=== PATIENT | female | born 1940 | race Caucasian/White ===

== ENCOUNTER 2018-04-14 12:30 | Inpatient (IN) | payer MEDICARE, BC ==
[2018-04-14] MEDS ORDERED: Acetaminophen 325 MG Tab PO PRN (15:11)
[2018-04-14] MEDS ORDERED: Magnesium Hydroxide 400 MG/5 ML Susp 30 ML Cup PO PRN (15:11)
[2018-04-14] MEDS ORDERED: Nitroglycerin 0.4 MG Tab.SL SL PRN (15:15)
--- NOTE | 2018-04-14 15:29 | PCM.HP ---
H&P History of Present Illness - General Date of Service: 04/14/18 Admit Problem/Dx: Admission Diagnosis/Problem Admission Diagnosis/Problem CHF, Congestive heart failure Source of Information: Patient, Senior Living Records, Provider - History of Present Illness Initial Comments - Free Text/Narative: Stephy Mcguire provider at [facility] clinic called me reporting patient has progressive shortness of breath and 3+ edema. Patient has hx of CHF, Stage 3 kidney disease, COPD, recent left shoulder fracture (end of January 2018). Chest x ray reveals CHF exacerbation. Onset of Symptoms: Reports: Gradual Duration of Symptoms: Reports: Day(s): Improves with: Reports: None Worsens with: Reports: Movement - Related Data Allergies/Adverse Reactions: Allergies Allergy/AdvReac Type Severity Reaction Status Date / Time VIJAYA Inhibitors Allergy Other Verified 03/04/18 12:22 losartan Allergy Cannot Verified 03/05/18 04:18 Remember Home Medications: Home Meds Acetaminophen 1,000 mg PO Q8H 03/04/18 [History] Albuterol [Ventolin HFA] 2 puff INH Q4H PRN 03/04/18 [History] Allopurinol [Zyloprim] 100 mg PO DAILY 03/04/18 [History] Cholecalciferol (Vitamin D3) [D3-2000] 2,000 mg PO DAILY 03/04/18 [History] Fenofibrate Nanocrystallized [Fenofibrate] 145 mg PO DAILY 03/04/18 [History] Furosemide 40 mg PO BID 03/04/18 [History] Gabapentin [Neurontin] 100 mg PO TID 03/04/18 [History] Isosorbide Mononitrate [Imdur] 60 mg PO DAILY 03/04/18 [History] Metoprolol Succinate [Toprol XL] 75 mg PO BID 03/04/18 [History] Nitroglycerin [Nitrostat] 0.4 mg SL ASDIRECTED 03/04/18 [History] Sennosides/Docusate Sodium [Dok Plus Tablet] 1 tab PO BID PRN 03/04/18 [History] Simvastatin 20 mg PO BEDTIME 03/04/18 [History] cloNIDine [Catapres-TTS 3] 1 patch TOP WEEKLY 03/04/18 [History] dilTIAZem HCl [Diltiazem 24Hr Cd] 120 mg PO DAILY 03/04/18 [History] hydrALAZINE HCl [Hydralazine HCl] 100 mg PO TID 03/04/18 [History] oxyCODONE 2.5 mg PO Q4H PRN 03/04/18 [History] Apixaban [Eliquis] 5 mg PO BID 04/14/18 [History] Ascorbate Calcium [Vitamin C] 0.5 tab PO BID 04/14/18 [History] Ferrous Sulfate 1 tab PO BID 04/14/18 [History] Lidocaine [Lidocaine 5%] 1 patch TOP DAILY 04/14/18 [History] Melatonin 3 mg PO BEDTIME 04/14/18 [History] Mometasone/Formoterol [Dulera 200-5 MCG] 2 inh INH BID 04/14/18 [History] Potassium Chloride [Klor-Con 10] 10 meq PO BID 04/14/18 [History] Past Medical History HEENT History: Reports: Cataract, Impaired Vision, Other (See Below) Other HEENT History: Full upper dentures; partial lower dentures Cardiovascular History: Reports: CAD, Heart Failure, High Cholesterol, Hypertension, PA, Other (See Below) Other Cardiovascular History: Carotid artery disease Respiratory History: Reports: COPD, Other (See Below) Other Respiratory History: Oxygen dependent COPD Genitourinary History: Reports: Chronic Renal Insuffiency, Urinary Incontinence [employer] History: Reports: Musculoskeletal History: Reports: Arthritis, Fracture, Gout, Osteoarthritis, Other (See Below) Other Musculoskeletal History: Left humerus fracture, left pelvic ramus fx both without surgical repair Neurological History: Reports: CVA Endocrine/Metabolic History: Reports: Vitamin D Deficiency Hematologic History: Reports: Anemia Dermatologic History: Reports: Other (See Below) Other Dermatologic History: Chronic dry, 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 - Infectious Disease History Infectious Disease History: Reports: Measles, Mumps - Past Surgical History Cardiovascular Surgical History: Reports: Carotid Endarterectomy, Coronary Artery Stent Female Surgical History: Reports: Breast Biopsy, Other (See Below) Other Female Surgeries/Procedures: Lumpectomy Social & Family History - Family History HEENT: Reports: Impaired Vision Cardiac: Reports: High Cholesterol, Hypertension Respiratory: Reports: Asthma Other GI Family History: colon cancer-mother Musculoskeletal: Reports: Arthritis, Osteoarthritis Psychiatric: Reports: None Endocrine/Metabolic: Reports: Diabetes, type II Hematologic: Reports: Anemia Other Hematologic Family History: leukemia-sister Immunologic: Reports: None Dermatologic: Reports: None Oncologic: Reports: Leukemia - Caffeine Use Caffeine Use: Reports: None H&P Review of Systems - Review of Systems: Review Of Systems: See Below General: Reports: Weakness, Fatigue HEENT: Reports: No Symptoms Pulmonary: Reports: Shortness of Breath, Wheezing Cardiovascular: Reports: Dyspnea on Exertion. Denies: Chest Pain, Palpitations Gastrointestinal: Reports: No Symptoms Genitourinary: Reports: No Symptoms Musculoskeletal: Reports: Shoulder Pain (shoulder pain- recent fracture at end of January 2018. Currently in an immobilizer) Skin: Reports: No Symptoms Psychiatric: Reports: No Symptoms Neurological: Reports: No Symptoms Hematologic/Lymphatic: Reports: No Symptoms Immunologic: Reports: No Symptoms Exam - Exam Exam: See Below - Vital Signs Vital Signs: Last Vital Signs Temp 97.9 F 04/14/18 14:08 Pulse 57 L 04/14/18 14:08 Resp 21 H 04/14/18 14:08 BP 151/45 H 04/14/18 14:08 Pulse Ox 92 L 04/14/18 14:08 Weight: 163 lb 12.8 oz - Exam Quality Assessment: Supplemental Oxygen General: Alert, Oriented, 4 HEENT: PERRLA, Hearing Intact, Mucosa Moist & [place], Nares Patent, Normal Nasal Septum, Posterior Pharynx Clear, Conjunctiva Clear, EOMI, EACs Clear, TMs Clear Neck: Supple, Trachea Midline, 2 Lungs: Decreased Breath Sounds, Rales (bilateral), Wheezing Cardiovascular: Regular Rate, Regular Rhythm. No: Tachycardia GI/Abdominal Exam: Normal Bowel Sounds, Soft, Tender (on right side) (Female) Exam: Deferred Rectal (Female) Exam: Deferred Extremities: Normal Inspection, Normal Range of Motion, Non-Tender, Arm Pain ( Left arm shoulder- fracture in January 2018; currently in an immobilizer), Other (Edema 3+ bilateral, SCDs ordered ; remove JUDI hose. ) Skin: Warm, Dry, Intact Psychiatric: Alert, Normal Affect, Normal Mood - Problem List (1) Humerus surgical neck fracture SNOMED Code(s): 874274693 ICD Code: S42.213A - UNSP DISP FX OF SURGICAL NECK OF UNSP HUMERUS, INIT Status: Acute Priority: High Current Visit: No Problem Details: Currently in immobilizer. Stable. Pain meds PRN. Fracture from January 2018. Qualifiers: Encounter type: subsequent encounter Fracture type: closed Fracture morphology: unspecified fracture morphology Fracture alignment: displaced Laterality: left Fracture healing: with routine healing (2) CKD (chronic kidney disease) stage 3, GFR 30-59 ml/min SNOMED Code(s): 482522986 ICD Code: N18.3 - CHRONIC KIDNEY DISEASE, STAGE 3 (MODERATE) Status: Acute Priority: Medium Current Visit: No (3) CHF (congestive heart failure) SNOMED Code(s): 55858454 ICD Code: I50.9 - HEART FAILURE, UNSPECIFIED Status: Acute Priority: Medium Current Visit: No Problem Details: Lasix IV ordered BID. Strict intake and output. Qualifiers: Heart failure type: combined systolic and diastolic Heart failure chronicity: acute on chronic Qualified Code(s): I50.43 - Acute on chronic combined systolic (congestive) and diastolic (congestive) heart failure (4) Anemia SNOMED Code(s): 662738399 ICD Code: D64.9 - ANEMIA, UNSPECIFIED Status: Acute Priority: High Current Visit: No Problem Details: Chronic and Stable. Qualifiers: Anemia type: due to chronic kidney disease Chronic kidney disease stage: stage 3 (moderate) Qualified Code(s): N18.3 - Chronic kidney disease, stage 3 (moderate); D63.1 - Anemia in chronic kidney disease (5) Shortness of breath SNOMED Code(s): 438606133 ICD Code: R06.02 - SHORTNESS OF BREATH Status: Acute Priority: High Current Visit: No Onset Date: 03/21/18 Problem Details: Feel this is related to CHF. Chest x ray revealed CHF exacerbation. Will diurese patient. Problem List Initiated/Reviewed/Updated: Yes Orders Last 24hrs: Active Orders 24 hr Category Date Time Status Admission Status [Patient Status] [ADT] Routine ADT 04/14/18 13:50 Active Communication Order [RC] STAT Care 04/14/18 15:18 Ordered Communication, Vaccine [RC] PER UNIT ROUTINE Care 04/14/18 15:14 Ordered Espinoza Catheter Insertion [Insert Urinary Catheter] [OM. Care 04/14/18 15:30 Ordered PC] Q24H Height and Weight [RC] DAILY Care 04/14/18 15:11 Ordered Height and Weight [RC] UPON Care 04/14/18 15:11 Ordered Immobilizer [RC] ASDIRECTED Care 04/14/18 15:22 Ordered Intake and Output [RC] QSHIFT Care 04/14/18 15:13 Ordered Up With Assistance [RC] ASDIRECTED Care 04/14/18 15:11 Ordered Urinary Catheter Assessment [RC] ASDIRECTED Care 04/14/18 15:23 Ordered Vaccines to be Administered [RC] PER UNIT ROUTINE Care 04/14/18 15:14 Ordered Vital Signs [RC] Q8HR Care 04/14/18 15:12 Ordered Heart Healthy Diet [DIET] Diet 04/14/18 Dinner Ordered Chest 2V [CR] Routine Exams 04/14/18 12:20 Taken Chest 2V [CR] Routine Exams 04/16/18 05:11 Ordered CBC WITH AUTO DIFF [HEME] AM Lab 04/15/18 05:11 Ordered CBC WITH AUTO DIFF [HEME] AM Lab 04/16/18 05:11 Ordered CBC WITH AUTO DIFF [HEME] AM Lab 04/17/18 05:11 Ordered COMPREHENSIVE METABOLIC PN,CMP [CHEM] DAILY Lab 04/15/18 05:11 Ordered COMPREHENSIVE METABOLIC PN,CMP [CHEM] DAILY Lab 04/16/18 05:11 Ordered COMPREHENSIVE METABOLIC PN,CMP [CHEM] DAILY Lab 04/17/18 05:11 Ordered D-DIMER QUANTITATIVE [COAG] Routine Lab 04/15/18 05:11 Ordered PRO B-TYPE NATRIUR PEPT,BNPPRO [CHEM] DAILY Lab 04/15/18 05:11 Ordered Acetaminophen [Tylenol Extra Strength] Med 04/14/18 15:15 Ordered 1,000 mg PO Q8H Albuterol Med 04/14/18 15:15 Ordered 2 puff INH Q4H PRN Apixaban [Eliquis] Med 04/14/18 18:00 Ordered 5 mg PO BID Ascorbate Calcium [Vitamin C] Med 04/14/18 18:00 Ordered 0.5 tab PO BID Cholecalciferol (Vitamin D3) [D3-2000] Med 04/15/18 08:00 Ordered 2,000 mg PO DAILY Diltiazem [Cardizem CD] Med 04/15/18 08:00 Ordered 120 mg PO DAILY Docusate Sodium/Sennosides [Senna Plus] Med 04/14/18 15:15 Ordered 1 tab PO BID PRN Fenofibrate Nanocrystallized [Fenofibrate] Med 04/15/18 08:00 Ordered 145 mg PO DAILY Ferrous Sulfate Med 04/14/18 18:00 Ordered 1 tab PO BID Furosemide [Lasix] Med 04/14/18 16:00 Ordered 40 mg IVPUSH BID Gabapentin [Neurontin] Med 04/14/18 18:00 Ordered 100 mg PO TID Isosorbide Mononitrate [Imdur] Med 04/15/18 08:00 Ordered 60 mg PO DAILY Lidocaine 5% [Lidoderm 5%] Med 04/15/18 08:00 Ordered 1 patch TOP DAILY Magnesium Hydroxide [Milk of Magnesia] Med 04/14/18 15:11 Ordered 30 ml PO BID PRN Melatonin Med 04/14/18 20:00 Ordered 3 mg PO BEDTIME Metoprolol Succinate [Toprol XL] Med 04/14/18 18:00 Ordered 75 mg PO BID Mometasone/Formoterol [Dulera 200-5 MCG] Med 04/14/18 18:00 Ordered 2 puff IH BID Nitroglycerin [Nitrostat] Med 04/14/18 15:15 Ordered 0.4 mg SL ASDIRECTED Potassium Chloride [Klor-Con 10] Med 04/14/18 18:00 Ordered 10 meq PO BID Simvastatin [Zocor] Med 04/14/18 20:00 Ordered 20 mg PO BEDTIME cloNIDine Med 04/14/18 15:15 Ordered 1 patch TOP WEEKLY hydrALAZINE HCl [Hydralazine HCl] Med 04/14/18 18:00 Ordered 100 mg PO TID oxyCODONE Med 04/14/18 15:15 Ordered 2.5 mg PO Q4H PRN GM Immunization Reflex [OM.PC] Click To Edit Oth 04/14/18 15:11 Ordered Sequential Compression Device [OM.PC] Routine Oth 04/14/18 15:18 Ordered Resuscitation Status Routine Resus Stat 04/14/18 15:11 Ordered Medication Orders Acetaminophen (Tylenol Extra Strength) 1,000 mg PO Q8H [facility] Apixaban (Eliquis) 5 mg PO BID [facility] Diltiazem HCl (Cardizem Cd) 120 mg PO DAILY [facility] Ferrous Sulfate (Ferrous Sulfate) mg PO BID [facility] Furosemide (Lasix) 40 mg IVPUSH BID [facility] Gabapentin (Neurontin) 100 mg PO TID [facility] Isosorbide Mononitrate (Imdur) 60 mg PO DAILY [facility] Lidocaine (Lidoderm 5%) mg TOP DAILY [facility] Magnesium Hydroxide (Milk Of Magnesia) 30 ml PO BID PRN PRN Reason: Constipation Melatonin (Melatonin) 3 mg PO BEDTIME [facility] Metoprolol Succinate (Toprol Xl) 75 mg PO BID [facility] Mometasone Furoate/Formoterol Fumar (Dulera 200-5 Mcg) 2 puff IH BID [facility] Nitroglycerin (Nitrostat) 0.4 mg SL ASDIRECTED [facility] Non-Formulary Medication (Albuterol) 2 puff INH Q4H PRN PRN Reason: Wheezing Non-Formulary Medication (Ascorbate Calcium [Vitamin C]) 0.5 tab PO BID [facility] Non-Formulary Medication (Cholecalciferol (Vitamin D3) [D3-2000]) 2,000 mg PO DAILY [facility] Non-Formulary Medication (Clonidine) 1 patch TOP WEEKLY [facility] Non-Formulary Medication (Fenofibrate Nanocrystallized [Fenofibrate]) 145 mg PO DAILY [facility] Non-Formulary Medication (Hydralazine Hcl [Hydralazine Hcl]) 100 mg PO TID [facility] Oxycodone HCl (Oxycodone) 2.5 mg PO Q4H PRN PRN Reason: Pain Potassium Chloride (Klor-Con 10) 10 meq PO BID [facility] Senna/Docusate Sodium (Senna Plus) 1 tab PO BID PRN PRN Reason: Constipation Simvastatin (Zocor) 20 mg PO BEDTIME [facility]
[2018-04-14] MEDS ORDERED: Albuterol 8 GM Inhaler INH PRN (15:48)
[2018-04-14] MEDS: Acetaminophen 500 MG Tab PO SCH (16:32)
[2018-04-14] MEDS: Furosemide 40 MG/4 ML VIAL IVPUSH SCH (16:32)
[2018-04-14] MEDS: Ascorbic Acid 500 MG Tab PO SCH (17:18)
[2018-04-14] MEDS: Metoprolol Succinate 25 MG Tab.ER PO SCH (17:19)
[2018-04-14] MEDS: hydrALAZINE 50 MG Tab PO SCH (17:19)
[2018-04-14] MEDS: Potassium Chloride 10 MEQ Tab.ER PO SCH (17:20)
[2018-04-14] MEDS: Gabapentin 100 MG Cap PO SCH (17:20)
[2018-04-14] MEDS: Formoterol/Mometasone 200-5 MCG 8.8 GM Inhaler IH SCH (17:20)
[2018-04-14] MEDS: Apixaban 5 MG Tab PO SCH (17:20)
[2018-04-14] MEDS: Ferrous Sulfate 325 MG Tab PO SCH (17:20)
[2018-04-14] MEDS: Simvastatin 20 MG Tab PO SCH (20:13)
[2018-04-14] MEDS: Melatonin 3 MG Tab PO SCH (20:13)
[2018-04-15] MEDS: Acetaminophen 500 MG Tab PO SCH ×3 (02:53→15:47)
[2018-04-15] MEDS: hydrALAZINE 50 MG Tab PO SCH ×3 (08:32→17:58)
[2018-04-15] MEDS: Ferrous Sulfate 325 MG Tab PO SCH ×2 (08:32→17:50)
[2018-04-15] MEDS: Diltiazem 120 MG Cap.CD PO SCH (08:33)
[2018-04-15] MEDS: Formoterol/Mometasone 200-5 MCG 8.8 GM Inhaler IH SCH ×2 (08:33→17:48)
[2018-04-15] MEDS: Potassium Chloride 10 MEQ Tab.ER PO SCH ×2 (08:34→17:50)
[2018-04-15] MEDS: Isosorbide Mononitrate 60 MG Tab.ER PO SCH (08:34)
[2018-04-15] MEDS: Fenofibrate,Micronized 134 MG Cap PO SCH (08:34)
[2018-04-15] MEDS: Apixaban 5 MG Tab PO SCH ×2 (08:34→17:49)
[2018-04-15] MEDS: Metoprolol Succinate 25 MG Tab.ER PO SCH ×2 (08:35→17:59)
[2018-04-15] MEDS: Furosemide 40 MG/4 ML VIAL IVPUSH SCH ×2 (08:35→11:44)
[2018-04-15] MEDS: Gabapentin 100 MG Cap PO SCH ×3 (08:35→17:49)
[2018-04-15] MEDS: Cholecalciferol (Vitamin D3) 1,000 Unit Tab PO SCH (08:36)
[2018-04-15] MEDS: Ascorbic Acid 500 MG Tab PO SCH ×2 (08:36→17:50)
[2018-04-15] MEDS: Lidocaine 5% 700 MG Patch TOP SCH (08:37)
[2018-04-15] MEDS: Sodium Chloride 0.9% 10 ML Syringe FLUSH PRN ×2 (08:39→11:47)
[2018-04-15] MEDS: Lidocaine 5% 700 MG Patch TRDERM SCH (11:45)
--- NOTE | 2018-04-15 13:21 | PCM.PN ---
- General Info Date of Service: 04/15/18 - Review of Systems General: Reports: Weakness, Fatigue HEENT: Reports: No Symptoms Pulmonary: Reports: Shortness of Breath Cardiovascular: Reports: No Symptoms Gastrointestinal: Reports: No Symptoms Genitourinary: Reports: No Symptoms Musculoskeletal: Reports: Shoulder Pain (left shoulder) Skin: Reports: No Symptoms Neurological: Reports: No Symptoms Psychiatric: Reports: No Symptoms - Patient Data Vitals - Most Recent: Last Vital Signs Temp 98.2 F 04/15/18 08:00 Pulse 69 04/15/18 08:35 Resp 16 04/15/18 08:00 BP 142/63 H 04/15/18 11:45 Pulse Ox 93 L 04/15/18 08:00 Weight - Most Recent: 157 lb 12.8 oz I&O - Last 24 Hours: Intake & Output 04/14/18 04/15/18 04/15/18 22:59 06:59 14:59 Intake Total 240 300 100 Output Total 650 900 Balance -410 -600 100 Lab Results Last 24 Hours: Laboratory Results - last 24 hr 04/15/18 04/15/18 04/15/18 Range/Units 07:20 07:20 07:20 WBC 7.1 (4.0-10.2) K/uL RBC 2.63 L (3.77-5.09) M/uL Hgb 7.6 L (11.7-15.5) g/dL Hct 25.2 L (34.0-46.0) % MCV 95.8 D (84.0-98.0) fL MCH 28.9 (28.2-33.3) pg MCHC 30.2 L (31.7-36.0) g/dL RDW 15.5 H (11.2-14.1) % Plt Count 221 (150-350) K/uL Neut % (Auto) 70.7 (45.0-80.0) % Lymph % (Auto) 18.6 (10.0-50.0) % [place] % (Auto) 8.7 (2.0-14.0) % Eos % (Auto) 1.7 (0.0-5.0) % Baso % (Auto) 0.3 (0.0-2.0) % Neut # (Auto) 5.01 (1.40-7.00) K/uL Lymph # (Auto) 1.32 (0.50-3.50) K/uL [place] # (Auto) 0.62 (0.00-1.00) K/uL Eos # (Auto) 0.12 (0.00-0.50) K/uL Baso # (Auto) 0.02 (0.00-0.20) K/uL D-Dimer, Quantitative 1200 H (0-400) ng/mL Sodium 144 (136-145) mmol/L Potassium 3.8 (3.5-5.1) mmol/L Chloride 99 (98-107) mmol/L Carbon Dioxide 40.7 H* (21.0-32.0) mmol/L BUN 59 H (7-18) mg/dL Creatinine 1.51 H (0.51-1.17) mg/dL Est Cr Clr Drug Dosing 26.51 mL/min Estimated GFR (MDRD) 33 mL/min Glucose 109 H (74-106) mg/dL Calcium 9.3 (8.5-10.1) mg/dL Total Bilirubin 0.4 (0.2-1.0) mg/dL AST 80 H (15-37) U/L ALT 61 (12-78) U/L Alkaline Phosphatase 53 (46-116) IU/L NT-Pro-B Natriuret Pep 7233 H (0-125) pg/mL Total Protein 6.1 L (6.4-8.2) g/dL Albumin 2.8 L (3.4-5.0) g/dL Med Orders - Current: Current Medications Acetaminophen (Tylenol Extra Strength) 1,000 mg PO Q8HR [facility] Last Admin: 04/15/18 08:36 Dose: 1,000 mg Albuterol (Ventolin Hfa) 0 gm INH Q4H PRN PRN Reason: Wheezing Apixaban (Eliquis) 5 mg PO BID [facility] Last Admin: 04/15/18 08:34 Dose: 5 mg Ascorbic Acid (Vitamin C) 250 mg PO BID [facility] Last Admin: 04/15/18 08:36 Dose: 250 mg Cholecalciferol (Vitamin D3) 2,000 units PO DAILY [facility] Last Admin: 04/15/18 08:36 Dose: 2,000 units Diltiazem HCl (Cardizem Cd) 120 mg PO DAILY [facility] Last Admin: 04/15/18 08:33 Dose: 120 mg Fenofibrate (Fenofibrate) 134 mg PO DAILY [facility] Last Admin: 04/15/18 08:34 Dose: 134 mg Ferrous Sulfate (Ferrous Sulfate) 325 mg PO BIDMEALS [facility] Last Admin: 04/15/18 08:32 Dose: 325 mg Furosemide (Lasix) 40 mg IVPUSH BIDDIURETIC [facility] Last Admin: 04/15/18 11:44 Dose: 40 mg Gabapentin (Neurontin) 100 mg PO TID [facility] Last Admin: 04/15/18 11:45 Dose: 100 mg Hydralazine HCl (Apresoline) 100 mg PO TID [facility] Last Admin: 04/15/18 11:45 Dose: 100 mg Isosorbide Mononitrate (Imdur) 60 mg PO DAILY [facility] Last Admin: 04/15/18 08:34 Dose: 60 mg Lidocaine (Lidoderm 5%) 700 mg TOP DAILY [facility] Last Admin: 04/15/18 08:37 Dose: 700 mg Lidocaine (Lidoderm 5%) 700 mg TRDERM DAILY [facility] Last Admin: 04/15/18 11:45 Dose: 700 mg Magnesium Hydroxide (Milk Of Magnesia) 30 ml PO BID PRN PRN Reason: Constipation Melatonin (Melatonin) 3 mg PO BEDTIME [facility] Last Admin: 04/14/18 20:13 Dose: 3 mg Metoprolol Succinate (Toprol Xl) 75 mg PO BID [facility] Last Admin: 04/15/18 08:35 Dose: 75 mg Miscellaneous Information (Remove Patch) 1 ea TRDERM BEDTIME [facility] Last Admin: 04/14/18 20:14 Dose: Not Given Miscellaneous Information (Remove Patch) 1 ea TRDERM BEDTIME [facility] Mometasone Furoate/Formoterol Fumar (Dulera 200-5 Mcg) 2 puff IH BID [facility] Last Admin: 04/15/18 08:33 Dose: 2 puff Nitroglycerin (Nitrostat) 0.4 mg SL ASDIRECTED PRN PRN Reason: Chest Pain Clonidine 0.3mg/24hr (Patch) 1 patch TOP Sa@0800 [facility] Oxycodone HCl (Oxycodone) 2.5 mg PO Q4H PRN PRN Reason: Pain Potassium Chloride (Klor-Con 10) 10 meq PO BID [facility] Last Admin: 04/15/18 08:34 Dose: 10 meq Senna/Docusate Sodium (Senna Plus) 1 tab PO BID PRN PRN Reason: Constipation Last Admin: 04/14/18 17:20 Dose: 1 tab Simvastatin (Zocor) 20 mg PO BEDTIME [facility] Last Admin: 04/14/18 20:13 Dose: 20 mg Sodium Chloride (Saline Flush) 10 ml FLUSH ASDIRECTED PRN PRN Reason: Keep Vein Open Last Admin: 04/15/18 11:47 Dose: 10 ml Discontinued Medications Acetaminophen (Tylenol) 650 mg PO Q4H PRN PRN Reason: analgesia/fever - Exam General: Alert, Oriented HEENT: Pupils Equal, Pupils Reactive, EOMI, Mucous Membr. Moist/[place] Neck: Supple Lungs: Clear to Auscultation, Normal Respiratory Effort Cardiovascular: Regular Rate, Regular Rhythm GI/Abdominal Exam: Normal Bowel Sounds, Soft, Non-Tender, No Organomegaly, No Distention, No Abnormal Bruit, No Mass, Pelvis Stable. No: Tender (Female) Exam: Deferred Back Exam: Normal Inspection, Full Range of Motion Extremities: Pedal Edema (improving 1+ ) Skin: Warm, Dry, Intact Neurological: No New Focal Deficit Psy/Mental Status: Alert, Normal Affect, Normal Mood - Problem List & Annotations (1) Humerus surgical neck fracture SNOMED Code(s): 711510427 Code(s): S42.213A - UNSP DISP FX OF SURGICAL NECK OF UNSP HUMERUS, INIT Status: Acute Priority: High Current Visit: No Qualifiers: Encounter type: subsequent encounter Fracture type: closed Fracture morphology: unspecified fracture morphology Fracture alignment: displaced Laterality: left Fracture healing: with routine healing Annotation/Comment:: Currently in immobilizer. Stable. Pain meds PRN. Fracture from January 2018. (2) CKD (chronic kidney disease) stage 3, GFR 30-59 ml/min SNOMED Code(s): 587743330 Code(s): N18.3 - CHRONIC KIDNEY DISEASE, STAGE 3 (MODERATE) Status: Acute Priority: Medium Current Visit: No (3) CHF (congestive heart failure) SNOMED Code(s): 13292416 Code(s): I50.9 - HEART FAILURE, UNSPECIFIED Status: Acute Priority: Medium Current Visit: No Qualifiers: Heart failure type: combined systolic and diastolic Heart failure chronicity: acute on chronic Qualified Code(s): I50.43 - Acute on chronic combined systolic (congestive) and diastolic (congestive) heart failure Annotation/Comment:: Lasix IV ordered BID. Strict intake and output. 04-15-18- Patient reports doing better. Will continue diuresis. Chest X ray in AM. (4) Anemia SNOMED Code(s): 643246032 Code(s): D64.9 - ANEMIA, UNSPECIFIED Status: Acute Priority: High Current Visit: No Qualifiers: Anemia type: due to chronic kidney disease Chronic kidney disease stage: stage 3 (moderate) Qualified Code(s): N18.3 - Chronic kidney disease, stage 3 (moderate); D63.1 - Anemia in chronic kidney disease Annotation/Comment:: Chronic and Stable. (5) Shortness of breath SNOMED Code(s): 945190016 Code(s): R06.02 - SHORTNESS OF BREATH Status: Acute Priority: High Current Visit: No Onset Date: 03/21/18 Annotation/Comment:: Feel this is related to CHF. Chest x ray revealed CHF exacerbation. Will diurese patient. 04-15-18- Improving; will order chest x ray in the morning - Problem List Review Problem List Initiated/Reviewed/Updated: Yes - My Orders Last 24 Hours: My Active Orders 04/14/18 13:50 Admission Status [Patient Status] [ADT] Routine 04/14/18 15:11 Height and Weight [RC] DAILY Up With Assistance [RC] ASDIRECTED Magnesium Hydroxide [Milk of Magnesia] 30 ml PO BID PRN GM Immunization Reflex [OM.PC] Click To Edit Resuscitation Status Routine 04/14/18 15:12 Vital Signs [RC] 08,16,00 04/14/18 15:13 Intake and Output [RC] 06,14,04/14/18 15:15 Docusate Sodium/Sennosides [Senna Plus] 1 tab PO BID PRN Nitroglycerin [Nitrostat] 0.4 mg SL ASDIRECTED PRN oxyCODONE 2.5 mg PO Q4H PRN 04/14/18 15:18 Communication Order [RC] 08,20 Sequential Compression Device [OM.PC] Routine 04/14/18 15:22 Immobilizer [RC] ,04/14/18 15:23 Urinary Catheter Assessment [RC] 08,20 04/14/18 15:30 Espinoza Catheter Insertion [Insert Urinary Catheter] [OM.PC] Q24H 04/14/18 15:48 Albuterol [Ventolin HFA] 0 gm INH Q4H PRN 04/14/18 16:00 Acetaminophen [Tylenol Extra Strength] 1,000 mg PO Q8HR Furosemide [Lasix] 40 mg IVPUSH BIDDIURETIC 04/14/18 16:34 Peripheral IV Care [RC] 08,20 Sodium Chloride 0.9% [Saline Flush] 10 ml FLUSH ASDIRECTED PRN Peripheral IV Insertion Adult [OM.PC] Routine 04/14/18 17:30 Ferrous Sulfate 325 mg PO BIDMEALS 04/14/18 18:00 Apixaban [Eliquis] 5 mg PO BID Ascorbic Acid [Vitamin C] 250 mg PO BID Gabapentin [Neurontin] 100 mg PO TID Metoprolol Succinate [Toprol XL] 75 mg PO BID Mometasone/Formoterol [Dulera 200-5 MCG] 2 puff IH BID Potassium Chloride [Klor-Con 10] 10 meq PO BID hydrALAZINE [Apresoline] 100 mg PO TID 04/14/18 20:00 Melatonin 3 mg PO BEDTIME Remove Patch 1 ea TRDERM BEDTIME Simvastatin [Zocor] 20 mg PO BEDTIME 04/14/18 Dinner Heart Healthy Diet [DIET] 04/15/18 06:47 PT Evaluation and Treatment [CONS] Routine 04/15/18 06:48 OT Evaluation and Treatment [CONS] Routine 04/15/18 08:00 Cholecalciferol (Vitamin D3) [Vitamin D3] 2,000 units PO DAILY Diltiazem [Cardizem CD] 120 mg PO DAILY Fenofibrate,Micronized [Fenofibrate] 134 mg PO DAILY Isosorbide Mononitrate [Imdur] 60 mg PO DAILY Lidocaine 5% [Lidoderm 5%] 700 mg TOP DAILY 04/15/18 10:30 Lidocaine 5% [Lidoderm 5%] 700 mg TRDERM DAILY 04/15/18 20:00 Remove Patch 1 ea TRDERM BEDTIME 04/16/18 05:11 Chest 2V [CR] Routine CBC WITH AUTO DIFF [HEME] AM COMPREHENSIVE METABOLIC PN,CMP [CHEM] DAILY 04/17/18 05:11 CBC WITH AUTO DIFF [HEME] AM COMPREHENSIVE METABOLIC PN,CMP [CHEM] DAILY 04/19/18 08:00 cloNIDine 1 patch TOP Sa@0800
[2018-04-15] MEDS: Simvastatin 20 MG Tab PO SCH (19:35)
[2018-04-15] MEDS: Melatonin 3 MG Tab PO SCH (19:35)
[2018-04-16] MEDS: Acetaminophen 500 MG Tab PO SCH ×3 (00:24→16:46)
[2018-04-16] MEDS: oxyCODONE 5 MG Tab PO PRN ×2 (04:11→19:24)
[2018-04-16] MEDS: Formoterol/Mometasone 200-5 MCG 8.8 GM Inhaler IH SCH ×2 (09:03→17:25)
[2018-04-16] MEDS: Cholecalciferol (Vitamin D3) 1,000 Unit Tab PO SCH (09:04)
[2018-04-16] MEDS: Potassium Chloride 10 MEQ Tab.ER PO SCH ×2 (09:04→17:24)
[2018-04-16] MEDS: Diltiazem 120 MG Cap.CD PO SCH (09:04)
[2018-04-16] MEDS: Ferrous Sulfate 325 MG Tab PO SCH ×2 (09:04→16:47)
[2018-04-16] MEDS: Metoprolol Succinate 25 MG Tab.ER PO SCH ×2 (09:05→17:25)
[2018-04-16] MEDS: Gabapentin 100 MG Cap PO SCH ×3 (09:05→17:25)
[2018-04-16] MEDS: Ascorbic Acid 500 MG Tab PO SCH ×2 (09:06→17:26)
[2018-04-16] MEDS: Isosorbide Mononitrate 60 MG Tab.ER PO SCH (09:07)
[2018-04-16] MEDS: hydrALAZINE 50 MG Tab PO SCH ×3 (09:07→17:27)
[2018-04-16] MEDS: Fenofibrate,Micronized 134 MG Cap PO SCH (09:07)
[2018-04-16] MEDS: Lidocaine 5% 700 MG Patch TOP SCH (09:10)
[2018-04-16] MEDS: Furosemide 40 MG/4 ML VIAL IVPUSH SCH ×2 (09:10→12:17)
[2018-04-16] MEDS: Lidocaine 5% 700 MG Patch TRDERM SCH (09:11)
[2018-04-16] MEDS: Sodium Chloride 0.9% 10 ML Syringe FLUSH PRN ×3 (09:12→19:35)
[2018-04-16] MEDS: Apixaban 5 MG Tab PO SCH ×2 (09:12→17:24)
[2018-04-16] MEDS ORDERED: Iopamidol 755 Mg/ML 100 ML Bottle IVPUSH ONE (10:07)
[2018-04-16] MEDS ORDERED: Iopamidol 755 Mg/ML 100 ML Bottle ONE (10:10)
--- NOTE | 2018-04-16 10:10 | PCM.PN ---
- General Info Date of Service: 04/16/18 - Review of Systems General: Reports: Weakness, Fatigue HEENT: Reports: No Symptoms Pulmonary: Reports: Shortness of Breath (improving ). Denies: Pleuritic Chest Pain Cardiovascular: Reports: Edema (improving). Denies: Chest Pain Gastrointestinal: Reports: No Symptoms Genitourinary: Reports: No Symptoms Musculoskeletal: Reports: Arm Pain (left shoulder) Skin: Reports: No Symptoms Neurological: Reports: No Symptoms Psychiatric: Reports: No Symptoms - Patient Data Vitals - Most Recent: Last Vital Signs Temp 97.1 F 04/16/18 09:08 Pulse 70 04/16/18 09:05 Resp 20 04/16/18 04:11 BP 165/50 H 04/16/18 09:07 Pulse Ox 90 L 04/16/18 04:11 Weight - Most Recent: 158 lb 1.6 oz I&O - Last 24 Hours: Intake & Output 04/15/18 04/16/18 04/16/18 22:59 06:59 14:59 Intake Total 120 340 Output Total 700 410 Balance -580 -410 340 Lab Results Last 24 Hours: Laboratory Results - last 24 hr 04/16/18 04/16/18 Range/Units 07:05 07:05 WBC 8.2 (4.0-10.2) K/uL RBC 2.67 L (3.77-5.09) M/uL Hgb 7.8 L (11.7-15.5) g/dL Hct 25.7 L (34.0-46.0) % MCV 96.3 (84.0-98.0) fL MCH 29.2 (28.2-33.3) pg MCHC 30.4 L (31.7-36.0) g/dL RDW 15.6 H (11.2-14.1) % Plt Count 238 (150-350) K/uL Neut % (Auto) 70.9 (45.0-80.0) % Lymph % (Auto) 18.0 (10.0-50.0) % [place] % (Auto) 9.0 (2.0-14.0) % Eos % (Auto) 1.7 (0.0-5.0) % Baso % (Auto) 0.4 (0.0-2.0) % Neut # (Auto) 5.81 (1.40-7.00) K/uL Lymph # (Auto) 1.48 (0.50-3.50) K/uL [place] # (Auto) 0.74 (0.00-1.00) K/uL Eos # (Auto) 0.14 (0.00-0.50) K/uL Baso # (Auto) 0.03 (0.00-0.20) K/uL Sodium 143 (136-145) mmol/L Potassium 4.1 (3.5-5.1) mmol/L Chloride 99 (98-107) mmol/L Carbon Dioxide 38.5 H (21.0-32.0) mmol/L BUN 52 H (7-18) mg/dL Creatinine 1.45 H (0.51-1.17) mg/dL Est Cr Clr Drug Dosing 27.61 mL/min Estimated GFR (MDRD) 35 mL/min Glucose 124 H (74-106) mg/dL Calcium 9.6 (8.5-10.1) mg/dL Total Bilirubin 0.4 (0.2-1.0) mg/dL AST 73 H (15-37) U/L ALT 61 (12-78) U/L Alkaline Phosphatase 59 (46-116) IU/L Total Protein 6.3 L (6.4-8.2) g/dL Albumin 2.9 L (3.4-5.0) g/dL Med Orders - Current: Current Medications Acetaminophen (Tylenol Extra Strength) 1,000 mg PO Q8HR [facility] Last Admin: 04/16/18 09:08 Dose: 1,000 mg Albuterol (Ventolin Hfa) 0 gm INH Q4H PRN PRN Reason: Wheezing Apixaban (Eliquis) 5 mg PO BID [facility] Last Admin: 04/16/18 09:12 Dose: 5 mg Ascorbic Acid (Vitamin C) 250 mg PO BID [facility] Last Admin: 04/16/18 09:06 Dose: 250 mg Cholecalciferol (Vitamin D3) 2,000 units PO DAILY [facility] Last Admin: 04/16/18 09:04 Dose: 2,000 units Diltiazem HCl (Cardizem Cd) 120 mg PO DAILY [facility] Last Admin: 04/16/18 09:04 Dose: 120 mg Fenofibrate (Fenofibrate) 134 mg PO DAILY [facility] Last Admin: 04/16/18 09:07 Dose: 134 mg Ferrous Sulfate (Ferrous Sulfate) 325 mg PO BIDMEALS [facility] Last Admin: 04/16/18 09:04 Dose: 325 mg Furosemide (Lasix) 40 mg IVPUSH BIDDIURETIC [facility] Last Admin: 04/16/18 09:10 Dose: 40 mg Gabapentin (Neurontin) 100 mg PO TID [facility] Last Admin: 04/16/18 09:05 Dose: 100 mg Hydralazine HCl (Apresoline) 100 mg PO TID [facility] Last Admin: 04/16/18 09:07 Dose: 100 mg Isosorbide Mononitrate (Imdur) 60 mg PO DAILY [facility] Last Admin: 04/16/18 09:07 Dose: 60 mg Lidocaine (Lidoderm 5%) 700 mg TOP DAILY [facility] Last Admin: 04/16/18 09:10 Dose: 700 mg Lidocaine (Lidoderm 5%) 700 mg TRDERM DAILY [facility] Last Admin: 04/16/18 09:11 Dose: 700 mg Magnesium Hydroxide (Milk Of Magnesia) 30 ml PO BID PRN PRN Reason: Constipation Melatonin (Melatonin) 3 mg PO BEDTIME [facility] Last Admin: 04/15/18 19:35 Dose: 3 mg Metoprolol Succinate (Toprol Xl) 75 mg PO BID [facility] Last Admin: 04/16/18 09:05 Dose: 75 mg Miscellaneous Information (Remove Patch) 1 ea TRDERM BEDTIME [facility] Last Admin: 04/15/18 19:35 Dose: 1 ea Miscellaneous Information (Remove Patch) 1 ea TRDERM BEDTIME [facility] Last Admin: 04/15/18 19:36 Dose: 1 ea Mometasone Furoate/Formoterol Fumar (Dulera 200-5 Mcg) 2 puff IH BID [facility] Last Admin: 04/16/18 09:03 Dose: 2 puff Nitroglycerin (Nitrostat) 0.4 mg SL ASDIRECTED PRN PRN Reason: Chest Pain Clonidine 0.3mg/24hr (Patch) 1 patch TOP Sa@0800 [facility] Oxycodone HCl (Oxycodone) 2.5 mg PO Q4H PRN PRN Reason: Pain Last Admin: 04/16/18 04:11 Dose: 2.5 mg Potassium Chloride (Klor-Con 10) 10 meq PO BID [facility] Last Admin: 04/16/18 09:04 Dose: 10 meq Senna/Docusate Sodium (Senna Plus) 1 tab PO BID PRN PRN Reason: Constipation Last Admin: 04/14/18 17:20 Dose: 1 tab Simvastatin (Zocor) 20 mg PO BEDTIME [facility] Last Admin: 04/15/18 19:35 Dose: 20 mg Sodium Chloride (Saline Flush) 10 ml FLUSH ASDIRECTED PRN PRN Reason: Keep Vein Open Last Admin: 04/16/18 09:12 Dose: 10 ml Discontinued Medications Acetaminophen (Tylenol) 650 mg PO Q4H PRN PRN Reason: analgesia/fever - Exam General: Alert, Oriented HEENT: Pupils Equal, Pupils Reactive, EOMI, Mucous Membr. Moist/[place] Neck: Supple Lungs: Normal Respiratory Effort, Rales (minimal rales right base) Cardiovascular: Regular Rate, Regular Rhythm GI/Abdominal Exam: Normal Bowel Sounds, Soft, Non-Tender, No Organomegaly, No Distention, No Abnormal Bruit, No Mass, Pelvis Stable (Female) Exam: Deferred Extremities: Pedal Edema (+2 improving ) Skin: Warm, Dry, Intact Neurological: No New Focal Deficit Psy/Mental Status: Alert, Normal Affect, Normal Mood - Problem List & Annotations (1) Humerus surgical neck fracture SNOMED Code(s): 366478767 Code(s): S42.213A - UNSP DISP FX OF SURGICAL NECK OF UNSP HUMERUS, INIT Status: Acute Priority: High Current Visit: No Qualifiers: Encounter type: subsequent encounter Fracture type: closed Fracture morphology: unspecified fracture morphology Fracture alignment: displaced Laterality: left Fracture healing: with routine healing Annotation/Comment:: Currently in immobilizer. Stable. Pain meds PRN. Fracture from January 2018. (2) CKD (chronic kidney disease) stage 3, GFR 30-59 ml/min SNOMED Code(s): 308464306 Code(s): N18.3 - CHRONIC KIDNEY DISEASE, STAGE 3 (MODERATE) Status: Acute Priority: Medium Current Visit: No Annotation/Comment:: Monitoring (3) CHF (congestive heart failure) SNOMED Code(s): 20355459 Code(s): I50.9 - HEART FAILURE, UNSPECIFIED Status: Acute Priority: Medium Current Visit: No Qualifiers: Heart failure type: combined systolic and diastolic Heart failure chronicity: acute on chronic Qualified Code(s): I50.43 - Acute on chronic combined systolic (congestive) and diastolic (congestive) heart failure Annotation/Comment:: Lasix IV ordered BID. Strict intake and output. 04-15-18- Patient reports doing better. Will continue diuresis. Chest X ray in AM. 04-16-18- Will re-order d dimer; can't do ang chest due to creatinine (4) Anemia SNOMED Code(s): 472860516 Code(s): D64.9 - ANEMIA, UNSPECIFIED Status: Acute Priority: High Current Visit: No Qualifiers: Anemia type: due to chronic kidney disease Chronic kidney disease stage: stage 3 (moderate) Qualified Code(s): N18.3 - Chronic kidney disease, stage 3 (moderate); D63.1 - Anemia in chronic kidney disease Annotation/Comment:: Chronic and Stable. (5) Shortness of breath SNOMED Code(s): 388348222 Code(s): R06.02 - SHORTNESS OF BREATH Status: Acute Priority: High Current Visit: No Onset Date: 03/21/18 Annotation/Comment:: Feel this is related to CHF. Chest x ray revealed CHF exacerbation. Will diurese patient. 04-15-18- Improving; will order chest x ray in the morning 04-16-18- Improving; Ang Chest CT was ordered but due to Creatinine will need to hold off, will repeat d dimer - Problem List Review Problem List Initiated/Reviewed/Updated: Yes - My Orders Last 24 Hours: My Active Orders 04/15/18 10:30 Lidocaine 5% [Lidoderm 5%] 700 mg TRDERM DAILY 04/15/18 20:00 Remove Patch 1 ea TRDERM BEDTIME 04/16/18 05:11 Chest 2V [CR] Routine 04/16/18 10:04 CTA Chest W WO Contrast [Ang Chest] [CT] Routine 04/17/18 05:11 CBC WITH AUTO DIFF [HEME] AM COMPREHENSIVE METABOLIC PN,CMP [CHEM] DAILY PRO B-TYPE NATRIUR PEPT,BNPPRO [CHEM] Routine 04/19/18 08:00 cloNIDine 1 patch TOP Sa@0800
[2018-04-16] MEDS: Melatonin 3 MG Tab PO SCH (19:24)
[2018-04-16] MEDS: Simvastatin 20 MG Tab PO SCH (19:24)
[2018-04-17] MEDS: Acetaminophen 500 MG Tab PO SCH ×4 (01:42→23:00)
[2018-04-17] MEDS: hydrALAZINE 50 MG Tab PO SCH ×2 (07:05→11:18)
[2018-04-17] MEDS: Diltiazem 120 MG Cap.CD PO SCH (07:06)
[2018-04-17] MEDS: Metoprolol Succinate 25 MG Tab.ER PO SCH (07:06)
[2018-04-17] MEDS: Ferrous Sulfate 325 MG Tab PO SCH ×2 (07:06→17:21)
[2018-04-17] MEDS: Ascorbic Acid 500 MG Tab PO SCH ×2 (07:06→17:22)
[2018-04-17] MEDS: Fenofibrate,Micronized 134 MG Cap PO SCH (07:06)
[2018-04-17] MEDS: Furosemide 40 MG/4 ML VIAL IVPUSH SCH ×3 (07:07→17:19)
[2018-04-17] MEDS: Gabapentin 100 MG Cap PO SCH ×3 (07:07→17:21)
[2018-04-17] MEDS: Cholecalciferol (Vitamin D3) 1,000 Unit Tab PO SCH (07:07)
[2018-04-17] MEDS: Lidocaine 5% 700 MG Patch TOP SCH (07:07)
[2018-04-17] MEDS: Potassium Chloride 10 MEQ Tab.ER PO SCH ×2 (07:07→17:20)
[2018-04-17] MEDS: Lidocaine 5% 700 MG Patch TRDERM SCH (07:07)
[2018-04-17] MEDS: Isosorbide Mononitrate 60 MG Tab.ER PO SCH (07:07)
[2018-04-17] MEDS: Apixaban 5 MG Tab PO SCH ×2 (07:07→17:26)
[2018-04-17] MEDS: Formoterol/Mometasone 200-5 MCG 8.8 GM Inhaler IH SCH ×2 (07:08→17:22)
[2018-04-17] MEDS: Sodium Chloride 0.9% 10 ML Syringe FLUSH PRN (07:08)
--- NOTE | 2018-04-17 13:42 | PCM.PN ---
- General Info Date of Service: 04/14/18 Admission Dx/Problem (Free Text): Admission Diagnosis/Problem Admission Diagnosis/Problem CHF, Congestive heart failure - Review of Systems General: Reports: Other (Shortness of breath with ambulation) HEENT: Reports: No Symptoms Pulmonary: Reports: Shortness of Breath, Other (Orders of breath with ambulation ) Cardiovascular: Reports: No Symptoms Gastrointestinal: Reports: No Symptoms Genitourinary: Reports: No Symptoms Musculoskeletal: Reports: No Symptoms Skin: Reports: No Symptoms Neurological: Reports: No Symptoms Psychiatric: Reports: No Symptoms - Patient Data Vitals - Most Recent: Last Vital Signs Temp 97.9 F 04/17/18 07:04 Pulse 59 L 04/17/18 07:06 Resp 16 04/17/18 07:04 BP 155/51 H 04/17/18 07:06 Pulse Ox 99 04/17/18 07:04 Weight - Most Recent: 156 lb 8 oz I&O - Last 24 Hours: Intake & Output 04/16/18 04/17/18 04/17/18 22:59 06:59 14:59 Intake Total 220 340 470 Output Total 700 425 Balance -480 -85 470 Lab Results Last 24 Hours: Laboratory Results - last 24 hr 04/17/18 04/17/18 04/17/18 Range/Units 07:14 07:14 07:14 WBC 7.9 (4.0-10.2) K/uL RBC 2.76 L (3.77-5.09) M/uL Hgb 7.9 L (11.7-15.5) g/dL Hct 26.6 L (34.0-46.0) % MCV 96.4 (84.0-98.0) fL MCH 28.6 (28.2-33.3) pg MCHC 29.7 L (31.7-36.0) g/dL RDW 15.8 H (11.2-14.1) % Plt Count 241 (150-350) K/uL Neut % (Auto) 70.8 (45.0-80.0) % Lymph % (Auto) 17.4 (10.0-50.0) % [place] % (Auto) 9.2 (2.0-14.0) % Eos % (Auto) 2.3 (0.0-5.0) % Baso % (Auto) 0.3 (0.0-2.0) % Neut # (Auto) 5.57 (1.40-7.00) K/uL Lymph # (Auto) 1.37 (0.50-3.50) K/uL [place] # (Auto) 0.72 (0.00-1.00) K/uL Eos # (Auto) 0.18 (0.00-0.50) K/uL Baso # (Auto) 0.02 (0.00-0.20) K/uL D-Dimer, Quantitative 1600 H (0-400) ng/mL Sodium 144 (136-145) mmol/L Potassium 3.9 (3.5-5.1) mmol/L Chloride 99 (98-107) mmol/L Carbon Dioxide 40.0 H (21.0-32.0) mmol/L BUN 48 H (7-18) mg/dL Creatinine 1.44 H (0.51-1.17) mg/dL Est Cr Clr Drug Dosing 27.80 mL/min Estimated GFR (MDRD) 35 mL/min Glucose 106 (74-106) mg/dL Calcium 9.5 (8.5-10.1) mg/dL Total Bilirubin 0.4 (0.2-1.0) mg/dL AST 73 H (15-37) U/L ALT 59 (12-78) U/L Alkaline Phosphatase 57 (46-116) IU/L NT-Pro-B Natriuret Pep 7953 H (0-125) pg/mL Total Protein 6.6 (6.4-8.2) g/dL Albumin 3.0 L (3.4-5.0) g/dL Med Orders - Current: Current Medications Acetaminophen (Tylenol Extra Strength) 1,000 mg PO Q8HR [facility] Last Admin: 04/17/18 07:05 Dose: 1,000 mg Albuterol (Ventolin Hfa) 0 gm INH Q4H PRN PRN Reason: Wheezing Apixaban (Eliquis) 5 mg PO BID [facility] Last Admin: 04/17/18 07:07 Dose: 5 mg Ascorbic Acid (Vitamin C) 250 mg PO BID [facility] Last Admin: 04/17/18 07:06 Dose: 250 mg Cholecalciferol (Vitamin D3) 2,000 units PO DAILY [facility] Last Admin: 04/17/18 07:07 Dose: 2,000 units Diltiazem HCl (Cardizem Cd) 120 mg PO DAILY [facility] Last Admin: 04/17/18 07:06 Dose: 120 mg Fenofibrate (Fenofibrate) 134 mg PO DAILY [facility] Last Admin: 04/17/18 07:06 Dose: 134 mg Ferrous Sulfate (Ferrous Sulfate) 325 mg PO BIDMEALS [facility] Last Admin: 04/17/18 07:06 Dose: 325 mg Furosemide (Lasix) 40 mg IVPUSH TID [facility] Gabapentin (Neurontin) 100 mg PO TID [facility] Last Admin: 04/17/18 11:17 Dose: 100 mg Hydralazine HCl (Apresoline) 100 mg PO TID [facility] Last Admin: 04/17/18 11:18 Dose: Not Given Isosorbide Mononitrate (Imdur) 60 mg PO DAILY [facility] Last Admin: 04/17/18 07:07 Dose: 60 mg Lidocaine (Lidoderm 5%) 700 mg TOP DAILY [facility] Last Admin: 04/17/18 07:07 Dose: 700 mg Lidocaine (Lidoderm 5%) 700 mg TRDERM DAILY [facility] Last Admin: 04/17/18 07:07 Dose: 700 mg Magnesium Hydroxide (Milk Of Magnesia) 30 ml PO BID PRN PRN Reason: Constipation Melatonin (Melatonin) 3 mg PO BEDTIME [facility] Last Admin: 04/16/18 19:24 Dose: 3 mg Metoprolol Succinate (Toprol Xl) 75 mg PO BID [facility] Last Admin: 04/17/18 07:06 Dose: 75 mg Miscellaneous Information (Remove Patch) 1 ea TRDERM BEDTIME [facility] Last Admin: 04/16/18 19:25 Dose: 1 ea Miscellaneous Information (Remove Patch) 1 ea TRDERM BEDTIME [facility] Last Admin: 04/16/18 19:25 Dose: 1 ea Mometasone Furoate/Formoterol Fumar (Dulera 200-5 Mcg) 2 puff IH BID [facility] Last Admin: 04/17/18 07:08 Dose: 2 puff Nitroglycerin (Nitrostat) 0.4 mg SL ASDIRECTED PRN PRN Reason: Chest Pain Clonidine 0.3mg/24hr (Patch) 1 patch TOP Sa@0800 [facility] Oxycodone HCl (Oxycodone) 2.5 mg PO Q4H PRN PRN Reason: Pain Last Admin: 04/16/18 19:24 Dose: 2.5 mg Potassium Chloride (Klor-Con 10) 10 meq PO BID [facility] Last Admin: 04/17/18 07:07 Dose: 10 meq Senna/Docusate Sodium (Senna Plus) 1 tab PO BID PRN PRN Reason: Constipation Last Admin: 04/14/18 17:20 Dose: 1 tab Simvastatin (Zocor) 20 mg PO BEDTIME [facility] Last Admin: 04/16/18 19:24 Dose: 20 mg Sodium Chloride (Saline Flush) 10 ml FLUSH ASDIRECTED PRN PRN Reason: Keep Vein Open Last Admin: 04/17/18 07:08 Dose: 10 ml Discontinued Medications Acetaminophen (Tylenol) 650 mg PO Q4H PRN PRN Reason: analgesia/fever Furosemide (Lasix) 40 mg IVPUSH BIDDIURETIC [facility] Last Admin: 04/17/18 11:17 Dose: 40 mg Iopamidol (Isovue-370 (76%)) 100 ml IVPUSH ONETIME ONE Stop: 04/16/18 10:08 Last Admin: 04/16/18 15:08 Dose: Not Given Iopamidol (Isovue-370 (76%)) Confirm Administered Dose 100 ml .ROUTE .STK-MED ONE Stop: 04/16/18 10:11 Last Admin: 04/16/18 15:08 Dose: Not Given Comments:: At this time patient states that she still short of breath with ambulation but feeling much better than when she arrived - Exam Quality Assessment: Supplemental Oxygen (Patient is oxygen dependent 3 L nasal cannula) General: Alert, Oriented HEENT: Pupils Equal, Pupils Reactive, EOMI, Mucous Membr. Moist/[place] Neck: Supple Lungs: Clear to Auscultation, Decreased Breath Sounds GI/Abdominal Exam: Normal Bowel Sounds, Soft, Non-Tender, No Organomegaly, No Distention, No Abnormal Bruit, No Mass, Pelvis Stable (Female) Exam: Deferred Back Exam: Normal Inspection, Full Range of Motion Extremities: Pedal Edema (2+) Skin: Warm, Dry, Intact Neurological: No New Focal Deficit Psy/Mental Status: Alert, Normal Affect, Normal Mood - Problem List & Annotations (1) Humerus surgical neck fracture SNOMED Code(s): 563690087 Code(s): S42.213A - UNSP DISP FX OF SURGICAL NECK OF UNSP HUMERUS, INIT Status: Acute Priority: High Current Visit: No Qualifiers: Encounter type: subsequent encounter Fracture type: closed Fracture morphology: unspecified fracture morphology Fracture alignment: displaced Laterality: left Fracture healing: with routine healing Annotation/Comment:: Currently in immobilizer. Stable. Pain meds PRN. Fracture from January 2018. (2) CKD (chronic kidney disease) stage 3, GFR 30-59 ml/min SNOMED Code(s): 351123809 Code(s): N18.3 - CHRONIC KIDNEY DISEASE, STAGE 3 (MODERATE) Status: Acute Priority: Medium Current Visit: No Annotation/Comment:: Monitoring (3) CHF (congestive heart failure) SNOMED Code(s): 68750139 Code(s): I50.9 - HEART FAILURE, UNSPECIFIED Status: Acute Priority: Medium Current Visit: No Qualifiers: Heart failure type: combined systolic and diastolic Heart failure chronicity: acute on chronic Qualified Code(s): I50.43 - Acute on chronic combined systolic (congestive) and diastolic (congestive) heart failure Annotation/Comment:: Chest x-ray revealed a congestion in the lungs probably secondary to CHF I will increase her Lasix to 3 times a day if by tomorrow she has not improved I will refer her for a VQ scan although I think this is a very low possibility of being positive her d-dimer has increased to 1600. 04-15-18- Patient reports doing better. Will continue diuresis. Chest X ray in AM. 04-16-18- Will re-order d dimer; can't do ang chest due to creatinine (4) Anemia SNOMED Code(s): 150069780 Code(s): D64.9 - ANEMIA, UNSPECIFIED Status: Acute Priority: High Current Visit: No Qualifiers: Anemia type: due to chronic kidney disease Chronic kidney disease stage: stage 3 (moderate) Qualified Code(s): N18.3 - Chronic kidney disease, stage 3 (moderate); D63.1 - Anemia in chronic kidney disease Annotation/Comment:: Chronic and Stable. (5) Shortness of breath SNOMED Code(s): 706654375 Code(s): R06.02 - SHORTNESS OF BREATH Status: Acute Priority: High Current Visit: No Onset Date: 03/21/18 Annotation/Comment:: Feel this is related to CHF. Chest x ray revealed CHF exacerbation. Will diurese patient. 04-15-18- Improving; will order chest x ray in the morning 04-16-18- Improving; Ang Chest CT was ordered but due to Creatinine will need to hold off, will repeat d dimer - Problem List Review Problem List Initiated/Reviewed/Updated: Yes - My Orders Last 24 Hours: My Active Orders 04/17/18 05:11 Chest 2V [CR] Routine 04/17/18 13:18 Echo Comp wo Cont [US] Routine 04/17/18 13:19 Venous Doppler Lwr Ext Bi [US] Stat 04/17/18 18:00 Furosemide [Lasix] 40 mg IVPUSH TID 04/19/18 08:00 cloNIDine 1 patch TOP Sa@0800
[2018-04-17] MEDS: Melatonin 3 MG Tab PO SCH (19:17)
[2018-04-17] MEDS: Simvastatin 20 MG Tab PO SCH (19:17)
[2018-04-18] MEDS: oxyCODONE 5 MG Tab PO PRN (02:25)
[2018-04-18] MEDS: Formoterol/Mometasone 200-5 MCG 8.8 GM Inhaler IH SCH (07:15)
[2018-04-18] MEDS: Isosorbide Mononitrate 60 MG Tab.ER PO SCH (07:16)
[2018-04-18] MEDS: Gabapentin 100 MG Cap PO SCH ×2 (07:17→11:43)
[2018-04-18] MEDS: Acetaminophen 500 MG Tab PO SCH (07:17)
[2018-04-18] MEDS: Ascorbic Acid 500 MG Tab PO SCH (07:18)
[2018-04-18] MEDS: Apixaban 5 MG Tab PO SCH (07:19)
[2018-04-18] MEDS: Cholecalciferol (Vitamin D3) 1,000 Unit Tab PO SCH (07:19)
[2018-04-18] MEDS: Potassium Chloride 10 MEQ Tab.ER PO SCH (07:19)
[2018-04-18] MEDS: Ferrous Sulfate 325 MG Tab PO SCH (07:20)
[2018-04-18] MEDS: Fenofibrate,Micronized 134 MG Cap PO SCH (07:20)
[2018-04-18] MEDS: Furosemide 40 MG/4 ML VIAL IVPUSH SCH ×2 (07:20→11:43)
[2018-04-18] MEDS: Sodium Chloride 0.9% 10 ML Syringe FLUSH PRN ×2 (07:23→11:43)
[2018-04-18] MEDS ORDERED: Metoprolol Succinate 50 MG Tab.ER PO SCH (08:00)
[2018-04-18] MEDS: Lidocaine 5% 700 MG Patch TOP SCH (09:22)
[2018-04-18] MEDS: Lidocaine 5% 700 MG Patch TRDERM SCH (09:22)
[2018-04-18] MEDS: Diltiazem 120 MG Cap.CD PO SCH (10:24)
--- NOTE | 2018-04-18 12:37 | PCM.DCSUM1 ---
Discharge Summary - Hospital Course Free Text/Narrative:: Assessment 77-year-old who was admitted with CHF with shortness of breath was admitted for diureses has improved significantly to the point we'll go ahead and send her home today Diagnosis: Stroke: No - Discharge Data Discharge Date: 04/18/18 Discharge Disposition: DC/Tfer to [facility] Condition: Good - Discharge Diagnosis/Problem(s) (1) Humerus surgical neck fracture SNOMED Code(s): 667008642 ICD Code: S42.213A - UNSP DISP FX OF SURGICAL NECK OF UNSP HUMERUS, INIT Status: Acute Priority: High Current Visit: No Problem Details: Currently in immobilizer. Stable. Pain meds PRN. Fracture from January 2018. Qualifiers: Encounter type: subsequent encounter Fracture type: closed Fracture morphology: unspecified fracture morphology Fracture alignment: displaced Laterality: left Fracture healing: with routine healing (2) CKD (chronic kidney disease) stage 3, GFR 30-59 ml/min SNOMED Code(s): 924304196 ICD Code: N18.3 - CHRONIC KIDNEY DISEASE, STAGE 3 (MODERATE) Status: Acute Priority: Medium Current Visit: No Problem Details: Monitoring (3) CHF (congestive heart failure) SNOMED Code(s): 85230158 ICD Code: I50.9 - HEART FAILURE, UNSPECIFIED Status: Acute Priority: Medium Current Visit: No Problem Details: Chest x-ray revealed improvement at this time patient feels less short of breath and will be ready for discharge 04-15-18- Patient reports doing better. Will continue diuresis. Chest X ray in AM. 04-16-18- Will re-order d dimer; can't do ang chest due to creatinine Qualifiers: Heart failure type: combined systolic and diastolic Heart failure chronicity: acute on chronic Qualified Code(s): I50.43 - Acute on chronic combined systolic (congestive) and diastolic (congestive) heart failure (4) Anemia SNOMED Code(s): 442369081 ICD Code: D64.9 - ANEMIA, UNSPECIFIED Status: Acute Priority: High Current Visit: No Problem Details: Chronic and Stable. Qualifiers: Anemia type: due to chronic kidney disease Chronic kidney disease stage: stage 3 (moderate) Qualified Code(s): N18.3 - Chronic kidney disease, stage 3 (moderate); D63.1 - Anemia in chronic kidney disease (5) Shortness of breath SNOMED Code(s): 260161702 ICD Code: R06.02 - SHORTNESS OF BREATH Status: Acute Priority: High Current Visit: No Onset Date: 03/21/18 Problem Details: Feel this is related to CHF. Chest x ray revealed CHF exacerbation. Will diurese patient. Patient doing better we'll discharge home today 04-15-18- Improving; will order chest x ray in the morning 04-16-18- Improving; Ang Chest CT was ordered but due to Creatinine will need to hold off, will repeat d dimer - Patient Summary/Data Consults: Consultations 04/15/18 06:47 PT Evaluation and Treatment [CONS] Routine 04/15/18 06:48 OT Evaluation and Treatment [CONS] Routine - Discharge Plan Home Medications: Home Meds Acetaminophen 1,000 mg PO Q8H 03/04/18 [History] Albuterol [Ventolin HFA] 2 puff INH Q4H PRN 03/04/18 [History] Allopurinol [Zyloprim] 100 mg PO DAILY 03/04/18 [History] Cholecalciferol (Vitamin D3) [D3-2000] 2,000 mg PO DAILY 03/04/18 [History] Fenofibrate Nanocrystallized [Fenofibrate] 145 mg PO DAILY 03/04/18 [History] Furosemide 40 mg PO BID 03/04/18 [History] Gabapentin [Neurontin] 100 mg PO TID 03/04/18 [History] Isosorbide Mononitrate [Imdur] 60 mg PO DAILY 03/04/18 [History] Metoprolol Succinate [Toprol XL] 75 mg PO BID 03/04/18 [History] Nitroglycerin [Nitrostat] 0.4 mg SL ASDIRECTED 03/04/18 [History] Sennosides/Docusate Sodium [Dok Plus Tablet] 1 tab PO BID PRN 03/04/18 [History] Simvastatin 20 mg PO BEDTIME 03/04/18 [History] cloNIDine [Catapres-TTS 3] 1 patch TOP WEEKLY 03/04/18 [History] dilTIAZem HCl [Diltiazem 24Hr Cd] 120 mg PO DAILY 03/04/18 [History] hydrALAZINE HCl [Hydralazine HCl] 100 mg PO TID 03/04/18 [History] oxyCODONE 2.5 mg PO Q4H PRN 03/04/18 [History] Apixaban [Eliquis] 5 mg PO BID 04/14/18 [History] Ascorbate Calcium [Vitamin C] 0.5 tab PO BID 04/14/18 [History] Ferrous Sulfate 1 tab PO BID 04/14/18 [History] Lidocaine [Lidocaine 5%] 1 patch TOP DAILY 04/14/18 [History] Melatonin 3 mg PO BEDTIME 04/14/18 [History] Mometasone/Formoterol [Dulera 200-5 MCG] 2 inh INH BID 04/14/18 [History] Potassium Chloride [Klor-Con 10] 10 meq PO BID 04/14/18 [History] Patient Handouts: Heart Failure, [id number] - Discharge Summary/Plan Comment DC Time >30 min.: No - General Info Date of Service: 04/18/18 Admission Dx/Problem (Free Text: Admission Diagnosis/Problem Admission Diagnosis/Problem CHF, Congestive heart failure - Review of Systems General: Reports: No Symptoms HEENT: Reports: No Symptoms Pulmonary: Reports: Shortness of Breath (With exertion) Cardiovascular: Reports: No Symptoms Gastrointestinal: Reports: No Symptoms Genitourinary: Reports: No Symptoms Musculoskeletal: Reports: No Symptoms Skin: Reports: No Symptoms Neurological: Reports: No Symptoms Psychiatric: Reports: No Symptoms - Patient Data Vitals - Most Recent: Last Vital Signs Temp 97.7 F 04/18/18 07:15 Pulse 55 L 04/18/18 10:25 Resp 16 04/18/18 07:15 BP 147/47 H 04/18/18 10:25 Pulse Ox 96 04/18/18 07:15 Weight - Most Recent: 154 lb 4.8 oz I&O - Last 24 hours: Intake & Output 04/17/18 04/18/18 04/18/18 22:59 06:59 14:59 Intake Total 120 300 586 Output Total 1350 700 Balance -1230 -400 586 Lab Results - Last 24 hrs: Laboratory Results - last 24 hr 04/18/18 04/18/18 04/18/18 Range/Units 06:48 06:48 06:48 WBC 7.7 (4.0-10.2) K/uL RBC 2.85 L (3.77-5.09) M/uL Hgb 8.2 L (11.7-15.5) g/dL Hct 27.1 L (34.0-46.0) % MCV 95.1 (84.0-98.0) fL MCH 28.8 (28.2-33.3) pg MCHC 30.3 L (31.7-36.0) g/dL RDW 15.8 H (11.2-14.1) % Plt Count 262 (150-350) K/uL Neut % (Auto) 64.6 (45.0-80.0) % Lymph % (Auto) 22.8 (10.0-50.0) % [place] % (Auto) 8.4 (2.0-14.0) % Eos % (Auto) 3.8 (0.0-5.0) % Baso % (Auto) 0.4 (0.0-2.0) % Neut # (Auto) 4.98 (1.40-7.00) K/uL Lymph # (Auto) 1.76 (0.50-3.50) K/uL Marin # (Auto) 0.65 (0.00-1.00) K/uL Eos # (Auto) 0.29 (0.00-0.50) K/uL Baso # (Auto) 0.03 (0.00-0.20) K/uL D-Dimer, Quantitative 1160 H (0-400) ng/mL Sodium 143 (136-145) mmol/L Potassium 3.8 (3.5-5.1) mmol/L Chloride 98 (98-107) mmol/L Carbon Dioxide 39.9 H (21.0-32.0) mmol/L BUN 46 H (7-18) mg/dL Creatinine 1.42 H (0.51-1.17) mg/dL Est Cr Clr Drug Dosing 28.19 mL/min Estimated GFR (MDRD) 36 mL/min Glucose 100 (74-106) mg/dL Calcium 9.3 (8.5-10.1) mg/dL NT-Pro-B Natriuret Pep (0-125) pg/mL 04/18/18 Range/Units 06:48 WBC (4.0-10.2) K/uL RBC (3.77-5.09) M/uL Hgb (11.7-15.5) g/dL Hct (34.0-46.0) % MCV (84.0-98.0) fL MCH (28.2-33.3) pg MCHC (31.7-36.0) g/dL RDW (11.2-14.1) % Plt Count (150-350) K/uL Neut % (Auto) (45.0-80.0) % Lymph % (Auto) (10.0-50.0) % [place] % (Auto) (2.0-14.0) % Eos % (Auto) (0.0-5.0) % Baso % (Auto) (0.0-2.0) % Neut # (Auto) (1.40-7.00) K/uL Lymph # (Auto) (0.50-3.50) K/uL Marin # (Auto) (0.00-1.00) K/uL Eos # (Auto) (0.00-0.50) K/uL Baso # (Auto) (0.00-0.20) K/uL D-Dimer, Quantitative (0-400) ng/mL Sodium (136-145) mmol/L Potassium (3.5-5.1) mmol/L Chloride (98-107) mmol/L Carbon Dioxide (21.0-32.0) mmol/L BUN (7-18) mg/dL Creatinine (0.51-1.17) mg/dL Est Cr Clr Drug Dosing mL/min Estimated GFR (MDRD) mL/min Glucose (74-106) mg/dL Calcium (8.5-10.1) mg/dL NT-Pro-B Natriuret Pep 7909 H (0-125) pg/mL Med Orders - Current: Current Medications Acetaminophen (Tylenol Extra Strength) 1,000 mg PO Q8HR [facility] Last Admin: 04/18/18 07:17 Dose: 1,000 mg Albuterol (Ventolin Hfa) 0 gm INH Q4H PRN PRN Reason: Wheezing Apixaban (Eliquis) 5 mg PO BID [facility] Last Admin: 04/18/18 07:19 Dose: 5 mg Ascorbic Acid (Vitamin C) 250 mg PO BID [facility] Last Admin: 04/18/18 07:18 Dose: 250 mg Cholecalciferol (Vitamin D3) 2,000 units PO DAILY [facility] Last Admin: 04/18/18 07:19 Dose: 2,000 units Diltiazem HCl (Cardizem Cd) 120 mg PO DAILY [facility] Last Admin: 04/18/18 10:24 Dose: Not Given Fenofibrate (Fenofibrate) 134 mg PO DAILY [facility] Last Admin: 04/18/18 07:20 Dose: 134 mg Ferrous Sulfate (Ferrous Sulfate) 325 mg PO BIDMEALS [facility] Last Admin: 04/18/18 07:20 Dose: 325 mg Furosemide (Lasix) 40 mg IVPUSH TID [facility] Last Admin: 04/18/18 11:43 Dose: 40 mg Gabapentin (Neurontin) 100 mg PO TID [facility] Last Admin: 04/18/18 11:43 Dose: 100 mg Isosorbide Mononitrate (Imdur) 60 mg PO DAILY [facility] Last Admin: 04/18/18 07:16 Dose: 60 mg Lidocaine (Lidoderm 5%) 700 mg TOP DAILY [facility] Last Admin: 04/18/18 09:22 Dose: 700 mg Lidocaine (Lidoderm 5%) 700 mg TRDERM DAILY [facility] Last Admin: 04/18/18 09:22 Dose: 700 mg Magnesium Hydroxide (Milk Of Magnesia) 30 ml PO BID PRN PRN Reason: Constipation Melatonin (Melatonin) 3 mg PO BEDTIME [facility] Last Admin: 04/17/18 19:17 Dose: 3 mg Metoprolol Succinate (Toprol Xl) 50 mg PO DAILY [facility] Last Admin: 04/18/18 10:25 Dose: Not Given Miscellaneous Information (Remove Patch) 1 ea TRDERM BEDTIME [facility] Last Admin: 04/17/18 19:17 Dose: 1 ea Miscellaneous Information (Remove Patch) 1 ea TRDERM BEDTIME [facility] Last Admin: 04/17/18 19:17 Dose: 1 ea Mometasone Furoate/Formoterol Fumar (Dulera 200-5 Mcg) 2 puff IH BID [facility] Last Admin: 04/18/18 07:15 Dose: 2 puff Nitroglycerin (Nitrostat) 0.4 mg SL ASDIRECTED PRN PRN Reason: Chest Pain Clonidine 0.3mg/24hr (Patch) 1 patch TOP Sa@0800 [facility] Oxycodone HCl (Oxycodone) 2.5 mg PO Q4H PRN PRN Reason: Pain Last Admin: 04/18/18 02:25 Dose: 2.5 mg Potassium Chloride (Klor-Con 10) 10 meq PO BID [facility] Last Admin: 04/18/18 07:19 Dose: 10 meq Senna/Docusate Sodium (Senna Plus) 1 tab PO BID PRN PRN Reason: Constipation Last Admin: 04/14/18 17:20 Dose: 1 tab Simvastatin (Zocor) 20 mg PO BEDTIME [facility] Last Admin: 04/17/18 19:17 Dose: 20 mg Sodium Chloride (Saline Flush) 10 ml FLUSH ASDIRECTED PRN PRN Reason: Keep Vein Open Last Admin: 04/18/18 11:43 Dose: 10 ml Discontinued Medications Acetaminophen (Tylenol) 650 mg PO Q4H PRN PRN Reason: analgesia/fever Furosemide (Lasix) 40 mg IVPUSH BIDDIURETIC [facility] Last Admin: 04/17/18 11:17 Dose: 40 mg Hydralazine HCl (Apresoline) 100 mg PO TID [facility] Last Admin: 04/17/18 11:18 Dose: Not Given Iopamidol (Isovue-370 (76%)) 100 ml IVPUSH ONETIME ONE Stop: 04/16/18 10:08 Last Admin: 04/16/18 15:08 Dose: Not Given Iopamidol (Isovue-370 (76%)) Confirm Administered Dose 100 ml .ROUTE .STK-MED ONE Stop: 04/16/18 10:11 Last Admin: 04/16/18 15:08 Dose: Not Given Metoprolol Succinate (Toprol Xl) 75 mg PO BID [facility] Last Admin: 04/17/18 07:06 Dose: 75 mg - Exam Quality Assessment: Reports: Supplemental Oxygen General: Reports: Alert, Oriented HEENT: Reports: Pupils Equal, Pupils Reactive, EOMI, Mucous Membr. Moist/[place] Neck: Reports: Supple Lungs: Reports: Decreased Breath Sounds Cardiovascular: Reports: Regular Rate, Regular Rhythm GI/Abdominal Exam: Normal Bowel Sounds, Soft, Non-Tender, No Organomegaly, No Distention, No Abnormal Bruit, No Mass, Pelvis Stable Rectal (Female) Exam: Deferred Back Exam: Reports: Normal Inspection, Full Range of Motion Extremities: Normal Inspection, Normal Range of Motion, Non-Tender, No Pedal Edema, Normal Capillary Refill Skin: Reports: Warm, Dry, Intact Neurological: Reports: No New Focal Deficit Psy/Mental Status: Reports: Alert, Normal Affect, Normal Mood
[2018-04-18] MEDS ORDERED: Furosemide 40 MG Tab PO SCH (18:00)
[2018-04-19] MEDS ORDERED: CLONIDINE 0.3 MG/24 HR TOP SCH (08:00)
[2018-04-19] MEDS ORDERED: Allopurinol 100 MG Tab PO SCH (08:00)
== END 2018-04-18 13:58 | DRG 291 ==
LOC: LL.DI 12:30 → LL.MS 13:45 → UNDOADMIN 13:45 → LL.MS 15:03 → UNDODISIN 04-18 13:58
PROVIDERS: ADMIT Nurse Practitioner Family; ATTEND Family Medicine
DX: I50.9 Heart failure, unspecified (principal); I13.0 Hypertensive heart and chronic kidney disease with heart failure and stage 1 through stage 4 chronic kidney disease, or unspecified chronic kidney disease; I50.43 Acute on chronic combined systolic (congestive) and diastolic (congestive) heart failure; N18.3 Chronic kidney disease, stage 3 (moderate); D63.1 Anemia in chronic kidney disease; S42.212D Unspecified displaced fracture of surgical neck of left humerus, subsequent encounter for fracture with routine healing; J44.9 Chronic obstructive pulmonary disease, unspecified; H54.7 Unspecified visual loss; Z99.81 Dependence on supplemental oxygen; M10.9 Gout, unspecified; E55.9 Vitamin D deficiency, unspecified; I25.10 Atherosclerotic heart disease of native coronary artery without angina pectoris; S32.502D Unspecified fracture of left pubis, subsequent encounter for fracture with routine healing; M19.90 Unspecified osteoarthritis, unspecified site; I25.2 Old myocardial infarction; Z88.8 Allergy status to other drugs, medicaments and biological substances; Z79.899 Other long term (current) drug therapy; Z79.51 Long term (current) use of inhaled steroids; Z79.01 Long term (current) use of anticoagulants; Z86.73 Personal history of transient ischemic attack (TIA), and cerebral infarction without residual deficits; Z95.5 Presence of coronary angioplasty implant and graft
CPT/HCPCS: 36415; 51702; 71046; 80048; 80053; 83880; 85025; 85379; 93970; 97116-GP; 97161-GP; 97530-GP; A9270-GY; J1940

== ENCOUNTER 2019-03-16 10:50 | Inpatient (IN) | payer MEDICARE, BC ==
[2019-03-16] MEDS ORDERED: Nitroglycerin 0.4 MG Tab.SL SL PRN (13:41)
[2019-03-16] MEDS ORDERED: Furosemide 40 MG/4 ML VIAL IVPUSH ONE (13:41)
[2019-03-16] MEDS ORDERED: oxyCODONE 5 MG Tab PO PRN (14:00)
--- NOTE | 2019-03-16 14:01 | EDM.PDOC ---
ED HPI GENERAL MEDICAL PROBLEM - General Chief Complaint: Cardiovascular Problem Stated Complaint: SOB, edema, CHF Time Seen by Provider: 03/16/19 10:58 Source of Information: Reports: Patient History Limitations: Reports: No Limitations - History of Present Illness INITIAL COMMENTS - FREE TEXT/NARRATIVE: Patient sent to ER from [facility] to have increased leg swelling addressed. Patient notes increased swelling of feet and lower legs for approximately one month. Feet ache at times because of this. No med changes at that time when symptoms started. Did go to the clinic a few times and had diuretics adjusted but so far nothing has helped. Today she went to the clinic with complaint of sudden lightheadedness and SOB that started when she was ambulating this morning that was in addition to the lower extremity swelling. It was then that it was decided to send her to the ER. No other health changes reported. No illnesses/fevers/ She does have advanced COPD and is O2 dependent at home. Sleeps in a recliner as she can no longer comfortably lay flat and breathe. Also has chronic kidney disease which is made worsened by diuretics. GFR around 25%. Similar symptoms last year that improved after several day admission included IV lasix and mechanical compression boots. - Related Data Allergies Allergy/AdvReac Type Severity Reaction Status Date / Time VIJAYA Inhibitors Allergy Other Verified 03/16/19 11:05 losartan Allergy Cannot Verified 03/16/19 11:05 Remember Home Meds: Home Meds Albuterol [Ventolin HFA] 2 puff INH Q4HR PRN 07/05/14 [History] Furosemide [Lasix] 80 mg PO DAILY 08/12/14 [History] Fluticasone/Salmeterol [Advair 500-50] 1 puff INH BID@09/01/14 [History] Fenofibrate Nanocrystallized [Fenofibrate] 48 mg PO DAILY 07/15/15 [History] hydrALAZINE HCl [Hydralazine HCl] 25 mg PO TID@07/15/15 [History] Nitroglycerin [Nitrostat] 0.4 mg SL ASDIRECTED PRN #100 tab.sl 07/17/15 [Rx] Allopurinol [Zyloprim] 100 mg PO DAILY 03/04/18 [History] Cholecalciferol (Vitamin D3) [D3-2000] 2,000 mg PO DAILY 03/04/18 [History] Furosemide 40 mg PO DAILY@12 03/04/18 [History] Gabapentin [Neurontin] 100 mg PO TID@,,03/04/18 [History] Isosorbide Mononitrate [Imdur] 60 mg PO DAILY 03/04/18 [History] Simvastatin 20 mg PO BEDTIME 03/04/18 [History] dilTIAZem HCl [Diltiazem 24Hr Cd] 120 mg PO DAILY 03/04/18 [History] oxyCODONE 2.5 mg PO Q4H PRN 03/04/18 [History] Apixaban [Eliquis] 5 mg PO BID@,20 04/14/18 [History] Ascorbate Calcium [Vitamin C] 0.5 tab PO BID@,04/14/18 [History] Ferrous Sulfate 1 tab PO BID@,04/14/18 [History] Melatonin 3 mg PO BEDTIME 04/14/18 [History] Potassium Chloride [Klor-Con 10] 10 meq PO BID@,04/14/18 [History] Acetaminophen [Tylenol] 650 mg PO QID 03/16/19 [History] Metoprolol Succinate [Toprol XL 50mg] 100 mg PO DAILY 03/16/19 [History] Sennosides/Docusate Sodium [Senna-S] 1 each PO BID@,03/16/19 [History] Spironolactone [Aldactone] 50 mg PO BID@08,16 03/16/19 [History] Past Medical History HEENT History: Reports: Cataract, Hard of Hearing, Impaired Vision, Other (See Below) Other HEENT History: Full upper dentures; partial lower dentures Cardiovascular History: Reports: CAD, High Cholesterol, Heart Failure, Hypertension, PR, Other (See Below), SOB on Exertion Other Cardiovascular History: Carotid artery disease Respiratory History: Reports: COPD, Other (See Below), SOB Other Respiratory History: Oxygen dependent COPD Gastrointestinal History: Reports: GERD Genitourinary History: Reports: Chronic Renal Insuffiency, Urinary Incontinence 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: Musculoskeletal History: Reports: Arthritis, Fracture, Gout, Other (See Below), Osteoarthritis Other Musculoskeletal History: Left humerus fracture, left pelvic ramus fx both without surgical repair Neurological History: Reports: CVA Endocrine/Metabolic History: Reports: Osteoporosis, Vitamin D Deficiency Hematologic History: Reports: Anemia, Blood Transfusion(s) Dermatologic History: Reports: Other (See Below) Other Dermatologic History: Chronic dry, 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 - Infectious Disease History Infectious Disease History: Reports: Measles, Mumps - Past Surgical History Cardiovascular Surgical History: Reports: Coronary Artery Stent, Carotid Endarterectomy Social & Family History - Family History HEENT: Reports: Impaired Vision Cardiac: Reports: High Cholesterol, Hypertension Respiratory: Reports: Asthma Other GI Family History: colon cancer-mother Musculoskeletal: Reports: Arthritis, Osteoarthritis Psychiatric: Reports: None Endocrine/Metabolic: Reports: Diabetes, type II Hematologic: Reports: Anemia Other Hematologic Family History: leukemia-sister Immunologic: Reports: None Dermatologic: Reports: None Oncologic: Reports: Leukemia - Caffeine Use Caffeine Use: Reports: None ED ROS GENERAL - Review of Systems Review Of Systems: See Below Constitutional: Reports: No Symptoms HEENT: Reports: No Symptoms (no acute changes) Respiratory: Reports: Shortness of Breath (chronic, worse today when walking). Denies: Wheezing, Pleuritic Chest Pain, Cough, Sputum, Hemoptysis Cardiovascular: Reports: Dyspnea on Exertion (chronic), Edema (chronic/worse over last month), Lightheadedness, Orthopnea (chronic). Denies: Chest Pain, Palpitations, Syncope GI/Abdominal: Reports: No Symptoms : Reports: No Symptoms Musculoskeletal: Reports: No Symptoms (no acute changes from baseline) Skin: Denies: Diaphoresis, Erythema Neurological: Reports: Dizziness, Difficulty Walking. Denies: Confusion, Headache, Numbness, Paresthesia, Change in Speech, Gait Disturbance Psychiatric: Reports: No Symptoms Hematologic/Lymphatic: Reports: No Symptoms Immunologic: Reports: No Symptoms ED EXAM, GENERAL - Physical Exam Exam: See Below Exam Limited By: No Limitations General Appearance: Alert, WD/WN, No Apparent Distress Eye Exam: Bilateral Eye: EOMI, PERRL Ears: Normal External Exam Nose: Normal Inspection Throat/Mouth: Normal Lips, Normal Voice, No Airway Compromise Head: Atraumatic, Normocephalic Neck: Normal Inspection, Supple, Non-Tender, Full Range of Motion Respiratory/Chest: No Respiratory Distress, No Accessory Muscle Use, Chest Non- Tender, Decreased Breath Sounds (throughout), Crackles (at bases only). No: Rhonchi, Wheezing, Stridor Cardiovascular: Regular Rate, Rhythm, No Edema GI/Abdominal: Soft, Non-Tender (Female) Exam: Deferred Rectal (Female) Exam: Deferred Back Exam: No: CVA Tenderness (L), CVA Tenderness (R), Muscle Spasm Extremities: Other (moderate edema involving legs/feet below knees. Discomfort when feet/ankles palpated. ) Neurological: Alert, Oriented, Normal Cognition, No Motor/Sensory Deficits Psychiatric: Normal Affect, Normal Mood Skin Exam: Warm, Dry Course - Vital Signs Last Recorded V/S: Last Vital Signs Temp 36.9 C 03/16/19 10:55 Pulse 91 03/16/19 10:55 Resp 20 03/16/19 10:55 BP 171/66 H 03/16/19 10:55 Pulse Ox 95 03/16/19 10:55 - Orders/Labs/Meds Orders: Active Orders 24 hr Category Date Time Status Patient Status [ADT] Routine ADT 03/16/19 13:37 Active Antiembolic Devices [RC] PER UNIT ROUTINE Care 03/16/19 13:41 Active Height and Weight [RC] UPON Care 03/16/19 13:37 Active Intake and Output [RC] QSHIFT Care 03/16/19 13:39 Active May Shower [RC] ASDIRECTED Care 03/16/19 13:37 Active Oxygen Therapy [RC] PRN Care 03/16/19 13:37 Active Pulse Oximetry [RC] PRN Care 03/16/19 13:39 Active RT Aerosol Therapy [RC] ASDIRECTED Care 03/16/19 13:45 Active Up With Assistance [RC] ASDIRECTED Care 03/16/19 13:37 Active VTE/DVT Education [RC] PER UNIT ROUTINE Care 03/16/19 13:37 Active Vital Signs [RC] Q8HR Care 03/16/19 13:37 Active Chest 2V [CR] Stat Exams 03/16/19 11:01 Ordered Venous Doppler Lwr Ext Bi [US] Routine Exams 03/16/19 14:06 Ordered UA W/MICROSCOPIC [URIN] Stat Lab 03/16/19 11:00 Ordered Acetaminophen [Tylenol] Med 03/16/19 16:00 Ordered 650 mg PO QID Albuterol/Ipratropium [DuoNeb 3.0-0.5 MG/3 ML] Med 03/16/19 14:00 Ordered 3 ml NEB Q6HRRT Allopurinol [Zyloprim] Med 03/17/19 08:00 Ordered 100 mg PO DAILY Apixaban [Eliquis] Med 03/16/19 20:00 Ordered 5 mg PO BID@08,20 Diltiazem [Cardizem CD] Med 03/17/19 08:00 Ordered 120 mg PO DAILY Docusate Sodium/Sennosides [Senna Plus] Med 03/16/19 20:00 Ordered DOSE tab PO BID@08,20 Fenofibrate Nanocrystallized [Fenofibrate] Med 03/17/19 08:00 Ordered 48 mg PO DAILY Ferrous Sulfate Med 03/16/19 20:00 Ordered 325 mg PO BID@08,20 Fluticasone/Salmeterol [Advair 500-50] Med 03/16/19 20:00 Ordered 1 puff INH BID@08,20 Furosemide [Lasix] Med 03/16/19 18:00 Ordered 20 mg IVPUSH BID Furosemide [Lasix] Med 03/16/19 20:00 Once 20 mg IVPUSH ONETIME ONE Gabapentin [Neurontin] Med 03/16/19 14:00 Ordered 100 mg PO TID@08,14,20 Isosorbide Mononitrate [Imdur] Med 03/17/19 08:00 Ordered 60 mg PO DAILY Melatonin Med 03/16/19 20:00 Ordered 3 mg PO BEDTIME Metoprolol Succinate [Toprol XL] Med 03/17/19 08:00 Ordered 100 mg PO DAILY Nitroglycerin [Nitrostat] Med 03/16/19 13:41 Ordered 0.4 mg SL ASDIRECTED PRN Potassium Chloride [Klor-Con 10] Med 03/16/19 20:00 Ordered 10 meq PO BID@08,20 Simvastatin [Zocor] Med 03/16/19 20:00 Ordered 20 mg PO BEDTIME Sodium Chloride 0.9% [Saline Flush] Med 03/16/19 11:00 Ordered 10 ml FLUSH ASDIRECTED PRN Spironolactone [Aldactone] Med 03/16/19 16:00 Ordered 50 mg PO BID@08,16 hydrALAZINE HCl [Hydralazine HCl] Med 03/16/19 14:00 Ordered 25 mg PO TID@08,14,20 methylPREDNISolone Sod Succ [Solu-MEDROL] Med 03/16/19 14:12 Once 40 mg IVPUSH ONETIME ONE oxyCODONE Med 03/16/19 13:41 Ordered 2.5 mg PO Q4H PRN Comfort Measures [OM.PC] Routine Oth 03/16/19 13:41 Ordered Saline Lock Insert [OM.PC] Routine Oth 03/16/19 11:01 Ordered Sequential Compression Device [OM.PC] Per Unit Routine Oth 03/16/19 13:40 Ordered Resuscitation Status Routine Resus Stat 03/16/19 13:37 Ordered Medication Orders Acetaminophen (Tylenol) 650 mg PO QID [facility] Albuterol/Ipratropium (Duoneb 3.0-0.5 Mg/3 Ml) 3 ml NEB Q6HRRT [facility] Allopurinol (Zyloprim) 100 mg PO DAILY [facility] Apixaban (Eliquis) 5 mg PO BID@, [facility] Diltiazem HCl (Cardizem Cd) 120 mg PO DAILY [facility] Ferrous Sulfate (Ferrous Sulfate) 325 mg PO BID@, [facility] Furosemide (Lasix) 20 mg IVPUSH ONETIME ONE Stop: 03/16/19 20:01 Furosemide (Lasix) 20 mg IVPUSH BID@0800,1400 [facility] Gabapentin (Neurontin) 100 mg PO TID@,, [facility] Isosorbide Mononitrate (Imdur) 60 mg PO DAILY [facility] Melatonin (Melatonin) 3 mg PO BEDTIME [facility] Methylprednisolone Sodium Succinate (Solu-Medrol) 40 mg IVPUSH ONETIME ONE Stop: 03/16/19 14:13 Metoprolol Succinate (Toprol Xl) 100 mg PO DAILY [facility] Nitroglycerin (Nitrostat) 0.4 mg SL ASDIRECTED PRN PRN Reason: Chest Pain Non-Formulary Medication (Fenofibrate Nanocrystallized [Fenofibrate]) 48 mg PO DAILY [facility] Non-Formulary Medication (Fluticasone/Salmeterol [Advair 500-50]) 1 puff INH BID@, [facility] Non-Formulary Medication (Hydralazine Hcl [Hydralazine Hcl]) 25 mg PO TID@, , [facility] Non-Formulary Medication (Spironolactone [Aldactone]) 50 mg PO BID@,16 [facility] Oxycodone HCl (Oxycodone) 2.5 mg PO Q4H PRN PRN Reason: Pain Potassium Chloride (Klor-Con 10) 10 meq PO BID@08,20 [facility] Senna/Docusate Sodium (Senna Plus) tab PO BID@08,20 [facility] Simvastatin (Zocor) 20 mg PO BEDTIME [facility] Sodium Chloride (Saline Flush) 10 ml FLUSH ASDIRECTED PRN PRN Reason: Keep Vein Open Labs: Laboratory Tests 03/16/19 03/16/19 03/16/19 Range/Units 10:55 11:01 11:01 WBC 11.7 H (4.0-10.2) K/uL RBC 3.80 (3.77-5.09) M/uL Hgb 11.3 L (11.7-15.5) g/dL Hct 36.5 (34.0-46.0) % MCV 96.1 (84.0-98.0) fL MCH 29.7 (28.2-33.3) pg MCHC 31.0 L (31.7-36.0) g/dL RDW 14.7 H (11.2-14.1) % Plt Count 257 (150-350) K/uL Neut % (Auto) 73.8 (45.0-80.0) % Lymph % (Auto) 13.3 (10.0-50.0) % Grainger % (Auto) 10.1 (2.0-14.0) % Eos % (Auto) 2.2 (0.0-5.0) % Baso % (Auto) 0.6 (0.0-2.0) % Neut # (Auto) 8.64 H (1.40-7.00) K/uL Lymph # (Auto) 1.56 (0.50-3.50) K/uL Grainger # (Auto) 1.18 H (0.00-1.00) K/uL Eos # (Auto) 0.26 (0.00-0.50) K/uL Baso # (Auto) 0.07 (0.00-0.20) K/uL D-Dimer, Quantitative 710 H (0-400) ng/mL Sodium 136 (136-145) mmol/L Potassium 5.1 (3.5-5.1) mmol/L Chloride 97 L (98-107) mmol/L Carbon Dioxide 30.9 (21.0-32.0) mmol/L BUN 64 H (7-18) mg/dL Creatinine 1.78 H (0.51-1.17) mg/dL Est Cr Clr Drug Dosing 22.13 mL/min Estimated GFR (MDRD) 27 mL/min Glucose 126 H (74-106) mg/dL Calcium 10.2 H (8.5-10.1) mg/dL Magnesium 1.9 (1.8-2.4) mg/dL Total Bilirubin 0.2 (0.2-1.0) mg/dL AST 17 (15-37) U/L ALT 19 (12-78) U/L Alkaline Phosphatase 65 (46-116) IU/L NT-Pro-B Natriuret Pep 1583 H (0-125) pg/mL Total Protein 8.5 H (6.4-8.2) g/dL Albumin 3.7 (3.4-5.0) g/dL Meds: Medications Generic Name Dose Route Start Last Admin Trade Name Freq PRN Reason Stop Dose Admin Acetaminophen 650 mg 03/16/19 16:00 Tylenol PO QID [facility] Albuterol/Ipratropium 3 ml 03/16/19 14:00 Duoneb 3.0-0.5 Mg/3 Ml NEB Q6HRRT [facility] Allopurinol 100 mg 03/17/19 08:00 Zyloprim PO DAILY [facility] Apixaban 5 mg 03/16/19 20:00 Eliquis PO BID@08,20 [facility] Diltiazem HCl 120 mg 03/17/19 08:00 Cardizem Cd PO DAILY [facility] Ferrous Sulfate 325 mg 03/16/19 20:00 Ferrous Sulfate PO BID@08,20 [facility] Furosemide 20 mg 03/16/19 20:00 Lasix IVPUSH 03/16/19 20:01 ONETIME ONE Furosemide 20 mg 03/17/19 08:00 Lasix IVPUSH BID@0800,1400 [facility] Gabapentin 100 mg 03/16/19 14:00 Neurontin PO TID@08,14,20 [facility] Isosorbide Mononitrate 60 mg 03/17/19 08:00 Imdur PO DAILY [facility] Melatonin 3 mg 03/16/19 20:00 Melatonin PO BEDTIME [facility] Methylprednisolone Sodium Succinate 40 mg 03/16/19 14:12 Solu-Medrol IVPUSH 03/16/19 14:13 ONETIME ONE Metoprolol Succinate 100 mg 03/17/19 08:00 Toprol Xl PO DAILY [facility] Nitroglycerin 0.4 mg 03/16/19 13:41 Nitrostat SL ASDIRECTED PRN Chest Pain Non-Formulary Medication 48 mg 03/17/19 08:00 Fenofibrate Nanocrystallized [Fenofibrate] PO DAILY [facility] Non-Formulary Medication 1 puff 03/16/19 20:00 Fluticasone/Salmeterol [Advair 500-50] INH BID@08,20 [facility] Non-Formulary Medication 25 mg 03/16/19 14:00 Hydralazine Hcl [Hydralazine Hcl] PO TID@08,,20 [facility] Non-Formulary Medication 50 mg 03/16/19 16:00 Spironolactone [Aldactone] PO BID@08,16 [facility] Oxycodone HCl 2.5 mg 03/16/19 13:41 Oxycodone PO Q4H PRN Pain Potassium Chloride 10 meq 03/16/19 20:00 Klor-Con 10 PO BID@08,20 [facility] Senna/Docusate Sodium tab 03/16/19 20:00 Senna Plus PO BID@08,20 [facility] Simvastatin 20 mg 03/16/19 20:00 Zocor PO BEDTIME [facility] Sodium Chloride 10 ml 03/16/19 11:00 Saline Flush FLUSH ASDIRECTED PRN Keep Vein Open Discontinued Medications Generic Name Dose Route Start Last Admin Trade Name Freq PRN Reason Stop Dose Admin Furosemide 40 mg 03/16/19 13:41 Lasix IVPUSH 03/16/19 13:42 NOW ONE - Radiology Interpretation Free Text/Narrative:: Chest xray did not show acute changes - Re-Assessments/Exams Free Text/Narrative Re-Assessment/Exam: No evidence of significant CHF noted on physical exam/chest xray. Suspect may have COPD exacerbation in addition to increased peripheral edema. WBC 11.7 DDimer 710. Patient on Eliquis. Has bilateral tenderness in lower legs due to the edema. She refuses CT to rule out PE given the acute increase in SOB this morning. She and daughter wish to avoid dye exposure given her kidney disease. US of lower extremities will be ordered. ProBNP 1583 Cr 1.78 and BUN 64 Will admit and treat the peripheral edema as well as initiate aggressive nebulizer treatments. Departure - Departure Time of Disposition: 13:30 Disposition: Admitted As Inpatient 65 Condition: Good Clinical Impression: Edema of both legs, Shortness of breath Referrals: Stephy Mcguire CARDIOPULMONARY SPECIALIST [Primary Care Provider] - Forms: ED Department Discharge Sepsis Event Note - Evaluation Sepsis Screening Result: No Definite Risk - Focused Exam Vital Signs: Vital Signs Temp Pulse Resp BP Pulse Ox 03/16/19 10:55 36.9 C 91 20 171/66 H 95 Date Exam was Performed: 03/16/19 Time Exam was Performed: 14:17 - Problem List & Annotations (1) Edema of both legs SNOMED Code(s): 656750642, 04795679, 677832488 Code(s): R60.0 - LOCALIZED EDEMA Status: Chronic Priority: High Current Visit: Yes Annotation/Comment:: Increased lower extremity edema. Has had similar issues in past. Elevated ProBNP. IV lasix ordered. (2) COPD, severe SNOMED Code(s): 449882307 Code(s): J44.9 - CHRONIC OBSTRUCTIVE PULMONARY DISEASE, UNSPECIFIED Status : Acute Priority: Medium Current Visit: Yes Annotation/Comment:: No evidence of pneumonia noted on chest xrays. Regular DuoNebs ordered. O2 dependent. (3) Chronic kidney disease SNOMED Code(s): 981198580 Code(s): N18.9 - CHRONIC KIDNEY DISEASE, UNSPECIFIED Status: Acute Priority: Medium Current Visit: Yes Annotation/Comment:: Continue to monitor closely for changes due to diuretics Qualifiers: Chronic kidney disease stage: stage 4 (severe) Qualified Code(s): N18.4 - Chronic kidney disease, stage 4 (severe) (4) Chronic hypoxemic respiratory failure SNOMED Code(s): 689129300 Code(s): J96.11 - CHRONIC RESPIRATORY FAILURE WITH HYPOXIA Status: Chronic Priority: Medium Current Visit: Yes (5) Arteriosclerotic heart disease (ASHD) SNOMED Code(s): 38869787 Code(s): I25.10 - ATHSCL HEART DISEASE OF [place] CORONARY ARTERY W/O ANG PCTRS Status: Chronic Priority: Low Current Visit: No Annotation/Comment :: No acute changes per patient (6) HTN (hypertension), benign SNOMED Code(s): 45775552 Code(s): I10 - ESSENTIAL (PRIMARY) HYPERTENSION Status: Chronic Priority : Medium Current Visit: Yes Annotation/Comment:: observe trends (7) CHF (congestive heart failure) SNOMED Code(s): 65530807 Code(s): I50.9 - HEART FAILURE, UNSPECIFIED Status: Chronic Priority: High Current Visit: Yes Annotation/Comment:: No significant changes noted on xray or physical exam however lower legs have been more edematous over the past 4-6 weeks. Will give IV lasix as patient says that in addition to compression boots significantly improved her last similar bout approximately a year ago. Will continue to closely monitor renal function in light of lasix. Qualifiers: Heart failure type: combined systolic and diastolic Heart failure chronicity: acute on chronic Qualified Code(s): I50.43 - Acute on chronic combined systolic (congestive) and diastolic (congestive) heart failure (8) Anemia SNOMED Code(s): 066048802 Code(s): D64.9 - ANEMIA, UNSPECIFIED Status: Acute Priority: High Current Visit: No Annotation/Comment:: Chronic and Stable. Recheck of serum FE /Ferritin/TIBC/B12/Folic acid ordered Qualifiers: Anemia type: due to chronic kidney disease Chronic kidney disease stage: stage 4 (severe) Qualified Code(s): N18.4 - Chronic kidney disease, stage 4 ( severe); D63.1 - Anemia in chronic kidney disease (9) CVA, old, hemiparesis SNOMED Code(s): 806190259 Code(s): I69.359 - HEMIPLGA FOLLOWING CEREBRAL INFARCTION AFFECTING UNSP SIDE Status: Acute Priority: Low Current Visit: No Annotation/Comment:: stable per patient (10) Elevated d-dimer SNOMED Code(s): 093175957 Code(s): R79.89 - OTHER SPECIFIED ABNORMAL FINDINGS OF BLOOD CHEMISTRY Status: Chronic Priority: Low Current Visit: Yes Annotation/Comment:: History of chronically elevated DDimer. Improved level today compared to patient 's previous values. - My Orders Last 24 Hours: My Active Orders 03/16/19 11:00 UA W/MICROSCOPIC [URIN] Stat Sodium Chloride 0.9% [Saline Flush] 10 ml FLUSH ASDIRECTED PRN 03/16/19 11:01 Chest 2V [CR] Stat Saline Lock Insert [OM.PC] Routine 03/16/19 13:37 Patient Status [ADT] Routine Height and Weight [RC] UPON May Shower [RC] ASDIRECTED Oxygen Therapy [RC] PRN Up With Assistance [RC] ASDIRECTED VTE/DVT Education [RC] PER UNIT ROUTINE Vital Signs [RC] Q8HR Resuscitation Status Routine 03/16/19 13:39 Intake and Output [RC] QSHIFT Pulse Oximetry [RC] PRN 03/16/19 13:40 Sequential Compression Device [OM.PC] Per Unit Routine 03/16/19 13:41 Antiembolic Devices [RC] PER UNIT ROUTINE Nitroglycerin [Nitrostat] 0.4 mg SL ASDIRECTED PRN oxyCODONE 2.5 mg PO Q4H PRN Comfort Measures [OM.PC] Routine 03/16/19 13:45 RT Aerosol Therapy [RC] ASDIRECTED 03/16/19 14:00 Albuterol/Ipratropium [DuoNeb 3.0-0.5 MG/3 ML] 3 ml NEB Q6HRRT Gabapentin [Neurontin] 100 mg PO TID@08,, hydrALAZINE HCl [Hydralazine HCl] 25 mg PO TID@08,,20 03/16/19 14:06 Venous Doppler Lwr Ext Bi [US] Routine 03/16/19 14:12 methylPREDNISolone Sod Succ [Solu-MEDROL] 40 mg IVPUSH ONETIME ONE 03/16/19 16:00 Acetaminophen [Tylenol] 650 mg PO QID Spironolactone [Aldactone] 50 mg PO BID@08,16 03/16/19 18:00 Furosemide [Lasix] 20 mg IVPUSH BID 03/16/19 20:00 Apixaban [Eliquis] 5 mg PO BID@08,20 Docusate Sodium/Sennosides [Senna Plus] DOSE tab PO BID@08,20 Ferrous Sulfate 325 mg PO BID@08,20 Fluticasone/Salmeterol [Advair 500-50] 1 puff INH BID@08,20 Furosemide [Lasix] 20 mg IVPUSH ONETIME ONE Melatonin 3 mg PO BEDTIME Potassium Chloride [Klor-Con 10] 10 meq PO BID@08,20 Simvastatin [Zocor] 20 mg PO BEDTIME 03/17/19 08:00 Allopurinol [Zyloprim] 100 mg PO DAILY Diltiazem [Cardizem CD] 120 mg PO DAILY Fenofibrate Nanocrystallized [Fenofibrate] 48 mg PO DAILY Isosorbide Mononitrate [Imdur] 60 mg PO DAILY Metoprolol Succinate [Toprol XL] 100 mg PO DAILY - Assessment/Plan Admission H&P: Please use this note as an admission H&P Last 24 Hours: My Active Orders 03/16/19 11:00 UA W/MICROSCOPIC [URIN] Stat Sodium Chloride 0.9% [Saline Flush] 10 ml FLUSH ASDIRECTED PRN 03/16/19 11:01 Chest 2V [CR] Stat Saline Lock Insert [OM.PC] Routine 03/16/19 13:37 Patient Status [ADT] Routine Height and Weight [RC] UPON July Shower [RC] ASDIRECTED Oxygen Therapy [RC] PRN Up With Assistance [RC] ASDIRECTED VTE/DVT Education [RC] PER UNIT ROUTINE Vital Signs [RC] Q8HR Resuscitation Status Routine 03/16/19 13:39 Intake and Output [RC] QSHIFT Pulse Oximetry [RC] PRN 03/16/19 13:40 Sequential Compression Device [OM.PC] Per Unit Routine 03/16/19 13:41 Antiembolic Devices [RC] PER UNIT ROUTINE Nitroglycerin [Nitrostat] 0.4 mg SL ASDIRECTED PRN oxyCODONE 2.5 mg PO Q4H PRN Comfort Measures [OM.PC] Routine 03/16/19 13:45 RT Aerosol Therapy [RC] ASDIRECTED 03/16/19 14:00 Albuterol/Ipratropium [DuoNeb 3.0-0.5 MG/3 ML] 3 ml NEB Q6HRRT Gabapentin [Neurontin] 100 mg PO TID@,, hydrALAZINE HCl [Hydralazine HCl] 25 mg PO TID@08,,20 03/16/19 14:06 Venous Doppler Lwr Ext Bi [US] Routine 03/16/19 14:12 methylPREDNISolone Sod Succ [Solu-MEDROL] 40 mg IVPUSH ONETIME ONE 03/16/19 16:00 Acetaminophen [Tylenol] 650 mg PO QID Spironolactone [Aldactone] 50 mg PO BID@08,16 03/16/19 18:00 Furosemide [Lasix] 20 mg IVPUSH BID 03/16/19 20:00 Apixaban [Eliquis] 5 mg PO BID@08,20 Docusate Sodium/Sennosides [Senna Plus] DOSE tab PO BID@08,20 Ferrous Sulfate 325 mg PO BID@08,20 Fluticasone/Salmeterol [Advair 500-50] 1 puff INH BID@08,20 Furosemide [Lasix] 20 mg IVPUSH ONETIME ONE Melatonin 3 mg PO BEDTIME Potassium Chloride [Klor-Con 10] 10 meq PO BID@08,20 Simvastatin [Zocor] 20 mg PO BEDTIME 03/17/19 08:00 Allopurinol [Zyloprim] 100 mg PO DAILY Diltiazem [Cardizem CD] 120 mg PO DAILY Fenofibrate Nanocrystallized [Fenofibrate] 48 mg PO DAILY Isosorbide Mononitrate [Imdur] 60 mg PO DAILY Metoprolol Succinate [Toprol XL] 100 mg PO DAILY Assessment:: as above Plan: as above. Admit for diureses/treatment of CHF in addition to COPD. Anticipate 3 day stay depending on patient's response to interventions.
[2019-03-16] MEDS ORDERED: methylPREDNISolone Sodium Succinate 40 MG/1 ML SDV IVPUSH ONE (14:12)
[2019-03-16] MEDS: Albuterol/Ipratropium 3.0-0.5 MG/3 ML Neb Soln NEB SCH ×2 (14:53→19:55)
[2019-03-16] MEDS: hydrALAZINE 50 MG Tab PO SCH ×2 (14:54→19:56)
[2019-03-16] MEDS: Gabapentin 100 MG Cap PO SCH ×2 (14:54→19:56)
[2019-03-16] MEDS: Sodium Chloride 0.9% 10 ML Syringe FLUSH PRN ×3 (14:57→22:08)
[2019-03-16] MEDS: Acetaminophen 325 MG Tab PO SCH ×2 (15:44→19:56)
[2019-03-16] MEDS: Spironolactone 25 MG Tab PO SCH (15:45)
[2019-03-16] MEDS ORDERED: Metoprolol Tartrate 25 MG Tab PO ONE (18:18)
[2019-03-16] MEDS: Formoterol/Mometasone 200-5 MCG 8.8 GM Inhaler IH SCH (19:55)
[2019-03-16] MEDS: Apixaban 5 MG Tab PO SCH (19:56)
[2019-03-16] MEDS: Ferrous Sulfate 325 MG Tab PO SCH (19:56)
[2019-03-16] MEDS: Potassium Chloride 10 MEQ Tab.ER PO SCH (19:56)
[2019-03-16] MEDS ORDERED: Furosemide 20 MG/2 ML VIAL IVPUSH ONE (20:00)
[2019-03-16] MEDS ORDERED: Melatonin 3 MG Tab PO SCH (20:00)
[2019-03-16] MEDS ORDERED: Simvastatin 20 MG Tab PO SCH (20:00)
[2019-03-16] MEDS ORDERED: cefTRIAXone 1 GM in Sodium Chloride 0.9% 100 ML IV SCH (21:30)
[2019-03-17] MEDS: Albuterol/Ipratropium 3.0-0.5 MG/3 ML Neb Soln NEB SCH ×3 (03:00→14:32)
[2019-03-17 07:07] VITALS: PULSE 76
[2019-03-17] MEDS: Spironolactone 25 MG Tab PO SCH (07:30)
[2019-03-17] MEDS: Potassium Chloride 10 MEQ Tab.ER PO SCH (07:31)
[2019-03-17] MEDS: Apixaban 5 MG Tab PO SCH (07:32)
[2019-03-17] MEDS: Acetaminophen 325 MG Tab PO SCH ×2 (07:32→11:38)
[2019-03-17] MEDS: hydrALAZINE 50 MG Tab PO SCH ×2 (07:34→14:33)
[2019-03-17] MEDS: Ferrous Sulfate 325 MG Tab PO SCH (07:34)
[2019-03-17] MEDS: Gabapentin 100 MG Cap PO SCH ×2 (07:34→14:33)
[2019-03-17] MEDS: Furosemide 20 MG/2 ML VIAL IVPUSH SCH ×2 (07:35→14:33)
[2019-03-17] MEDS: Formoterol/Mometasone 200-5 MCG 8.8 GM Inhaler IH SCH (07:37)
[2019-03-17] MEDS: Sodium Chloride 0.9% 10 ML Syringe FLUSH PRN ×2 (07:41→15:03)
[2019-03-17] MEDS ORDERED: Allopurinol 100 MG Tab PO SCH (08:00)
[2019-03-17] MEDS ORDERED: Fenofibrate,Micronized 67 MG Cap PO SCH (08:00)
[2019-03-17] MEDS ORDERED: Diltiazem 120 MG Cap.CD PO SCH (08:00)
[2019-03-17] MEDS ORDERED: Metoprolol Succinate 50 MG Tab.ER PO SCH (08:00)
[2019-03-17] MEDS ORDERED: Isosorbide Mononitrate 60 MG Tab.ER PO SCH (08:00)
[2019-03-17] MEDS ORDERED: Nitroglycerin 2% Oint 1 GM UD Packet TOP STA (08:35)
[2019-03-17] MEDS ORDERED: Sodium Chloride 0.9% 500 ML IV SCH (14:00)
[2019-03-17] MEDS ORDERED: Calcium Gluconate 10% 1 GM/10 ML SDV IVPUSH ONE (14:23)
[2019-03-17] MEDS ORDERED: Insulin Regular, Human 100 Units/ML 3 ML Vial IV ONE (14:28)
[2019-03-17] MEDS ORDERED: 50% Dextrose in Water 50 ML Syringe IVPUSH ONE (14:29)
[2019-03-17 14:35] VITALS: BP 164/76
--- NOTE | 2019-03-17 14:44 | PCM.DCSUM1 ---
Discharge Summary - Hospital Course Brief History: Admitted for treatment of peripheral edema. Found to have UTI. Advanced COPD. Diagnosis: Stroke: No - Discharge Data Discharge Date: 03/17/19 Discharge Disposition: DC/Tfer to Acute Hospital 02 Condition: Good - Referral to Home Health Primary Care Physician: Stephy Mcguire NP - Discharge Diagnosis/Problem(s) (1) Arteriosclerotic heart disease (ASHD) SNOMED Code(s): 97094442 ICD Code: I25.10 - ATHSCL HEART DISEASE OF [place] CORONARY ARTERY W/O ANG PCTRS Status: Chronic Priority: Low Current Visit: No Problem Details: Episode of left chest pain this morning. Improved with Nitro. EKG appeared to show depression in II, III, AVF, V6. Initial troponin zero. Repeat troponin at 4 hours was 0.020. Repeat EKG showed resolution of earlier EKG changes. Call placed to [place] and patient discussed with /hospitalist. Transfer arrangements made so that patient can be evaluated by Cardiology there. May be candidate for additional stent placement. (2) Chest pain SNOMED Code(s): 80486356 ICD Code: R07.9 - CHEST PAIN, UNSPECIFIED Status: Acute Priority: High Current Visit: Yes Onset Date: 03/17/19 Problem Details: see above Qualifiers: Chest pain type: unspecified Qualified Code(s): R07.9 - Chest pain, unspecified (3) Hyperkalemia SNOMED Code(s): 49893886 ICD Code: E87.5 - HYPERKALEMIA Status: Acute Priority: High Current Visit: Yes Onset Date: 03/17/19 Problem Details: Elevated K from 5.1 to 6.1 over 24 hours. Per request of patient received Ca Gluconate as well as Insulin/D50 to help drive down potassium level. (4) UTI (urinary tract infection) SNOMED Code(s): 91346773 ICD Code: N39.0 - URINARY TRACT INFECTION, SITE NOT SPECIFIED Status: Acute Priority: Medium Current Visit: Yes Problem Details: Rocephin initiated. UC pending. Qualifiers: Urinary tract infection type: acute cystitis Hematuria presence: without hematuria Qualified Code(s): N30.00 - Acute cystitis without hematuria (5) Edema of both legs SNOMED Code(s): 898996781, 57103804, 165441099 ICD Code: R60.0 - LOCALIZED EDEMA Status: Chronic Priority: High Current Visit: Yes Problem Details: Increased lower extremity edema. Has had similar issues in past. Elevated ProBNP. IV lasix ordered. No significant weight change noted. SCDs improved lower extremity edema. Negative bilateral US studies of lower extremities yesterday to r/o DVT. (6) COPD, severe SNOMED Code(s): 158215840 ICD Code: J44.9 - CHRONIC OBSTRUCTIVE PULMONARY DISEASE, UNSPECIFIED Status : Acute Priority: Medium Current Visit: Yes Problem Details: No evidence of pneumonia noted on chest xrays. Regular DuoNebs ordered. O2 dependent. (7) Chronic kidney disease SNOMED Code(s): 251881299 ICD Code: N18.9 - CHRONIC KIDNEY DISEASE, UNSPECIFIED Status: Acute Priority: Medium Current Visit: Yes Problem Details: BUN/Cr overall stable. Qualifiers: Chronic kidney disease stage: stage 4 (severe) Qualified Code(s): N18.4 - Chronic kidney disease, stage 4 (severe) (8) Chronic hypoxemic respiratory failure SNOMED Code(s): 206242841 ICD Code: J96.11 - CHRONIC RESPIRATORY FAILURE WITH HYPOXIA Status: Chronic Priority: Medium Current Visit: Yes Problem Details: O2 dependent/ advanced COPD (9) HTN (hypertension), benign SNOMED Code(s): 44272603 ICD Code: I10 - ESSENTIAL (PRIMARY) HYPERTENSION Status: Chronic Priority : Medium Current Visit: Yes Problem Details: overall stable (10) CHF (congestive heart failure) SNOMED Code(s): 19466376 ICD Code: I50.9 - HEART FAILURE, UNSPECIFIED Status: Chronic Priority: High Current Visit: Yes Problem Details: No significant changes noted on xray or physical exam however lower legs have been more edematous over the past 4-6 weeks. IV lasix in addition to compression boots significantly improved her last similar bout approximately a year ago. ProBNP 2380 today. No significant weight change observed today s/p Lasix. Qualifiers: Heart failure type: combined systolic and diastolic Heart failure chronicity: acute on chronic Qualified Code(s): I50.43 - Acute on chronic combined systolic (congestive) and diastolic (congestive) heart failure (11) Anemia SNOMED Code(s): 987025058 ICD Code: D64.9 - ANEMIA, UNSPECIFIED Status: Acute Priority: High Current Visit: No Problem Details: Chronic and Stable. Suspect anemia of chronic disease. Patient is noted to be on daily Fe. Low normal Fe level, Normal Folate/B12/%saturation/TIBC. High Ferritin. To follow up with primary provider. 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 Normal today (14) Humerus surgical neck fracture SNOMED Code(s): 390841900 ICD Code: S42.213A - UNSP DISP FX OF SURGICAL NECK OF UNSP HUMERUS, INIT Status: Chronic Priority: Low Current Visit: No Problem Details: Currently in immobilizer. Stable. Pain meds PRN. Fracture from January 2018. Qualifiers: Encounter type: subsequent encounter Fracture type: closed Fracture morphology: unspecified fracture morphology Fracture alignment: displaced Laterality: left Fracture healing: with nonunion Qualified Code(s): S42.212K - Unspecified displaced fracture of surgical neck of left humerus, subsequent encounter for fracture with nonunion - Patient Summary/Data Hospital Course: Patient received lasix and given SCD boots to help with edema. Found to have UTI when able to void and provide UA specimen. Received Rocephin IV. UC ordered. Nebs ordered to help with COPD complaints. Had left sided chest pain this morning. Relieved by Nitro. Initial EKG showed ST depression that was not present when EKG repeated at 1300. Initial Troponin 0.000, noted to be 0.020 at 1300. Potassium increased to 6.[address] changes and patient's history of CAD/previous stents, call placed to [place] and patient discussed with , Hospitalist. He accepted patient for transfer for further cardiac workup. Ca Gluconate/ insulin/D50 given to help decrease K level. Pt pain free since morning incident. Vital signs stable. Transferred by EMS to [place]. - Discharge Plan Home Medications: Home Meds Albuterol [Ventolin HFA] 2 puff INH Q4HR PRN 07/05/14 [History] Furosemide [Lasix] 80 mg PO DAILY 08/12/14 [History] Fluticasone/Salmeterol [Advair 500-50] 1 puff INH BID@,09/01/14 [History] Fenofibrate Nanocrystallized [Fenofibrate] 48 mg PO DAILY 07/15/15 [History] hydrALAZINE HCl [Hydralazine HCl] 25 mg PO TID@,,07/15/15 [History] Nitroglycerin [Nitrostat] 0.4 mg SL ASDIRECTED PRN #100 tab.sl 07/17/15 [Rx] Cholecalciferol (Vitamin D3) [D3-2000] 2,000 mg PO DAILY 03/04/18 [History] Furosemide 40 mg PO DAILY@12 03/04/18 [History] Gabapentin [Neurontin] 100 mg PO TID@,,03/04/18 [History] Isosorbide Mononitrate [Imdur] 60 mg PO DAILY 03/04/18 [History] Simvastatin 20 mg PO BEDTIME 03/04/18 [History] allopurinoL [Zyloprim] 100 mg PO DAILY 03/04/18 [History] dilTIAZem HCl [Diltiazem 24Hr Cd] 120 mg PO DAILY 03/04/18 [History] oxyCODONE 2.5 mg PO Q4H PRN 03/04/18 [History] Apixaban [Eliquis] 5 mg PO BID@,04/14/18 [History] Ascorbate Calcium [Vitamin C] 0.5 tab PO BID@,04/14/18 [History] Ferrous Sulfate 1 tab PO BID@,04/14/18 [History] Melatonin 3 mg PO BEDTIME 04/14/18 [History] Potassium Chloride [Klor-Con 10] 10 meq PO BID@,04/14/18 [History] Acetaminophen [Tylenol] 650 mg PO QID 03/16/19 [History] Metoprolol Succinate [Toprol XL 50mg] 100 mg PO DAILY 03/16/19 [History] Sennosides/Docusate Sodium [Senna-S] 1 each PO BID@,03/16/19 [History] Spironolactone [Aldactone] 50 mg PO BID@,16 03/16/19 [History] Forms: ED Department Discharge Referrals: Stephy Mcguire [employer]ENGTH COACH [Primary Care Provider] - - Discharge Summary/Plan Comment DC Time >30 min.: No - General Info Date of Service: 03/17/19 Admission Dx/Problem (Free Text: Increased peripheral edema, COPD. UTI noted shortly after admission. Had increased dizziness yesterday. Subjective Update: Denies dizziness. No acute SOB. Earlier left sided chest pain has resolved s/ p Nitro. No additional acute complaints. Functional Status: Reports: Pain Controlled, Tolerating Diet, Urinating. Denies : New Symptoms - Review of Systems General: Denies: Fever, Weakness, Night Sweats HEENT: Reports: No Symptoms (no acute changes) Pulmonary: Reports: Shortness of Breath (chronic/unchanged). Denies: Pleuritic Chest Pain, Cough, Hemoptysis, Wheezing Cardiovascular: Reports: Chest Pain (this morning, lasted approx 30min), Edema ( chronic). Denies: Palpitations, Lightheadedness Gastrointestinal: Denies: Abdominal Pain, Diarrhea, Nausea, Vomiting Genitourinary: Reports: No Symptoms Musculoskeletal: Reports: Other (no acute change from baseline, chronic nonhealing humerus fracture on left) Skin: Denies: Mottled, Pallor, Diaphoresis Neurological: Reports: Pre-Existing Deficit (Previous CVA/left sided arm weakness). Denies: Confusion, Dizziness, Headache, Change in Speech Psychiatric: Reports: No Symptoms - Patient Data Vitals - Most Recent: Last Vital Signs Temp 36.4 C 03/17/19 07:06 Pulse 76 03/17/19 07:33 Resp 17 03/17/19 07:06 BP 164/76 H 03/17/19 14:33 Pulse Ox 100 03/17/19 07:06 Weight - Most Recent: 76.566 kg I&O - Last 24 hours: Intake & Output 03/16/19 03/17/19 03/17/19 22:59 06:59 14:59 Intake Total 6515 404 4361 Output Total 150 600 200 Balance 950 -420 820 Lab Results - Last 24 hrs: Laboratory Results - last 24 hr 03/16/19 03/16/19 03/16/19 Range/Units 10:55 11:01 16:00 WBC (4.0-10.2) K/uL RBC (3.77-5.09) M/uL Hgb (11.7-15.5) g/dL Hct (34.0-46.0) % MCV (84.0-98.0) fL MCH (28.2-33.3) pg MCHC (31.7-36.0) g/dL RDW (11.2-14.1) % Plt Count (150-350) K/uL Neut % (Auto) (45.0-80.0) % Lymph % (Auto) (10.0-50.0) % [place] % (Auto) (2.0-14.0) % Eos % (Auto) (0.0-5.0) % Baso % (Auto) (0.0-2.0) % Neut # (Auto) (1.40-7.00) K/uL Lymph # (Auto) (0.50-3.50) K/uL [place] # (Auto) (0.00-1.00) K/uL Eos # (Auto) (0.00-0.50) K/uL Baso # (Auto) (0.00-0.20) K/uL D-Dimer, Quantitative (0-400) ng/mL Sodium (136-145) mmol/L Potassium (3.5-5.1) mmol/L Chloride (98-107) mmol/L Carbon Dioxide (21.0-32.0) mmol/L BUN (7-18) mg/dL Creatinine (0.51-1.17) mg/dL Est Cr Clr Drug Dosing mL/min Estimated GFR (MDRD) mL/min Glucose (74-106) mg/dL Calcium (8.5-10.1) mg/dL Iron 65 (50-175) ug/dL TIBC 411 (250-450) ug/dL % Saturation 15.38382 Ferritin 637 H (8-388) ng/mL Troponin I (0.000-0.056) ng/mL NT-Pro-B Natriuret Pep (0-125) pg/mL Vitamin B12 491 (193-986) pg/mL Folate 19.3 (8.6-58.9) ng/mL Specimen Type Urinblad Urine Color Light yellow Urine Appearance Slightly cloudy Urine pH 5.5 (5.0-9.0) Ur Specific [place] 1.010 (1.005-1.030) Urine Protein Negative (NEGATIVE) mg/dL Urine Glucose (UA) Negative (NEGATIVE) mg/dL Urine Ketones Negative (NEGATIVE) mg/dL Urine Occult Blood Negative (NEGATIVE) Urine Nitrite Negative (NEGATIVE) Urine Bilirubin Negative (NEGATIVE) Urine Urobilinogen 0.2 (0.2-1.0) E.U./dL Ur Leukocyte Esterase Small H (NEGATIVE) Urine RBC Not seen /HPF Urine WBC 50-75 H /HPF Ur Epithelial Cells Few /LPF Urine Bacteria Moderate H (NONE TO FEW) /HPF 03/17/19 03/17/19 03/17/19 Range/Units 08:40 08:40 12:55 WBC (4.0-10.2) K/uL RBC (3.77-5.09) M/uL Hgb (11.7-15.5) g/dL Hct (34.0-46.0) % MCV (84.0-98.0) fL MCH (28.2-33.3) pg MCHC (31.7-36.0) g/dL RDW (11.2-14.1) % Plt Count (150-350) K/uL Neut % (Auto) (45.0-80.0) % Lymph % (Auto) (10.0-50.0) % [place] % (Auto) (2.0-14.0) % Eos % (Auto) (0.0-5.0) % Baso % (Auto) (0.0-2.0) % Neut # (Auto) (1.40-7.00) K/uL Lymph # (Auto) (0.50-3.50) K/uL [place] # (Auto) (0.00-1.00) K/uL Eos # (Auto) (0.00-0.50) K/uL Baso # (Auto) (0.00-0.20) K/uL D-Dimer, Quantitative 336 (0-400) ng/mL Sodium 133 L (136-145) mmol/L Potassium 6.1 H* (3.5-5.1) mmol/L Chloride 97 L (98-107) mmol/L Carbon Dioxide 29.6 (21.0-32.0) mmol/L BUN 75 H (7-18) mg/dL Creatinine 1.67 H (0.51-1.17) mg/dL Est Cr Clr Drug Dosing 23.59 mL/min Estimated GFR (MDRD) 30 mL/min Glucose 230 H (74-106) mg/dL Calcium 9.4 (8.5-10.1) mg/dL Iron (50-175) ug/dL TIBC (250-450) ug/dL % Saturation Ferritin (8-388) ng/mL Troponin I 0.000 0.020 (0.000-0.056) ng/mL NT-Pro-B Natriuret Pep 2380 H (0-125) pg/mL Vitamin B12 (193-986) pg/mL Folate (8.6-58.9) ng/mL Specimen Type Urine Color Urine Appearance Urine pH (5.0-9.0) Ur Specific [place] (1.005-1.030) Urine Protein (NEGATIVE) mg/dL Urine Glucose (UA) (NEGATIVE) mg/dL Urine Ketones (NEGATIVE) mg/dL Urine Occult Blood (NEGATIVE) Urine Nitrite (NEGATIVE) Urine Bilirubin (NEGATIVE) Urine Urobilinogen (0.2-1.0) E.U./dL Ur Leukocyte Esterase (NEGATIVE) Urine RBC /HPF Urine WBC /HPF Ur Epithelial Cells /LPF Urine Bacteria (NONE TO FEW) /HPF 03/17/19 Range/Units 12:55 WBC 16.2 H (4.0-10.2) K/uL RBC 3.62 L (3.77-5.09) M/uL Hgb 10.8 L (11.7-15.5) g/dL Hct 34.4 (34.0-46.0) % MCV 95.0 (84.0-98.0) fL MCH 29.8 (28.2-33.3) pg MCHC 31.4 L (31.7-36.0) g/dL RDW 14.5 H (11.2-14.1) % Plt Count 278 (150-350) K/uL Neut % (Auto) 82.0 H (45.0-80.0) % Lymph % (Auto) 10.2 (10.0-50.0) % [place] % (Auto) 7.6 (2.0-14.0) % Eos % (Auto) 0.1 (0.0-5.0) % Baso % (Auto) 0.1 (0.0-2.0) % Neut # (Auto) 13.26 H (1.40-7.00) K/uL Lymph # (Auto) 1.65 (0.50-3.50) K/uL [place] # (Auto) 1.23 H (0.00-1.00) K/uL Eos # (Auto) 0.01 (0.00-0.50) K/uL Baso # (Auto) 0.01 (0.00-0.20) K/uL D-Dimer, Quantitative (0-400) ng/mL Sodium (136-145) mmol/L Potassium (3.5-5.1) mmol/L Chloride (98-107) mmol/L Carbon Dioxide (21.0-32.0) mmol/L BUN (7-18) mg/dL Creatinine (0.51-1.17) mg/dL Est Cr Clr Drug Dosing mL/min Estimated GFR (MDRD) mL/min Glucose (74-106) mg/dL Calcium (8.5-10.1) mg/dL Iron (50-175) ug/dL TIBC (250-450) ug/dL % Saturation Ferritin (8-388) ng/mL Troponin I (0.000-0.056) ng/mL NT-Pro-B Natriuret Pep (0-125) pg/mL Vitamin B12 (193-986) pg/mL Folate (8.6-58.9) ng/mL Specimen Type Urine Color Urine Appearance Urine pH (5.0-9.0) Ur Specific [place] (1.005-1.030) Urine Protein (NEGATIVE) mg/dL Urine Glucose (UA) (NEGATIVE) mg/dL Urine Ketones (NEGATIVE) mg/dL Urine Occult Blood (NEGATIVE) Urine Nitrite (NEGATIVE) Urine Bilirubin (NEGATIVE) Urine Urobilinogen (0.2-1.0) E.U./dL Ur Leukocyte Esterase (NEGATIVE) Urine RBC /HPF Urine WBC /HPF Ur Epithelial Cells /LPF Urine Bacteria (NONE TO FEW) /HPF Med Orders - Current: Current Medications Acetaminophen (Tylenol) 650 mg PO QID [facility] Last Admin: 03/17/19 11:38 Dose: 650 mg Albuterol/Ipratropium (Duoneb 3.0-0.5 Mg/3 Ml) 3 ml NEB Q6HRRT [facility] Last Admin: 03/17/19 14:32 Dose: 3 ml Allopurinol (Zyloprim) 100 mg PO DAILY [facility] Last Admin: 03/17/19 07:35 Dose: 100 mg Apixaban (Eliquis) 5 mg PO BID@,20 [facility] Last Admin: 03/17/19 07:32 Dose: 5 mg Diltiazem HCl (Cardizem Cd) 120 mg PO DAILY [facility] Last Admin: 03/17/19 07:32 Dose: 120 mg Fenofibrate (Fenofibrate) 67 mg PO DAILY [facility] Last Admin: 03/17/19 07:35 Dose: 67 mg Ferrous Sulfate (Ferrous Sulfate) 325 mg PO BID@, [facility] Last Admin: 03/17/19 07:34 Dose: 325 mg Furosemide (Lasix) 20 mg IVPUSH BID@0800,1400 [facility] Last Admin: 03/17/19 14:33 Dose: Not Given Gabapentin (Neurontin) 100 mg PO TID@,,20 [facility] Last Admin: 03/17/19 14:33 Dose: 100 mg Hydralazine HCl (Apresoline) 25 mg PO TID@,,20 [facility] Last Admin: 03/17/19 14:33 Dose: 25 mg Ceftriaxone Sodium 1 gm/ (Sodium Chloride) 100 mls @ 200 mls/hr IV Q24H [facility] Last Admin: 03/16/19 22:08 Dose: 200 mls/hr Sodium Chloride (Normal Saline) 500 mls @ 250 mls/hr IV .BOLUS [facility] Isosorbide Mononitrate (Imdur) 60 mg PO DAILY [facility] Last Admin: 03/17/19 07:31 Dose: 60 mg Melatonin (Melatonin) 3 mg PO BEDTIME [facility] Last Admin: 03/16/19 19:56 Dose: 3 mg Metoprolol Succinate (Toprol Xl) 100 mg PO DAILY [facility] Last Admin: 03/17/19 07:33 Dose: 100 mg Mometasone Furoate/Formoterol Fumar (Dulera 200-5 Mcg) 2 puff IH BID@ [facility] Last Admin: 03/17/19 07:37 Dose: 2 puff Nitroglycerin (Nitrostat) 0.4 mg SL ASDIRECTED PRN PRN Reason: Chest Pain Oxycodone HCl (Oxycodone) 2.5 mg PO Q4H PRN PRN Reason: Pain Potassium Chloride (Klor-Con 10) 10 meq PO BID@ [facility] Last Admin: 03/17/19 07:31 Dose: 10 meq Senna/Docusate Sodium (Senna Plus) 1 tab PO BID@ [facility] Last Admin: 03/17/19 07:31 Dose: 1 tab Simvastatin (Zocor) 20 mg PO BEDTIME [facility] Last Admin: 03/16/19 19:56 Dose: 20 mg Sodium Chloride (Saline Flush) 10 ml FLUSH ASDIRECTED PRN PRN Reason: Keep Vein Open Last Admin: 03/17/19 07:41 Dose: 10 ml Spironolactone (Aldactone) 50 mg PO BID@ [facility] Last Admin: 03/17/19 07:30 Dose: 50 mg Discontinued Medications Calcium Gluconate (Calcium Gluconate) 1 gm IVPUSH ONETIME ONE Stop: 03/17/19 14:24 Dextrose/Water (Dextrose 50% In Water) 50 ml IVPUSH ONETIME ONE Stop: 03/17/19 14:30 Furosemide (Lasix) 40 mg IVPUSH NOW ONE Stop: 03/16/19 13:42 Last Admin: 03/16/19 14:52 Dose: 40 mg Furosemide (Lasix) 20 mg IVPUSH ONETIME ONE Stop: 03/16/19 20:01 Last Admin: 03/16/19 19:55 Dose: 20 mg Insulin Human Regular (Humulin R) 10 unit IV ONETIME ONE Stop: 03/17/19 14:29 Methylprednisolone Sodium Succinate (Solu-Medrol) 40 mg IVPUSH ONETIME ONE Stop: 03/16/19 14:13 Last Admin: 03/16/19 14:53 Dose: 40 mg Metoprolol Tartrate (Lopressor) 25 mg PO ONETIME ONE Stop: 03/16/19 18:19 Last Admin: 03/16/19 18:26 Dose: 25 mg Nitroglycerin (Nitro-Bid 2%) 1 gm TOP ONETIME STA Stop: 03/17/19 08:36 Last Admin: 03/17/19 08:44 Dose: 1 gm - Exam Quality Assessment: Reports: Supplemental Oxygen General: Reports: Alert, Oriented, Cooperative, No Acute Distress HEENT: Reports: Pupils Equal, Pupils Reactive, EOMI, Mucous Membr. Moist/Thermal Neck: Reports: Supple Lungs: Reports: Normal Respiratory Effort, Rales (faint/bases). Denies: Rhonchi , Stridor, Wheezing Cardiovascular: Reports: Regular Rate, Regular Rhythm GI/Abdominal Exam: Soft, Non-Tender, No Distention (Female) Exam: Deferred Rectal (Female) Exam: Deferred Back Exam: Denies: Muscle Spasm Extremities: Pedal Edema (bilaterally/pitting), Other (nonhealing fx left humerus). No: Leatha's Sign, Increased Warmth, Mottled, Pallor, Redness Skin: Reports: Warm, Dry, Intact Neurological: Reports: No New Focal Deficit Psy/Mental Status: Reports: Alert, Normal Affect, Normal Mood EKG INTERPRETATION EKG Date: 03/17/19 Time: 08:36 Rhythm: NSR Rate (Beats/Min): 100 [place]: Normal P-Wave: Present QRS: Normal ST-T: Other (appears to have depression in II, III, AVF, V6. Mild elevation AVR.) QT: Normal EKG Interpretation Comments: Comparison of previous EKG to this one showed some similar morphology in regards to some of the ST changes noted. Repeat EKG at 0931 showed mild improvement in changes. Third EKG obtained at 1342 showed sinus rhythm with rate of 90. ST changes appeared to have mostly resolved.
[2019-03-17 15:02] LABS: HEMOGLOBIN A1C 6.1 % (4.3-5.7)
== END 2019-03-17 15:50 | DRG 291 ==
LOC: LL.ED 10:50 → LL.MS 12:24 → UNDOADMIN 12:24 → LL.MS 13:37
PROVIDERS: ADMIT Emergency Medicine; ATTEND Emergency Medicine
DX: I13.0 Hypertensive heart and chronic kidney disease with heart failure and stage 1 through stage 4 chronic kidney disease, or unspecified chronic kidney disease (principal); I50.43 Acute on chronic combined systolic (congestive) and diastolic (congestive) heart failure; N18.4 Chronic kidney disease, stage 4 (severe); J96.11 Chronic respiratory failure with hypoxia; I69.359 Hemiplegia and hemiparesis following cerebral infarction affecting unspecified side; S42.212K Unspecified displaced fracture of surgical neck of left humerus, subsequent encounter for fracture with nonunion; N30.00 Acute cystitis without hematuria; D63.1 Anemia in chronic kidney disease; R74.8 Abnormal levels of other serum enzymes; H91.90 Unspecified hearing loss, unspecified ear; E87.5 Hyperkalemia; I25.10 Atherosclerotic heart disease of native coronary artery without angina pectoris; J44.9 Chronic obstructive pulmonary disease, unspecified; H54.7 Unspecified visual loss; E78.00 Pure hypercholesterolemia, unspecified; K21.9 Gastro-esophageal reflux disease without esophagitis; D64.9 Anemia, unspecified; R79.89 Other specified abnormal findings of blood chemistry; R32 Unspecified urinary incontinence; E55.9 Vitamin D deficiency, unspecified; Z86.73 Personal history of transient ischemic attack (TIA), and cerebral infarction without residual deficits; M10.9 Gout, unspecified; M19.90 Unspecified osteoarthritis, unspecified site; M81.0 Age-related osteoporosis without current pathological fracture; Z79.01 Long term (current) use of anticoagulants; Z95.5 Presence of coronary angioplasty implant and graft; Z79.899 Other long term (current) drug therapy; Z88.8 Allergy status to other drugs, medicaments and biological substances; I25.2 Old myocardial infarction; Z99.81 Dependence on supplemental oxygen
CPT/HCPCS: 36415; 71046; 80048; 80053; 81001; 82607; 82728; 82746; 83036; 83540; 83550; 83735; 83880; 84484; 85025; 85379; 87086; 87088; 87186; 93005; 93970; 94640; 96374; 96375; 96376; 99285-25; A9270-GY; J0610; J0696; J1815-GY; J1940; J2920; J7050; J7620-GY

== ENCOUNTER 2019-04-28 13:25 | Inpatient (IN) | payer MEDICARE, BC ==
[2019-04-28] MEDS ORDERED: Famotidine 20 MG/2 ML SDV IVPUSH ONE (13:29)
--- NOTE | 2019-04-28 13:29 | EDM.PDOC ---
ED HPI GENERAL MEDICAL PROBLEM - General Chief Complaint: Cardiovascular Problem Stated Complaint: Leg Swelling, SOB Time Seen by Provider: 04/28/19 13:25 Source of Information: Reports: Patient, Family (Daughter, Nicky), Intermediate Records, Old Records ([facility] EMR. No paper hospital chart available.) History Limitations: Reports: No Limitations - History of Present Illness INITIAL COMMENTS - FREE TEXT/NARRATIVE: The patient was brought to the emergency room via transport vehicle from [facility] for history of progressive dependent edema and dyspnea with symptoms worsening during the last couple of months. Note that the patient did have a recent non-STEMI on 03/16/19 with PTCA/stent placement 2 at that time as below. Her dependent edema has been increased during the last 3 weeks with symptoms refractory to increased oral Lasix therapy during that period of time. The patient denies any chest pain/pressure, heart flutter, dizziness, orthostasis, orthopnea, diaphoresis, paresthesias, recent decreased exercise tolerance, or any other anginal-type symptoms, although her overall activity level is low. No recent history of abdominal pain, heartburn, nausea, diarrhea, melena, gross hematochezia, or any food intolerance, including fatty foods, etc.. She denies any gross hematuria, colic, or other UTI symptoms. The patient also denies any recent fever, cough, wheezing, etc.. She denies any specific pain or discomfort. Onset: Gradual, Other (As above) Duration: Week(s): (As above), Getting Worse Location: Reports: Other (No pain) Quality: Reports: Same as Previous Episode Improves with: Reports: Rest Worsens with: Reports: Movement Associated Symptoms: Reports: Shortness of Breath. 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) (None) - Related Data Allergies Allergy/AdvReac Type Severity Reaction Status Date / Time VIJAYA Inhibitors Allergy Other Verified 03/16/19 11:05 losartan Allergy Cannot Verified 03/16/19 11:05 Remember Home Meds: Home Meds Albuterol [Ventolin HFA] 2 puff INH Q4HR PRN 07/05/14 [History] Furosemide [Lasix] 80 mg PO DAILY 08/12/14 [History] Fluticasone/Salmeterol [Advair 500-50] 1 puff INH BID@,09/01/14 [History] Nitroglycerin [Nitrostat] 0.4 mg SL ASDIRECTED PRN #100 tab.sl 07/17/15 [Rx] Cholecalciferol (Vitamin D3) [D3-2000] 2,000 mg PO DAILY 03/04/18 [History] Furosemide 40 mg PO DAILY@03/04/18 [History] Gabapentin [Neurontin] 100 mg PO TID@,,03/04/18 [History] Isosorbide Mononitrate [Imdur] 60 mg PO DAILY 03/04/18 [History] allopurinoL [Zyloprim] 100 mg PO DAILY 03/04/18 [History] oxyCODONE 2.5 mg PO Q4H PRN 03/04/18 [History] Apixaban [Eliquis] 5 mg PO BID@,04/14/18 [History] Ascorbate Calcium [Vitamin C] 0.5 tab PO BID@,04/14/18 [History] Ferrous Sulfate 1 tab PO BID@,04/14/18 [History] Melatonin 3 mg PO BEDTIME 04/14/18 [History] Acetaminophen [Tylenol] 650 mg PO QID 03/16/19 [History] Metoprolol Succinate [Toprol XL 50mg] 100 mg PO DAILY 03/16/19 [History] Sennosides/Docusate Sodium [Senna-S] 1 each PO BID@,03/16/19 [History] Amiodarone HCl 200 mg PO DAILY 04/28/19 [History] Clopidogrel Bisulfate [Clopidogrel] 75 mg PO DAILY 04/28/19 [History] Rosuvastatin [Crestor] 20 mg PO DAILY 04/28/19 [History] amLODIPine [Norvasc] 5 mg PO DAILY 04/28/19 [History] Past Medical History HEENT History: Reports: Cataract, Hard of Hearing, Impaired Vision, Other (See Below). Denies: Allergic Rhinitis, Glaucoma, Macular Degeneration, Otitis Media , Retinal Detachment Other HEENT History: Full upper dentures; partial lower dentures. Patient wears glasses. Mild bilateral presbycusis. Cardiovascular History: Reports: Afib, Arrhythmia, Blood Clots/VTE/DVT, CAD, Cardiomyopathy, Heart Failure, Heart Murmur, High Cholesterol, Hypertension, ID , PTCA, PVD, SOB on Exertion, Stents, Other (See Below). Denies: Aneurysm, Bypass, Syncope Other Cardiovascular History: Carotid artery disease with recurrent CVA and surgeries as below. Chronic dependent edema secondary to her CHF and cardiomegaly. Chronic d-dimer elevation with negative workup as below. Previous atrial fibrillation with tachycardia with current Eliquis therapy. MIs initially 2015 with stent placement required as below in July 2015 and in March 2019. Aggressive moderate aortic valve stenosis with mild mitral valve insufficiency, mild left atrial enlargement, and grade 1 diastolic dysfunction I echocardiogram in March 2019 as below. Possible previous DVT of the lower extremity current Eliquis therapy, however multiple negative follow-up venous Doppler studies of the lower extremities. Respiratory History: Reports: Bronchitis, Recurrent, COPD, Intubation, Previous , SOB, Other (See Below). Denies: Asthma, Intubation, Difficult, PE, Pneumothorax, Sleep Apnea, TB Other Respiratory History: Oxygen dependent COPD and CHF current use of 23 L/m. Gastrointestinal History: Reports: Chronic Constipation, Diverticulosis, Gastritis, GERD, GI Bleed, Hiatal Hernia, PUD, Other (See Below). Denies: Bowel Obstruction, Celiac Disease, Cholelithiasis, Chronic Diarrhea, Colon Polyp , Fatty Liver, Fecal Incontinence, Hepatitis, Inflammatory Bowel Disease, Irritable Bowel Syndrome, Jaundice, Pancreatitis Other Gastrointestinal History: Upper GI bleed in 2014 requiring blood transfusions as below. Moderate hernia by EGD as below. Dysphagia. Genitourinary History: Reports: Chronic Renal Insuffiency, Urinary Incontinence. Denies: Acute Renal Failure, Renal Calculus, Retention, Urinary, STD, UTI, Recurrent [employer] MACHINES History: Reports: . Denies: Dysfunctional Uterine Bleeding, Endometriosis, Fibroids, Spontaneous : 2 Para: 2 LMP (Approximate): Other (See Below) Other [employer]ACHINES History: Menopause in her early 50s. Full term without complications during pregnancies or deliveries. Musculoskeletal History: Reports: Arthritis, Back Pain, Chronic, Fracture, Gout , Neck Pain, Chronic, Osteoarthritis, Osteoporosis, Other (See Below). Denies: Amputation, RA, SLE Other Musculoskeletal History: Left occipital humerus fracture and left pelvic ramus fx on 03/14/18 both without surgical repair with chronic nonoperable proximal left humeral fracture and current chronic arm immobilizer therapy. Neurological History: Reports: CVA, Neuropathy, Peripheral, Other (See Below). Denies: Cerebral Aneurysms, Concussion, Headaches, Chronic, Head Trauma, Migraines, MS, Neuropathy, Diabetic, Parkinson's, Seizure, TIA, Vertigo Other Neuro History: Initial right-sided CVA in 2001 with subsequent right- sided CVA in 2002 with mild persistent left leg/foot weakness. Psychiatric History: Reports: Addiction, Other (See Below). Denies: Abuse, Victim of, ADD, ADHD, Anxiety, Depression, Psych Hospitalization(s), PTSD, Suicide Attempt, Suicidal Ideation Other Psychiatric History: Chronic narcotic use secondary to chronic pain syndrome. Endocrine/Metabolic History: Reports: Hypokalemia, Obesity/BMI 30+, Osteopenia, Osteoporosis, Vitamin D Deficiency. Denies: Diabetes, Gestational, Diabetes, Type I, Diabetes, Type II, Diabetes Mellitus, Type 3c, Hypothyroidism, IDDM Hematologic History: Reports: Anemia, Blood Transfusion(s), Iron Deficiency, Other (See Below) Other Hematologic History: Chronic anemia secondary to renal disease and iron deficiency. Note previous upper GI bleed requiring blood transfusion as above. Immunologic History: Reports: None. Denies: AIDS, HIV, SLE Oncologic (Cancer) History: Reports: None. Denies: Basal Cell Carcinoma, Breast , Cervix, Hodgkin's Lymphoma, Leukemia, Lymphoma, Malignant Melanoma, Non- Hodgkin's Lymphoma, Ovarian, Squamous Cell Carcinoma, Uterine Dermatologic History: Reports: Other (See Below). 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 Denies: C-Difficile, Meningitis, Mononucleosis, MRSA, Pertussis (Whooping Cough) , Rheumatic Fever, Scarlet Fever, Shingles, TB, VRE - Past Surgical History Head Surgeries/Procedures: Reports: None HEENT Surgical History: Reports: Adenoidectomy, Cataract Surgery, Oral Surgery, Tonsillectomy, Other (See Below). Denies: Eye Surgery, Laser Surgery, LASIK, Myringotomy w Tube(s), Naso-Sinus Surgery Other HEENT Surgeries/Procedures: Tonsillectomy and adenoidectomy at about age 19. Bilateral cataract surgery in 2009. Almost complete teeth extraction with complete upper dentures and partial lowers. Cardiovascular Surgical History: Reports: Carotid Endarterectomy, Coronary Artery Stent, Percutaneous Transluminal Angioplasty, Other (See Below). Denies : Cardiac Ablation, Coronary Artery Bypass, Varicose Other Cardiovascular Surgeries/Procedures: Show PTCA/stent 2 in about 2015 with PTCA/stent 2 including the left circumflex and and right coronary artery on 03/19/19. Right-sided carotid endarterectomy in 2002. Respiratory Surgical History: Reports: None. Denies: Thoracentesis GI Surgical History: Reports: EGD, Other (See Below). Denies: Appendectomy, Cholecystectomy, Colonoscopy, Hernia, Abdominal, Hernia, Inguinal, Hernia Repair /Other, Polypectomy Other GI Surgeries/Procedures: EGD on 08/09/14 with antral gastritis but no acute bleeding ulcer Female Surgical History: Reports: Breast Biopsy, Other (See Below). Denies: Section, D&C, Hysterectomy, Lithotripsy/ESWL, Oophorectomy, Salpingo- Oophorectomy, Tubal Ligation Other Female Surgeries/Procedures: Left-sided breast biopsy for benign disease in about 2009 Endocrine Surgical History: Reports: None. Denies: Thyroid Biopsy Neurological Surgical History: Reports: None. Denies: C-Spine, Discectomy, Intracranial, Laminectomy, Lumbar Spine, Sacral Spine, Spinal Fusion, Thoracic Spine, Vertebroplasty Musculoskeletal Surgical History: Reports: None. Denies: Arthroscopic Procedure , Carpal Tunnel, Ganglion Cyst, Joint Replacement, ORIF, Shoulder Surgery Oncologic Surgical History: Reports: None Dermatological Surgical History: Reports: None - Past Imaging History Past Imaging History: Reports: Angiography (Last heart catheterization on ), Cardiac Echo (Echocardiogram on 03/03/19, 05/13/18 and 08/12/14 with excellent ejection fraction and findings as above.), CAT Scan (Negative CTA of the chest with PE protocol on 08/13/14 and 07/09/14.), Swallow Study (Positive swallowing study on 03/20/16), Venous Doppler (Bilateral venous Doppler studies on 03/16/19 and 04/17/18 negative for DVT.) Social & Family History - Family History HEENT: Reports: None. Denies: Cataract, Glaucoma, Macular Degeneration, Retinal Detachment Cardiac: Reports: CAD, High Cholesterol, Hypertension, ID, Other (See Below). Denies: Afib, Aneurysm, Arrhythmia, Blood Clots/VTE/DVT, Bypass, Heart Failure, Heart Murmur, PVD/COD, Syncope Other Cardiac Family History: Father with ID in his late 50s to early 60s with no procedures performed. Maternal grandmother with hyperlipidemia. Father with hypertension. Respiratory: Reports: Asthma, COPD, Other (See Below). Denies: PE, Pneumothorax , Sleep Apnea Other Respiratory Family Hisory: Mother with asthma. Maternal grandmother with COPD with no history of tobacco use. GI: Reports: Cholelithiasis, Colon Polyps, Diverticulitis, Diverticulosis, Other (See Below). Denies: Celiac Disease, GERD, GI bleed, Inflammatory Bowel Disease, Irritable Bowel Syndrome, Jaundice, Pancreatitis, PUD Other GI Family History: Mother with history of cholelithiasis, diverticulitis, and colon cancer. : Reports: None. Denies: Dialysis, Renal Calculus, Renal Disease/ Insufficiency OBGYN: Reports: None. Denies: Endometriosis, Fibroids, Recurrent Spontaneous Musculoskeletal: Reports: Arthritis, Osteoarthritis, Other (See Below). Denies : Gout, RA, SLE Other Musculoskeletal Family History: Mother with osteoarthritis. Neurological: Reports: CVA, Other (See Below). Denies: Alzheimers Disease, Dementia, Migraines, MS, Parkinson's, Seizure, TIA Other Neurological Family History: Sister with history of CVA at about age 72 also be secondary to her leukemia. Psychiatric: Reports: None. Denies: Abuse, Victim of, ADD, ADHD, Anxiety, Depression, Psych Hospitalization(s), PTSD, Suicide Attempt Endocrine/Metabolic: Reports: Diabetes, type II, IDDM, Other (See Below). Denies: Diabetes, Gestational, Diabetes, Type I, Diabetes Mellitus, Type 3c, Hypothyroidism Other Endocrine/Metabolic Family History: Maternal grandmother with IDDM. Hematologic: Reports: Anemia Other Hematologic Family History: Anemia secondary to leukemia-sister Immunologic: Reports: Immunosuppression, Other (See Below). Denies: AIDS, HIV, SLE Other Immunologic Family History: Sister with leukemia. Dermatologic: Reports: None Oncologic: Reports: Colon, Leukemia, Metastatic. Denies: Breast, Cervix, Hodgkin's Lymphoma, Lung, Lymphoma, Ovarian, Renal, Skin, Uterine Other Oncologic Family History: Mother with fatal colon cancer at age 72. Sister with fatal leukemia at age 77. - Tobacco Use Smoking Status *Q: Current Every Day Smoker Tobacco Use Within Last Twelve Months: Cigarettes Years of Tobacco use: 59 Packs/Tins Daily: 2 Packs/Tins Daily Comment: She smoked between ages 14 and 73 with maximum use of 23 packs per day. Note that she stopped smoking on 07/04/14 after her ID. Used Tobacco, but Quit: Yes Smoking Cessation Information Provided To Patient: No Second Hand Smoke Exposure: No Second Hand Smoke Education Provided: No - Caffeine Use Caffeine Use: Reports: None - Alcohol Use Alcohol Use History: No Days Per Week of Alcohol Use: 0 Number of Drinks Per Day: 0 Number of Drinks Per Day Comment: No previous DWIs, problems with alcohol abuse , etc. Total Drinks Per Week: 0 Alcohol Use in Last Twelve Months: No - Recreational Drug Use Recreational Drug Use: No Drug Use in Last 12 Months: No Recreational Drug Type: Denies: Amphetamines (Speed), Cocaine, Heroin, Inhalants (Glues, Solvents, Aerosols), LSD (Acid), Marijuana/Hashish, Methamphetamine, Morphine, Oxycodone - Living Situation & Occupation Living situation: Reports: (2008, 2 children), [facility] Occupation: Retired (Retired at age 61. 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 ED EXAM, GENERAL - Physical Exam Exam: See Below Exam Limited By: No Limitations General Appearance: Alert, No Apparent Distress Eye Exam: Bilateral Eye: EOMI, Normal Inspection (No nystagmus. Patient wearing glasses), PERRL Ears: Normal External Exam, Normal Canal, Normal TMs, Hearing Loss (Mild bilateral presbycusis), Other (Stable by history benign work over the superior left EAC last oral,) Nose: Normal Inspection, Normal Mucosa, No Blood Throat/Mouth: Normal Inspection, Normal Lips, Normal Teeth (Complete upper dentures with partial lowers), Normal Gums, Normal Oropharynx, Normal Voice, No Airway Compromise. No: Dysphagia Head: Atraumatic, Normocephalic. No: Facial Swelling, Facial Tenderness, Sinus Tenderness Neck: Supple, Non-Tender, Full Range of Motion, Carotid Bruit (Mild bilateral carotid bruits versus transmitted heart sounds). No: Lymphadenopathy (L), Lymphadenopathy (R), Thyromegaly Respiratory/Chest: No Respiratory Distress, No Accessory Muscle Use, Chest Non- Tender, Rales (Mild bilateral basilar rales). No: Rhonchi, Wheezing, Pleural Rub, Retractions Cardiovascular: Normal Peripheral Pulses, Regular Rate, Rhythm, No Gallop, No JVD, No Murmur, No Rub, Systolic Murmur (1/6 LEOLA of the aortic and mitral valves ). No: No Edema (Dependent edema as below), Gallop/S3, Gallop/S4, Friction Rub Peripheral Pulses: 1+: Dorsalis Pedis (L), Dorsalis Pedis (R), 2+: Radial (L), Radial (R) GI/Abdominal: Normal Bowel Sounds, Soft, Non-Tender, No Organomegaly, No Distention, No Abnormal Bruit, No Mass, Pelvis Stable, Other (Obese). No: Guarding (Female) Exam: Deferred Rectal (Female) Exam: Deferred Back Exam: Normal Inspection, Full Range of Motion. No: CVA Tenderness (L), CVA Tenderness (R), Muscle Spasm Extremities: Non-Tender, Normal Capillary Refill, Pedal Edema (Progressive +2 pitting pedal/pretibial edema bilaterally), Limited Range of Motion (Left shoulder secondary to unstable proximal left humeral fracture with arm immobilizer). No: Leatha's Sign Neurological: Alert, Oriented, CN II-XII Intact, Normal Cognition, Normal Gait, Normal Reflexes (Negative Babinski's), No Motor/Sensory Deficits Psychiatric: Normal Affect Skin Exam: Warm, Intact, Normal Color, No Rash, Decubitus, Ecchymosis (Left hand ). No: Diaphoretic, Petechiae, Wound/Incision Lymphatic: No Adenopathy EKG INTERPRETATION EKG Date: 04/28/19 Time: 13:41 Rhythm: NSR Rate (Beats/Min): 78 [place]: Normal (Left cardiac axis) P-Wave: Present QRS: Normal (0.08 seconds with repolarization changes) ST-T: Other (Stable T-wave inversion in leads 1 and aVL with resolved horizontal ST depressions in leads 2, 3, and V4 through V6 since 03/17/19.) QT: Normal MS/PQ Interval: 0.16 seconds Comparison: Change From Previous EKG (As above since 03/17/19) EKG Interpretation Comments: 1. Lateral wall cardiac ischemia with resolved inferolateral cardiac ischemia Course - Vital Signs Last Recorded V/S: Last Vital Signs Temp 36.6 C 04/28/19 13:25 Pulse 73 04/28/19 15:00 Resp 16 04/28/19 15:00 BP 147/49 H 04/28/19 15:00 Pulse Ox 99 04/28/19 15:00 Vital Signs - 24 hr 04/28/19 04/28/19 04/28/19 13:25 14:00 14:30 Temperature [ 36.6 C Temporal] Pulse, 79 76 75 Peripheral [ Pulse Oximetry] Respiratory 16 17 16 Rate Blood Pressure 154/58 H 149/52 H 155/60 H [Right Upper Arm] O2 Sat by Pulse 93 L 93 L 97 Oximetry 04/28/19 04/28/19 14:44 15:00 Temperature [ Temporal] Pulse, 73 73 Peripheral [ Pulse Oximetry] Respiratory 17 16 Rate Blood Pressure 147/49 H 147/49 H [Right Upper Arm] O2 Sat by Pulse 99 99 Oximetry - Orders/Labs/Meds Orders: Active Orders 24 hr Category Date Time Status Cardiac Monitoring [RC] . DIRECTED Care 04/28/19 13:29 Active EKG Documentation Completion [RC] ASDIRECTED Care 04/28/19 13:29 Active Oxygen Therapy, ED [RC] CONTINUOUS Care 04/28/19 13:29 Active Peripheral IV Care [RC] . DIRECTED Care 04/28/19 13:29 Active Pulse Oximetry [RC] CONTINUOUS Care 04/28/19 13:29 Active Up With Assistance [RC] PFP Care 04/28/19 13:29 Active Vital Signs [RC] PFP Care 04/28/19 13:29 Active Nothing per Oral Now Diet [DIET] Diet 04/28/19 Breakfast Active Chest 1V Frontal [CR] Stat Exams 04/28/19 13:29 Ordered Sodium Chloride 0.9% [Saline Flush] Med 04/28/19 13:29 Active 10 ml FLUSH ASDIRECTED PRN Obtain Past Medical Record [OM.PC] Urgent Oth 04/28/19 13:29 Active Peripheral IV Insertion Adult [OM.PC] Stat Oth 04/28/19 13:29 Ordered Resuscitation Status Stat Resus Stat 04/28/19 13:29 Ordered Medication Orders Sodium Chloride (Saline Flush) 10 ml FLUSH ASDIRECTED PRN PRN Reason: Keep Vein Open Last Admin: 04/28/19 14:33 Dose: 10 ml Labs: Laboratory Tests 04/28/19 04/28/19 04/28/19 Range/Units 14:00 14:00 14:10 WBC 11.3 H (4.0-10.2) K/uL RBC 3.19 L (3.77-5.09) M/uL Hgb 9.3 L (11.7-15.5) g/dL Hct 31.1 L (34.0-46.0) % MCV 97.5 (84.0-98.0) fL MCH 29.2 (28.2-33.3) pg MCHC 29.9 L (31.7-36.0) g/dL RDW 15.2 H (11.2-14.1) % Plt Count 233 (150-350) K/uL Neut % (Auto) 71.2 (45.0-80.0) % Lymph % (Auto) 13.0 (10.0-50.0) % [place] % (Auto) 10.2 (2.0-14.0) % Eos % (Auto) 5.2 H (0.0-5.0) % Baso % (Auto) 0.4 (0.0-2.0) % Neut # (Auto) 8.05 H (1.40-7.00) K/uL Lymph # (Auto) 1.47 (0.50-3.50) K/uL [place] # (Auto) 1.15 H (0.00-1.00) K/uL Eos # (Auto) 0.59 H (0.00-0.50) K/uL Baso # (Auto) 0.04 (0.00-0.20) K/uL PT (9.5-12.0) SEC INR APTT (21.0-31.3) SEC D-Dimer, Quantitative 1170 H (0-400) ng/mL Sodium 139 (136-145) mmol/L Potassium 5.1 (3.5-5.1) mmol/L Chloride 99 (98-107) mmol/L Carbon Dioxide 31.6 (21.0-32.0) mmol/L BUN 52 H (7-18) mg/dL Creatinine 1.81 H (0.51-1.17) mg/dL Est Cr Clr Drug Dosing TNP Estimated GFR (MDRD) 27 mL/min Glucose 128 H (74-106) mg/dL Lactic Acid (0.4-2.0) mmol/L Uric Acid 7.3 H (2.6-7.2) mg/dL Calcium 9.1 (8.5-10.1) mg/dL Magnesium 2.1 (1.8-2.4) mg/dL Total Bilirubin 0.3 (0.2-1.0) mg/dL AST 18 (15-37) U/L ALT 15 (12-78) U/L Alkaline Phosphatase 82 (46-116) IU/L Creatine Kinase 60 (26-308) U/L Creatine Kinase Index 3.7 H (0.0-2.5) % CK-MB (CK-2) 2.20 (0.00-3.60) ng/mL Troponin I 0.000 (0.000-0.056) ng/mL NT-Pro-B Natriuret Pep 1471 H (0-125) pg/mL Total Protein 7.6 (6.4-8.2) g/dL Albumin 3.4 (3.4-5.0) g/dL TSH, Ultra Sensitive 6.169 H (0.358-3.740) mIU/mL 04/28/19 04/28/19 Range/Units 14:19 14:19 WBC (4.0-10.2) K/uL RBC (3.77-5.09) M/uL Hgb (11.7-15.5) g/dL Hct (34.0-46.0) % MCV (84.0-98.0) fL MCH (28.2-33.3) pg MCHC (31.7-36.0) g/dL RDW (11.2-14.1) % Plt Count (150-350) K/uL Neut % (Auto) (45.0-80.0) % Lymph % (Auto) (10.0-50.0) % [place] % (Auto) (2.0-14.0) % Eos % (Auto) (0.0-5.0) % Baso % (Auto) (0.0-2.0) % Neut # (Auto) (1.40-7.00) K/uL Lymph # (Auto) (0.50-3.50) K/uL [place] # (Auto) (0.00-1.00) K/uL Eos # (Auto) (0.00-0.50) K/uL Baso # (Auto) (0.00-0.20) K/uL PT 11.5 (9.5-12.0) SEC INR 1.1 APTT 41.0 H (21.0-31.3) SEC D-Dimer, Quantitative (0-400) ng/mL Sodium (136-145) mmol/L Potassium (3.5-5.1) mmol/L Chloride (98-107) mmol/L Carbon Dioxide (21.0-32.0) mmol/L BUN (7-18) mg/dL Creatinine (0.51-1.17) mg/dL Est Cr Clr Drug Dosing Estimated GFR (MDRD) mL/min Glucose (74-106) mg/dL Lactic Acid 0.9 (0.4-2.0) mmol/L Uric Acid (2.6-7.2) mg/dL Calcium (8.5-10.1) mg/dL Magnesium (1.8-2.4) mg/dL Total Bilirubin (0.2-1.0) mg/dL AST (15-37) U/L ALT (12-78) U/L Alkaline Phosphatase (46-116) IU/L Creatine Kinase (26-308) U/L Creatine Kinase Index (0.0-2.5) % CK-MB (CK-2) (0.00-3.60) ng/mL Troponin I (0.000-0.056) ng/mL NT-Pro-B Natriuret Pep (0-125) pg/mL Total Protein (6.4-8.2) g/dL Albumin (3.4-5.0) g/dL TSH, Ultra Sensitive (0.358-3.740) mIU/mL Meds: Medications Generic Name Dose Route Start Last Admin Trade Name Freq PRN Reason Stop Dose Admin Sodium Chloride 10 ml 04/28/19 13:29 04/28/19 14:33 Saline Flush FLUSH 10 ml ASDIRECTED PRN Administration Keep Vein Open Discontinued Medications Generic Name Dose Route Start Last Admin Trade Name Omar PRN Reason Stop Dose Admin Famotidine 40 mg 04/28/19 13:29 04/28/19 14:32 Pepcid IVPUSH 04/28/19 13:30 40 mg ONETIME ONE Administration Furosemide 60 mg 04/28/19 13:33 04/28/19 14:38 Lasix IVPUSH 04/28/19 13:34 60 mg NOW ONE Administration - Radiology Interpretation Free Text/Narrative:: Lead Assistant Manager shows normal sinus rhythm in the 70s with no ectopy or arrhythmia. Chest x-ray, portable, shows moderate COPD changes with mild mostly centralized CHF and only borderline cardiomegaly. No pulmonary infiltrates, pneumothorax, etc. Note stable left sided chronic displaced proximal humeral fracture. Departure - Departure Time of Disposition: 15:15 Disposition: Admitted As Inpatient 65 Condition: Fair Clinical Impression: Peripheral neuropathy, D-dimer, elevated, Hyperuricemia, Anemia, CKD (chronic kidney disease) stage 3, GFR 30-59 ml/min, Hypothyroidism (acquired), HTN ( hypertension), benign, CHF (congestive heart failure), COPD (chronic obstructive pulmonary disease), Arteriosclerotic heart disease (ASHD) Referrals: Stephy Mcguire NP [Primary Care Provider] - Forms: ED Department Discharge Care Plan Goals: See plan Sepsis Event Note - Focused Exam Vital Signs: Vital Signs Temp Pulse Resp BP Pulse Ox 04/28/19 15:00 73 16 147/49 H 99 04/28/19 14:44 73 17 147/49 H 99 04/28/19 14:30 75 16 155/60 H 97 04/28/19 14:00 76 17 149/52 H 93 L 04/28/19 13:25 36.6 C 79 16 154/58 H 93 L Date Exam was Performed: 04/28/19 Time Exam was Performed: 15:10 - Problem List & Annotations (1) CHF (congestive heart failure) SNOMED Code(s): 12016056 Code(s): I50.9 - HEART FAILURE, UNSPECIFIED Status: Chronic Priority: High Current Visit: Yes Annotation/Comment:: CHF refractory to patient increased oral Lasix therapy as above. High-dose IV Lasix therapy initiated in the emergency room. Note recent ID, echocardiogram, etc. as above. Patient is allergic to VIJAYA inhibitors and angiotensin II receptor blockers. No chest pain or anginal type symptoms. Consider cardiology consultation depending on her clinical course. EKG shows likely stable lateral wall cardiac ischemia. Consider discontinuation of her Plavix secondary to her current Eliquis therapy and chronic anemia with distant history of GI bleed as above. Artifactually elevated CK index secondary to low baseline CK. Cardiac Enzymes otherwise normal other than significant BNP elevation. Initiate standard rule out ID orders. 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 (3) Hypothyroidism (acquired) SNOMED Code(s): 437295958 Code(s): E03.9 - HYPOTHYROIDISM, UNSPECIFIED Status: Acute Priority: Medium Current Visit: Yes Onset Date: 04/28/19 Annotation/Comment:: Mildly elevated TSH. Initiate Synthroid therapy during this hospitalization with recommended repeat TSH in about 4 weeks. (4) Anemia SNOMED Code(s): 476034973 Code(s): D64.9 - ANEMIA, UNSPECIFIED Status: Chronic Priority: Medium Current Visit: Yes Annotation/Comment:: Chronic iron deficiency anemia and anemia secondary to her renal disease and high-dose IV Pepcid given as GI prophylaxis with abdominal complaints. Iron studies, vitamin B 12 level, etc. to be conducted in the a.m. Qualifiers: Anemia type: due to chronic kidney disease Chronic kidney disease stage: stage 4 (severe) Qualified Code(s): N18.4 - Chronic kidney disease, stage 4 ( severe); D63.1 - Anemia in chronic kidney disease (5) CKD (chronic kidney disease) stage 3, GFR 30-59 ml/min SNOMED Code(s): 012962473 Code(s): N18.3 - CHRONIC KIDNEY DISEASE, STAGE 3 (MODERATE) Status: Chronic Priority: Medium Current Visit: Yes Annotation/Comment:: Continue to observe her renal status and uric acid level closely secondary to aggressive IV Lasix therapy as above. (6) COPD (chronic obstructive pulmonary disease) SNOMED Code(s): 33267024 Code(s): J44.9 - CHRONIC OBSTRUCTIVE PULMONARY DISEASE, UNSPECIFIED Status : Chronic Priority: Medium Current Visit: Yes Annotation/Comment:: WBC elevation likely secondary to stress reaction. No evidence of fever or bronchitic type symptoms. Observe for now. Note O2 dependency. Qualifiers: COPD type: COPD with acute exacerbation Qualified Code(s): J44.1 - Chronic obstructive pulmonary disease with (acute) exacerbation (7) Elevated d-dimer SNOMED Code(s): 936692184 Code(s): R79.89 - OTHER SPECIFIED ABNORMAL FINDINGS OF BLOOD CHEMISTRY Status: Chronic Priority: High Current Visit: Yes Annotation/Comment:: History of chronically elevated D-Dimer with extensive negative workup as above. Note current Eliquis therapy. Observe for now. (8) Peripheral neuropathy SNOMED Code(s): 438961025 Code(s): G62.9 - POLYNEUROPATHY, UNSPECIFIED Status: Chronic Priority: Medium Current Visit: Yes Annotation/Comment:: Per recommendations of her lab support service tech as per patient and her daughter's history her Neurontin will be tapered slowly Qualifiers: Peripheral neuropathy type: polyneuropathy, other Qualified Code(s): G62.89 - Other specified polyneuropathies (9) HTN (hypertension), benign SNOMED Code(s): 74380479 Code(s): I10 - ESSENTIAL (PRIMARY) HYPERTENSION Status: Chronic Priority : Medium Current Visit: Yes Annotation/Comment:: Stable in the emergency room (10) Hyperuricemia SNOMED Code(s): 79897572 Code(s): E79.0 - HYPERURICEMIA W/O SIGNS OF INFLAM ARTHRIT AND TOPHACEOUS DIS Status: Chronic Priority: Medium Current Visit: Yes Annotation/ Comment:: As above. Her arthritis is otherwise stable. - Problem List Review Problem List Initiated/Reviewed/Updated: Yes - My Orders Last 24 Hours: My Active Orders 04/28/19 13:29 Cardiac Monitoring [RC] . DIRECTED EKG Documentation Completion [RC] ASDIRECTED Oxygen Therapy, ED [RC] CONTINUOUS Peripheral IV Care [RC] . DIRECTED Pulse Oximetry [RC] CONTINUOUS Up With Assistance [RC] PFP Vital Signs [RC] PFP Chest 1V Frontal [CR] Stat Sodium Chloride 0.9% [Saline Flush] 10 ml FLUSH ASDIRECTED PRN Obtain Past Medical Record [OM.PC] Urgent Peripheral IV Insertion Adult [OM.PC] Stat Resuscitation Status Stat 04/28/19 Breakfast Nothing per Oral Now Diet [DIET] - Assessment/Plan Admission H&P: Please use this note as an admission H&P Last 24 Hours: My Active Orders 04/28/19 13:29 Cardiac Monitoring [RC] . DIRECTED EKG Documentation Completion [RC] ASDIRECTED Oxygen Therapy, ED [RC] CONTINUOUS Peripheral IV Care [RC] . DIRECTED Pulse Oximetry [RC] CONTINUOUS Up With Assistance [RC] PFP Vital Signs [RC] PFP Chest 1V Frontal [CR] Stat Sodium Chloride 0.9% [Saline Flush] 10 ml FLUSH ASDIRECTED PRN Obtain Past Medical Record [OM.PC] Urgent Peripheral IV Insertion Adult [OM.PC] Stat Resuscitation Status Stat 04/28/19 Breakfast Nothing per Oral Now Diet [DIET] Assessment:: As above Plan: As above. Extensive precautions were given to the patient and her daughter, who are in agreement with the treatment plan. The patient will require about 3-4 days of inpatient/acute care secondary to multiple health problems as above.
[2019-04-28] MEDS ORDERED: Furosemide 40 MG/4 ML VIAL IVPUSH ONE (13:33)
[2019-04-28] MEDS: Sodium Chloride 0.9% 10 ML Syringe FLUSH PRN (14:33)
[2019-04-28 14:40] LABS: CHLORIDE,CL 99 mmol/L (98-107); SODIUM,NA 139 mmol/L (136-145)
[2019-04-28] MEDS ORDERED: Albuterol 0.083% 2.5 MG/3 ML Neb Soln INH PRN (16:34)
[2019-04-28] MEDS ORDERED: Albuterol/Ipratropium 3.0-0.5 MG/3 ML Neb Soln NEB PRN (16:34)
[2019-04-28] MEDS ORDERED: Sodium Chloride 0.9% 10 ML Syringe FLUSH PRN (16:35)
[2019-04-28] MEDS ORDERED: Temazepam 15 MG Cap PO PRN (16:35)
[2019-04-28] MEDS ORDERED: Acetaminophen 325 MG Tab PO PRN (16:35)
[2019-04-28] MEDS: Potassium Chloride 20 MEQ Tab.ER PO SCH (17:55)
[2019-04-28] MEDS: Acetaminophen 325 MG Tab PO SCH (20:15)
[2019-04-28] MEDS: Furosemide 40 MG/4 ML VIAL IVPUSH SCH (20:15)
[2019-04-28] MEDS: Apixaban 5 MG Tab PO SCH (20:16)
[2019-04-28] MEDS: Ferrous Sulfate 325 MG Tab PO SCH (20:16)
[2019-04-28] MEDS: Formoterol/Mometasone 200-5 MCG 8.8 GM Inhaler IH SCH (20:17)
[2019-04-28] MEDS: Gabapentin 100 MG Cap PO SCH (20:17)
[2019-04-28] MEDS: Melatonin 3 MG Tab PO SCH (20:17)
[2019-04-28] MEDS: oxyCODONE 5 MG Tab PO PRN (21:56)
[2019-04-29] MEDS: Levothyroxine 50 MCG Tab PO SCH (06:11)
[2019-04-29] MEDS: Furosemide 40 MG/4 ML VIAL IVPUSH SCH ×3 (06:11→20:30)
[2019-04-29] MEDS: Sodium Chloride 0.9% 10 ML Syringe FLUSH PRN ×3 (06:12→20:30)
[2019-04-29 07:41] LABS: HEMOGLOBIN A1C 6.2 % (4.3-5.7)
[2019-04-29] MEDS: Clopidogrel 75 MG Tab PO SCH (07:59)
[2019-04-29] MEDS: Potassium Chloride 20 MEQ Tab.ER PO SCH ×2 (08:00→17:20)
[2019-04-29] MEDS: Gabapentin 100 MG Cap PO SCH ×3 (08:00→17:20)
[2019-04-29] MEDS: Isosorbide Mononitrate 60 MG Tab.ER PO SCH (08:01)
[2019-04-29] MEDS: Acetaminophen 325 MG Tab PO SCH ×4 (08:01→20:28)
[2019-04-29] MEDS: Apixaban 5 MG Tab PO SCH ×2 (08:03→20:28)
[2019-04-29] MEDS: Amiodarone 200 MG Tab PO SCH (08:03)
[2019-04-29] MEDS: Allopurinol 100 MG Tab PO SCH (08:03)
[2019-04-29] MEDS: Metoprolol Succinate 50 MG Tab.ER PO SCH (08:04)
[2019-04-29] MEDS: Rosuvastatin 10 MG Tab PO SCH (08:05)
[2019-04-29] MEDS: amLODIPine 5 MG Tab PO SCH (08:06)
[2019-04-29] MEDS: Ferrous Sulfate 325 MG Tab PO SCH ×2 (08:06→20:28)
[2019-04-29] MEDS: Formoterol/Mometasone 200-5 MCG 8.8 GM Inhaler IH SCH ×2 (08:07→20:36)
--- NOTE | 2019-04-29 08:55 | PCM.PN ---
- General Info Date of Service: 04/29/19 Admission Dx/Problem (Free Text): 1. CHF 2. Coronary artery disease 3. Renal insufficiency Functional Status: Reports: Pain Controlled, Tolerating Diet, Ambulating, Urinating, Incentive Spirometry. Denies: New Symptoms Pain Score: 4 (Shoulder and leg pain as below) - Review of Systems General: Reports: No Symptoms. Denies: Fever, Weakness, Fatigue, Malaise, Chills, Night Sweats, Appetite (Good) HEENT: Reports: Glasses. Denies: Dysphasia, Ear Pain, Eye Pain, Headaches, Post Nasal Drip, Sinus Congestion, Sore Throat, Rhinitis, Visual Changes Pulmonary: Reports: Shortness of Breath (Improving slowly). Denies: Pleuritic Chest Pain, Cough, Sputum, Hemoptysis, Wheezing Cardiovascular: Reports: Dyspnea on Exertion (Improved), Edema (Improved). Denies: Chest Pain, Palpitations, Orthopnea, Lightheadedness Gastrointestinal: Reports: No Symptoms, Other (No bowel movement since admission ). Denies: Abdominal Pain, Constipation, Decreased Appetite, Diarrhea, Difficulty Swallowing, Flatus, Hematochezia, Melena, Nausea, Vomiting Genitourinary: Reports: Incontinence. Denies: Dysuria, Frequency, Burning, Pain , Urgency, Hematuria, Retention, Flank Pain Musculoskeletal: Reports: Neck Pain, Shoulder Pain (As below), Arm Pain (Stable chronic left proximal arm and shoulder pain secondary to chronic fracture with narcotic therapy reinitiated yesterday evening per the patient's request), Leg Pain (Mild bilateral leg cramping secondary to Lasix therapy). Denies: Back Pain, Foot Pain, Joint Swelling Skin: Reports: Bruising (Stable). Denies: Diaphoresis, Pruritis, Rash Neurological: Reports: No Symptoms. Denies: Confusion, Headache, Numbness, Paresthesia, Tingling, Weakness Psychiatric: Reports: Other (Patient requesting narcotic therapy as above). Denies: Confusion, Depression, Anxiety, Agitation, Cravings, Hallucinations - Patient Data Vitals - Most Recent: Last Vital Signs Temp 36.4 C 04/29/19 08:00 Pulse 74 04/29/19 08:04 Resp 18 04/29/19 08:00 BP 138/79 04/29/19 08:06 Pulse Ox 93 L 04/29/19 08:00 Vital Signs - 24 hr 04/28/19 04/28/19 04/28/19 13:25 13:29 14:00 Temperature [ 36.6 C Temporal] Pulse, Peripheral Pulse, 79 76 Peripheral [ Pulse Oximetry] Respiratory 16 17 Rate Blood Pressure Blood Pressure 154/58 H 149/52 H [Right Upper Arm] O2 Sat by Pulse 93 L 94 L 93 L Oximetry 04/28/19 04/28/19 04/28/19 14:30 14:44 15:00 Temperature [ Temporal] Pulse, Peripheral Pulse, 75 73 73 Peripheral [ Pulse Oximetry] Respiratory 16 17 16 Rate Blood Pressure Blood Pressure 155/60 H 147/49 H 147/49 H [Right Upper Arm] O2 Sat by Pulse 97 99 99 Oximetry 04/28/19 04/28/19 04/28/19 16:35 18:35 20:00 Temperature [ 36.8 C 37.1 C Temporal] Pulse, Peripheral Pulse, 75 75 80 Peripheral [ Pulse Oximetry] Respiratory 16 16 16 Rate Blood Pressure Blood Pressure 168/66 H 141/67 H 152/71 H [Right Upper Arm] O2 Sat by Pulse 95 96 94 L Oximetry 04/29/19 04/29/19 04/29/19 00:50 03:50 08:00 Temperature [ 36.6 C 36.4 C 36.4 C Temporal] Pulse, Peripheral Pulse, 74 78 74 Peripheral [ Pulse Oximetry] Respiratory 18 18 18 Rate Blood Pressure Blood Pressure 152/80 H 146/70 H 138/79 [Right Upper Arm] O2 Sat by Pulse 93 L 93 L 93 L Oximetry 04/29/19 04/29/19 08:04 08:06 Temperature [ Temporal] Pulse, 74 Peripheral Pulse, Peripheral [ Pulse Oximetry] Respiratory Rate Blood Pressure 138/79 138/79 Blood Pressure [Right Upper Arm] O2 Sat by Pulse Oximetry Weight - Most Recent: 79.651 kg (Down 2 kg since admission) I&O - Last 24 Hours: Intake & Output 04/28/19 04/29/19 04/29/19 22:59 06:59 14:59 Output Total 900 180 Balance -900 -180 Imaging Impressions - Last 24 Hours: 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 in the 70s to 80s with no ectopy or arrhythmia Lab Results Last 24 Hours: Laboratory Results - last 24 hr 04/28/19 04/28/19 04/28/19 Range/Units 14:00 14:00 14:10 WBC 11.3 H (4.0-10.2) K/uL RBC 3.19 L (3.77-5.09) M/uL Hgb 9.3 L (11.7-15.5) g/dL Hct 31.1 L (34.0-46.0) % MCV 97.5 (84.0-98.0) fL MCH 29.2 (28.2-33.3) pg MCHC 29.9 L (31.7-36.0) g/dL RDW 15.2 H (11.2-14.1) % Plt Count 233 (150-350) K/uL Neut % (Auto) 71.2 (45.0-80.0) % Lymph % (Auto) 13.0 (10.0-50.0) % Wise % (Auto) 10.2 (2.0-14.0) % Eos % (Auto) 5.2 H (0.0-5.0) % Baso % (Auto) 0.4 (0.0-2.0) % Neut # (Auto) 8.05 H (1.40-7.00) K/uL Lymph # (Auto) 1.47 (0.50-3.50) K/uL Wise # (Auto) 1.15 H (0.00-1.00) K/uL Eos # (Auto) 0.59 H (0.00-0.50) K/uL Baso # (Auto) 0.04 (0.00-0.20) K/uL PT (9.5-12.0) SEC INR APTT (21.0-31.3) SEC D-Dimer, Quantitative 1170 H (0-400) ng/mL Sodium 139 (136-145) mmol/L Potassium 5.1 (3.5-5.1) mmol/L Chloride 99 (98-107) mmol/L Carbon Dioxide 31.6 (21.0-32.0) mmol/L BUN 52 H (7-18) mg/dL Creatinine 1.81 H (0.51-1.17) mg/dL Est Cr Clr Drug Dosing TNP Estimated GFR (MDRD) 27 mL/min Glucose 128 H (74-106) mg/dL Hemoglobin A1c (4.3-5.7) % Lactic Acid (0.4-2.0) mmol/L Uric Acid 7.3 H (2.6-7.2) mg/dL Calcium 9.1 (8.5-10.1) mg/dL Magnesium 2.1 (1.8-2.4) mg/dL Iron (50-175) ug/dL TIBC (250-450) ug/dL % Saturation Ferritin (8-388) ng/mL Total Bilirubin 0.3 (0.2-1.0) mg/dL AST 18 (15-37) U/L ALT 15 (12-78) U/L Alkaline Phosphatase 82 (46-116) IU/L Creatine Kinase 60 (26-308) U/L Creatine Kinase Index 3.7 H (0.0-2.5) % CK-MB (CK-2) 2.20 (0.00-3.60) ng/mL Troponin I 0.000 (0.000-0.056) ng/mL NT-Pro-B Natriuret Pep 1471 H (0-125) pg/mL Total Protein 7.6 (6.4-8.2) g/dL Albumin 3.4 (3.4-5.0) g/dL Triglycerides (30-150) mg/dL Cholesterol (100-200) mg/dL LDL Cholesterol, Calc (0-100) mg/dL HDL Cholesterol (40-60) mg/dL Vitamin B12 (193-986) pg/mL Folate (8.6-58.9) ng/mL TSH, Ultra Sensitive 6.169 H (0.358-3.740) mIU/mL 04/28/19 04/28/19 04/28/19 Range/Units 14:19 14:19 20:40 WBC (4.0-10.2) K/uL RBC (3.77-5.09) M/uL Hgb (11.7-15.5) g/dL Hct (34.0-46.0) % MCV (84.0-98.0) fL MCH (28.2-33.3) pg MCHC (31.7-36.0) g/dL RDW (11.2-14.1) % Plt Count (150-350) K/uL Neut % (Auto) (45.0-80.0) % Lymph % (Auto) (10.0-50.0) % Wise % (Auto) (2.0-14.0) % Eos % (Auto) (0.0-5.0) % Baso % (Auto) (0.0-2.0) % Neut # (Auto) (1.40-7.00) K/uL Lymph # (Auto) (0.50-3.50) K/uL Wise # (Auto) (0.00-1.00) K/uL Eos # (Auto) (0.00-0.50) K/uL Baso # (Auto) (0.00-0.20) K/uL PT 11.5 (9.5-12.0) SEC INR 1.1 APTT 41.0 H (21.0-31.3) SEC D-Dimer, Quantitative (0-400) ng/mL Sodium (136-145) mmol/L Potassium (3.5-5.1) mmol/L Chloride (98-107) mmol/L Carbon Dioxide (21.0-32.0) mmol/L BUN (7-18) mg/dL Creatinine (0.51-1.17) mg/dL Est Cr Clr Drug Dosing Estimated GFR (MDRD) mL/min Glucose (74-106) mg/dL Hemoglobin A1c (4.3-5.7) % Lactic Acid 0.9 (0.4-2.0) mmol/L Uric Acid (2.6-7.2) mg/dL Calcium (8.5-10.1) mg/dL Magnesium (1.8-2.4) mg/dL Iron (50-175) ug/dL TIBC (250-450) ug/dL % Saturation Ferritin (8-388) ng/mL Total Bilirubin (0.2-1.0) mg/dL AST (15-37) U/L ALT (12-78) U/L Alkaline Phosphatase (46-116) IU/L Creatine Kinase 61 (26-308) U/L Creatine Kinase Index 4.1 H (0.0-2.5) % CK-MB (CK-2) 2.50 (0.00-3.60) ng/mL Troponin I 0.001 (0.000-0.056) ng/mL NT-Pro-B Natriuret Pep (0-125) pg/mL Total Protein (6.4-8.2) g/dL Albumin (3.4-5.0) g/dL Triglycerides (30-150) mg/dL Cholesterol (100-200) mg/dL LDL Cholesterol, Calc (0-100) mg/dL HDL Cholesterol (40-60) mg/dL Vitamin B12 (193-986) pg/mL Folate (8.6-58.9) ng/mL TSH, Ultra Sensitive (0.358-3.740) mIU/mL 04/29/19 04/29/19 04/29/19 Range/Units 07:05 07:05 07:05 WBC 11.2 H (4.0-10.2) K/uL RBC 3.22 L (3.77-5.09) M/uL Hgb 9.3 L (11.7-15.5) g/dL Hct 31.5 L (34.0-46.0) % MCV 97.8 (84.0-98.0) fL MCH 28.9 (28.2-33.3) pg MCHC 29.5 L (31.7-36.0) g/dL RDW 15.2 H (11.2-14.1) % Plt Count 223 (150-350) K/uL Neut % (Auto) 70.6 (45.0-80.0) % Lymph % (Auto) 14.3 (10.0-50.0) % Wise % (Auto) 8.5 (2.0-14.0) % Eos % (Auto) 6.1 H (0.0-5.0) % Baso % (Auto) 0.5 (0.0-2.0) % Neut # (Auto) 7.88 H (1.40-7.00) K/uL Lymph # (Auto) 1.60 (0.50-3.50) K/uL Wise # (Auto) 0.95 (0.00-1.00) K/uL Eos # (Auto) 0.68 H (0.00-0.50) K/uL Baso # (Auto) 0.06 (0.00-0.20) K/uL PT (9.5-12.0) SEC INR APTT (21.0-31.3) SEC D-Dimer, Quantitative (0-400) ng/mL Sodium 143 (136-145) mmol/L Potassium 4.4 (3.5-5.1) mmol/L Chloride 101 (98-107) mmol/L Carbon Dioxide 35.2 H (21.0-32.0) mmol/L BUN 46 H (7-18) mg/dL Creatinine 1.73 H (0.51-1.17) mg/dL Est Cr Clr Drug Dosing 22.77 Estimated GFR (MDRD) 28 mL/min Glucose 121 H (74-106) mg/dL Hemoglobin A1c 6.2 H (4.3-5.7) % Lactic Acid (0.4-2.0) mmol/L Uric Acid (2.6-7.2) mg/dL Calcium 9.5 (8.5-10.1) mg/dL Magnesium (1.8-2.4) mg/dL Iron (50-175) ug/dL TIBC (250-450) ug/dL % Saturation Ferritin (8-388) ng/mL Total Bilirubin 0.3 (0.2-1.0) mg/dL AST 15 (15-37) U/L ALT 15 (12-78) U/L Alkaline Phosphatase 75 (46-116) IU/L Creatine Kinase 56 (26-308) U/L Creatine Kinase Index 4.1 H (0.0-2.5) % CK-MB (CK-2) 2.30 (0.00-3.60) ng/mL Troponin I 0.000 (0.000-0.056) ng/mL NT-Pro-B Natriuret Pep 2125 H (0-125) pg/mL Total Protein 7.3 (6.4-8.2) g/dL Albumin 3.4 (3.4-5.0) g/dL Triglycerides 169 H (30-150) mg/dL Cholesterol 102 (100-200) mg/dL LDL Cholesterol, Calc 35 (0-100) mg/dL HDL Cholesterol 33 L (40-60) mg/dL Vitamin B12 449 (193-986) pg/mL Folate 20.1 (8.6-58.9) ng/mL TSH, Ultra Sensitive (0.358-3.740) mIU/mL 04/29/19 Range/Units 07:05 WBC (4.0-10.2) K/uL RBC (3.77-5.09) M/uL Hgb (11.7-15.5) g/dL Hct (34.0-46.0) % MCV (84.0-98.0) fL MCH (28.2-33.3) pg MCHC (31.7-36.0) g/dL RDW (11.2-14.1) % Plt Count (150-350) K/uL Neut % (Auto) (45.0-80.0) % Lymph % (Auto) (10.0-50.0) % Wise % (Auto) (2.0-14.0) % Eos % (Auto) (0.0-5.0) % Baso % (Auto) (0.0-2.0) % Neut # (Auto) (1.40-7.00) K/uL Lymph # (Auto) (0.50-3.50) K/uL Wise # (Auto) (0.00-1.00) K/uL Eos # (Auto) (0.00-0.50) K/uL Baso # (Auto) (0.00-0.20) K/uL PT (9.5-12.0) SEC INR APTT (21.0-31.3) SEC D-Dimer, Quantitative (0-400) ng/mL Sodium (136-145) mmol/L Potassium (3.5-5.1) mmol/L Chloride (98-107) mmol/L Carbon Dioxide (21.0-32.0) mmol/L BUN (7-18) mg/dL Creatinine (0.51-1.17) mg/dL Est Cr Clr Drug Dosing Estimated GFR (MDRD) mL/min Glucose (74-106) mg/dL Hemoglobin A1c (4.3-5.7) % Lactic Acid (0.4-2.0) mmol/L Uric Acid (2.6-7.2) mg/dL Calcium (8.5-10.1) mg/dL Magnesium (1.8-2.4) mg/dL Iron 35 L (50-175) ug/dL TIBC 315 (250-450) ug/dL % Saturation 11.39140 Ferritin 389 H (8-388) ng/mL Total Bilirubin (0.2-1.0) mg/dL AST (15-37) U/L ALT (12-78) U/L Alkaline Phosphatase (46-116) IU/L Creatine Kinase (26-308) U/L Creatine Kinase Index (0.0-2.5) % CK-MB (CK-2) (0.00-3.60) ng/mL Troponin I (0.000-0.056) ng/mL NT-Pro-B Natriuret Pep (0-125) pg/mL Total Protein (6.4-8.2) g/dL Albumin (3.4-5.0) g/dL Triglycerides (30-150) mg/dL Cholesterol (100-200) mg/dL LDL Cholesterol, Calc (0-100) mg/dL HDL Cholesterol (40-60) mg/dL Vitamin B12 (193-986) pg/mL Folate (8.6-58.9) ng/mL TSH, Ultra Sensitive (0.358-3.740) mIU/mL Laboratory Tests 04/28/19 04/28/19 04/28/19 Range/Units 14:00 14:00 14:10 WBC 11.3 H (4.0-10.2) K/uL RBC 3.19 L (3.77-5.09) M/uL Hgb 9.3 L (11.7-15.5) g/dL Hct 31.1 L (34.0-46.0) % MCV 97.5 (84.0-98.0) fL MCH 29.2 (28.2-33.3) pg MCHC 29.9 L (31.7-36.0) g/dL RDW 15.2 H (11.2-14.1) % Plt Count 233 (150-350) K/uL Neut % (Auto) 71.2 (45.0-80.0) % Lymph % (Auto) 13.0 (10.0-50.0) % Wise % (Auto) 10.2 (2.0-14.0) % Eos % (Auto) 5.2 H (0.0-5.0) % Baso % (Auto) 0.4 (0.0-2.0) % Neut # (Auto) 8.05 H (1.40-7.00) K/uL Lymph # (Auto) 1.47 (0.50-3.50) K/uL Wise # (Auto) 1.15 H (0.00-1.00) K/uL Eos # (Auto) 0.59 H (0.00-0.50) K/uL Baso # (Auto) 0.04 (0.00-0.20) K/uL PT (9.5-12.0) SEC INR APTT (21.0-31.3) SEC D-Dimer, Quantitative 1170 H (0-400) ng/mL Sodium 139 (136-145) mmol/L Potassium 5.1 (3.5-5.1) mmol/L Chloride 99 (98-107) mmol/L Carbon Dioxide 31.6 (21.0-32.0) mmol/L BUN 52 H (7-18) mg/dL Creatinine 1.81 H (0.51-1.17) mg/dL Est Cr Clr Drug Dosing TNP Estimated GFR (MDRD) 27 mL/min Glucose 128 H (74-106) mg/dL Hemoglobin A1c (4.3-5.7) % Lactic Acid (0.4-2.0) mmol/L Uric Acid 7.3 H (2.6-7.2) mg/dL Calcium 9.1 (8.5-10.1) mg/dL Magnesium 2.1 (1.8-2.4) mg/dL Iron (50-175) ug/dL TIBC (250-450) ug/dL % Saturation Ferritin (8-388) ng/mL Total Bilirubin 0.3 (0.2-1.0) mg/dL AST 18 (15-37) U/L ALT 15 (12-78) U/L Alkaline Phosphatase 82 (46-116) IU/L Creatine Kinase 60 (26-308) U/L Creatine Kinase Index 3.7 H (0.0-2.5) % CK-MB (CK-2) 2.20 (0.00-3.60) ng/mL Troponin I 0.000 (0.000-0.056) ng/mL NT-Pro-B Natriuret Pep 1471 H (0-125) pg/mL Total Protein 7.6 (6.4-8.2) g/dL Albumin 3.4 (3.4-5.0) g/dL Triglycerides (30-150) mg/dL Cholesterol (100-200) mg/dL LDL Cholesterol, Calc (0-100) mg/dL HDL Cholesterol (40-60) mg/dL Vitamin B12 (193-986) pg/mL Folate (8.6-58.9) ng/mL TSH, Ultra Sensitive 6.169 H (0.358-3.740) mIU/mL 04/28/19 04/28/19 04/28/19 Range/Units 14:19 14:19 20:40 WBC (4.0-10.2) K/uL RBC (3.77-5.09) M/uL Hgb (11.7-15.5) g/dL Hct (34.0-46.0) % MCV (84.0-98.0) fL MCH (28.2-33.3) pg MCHC (31.7-36.0) g/dL RDW (11.2-14.1) % Plt Count (150-350) K/uL Neut % (Auto) (45.0-80.0) % Lymph % (Auto) (10.0-50.0) % Wise % (Auto) (2.0-14.0) % Eos % (Auto) (0.0-5.0) % Baso % (Auto) (0.0-2.0) % Neut # (Auto) (1.40-7.00) K/uL Lymph # (Auto) (0.50-3.50) K/uL Wise # (Auto) (0.00-1.00) K/uL Eos # (Auto) (0.00-0.50) K/uL Baso # (Auto) (0.00-0.20) K/uL PT 11.5 (9.5-12.0) SEC INR 1.1 APTT 41.0 H (21.0-31.3) SEC D-Dimer, Quantitative (0-400) ng/mL Sodium (136-145) mmol/L Potassium (3.5-5.1) mmol/L Chloride (98-107) mmol/L Carbon Dioxide (21.0-32.0) mmol/L BUN (7-18) mg/dL Creatinine (0.51-1.17) mg/dL Est Cr Clr Drug Dosing Estimated GFR (MDRD) mL/min Glucose (74-106) mg/dL Hemoglobin A1c (4.3-5.7) % Lactic Acid 0.9 (0.4-2.0) mmol/L Uric Acid (2.6-7.2) mg/dL Calcium (8.5-10.1) mg/dL Magnesium (1.8-2.4) mg/dL Iron (50-175) ug/dL TIBC (250-450) ug/dL % Saturation Ferritin (8-388) ng/mL Total Bilirubin (0.2-1.0) mg/dL AST (15-37) U/L ALT (12-78) U/L Alkaline Phosphatase (46-116) IU/L Creatine Kinase 61 (26-308) U/L Creatine Kinase Index 4.1 H (0.0-2.5) % CK-MB (CK-2) 2.50 (0.00-3.60) ng/mL Troponin I 0.001 (0.000-0.056) ng/mL NT-Pro-B Natriuret Pep (0-125) pg/mL Total Protein (6.4-8.2) g/dL Albumin (3.4-5.0) g/dL Triglycerides (30-150) mg/dL Cholesterol (100-200) mg/dL LDL Cholesterol, Calc (0-100) mg/dL HDL Cholesterol (40-60) mg/dL Vitamin B12 (193-986) pg/mL Folate (8.6-58.9) ng/mL TSH, Ultra Sensitive (0.358-3.740) mIU/mL 04/29/19 04/29/19 04/29/19 Range/Units 07:05 07:05 07:05 WBC 11.2 H (4.0-10.2) K/uL RBC 3.22 L (3.77-5.09) M/uL Hgb 9.3 L (11.7-15.5) g/dL Hct 31.5 L (34.0-46.0) % MCV 97.8 (84.0-98.0) fL MCH 28.9 (28.2-33.3) pg MCHC 29.5 L (31.7-36.0) g/dL RDW 15.2 H (11.2-14.1) % Plt Count 223 (150-350) K/uL Neut % (Auto) 70.6 (45.0-80.0) % Lymph % (Auto) 14.3 (10.0-50.0) % Wise % (Auto) 8.5 (2.0-14.0) % Eos % (Auto) 6.1 H (0.0-5.0) % Baso % (Auto) 0.5 (0.0-2.0) % Neut # (Auto) 7.88 H (1.40-7.00) K/uL Lymph # (Auto) 1.60 (0.50-3.50) K/uL Wise # (Auto) 0.95 (0.00-1.00) K/uL Eos # (Auto) 0.68 H (0.00-0.50) K/uL Baso # (Auto) 0.06 (0.00-0.20) K/uL PT (9.5-12.0) SEC INR APTT (21.0-31.3) SEC D-Dimer, Quantitative (0-400) ng/mL Sodium 143 (136-145) mmol/L Potassium 4.4 (3.5-5.1) mmol/L Chloride 101 (98-107) mmol/L Carbon Dioxide 35.2 H (21.0-32.0) mmol/L BUN 46 H (7-18) mg/dL Creatinine 1.73 H (0.51-1.17) mg/dL Est Cr Clr Drug Dosing 22.77 Estimated GFR (MDRD) 28 mL/min Glucose 121 H (74-106) mg/dL Hemoglobin A1c 6.2 H (4.3-5.7) % Lactic Acid (0.4-2.0) mmol/L Uric Acid (2.6-7.2) mg/dL Calcium 9.5 (8.5-10.1) mg/dL Magnesium (1.8-2.4) mg/dL Iron (50-175) ug/dL TIBC (250-450) ug/dL % Saturation Ferritin (8-388) ng/mL Total Bilirubin 0.3 (0.2-1.0) mg/dL AST 15 (15-37) U/L ALT 15 (12-78) U/L Alkaline Phosphatase 75 (46-116) IU/L Creatine Kinase 56 (26-308) U/L Creatine Kinase Index 4.1 H (0.0-2.5) % CK-MB (CK-2) 2.30 (0.00-3.60) ng/mL Troponin I 0.000 (0.000-0.056) ng/mL NT-Pro-B Natriuret Pep 2125 H (0-125) pg/mL Total Protein 7.3 (6.4-8.2) g/dL Albumin 3.4 (3.4-5.0) g/dL Triglycerides 169 H (30-150) mg/dL Cholesterol 102 (100-200) mg/dL LDL Cholesterol, Calc 35 (0-100) mg/dL HDL Cholesterol 33 L (40-60) mg/dL Vitamin B12 449 (193-986) pg/mL Folate 20.1 (8.6-58.9) ng/mL TSH, Ultra Sensitive (0.358-3.740) mIU/mL 04/29/19 Range/Units 07:05 WBC (4.0-10.2) K/uL RBC (3.77-5.09) M/uL Hgb (11.7-15.5) g/dL Hct (34.0-46.0) % MCV (84.0-98.0) fL MCH (28.2-33.3) pg MCHC (31.7-36.0) g/dL RDW (11.2-14.1) % Plt Count (150-350) K/uL Neut % (Auto) (45.0-80.0) % Lymph % (Auto) (10.0-50.0) % Wise % (Auto) (2.0-14.0) % Eos % (Auto) (0.0-5.0) % Baso % (Auto) (0.0-2.0) % Neut # (Auto) (1.40-7.00) K/uL Lymph # (Auto) (0.50-3.50) K/uL Wise # (Auto) (0.00-1.00) K/uL Eos # (Auto) (0.00-0.50) K/uL Baso # (Auto) (0.00-0.20) K/uL PT (9.5-12.0) SEC INR APTT (21.0-31.3) SEC D-Dimer, Quantitative (0-400) ng/mL Sodium (136-145) mmol/L Potassium (3.5-5.1) mmol/L Chloride (98-107) mmol/L Carbon Dioxide (21.0-32.0) mmol/L BUN (7-18) mg/dL Creatinine (0.51-1.17) mg/dL Est Cr Clr Drug Dosing Estimated GFR (MDRD) mL/min Glucose (74-106) mg/dL Hemoglobin A1c (4.3-5.7) % Lactic Acid (0.4-2.0) mmol/L Uric Acid (2.6-7.2) mg/dL Calcium (8.5-10.1) mg/dL Magnesium (1.8-2.4) mg/dL Iron 35 L (50-175) ug/dL TIBC 315 (250-450) ug/dL % Saturation 11.16113 Ferritin 389 H (8-388) ng/mL Total Bilirubin (0.2-1.0) mg/dL AST (15-37) U/L ALT (12-78) U/L Alkaline Phosphatase (46-116) IU/L Creatine Kinase (26-308) U/L Creatine Kinase Index (0.0-2.5) % CK-MB (CK-2) (0.00-3.60) ng/mL Troponin I (0.000-0.056) ng/mL NT-Pro-B Natriuret Pep (0-125) pg/mL Total Protein (6.4-8.2) g/dL Albumin (3.4-5.0) g/dL Triglycerides (30-150) mg/dL Cholesterol (100-200) mg/dL LDL Cholesterol, Calc (0-100) mg/dL HDL Cholesterol (40-60) mg/dL Vitamin B12 (193-986) pg/mL Folate (8.6-58.9) ng/mL TSH, Ultra Sensitive (0.358-3.740) mIU/mL Christopher Results Last 24 Hours: None Med Orders - Current: Current Medications Acetaminophen (Tylenol) 650 mg PO QID [facility] Last Admin: 04/29/19 08:01 Dose: 650 mg Acetaminophen (Tylenol) 650 mg PO Q4H PRN PRN Reason: Pain Albuterol (Proventil Neb Soln) 2.5 mg INH Q2H PRN PRN Reason: SHORTNESS OF BREATH Albuterol/Ipratropium (Duoneb 3.0-0.5 Mg/3 Ml) 3 ml NEB Q4HRRT PRN PRN Reason: Dyspnea Allopurinol (Zyloprim) 100 mg PO DAILY [facility] Last Admin: 04/29/19 08:03 Dose: 100 mg Amiodarone HCl (Cordarone) 200 mg PO DAILY [facility] Last Admin: 04/29/19 08:03 Dose: 200 mg Amlodipine Besylate (Norvasc) 5 mg PO DAILY [facility] Last Admin: 04/29/19 08:06 Dose: 5 mg Apixaban (Eliquis) 5 mg PO BID@ [facility] Last Admin: 04/29/19 08:03 Dose: 5 mg Clopidogrel Bisulfate (Plavix) 75 mg PO DAILY [facility] Last Admin: 04/29/19 07:59 Dose: 75 mg Ferrous Sulfate (Ferrous Sulfate) 325 mg PO BID@ [facility] Last Admin: 04/29/19 08:06 Dose: 325 mg Furosemide (Lasix) 40 mg IVPUSH Q8H [facility] Last Admin: 04/29/19 06:11 Dose: 40 mg Gabapentin (Neurontin) 100 mg PO TID [facility] Last Admin: 04/29/19 08:00 Dose: 100 mg Isosorbide Mononitrate (Imdur) 60 mg PO DAILY [facility] Last Admin: 04/29/19 08:01 Dose: 60 mg Levothyroxine Sodium (Synthroid) 50 mcg PO ACBREAKFAST@0700 [facility] Last Admin: 04/29/19 06:11 Dose: 50 mcg Melatonin (Melatonin) 3 mg PO BEDTIME [facility] Last Admin: 04/28/19 20:17 Dose: 3 mg Metoprolol Succinate (Toprol Xl) 100 mg PO DAILY [facility] Last Admin: 04/29/19 08:04 Dose: 100 mg Mometasone Furoate/Formoterol Fumar (Dulera 200-5 Mcg) 2 puff IH BID@20 [facility] Last Admin: 04/29/19 08:07 Dose: 2 inhalation Oxycodone HCl (Oxycodone) 2.5 mg PO Q4H PRN PRN Reason: Pain Last Admin: 04/28/19 21:56 Dose: 2.5 mg Potassium Chloride (Klor-Con M20) 20 meq PO BID [facility] Last Admin: 04/29/19 08:00 Dose: 20 meq Rosuvastatin Calcium (Crestor) 20 mg PO DAILY [facility] Last Admin: 04/29/19 08:05 Dose: 20 mg Senna/Docusate Sodium (Senna Plus) 1 tab PO BID@ PRN PRN Reason: Constipation Sodium Chloride (Saline Flush) 10 ml FLUSH ASDIRECTED PRN PRN Reason: Keep Vein Open Last Admin: 04/29/19 06:12 Dose: 10 ml Sodium Chloride (Saline Flush) 10 ml FLUSH Q12HR PRN PRN Reason: Keep Vein Open Temazepam (Restoril) 15 mg PO BEDTIME PRN PRN Reason: Insomnia Discontinued Medications Famotidine (Pepcid) 40 mg IVPUSH ONETIME ONE Stop: 04/28/19 13:30 Last Admin: 04/28/19 14:32 Dose: 40 mg Furosemide (Lasix) 60 mg IVPUSH NOW ONE Stop: 04/28/19 13:34 Last Admin: 04/28/19 14:38 Dose: 60 mg - Exam Quality Assessment: Supplemental Oxygen, DVT Prophylaxis (Eliquis). No: Central Line/PICC, Urine Catheter, Skin Breakdown, Restraints General: Alert, Oriented, Cooperative, No Acute Distress HEENT: Pupils Equal, Pupils Reactive, EOMI, Mucous Membr. Moist/[place], Other ( She is wearing glasses) Neck: Supple, Trachea Midline, No JVD, No Thyromegaly, Carotid Bruit (Stable mild bilateral carotid bruits versus transmitted heart sounds). No: Lymphadenopathy Lungs: Normal Respiratory Effort, Rales (Persistent mild to moderate diffuse rales somewhat improved from admission). No: Rhonchi, Rub, Wheezing Cardiovascular: Regular Rate, Regular Rhythm, Murmurs (Stable 1/6 ELOLA of the aortic and mitral valves). No: Gallops, Rubs GI/Abdominal Exam: Normal Bowel Sounds, Soft, Non-Tender, No Organomegaly, No Distention, No Abnormal Bruit, No Mass, Other (Obese). No: Guarding (Female) Exam: Deferred Back Exam: Normal Inspection, Full Range of Motion. No: CVA Tenderness (L), CVA Tenderness (R), Muscle Spasm Extremities: Pedal Edema (Somewhat improved dependent edema with +1 bilateral pretibial edema however persistent +2 hitting bilateral pedal edema,), Limited Range of Motion (Left shoulder secondary to chronic proximal humeral fracture with arm immobilizer in place). No: Non-Tender (Stable chronic left shoulder pain), Leatha's Sign Peripheral Pulses: 1+: Dorsalis Pedis (L), Dorsalis Pedis (R), 2+: Radial (L), Radial (R) Skin: Ecchymosis (Stable mostly in the right hand) Neurological: No New Focal Deficit Psy/Mental Status: Alert, Normal Affect, Normal Mood, Other (Note chronic narcotic use). No: Agitated, Hallucinations, Withdrawal Symptoms EKG INTERPRETATION EKG Date: 04/29/19 Time: : Rhythm: NSR Rate (Beats/Min): 74 [place]: Normal (Left) P-Wave: Present (Diffuse biphasic P waves with resolution of previous pulmonary hypertension and returned mild poor R-wave progression in the anterior leads) QRS: Normal (0.08 seconds) ST-T: Other (Stable ST depression in leads 1 and aVL with nonspecific ST changes in lead V6) QT: Prolonged (Borderline with stable readings of 424/470 ms) AL/PQ Interval: 0.17 seconds Comparison: Change From Previous EKG (As above since 04/28/19) EKG Interpretation Comments: 1. Stable lateral wall cardiac ischemia by EKG 2. Prolonged QT Sepsis Event Note - Evaluation Sepsis Screening Result: No Definite Risk - Focused Exam Vital Signs: Vital Signs Temp Pulse Pulse Resp BP BP Pulse Ox 04/29/19 08:06 138/79 04/29/19 08:04 74 138/79 04/29/19 08:00 36.4 C 74 18 138/79 93 L 04/29/19 03:50 36.4 C 78 18 146/70 H 93 L 04/29/19 00:50 36.6 C 74 18 152/80 H 93 L Date Exam was Performed: 04/29/19 Time Exam was Performed: 09:13 - Problem List & Annotations (1) CHF (congestive heart failure) SNOMED Code(s): 45603389 Code(s): I50.9 - HEART FAILURE, UNSPECIFIED Status: Chronic Priority: High Current Visit: Yes Qualifiers: Heart failure type: combined systolic and diastolic Heart failure chronicity: acute on chronic Qualified Code(s): I50.43 - Acute on chronic combined systolic (congestive) and diastolic (congestive) heart failure Annotation/Comment:: Improved CHF by clinical exam and patient history. Note excellent results with IV Lasix with no significant worsening of her previous renal insufficiency. Potassium level is also normal. She is having some cramping in her legs secondary to IV Lasix therapy with initiation of calcium supplementation. EKG shows stable lateral wall cardiac ischemia with negative workup for acute UT to this point. Note that CHF was refractory to previously increased oral Lasix therapy are to admission as per emergency room note. High- dose IV Lasix therapy initiated in the emergency room. Note recent UT, echocardiogram, etc. as per emergency room note. Patient is allergic to VIJAYA inhibitors and angiotensin II receptor blockers, although she may benefit from spironolactone therapy. No chest pain or anginal type symptoms. Consider cardiology consultation depending on her clinical course. Consider discontinuation of her Plavix secondary to her current Eliquis therapy and chronic anemia with distant history of GI bleed as per emergency room note. Artifactually elevated CK index secondary to low baseline CK. Somewhat progressive significant BNP elevation secondary both to her CHF and renal disease, however overall stable as above. (2) Arteriosclerotic heart disease (ASHD) SNOMED Code(s): 76147754 Code(s): I25.10 - ATHSCL HEART DISEASE OF [place] CORONARY ARTERY W/O ANG PCTRS Status: Chronic Priority: High Current Visit: Yes Annotation/ Comment:: As above. (3) Hypothyroidism (acquired) SNOMED Code(s): 994585484 Code(s): E03.9 - HYPOTHYROIDISM, UNSPECIFIED Status: Acute Priority: Medium Current Visit: Yes Onset Date: 04/28/19 Annotation/Comment:: Mildly elevated TSH. Initiated Synthroid therapy during this hospitalization with recommended repeat TSH in about 4 weeks. (4) Anemia SNOMED Code(s): 943534134 Code(s): D64.9 - ANEMIA, UNSPECIFIED Status: Chronic Priority: Medium Current Visit: Yes Qualifiers: Anemia type: due to chronic kidney disease Chronic kidney disease stage: stage 4 (severe) Qualified Code(s): N18.4 - Chronic kidney disease, stage 4 ( severe); D63.1 - Anemia in chronic kidney disease Annotation/Comment:: Chronic iron deficiency anemia and anemia secondary to her renal disease. Hemoglobin stable at 9.3 on 04/29. Iron level is somewhat normal however elevated ferritin level. No change in her iron supplementation for now. Her vitamin B-12 level and folic acid levels were normal on 04/29. Note high- dose IV Pepcid given as GI prophylaxis in the emergency room with no abdominal complaints or evidence of acute GI bleed. Consider discontinuation of Plavix as above. Continue IV Pepcid therapy. (5) CKD (chronic kidney disease) stage 3, GFR 30-59 ml/min SNOMED Code(s): 202289870 Code(s): N18.3 - CHRONIC KIDNEY DISEASE, STAGE 3 (MODERATE) Status: Chronic Priority: Medium Current Visit: Yes Annotation/Comment:: Stable as above. Continue to observe her renal status and uric acid level closely secondary to aggressive IV Lasix therapy as above. (6) COPD (chronic obstructive pulmonary disease) SNOMED Code(s): 34952385 Code(s): J44.9 - CHRONIC OBSTRUCTIVE PULMONARY DISEASE, UNSPECIFIED Status : Chronic Priority: Medium Current Visit: Yes Qualifiers: COPD type: COPD with acute exacerbation Qualified Code(s): J44.1 - Chronic obstructive pulmonary disease with (acute) exacerbation Annotation/Comment:: Persistent mild WBC elevation likely secondary to stress reaction. No evidence of fever or bronchitic type symptoms. Observe for now. Note O2 dependency. Initiate incentive spirometry. UA with culture and sensitivity secondary to persistent mild leukocytosis. (7) Elevated d-dimer SNOMED Code(s): 827367812 Code(s): R79.89 - OTHER SPECIFIED ABNORMAL FINDINGS OF BLOOD CHEMISTRY Status: Chronic Priority: High Current Visit: Yes Annotation/Comment:: History of chronically elevated D-Dimer with extensive negative workup as above. Note current Eliquis therapy. Observe for now. 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 Bilateral leg cramps today as above but no significant neuropathy. (9) HTN (hypertension), benign SNOMED Code(s): 40320647 Code(s): I10 - ESSENTIAL (PRIMARY) HYPERTENSION Status: Chronic Priority : Medium Current Visit: Yes Annotation/Comment:: Stable during this hospitalization. Consider additional spironolactone as above. (10) Hyperuricemia SNOMED Code(s): 49420452 Code(s): E79.0 - HYPERURICEMIA W/O SIGNS OF INFLAM ARTHRIT AND TOPHACEOUS DIS Status: Chronic Priority: Medium Current Visit: Yes Annotation/ Comment:: As above. Her arthritis is otherwise stable. (11) Dyslipidemia SNOMED Code(s): 815542711 Code(s): E78.5 - HYPERLIPIDEMIA, UNSPECIFIED Status: Chronic Priority: Medium Current Visit: Yes Annotation/Comment:: Lipid panel on 04/29 showed overall stable anemia with current medical therapy. Weight loss in moderation is still advisable. Note borderline elevated glycosylated hemoglobin of 6.2% on 04/29. Observe for now. - Problem List Review Problem List Initiated/Reviewed/Updated: Yes - My Orders Last 24 Hours: My Active Orders 04/28/19 13:29 Cardiac Monitoring [RC] Q2HR EKG Documentation Completion [RC] ASDIRECTED Chest 1V Frontal [CR] Stat Sodium Chloride 0.9% [Saline Flush] 10 ml FLUSH ASDIRECTED PRN Peripheral IV Insertion Adult [OM.PC] Stat Resuscitation Status Stat 04/28/19 16:34 RT Aerosol Therapy [RC] 08,20 Albuterol [Proventil Neb Soln] 2.5 mg INH Q2H PRN Albuterol/Ipratropium [DuoNeb 3.0-0.5 MG/3 ML] 3 ml NEB Q4HRRT PRN 04/28/19 16:35 Antiembolic Devices [RC] PER UNIT ROUTINE Communication Order [RC] ROUTINE Communication, Vaccine [RC] PER UNIT ROUTINE Height and Weight [RC] 06 Intake and Output Strict [RC] ASDIRECTED Oxygen Therapy [RC] 2300 Pulse Oximetry [RC] ASDIRECTED Up With Assistance [RC] ASDIRECTED VTE Risk Score [RC] UPON VTE/DVT Education [RC] PER UNIT ROUTINE Vaccines to be Administered [RC] PER UNIT ROUTINE OCCULT BLOOD DIAGNOSTIC [OP] Stat Acetaminophen [Tylenol] 650 mg PO Q4H PRN Sodium Chloride 0.9% [Saline Flush] 10 ml FLUSH Q12HR PRN Temazepam [Restoril] 15 mg PO BEDTIME PRN Antiembolic Hose [OM.PC] Routine CHF Questionnaire [COMM] Routine DVT/VTE Prophylaxis Reflex [OM.PC] Routine GM Immunization Reflex [OM.PC] Click To Edit 04/28/19 16:45 H PYLORI STOOL ANTIGEN [MREF] ONETIME 04/28/19 18:00 Potassium Chloride [Klor-Con M20] 20 meq PO BID 04/28/19 20:00 Acetaminophen [Tylenol] 650 mg PO QID Apixaban [Eliquis] 5 mg PO BID@, Docusate Sodium/Sennosides [Senna Plus] 1 tab PO BID@, PRN Ferrous Sulfate 325 mg PO BID@, Gabapentin [Neurontin] 100 mg PO TID Melatonin 3 mg PO BEDTIME Mometasone/Formoterol [Dulera 200-5 MCG] 2 puff IH BID@,20 04/28/19 21:00 Furosemide [Lasix] 40 mg IVPUSH Q8H 04/28/19 21:17 oxyCODONE 2.5 mg PO Q4H PRN 04/28/19 21:22 Vital Signs [RC] Q4HR 04/28/19 Dinner Nothing per Oral Now Diet [DIET] 04/29/19 05:11 EKG Documentation Completion [RC] ASDIRECTED EKG 12 Lead [EK] Routine 04/29/19 07:00 Levothyroxine [Synthroid] 50 mcg PO ACBREAKFAST@0700 04/29/19 08:00 Amiodarone [Cordarone] 200 mg PO DAILY Clopidogrel [Plavix] 75 mg PO DAILY Isosorbide Mononitrate [Imdur] 60 mg PO DAILY Metoprolol Succinate [Toprol XL] 100 mg PO DAILY Rosuvastatin [Crestor] 20 mg PO DAILY allopurinoL [Zyloprim] 100 mg PO DAILY amLODIPine [Norvasc] 5 mg PO DAILY - Assessment Assessment:: As above. - Plan Plan:: As above. Extensive precautions were given to the patient, who is in agreement with the treatment plan. She will need an additional 2-3 days of inpatient care secondary to multiple health issues as above.
[2019-04-29] MEDS: Melatonin 3 MG Tab PO SCH (20:28)
[2019-04-29] MEDS: Calcium Carbonate 750 MG Tab.Chew PO SCH (20:29)
[2019-04-30] MEDS: Furosemide 40 MG/4 ML VIAL IVPUSH SCH ×4 (04:02→22:13)
[2019-04-30] MEDS: Sodium Chloride 0.9% 10 ML Syringe FLUSH PRN ×3 (04:03→20:30)
[2019-04-30] MEDS: oxyCODONE 5 MG Tab PO PRN (07:39)
[2019-04-30] MEDS: Formoterol/Mometasone 200-5 MCG 8.8 GM Inhaler IH SCH ×2 (07:41→19:43)
[2019-04-30] MEDS: Metoprolol Succinate 50 MG Tab.ER PO SCH (07:41)
[2019-04-30] MEDS: Ferrous Sulfate 325 MG Tab PO SCH ×2 (07:42→19:45)
[2019-04-30] MEDS: Isosorbide Mononitrate 60 MG Tab.ER PO SCH (07:42)
[2019-04-30] MEDS: amLODIPine 5 MG Tab PO SCH (07:42)
[2019-04-30] MEDS: Apixaban 5 MG Tab PO SCH ×2 (07:43→19:46)
[2019-04-30] MEDS: Allopurinol 100 MG Tab PO SCH (07:43)
[2019-04-30] MEDS: Amiodarone 200 MG Tab PO SCH (07:43)
[2019-04-30] MEDS: Levothyroxine 50 MCG Tab PO SCH (07:43)
[2019-04-30] MEDS: Clopidogrel 75 MG Tab PO SCH (07:43)
[2019-04-30] MEDS: Acetaminophen 325 MG Tab PO SCH ×4 (07:44→19:46)
[2019-04-30] MEDS: Potassium Chloride 20 MEQ Tab.ER PO SCH ×2 (07:45→17:36)
[2019-04-30] MEDS: Gabapentin 100 MG Cap PO SCH ×3 (07:45→17:35)
[2019-04-30] MEDS: Rosuvastatin 10 MG Tab PO SCH (07:45)
--- NOTE | 2019-04-30 08:56 | PCM.PN ---
- General Info Date of Service: 04/30/19 Admission Dx/Problem (Free Text): 1. CHF 2. Coronary artery disease 3. Renal insufficiency Functional Status: Reports: Pain Controlled, Tolerating Diet, Ambulating, Urinating, Incentive Spirometry. Denies: New Symptoms Pain Score: 7 (Bilateral leg cramping as before) - Review of Systems General: Reports: Weakness (Stable chronic), Other (Good). Denies: Fever, Fatigue, Malaise, Chills, Night Sweats, Appetite HEENT: Reports: Glasses. Denies: Dysphasia, Ear Pain, Eye Pain, Headaches, Post Nasal Drip, Sinus Congestion, Sore Throat, Rhinitis, Visual Changes Pulmonary: Reports: No Symptoms. Denies: Shortness of Breath, Pleuritic Chest Pain, Cough, Sputum, Hemoptysis, Wheezing Cardiovascular: Reports: Dyspnea on Exertion (Significant improved), Edema ( Significantly improved). Denies: Chest Pain, Palpitations, Orthopnea, PND, Lightheadedness Gastrointestinal: Reports: Other (Normal bowel movements during this hospitalization). Denies: No Symptoms, Abdominal Pain, Constipation, Decreased Appetite, Diarrhea, Difficulty Swallowing, Flatus, Hematochezia, Melena, Nausea , Vomiting Genitourinary: Reports: Hematuria (Mild gross hematuria in Espinoza catheter this morning). Denies: Dysuria, Frequency, Burning, Pain, Urgency, Incontinence, Retention, Flank Pain Musculoskeletal: Reports: Shoulder Pain (Stable chronic left), Leg Pain ( Bilateral calf pain as above). Denies: Neck Pain, Arm Pain, Hand Pain, Back Pain, Joint Pain, Joint Swelling Skin: Reports: No Symptoms. Denies: Diaphoresis, Bruising, Pruritis, Rash Neurological: Reports: Difficulty Walking, Weakness (Stable chronic). Denies: Confusion, Dizziness, Headache, Numbness, Paresthesia, Tingling, Gait Disturbance Psychiatric: Reports: No Symptoms. Denies: Confusion, Depression, Anxiety, Agitation, Cravings (Although note chronic narcotic use), Hallucinations, Homicidal Ideation - Patient Data Vitals - Most Recent: Last Vital Signs Temp 36.4 C 04/30/19 07:26 Pulse 66 04/30/19 07:41 Resp 18 04/30/19 07:26 BP 141/68 H 04/30/19 07:42 Pulse Ox 96 04/30/19 07:26 Vital Signs - 24 hr 04/29/19 04/29/19 04/29/19 11:27 17:00 20:00 Temperature [ 36.6 C 36.6 C 36.7 C Temporal] Pulse, Peripheral Pulse, 69 72 77 Peripheral [ Pulse Oximetry] Respiratory 16 18 18 Rate Blood Pressure Blood Pressure 137/60 149/56 H 145/63 H [Right Upper Arm] O2 Sat by Pulse 97 93 L 90 L Oximetry 04/30/19 04/30/19 04/30/19 00:00 04:00 07:26 Temperature [ 36.6 C 36.6 C 36.4 C Temporal] Pulse, Peripheral Pulse, 68 70 66 Peripheral [ Pulse Oximetry] Respiratory 18 18 18 Rate Blood Pressure Blood Pressure 138/65 144/61 H 141/68 H [Right Upper Arm] O2 Sat by Pulse 91 L 92 L 96 Oximetry 04/30/19 04/30/19 07:41 07:42 Temperature [ Temporal] Pulse, 66 Peripheral Pulse, Peripheral [ Pulse Oximetry] Respiratory Rate Blood Pressure 141/68 H 141/68 H Blood Pressure [Right Upper Arm] O2 Sat by Pulse Oximetry Weight - Most Recent: 79.651 kg (Down 2 kg since admission) I&O - Last 24 Hours: Intake & Output 04/29/19 04/30/19 04/30/19 22:59 06:59 14:59 Intake Total 240 200 600 Output Total 600 1050 Balance -360 -850 600 Imaging Impressions - Last 24 Hours: monitoring analyst shows normal sinus rhythm with heart rate in the 70s with no ectopy or arrhythmia Chest x-ray, PA and lateral, shows evidence of stable mild to moderate aortic valve stenosis with additional mild pulmonary obstructive disease but no direct evidence of pulmonary infiltrates, pneumothorax, etc.. Borderline cardiomegaly with significantly improved mild centralized CHF with no significant pleural effusions. Moderate kyphosis, osteoarthritis, and osteoporosis noted in the thoracic spine. Mild right middle lobe atelectasis. Lab Results Last 24 Hours: Laboratory Results - last 24 hr 04/29/19 04/30/19 04/30/19 Range/Units 10:05 07:36 07:36 WBC 11.3 H (4.0-10.2) K/uL RBC 3.31 L (3.77-5.09) M/uL Hgb 9.6 L (11.7-15.5) g/dL Hct 32.7 L (34.0-46.0) % MCV 98.8 H (84.0-98.0) fL MCH 29.0 (28.2-33.3) pg MCHC 29.4 L (31.7-36.0) g/dL RDW 15.2 H (11.2-14.1) % Plt Count 229 (150-350) K/uL Neut % (Auto) 69.6 (45.0-80.0) % Lymph % (Auto) 14.8 (10.0-50.0) % [place] % (Auto) 9.0 (2.0-14.0) % Eos % (Auto) 6.2 H (0.0-5.0) % Baso % (Auto) 0.4 (0.0-2.0) % Neut # (Auto) 7.88 H (1.40-7.00) K/uL Lymph # (Auto) 1.67 (0.50-3.50) K/uL [place] # (Auto) 1.02 H (0.00-1.00) K/uL Eos # (Auto) 0.70 H (0.00-0.50) K/uL Baso # (Auto) 0.04 (0.00-0.20) K/uL Sodium 143 (136-145) mmol/L Potassium 4.4 (3.5-5.1) mmol/L Chloride 100 (98-107) mmol/L Carbon Dioxide 37.3 H (21.0-32.0) mmol/L BUN 42 H (7-18) mg/dL Creatinine 1.69 H (0.51-1.17) mg/dL Est Cr Clr Drug Dosing 23.31 mL/min Estimated GFR (MDRD) 29 mL/min Glucose 122 H (74-106) mg/dL Uric Acid 8.6 H (2.6-7.2) mg/dL Calcium 9.5 (8.5-10.1) mg/dL Magnesium 1.8 (1.8-2.4) mg/dL Creatine Kinase 50 (26-308) U/L Creatine Kinase Index 3.4 H (0.0-2.5) % CK-MB (CK-2) 1.70 (0.00-3.60) ng/mL Troponin I 0.006 (0.000-0.056) ng/mL NT-Pro-B Natriuret Pep 1825 H (0-125) pg/mL Specimen Type Ur[place] Urine Color Yellow Urine Appearance Clear Urine pH 7.0 (5.0-9.0) Ur Specific [place] 1.015 (1.005-1.030) Urine Protein Negative (NEGATIVE) mg/dL Urine Glucose (UA) Negative (NEGATIVE) mg/dL Urine Ketones Negative (NEGATIVE) mg/dL Urine Occult Blood Negative (NEGATIVE) Urine Nitrite Negative (NEGATIVE) Urine Bilirubin Negative (NEGATIVE) Urine Urobilinogen 0.2 (0.2-1.0) E.U./dL Ur Leukocyte Esterase Negative (NEGATIVE) Urine RBC 0-5 /HPF Urine WBC 0-5 /HPF Ur Epithelial Cells Few /LPF Urine Bacteria Rare (NONE TO FEW) /HPF Christopher Results Last 24 Hours: Microbiology 04/29/19 12:48 Stool Occult Blood (CHRISTOPHER) - Final Stool / Feces NEGATIVE OCCULT BLOOD REFERENCE RANGE: NEGATIVE Urine culture and sensitivity still pending Med Orders - Current: Current Medications Acetaminophen (Tylenol) 650 mg PO QID [facility] Last Admin: 04/30/19 07:44 Dose: 650 mg Acetaminophen (Tylenol) 650 mg PO Q4H PRN PRN Reason: Pain Albuterol (Proventil Neb Soln) 2.5 mg INH Q2H PRN PRN Reason: SHORTNESS OF BREATH Albuterol/Ipratropium (Duoneb 3.0-0.5 Mg/3 Ml) 3 ml NEB Q4HRRT PRN PRN Reason: Dyspnea Allopurinol (Zyloprim) 100 mg PO DAILY [facility] Last Admin: 04/30/19 07:43 Dose: 100 mg Amiodarone HCl (Cordarone) 200 mg PO DAILY [facility] Last Admin: 04/30/19 07:43 Dose: 200 mg Amlodipine Besylate (Norvasc) 5 mg PO DAILY [facility] Last Admin: 04/30/19 07:42 Dose: 5 mg Apixaban (Eliquis) 5 mg PO BID@, [facility] Last Admin: 04/30/19 07:43 Dose: 5 mg Calcium Carbonate/Glycine (Tums Extra Strength) 750 mg PO BEDTIME [facility] Last Admin: 04/29/19 20:29 Dose: 750 mg Clopidogrel Bisulfate (Plavix) 75 mg PO DAILY [facility] Last Admin: 04/30/19 07:43 Dose: 75 mg Ferrous Sulfate (Ferrous Sulfate) 325 mg PO BID@, [facility] Last Admin: 04/30/19 07:42 Dose: 325 mg Furosemide (Lasix) 40 mg IVPUSH Q8H [facility] Last Admin: 04/30/19 04:02 Dose: 40 mg Gabapentin (Neurontin) 100 mg PO TID [facility] Last Admin: 04/30/19 07:45 Dose: 100 mg Isosorbide Mononitrate (Imdur) 60 mg PO DAILY [facility] Last Admin: 04/30/19 07:42 Dose: 60 mg Levothyroxine Sodium (Synthroid) 50 mcg PO ACBREAKFAST@0700 [facility] Last Admin: 04/30/19 07:43 Dose: 50 mcg Melatonin (Melatonin) 3 mg PO BEDTIME [facility] Last Admin: 04/29/19 20:28 Dose: 3 mg Metoprolol Succinate (Toprol Xl) 100 mg PO DAILY [facility] Last Admin: 04/30/19 07:41 Dose: 100 mg Mometasone Furoate/Formoterol Fumar (Dulera 200-5 Mcg) 2 puff IH BID@ [facility] Last Admin: 04/30/19 07:41 Dose: 2 inhalation Oxycodone HCl (Oxycodone) 2.5 mg PO Q4H PRN PRN Reason: Pain Last Admin: 04/30/19 07:39 Dose: 2.5 mg Potassium Chloride (Klor-Con M20) 20 meq PO BID [facility] Last Admin: 04/30/19 07:45 Dose: 20 meq Rosuvastatin Calcium (Crestor) 20 mg PO DAILY [facility] Last Admin: 04/30/19 07:45 Dose: 20 mg Senna/Docusate Sodium (Senna Plus) 1 tab PO BID@ PRN PRN Reason: Constipation Sodium Chloride (Saline Flush) 10 ml FLUSH ASDIRECTED PRN PRN Reason: Keep Vein Open Last Admin: 04/30/19 04:03 Dose: 10 ml Sodium Chloride (Saline Flush) 10 ml FLUSH Q12HR PRN PRN Reason: Keep Vein Open Temazepam (Restoril) 15 mg PO BEDTIME PRN PRN Reason: Insomnia Discontinued Medications Famotidine (Pepcid) 40 mg IVPUSH ONETIME ONE Stop: 04/28/19 13:30 Last Admin: 04/28/19 14:32 Dose: 40 mg Furosemide (Lasix) 60 mg IVPUSH NOW ONE Stop: 04/28/19 13:34 Last Admin: 04/28/19 14:38 Dose: 60 mg - Exam Quality Assessment: Supplemental Oxygen (Back to baseline 2 L/m by nasal cannula ), Urine Catheter (For accurate I's and O's), DVT Prophylaxis (Eliquis). No: Skin Breakdown, Restraints General: Alert, Oriented, Cooperative, No Acute Distress HEENT: Pupils Equal, Pupils Reactive, EOMI, Mucous Membr. Moist/[place], Other ( Patient wearing glasses). No: Scleral Icterus Neck: Supple, Trachea Midline, No JVD, No Thyromegaly, Carotid Bruit (Stable mild bilateral carotid bruits versus transmitted heart sounds), Other (Right lateral cervical region shows no sign of local infection from recent stent/PTCA) . No: Lymphadenopathy Lungs: Normal Respiratory Effort, Rales (Mild bilateral basilar rales significantly improved from admission). No: Rhonchi, Rub, Wheezing Cardiovascular: Regular Rate, Regular Rhythm, Murmurs (Stable 1/6 LEOLA of the aortic and mitral valves.). No: Gallops, Rubs GI/Abdominal Exam: Normal Bowel Sounds, Soft, Non-Tender, No Organomegaly, No Distention, No Abnormal Bruit, No Mass, Other (Obese). No: Guarding (Female) Exam: Deferred Back Exam: Full Range of Motion, Other (Mild kyphosis). No: CVA Tenderness (L) , CVA Tenderness (R), Muscle Spasm Extremities: Pedal Edema (Significantly improved bilateral trace pedal/ pretibial edema), Arm Pain (Stable mild chronic left shoulder pain and instability secondary to nonoperable proximal humeral fracture with arm immobilizer in place), Limited Range of Motion (Left shoulder as above). No: Leatha's Sign Peripheral Pulses: 2+: Radial (L), Radial (R), Dorsalis Pedis (L), Dorsalis Pedis (R) Skin: Warm, Dry, Intact Wound/Incisions: Healing Well (Right cervical catheterization site) Neurological: No New Focal Deficit, Other (Negative Babinski's) Psy/Mental Status: Alert, Normal Affect, Normal Mood. No: Anxious, Depressed, Agitated, Hallucinations, Withdrawal Symptoms EKG INTERPRETATION EKG Date: 04/30/19 Time: 07:16 Rhythm: NSR Rate (Beats/Min): 65 [place]: Normal (Neutral cardiac axis) P-Wave: Present QRS: Normal (0.09 seconds with mild repolarization changes) ST-T: Other (Stable T-wave inversion in leads 1 and aVL) QT: Normal MS/PQ Interval: 0.17 seconds with stable poor R-wave progression in the anterior leads Comparison: No Change (Last EKG on 04/29/19) EKG Interpretation Comments: Stable lateral wall cardiac ischemia Sepsis Event Note - Evaluation Sepsis Screening Result: No Definite Risk - Focused Exam Vital Signs: Vital Signs Temp Pulse Pulse Resp BP BP Pulse Ox 04/30/19 07:42 141/68 H 04/30/19 07:41 66 141/68 H 04/30/19 07:26 36.4 C 66 18 141/68 H 96 04/30/19 04:00 36.6 C 70 18 144/61 H 92 L 04/30/19 00:00 36.6 C 68 18 138/65 91 L Date Exam was Performed: 04/30/19 Time Exam was Performed: 09:39 - Problem List & Annotations (1) CHF (congestive heart failure) SNOMED Code(s): 81871986 Code(s): I50.9 - HEART FAILURE, UNSPECIFIED Status: Chronic Priority: High Current Visit: Yes Qualifiers: Heart failure type: combined systolic and diastolic Heart failure chronicity: acute on chronic Qualified Code(s): I50.43 - Acute on chronic combined systolic (congestive) and diastolic (congestive) heart failure Annotation/Comment:: Significantly improved CHF by clinical exam and patient history. IV Lasix therapy will be decreased with probable discharge back to the senior care tomorrow by Dr. Pinzon, who assumes care in the a.m.. Oral Lasix dose at discharge will need to be assessed carefully secondary to significantly increased oral Lasix therapy prior to admission, which was not effective secondary to her intestinal edema from her CHF. Close follow-up and blood work by regular provider is recommended. Note excellent results with IV Lasix with no significant worsening of her previous renal insufficiency. Potassium level is also normal. She is continuing to have some cramping in her legs secondary to IV Lasix therapy with initiation of calcium supplementation on 04/29 with no improvement. Add additional Mirapex trial basis. EKG shows stable lateral wall cardiac ischemia with negative workup for acute MT to this point. Note that CHF was refractory to previously increased oral Lasix therapy prior to admission as per emergency room note. High-dose IV Lasix therapy initiated in the emergency room. Note recent MT, echocardiogram, etc. as per emergency room note. Patient is allergic to VIJAYA inhibitors and angiotensin II receptor blockers, although she may benefit from spironolactone therapy. Her blood pressures are stable at this time with no further change in medical therapy for now. No chest pain or anginal type symptoms. Consider cardiology consultation depending on her clinical course. Consider discontinuation of her Plavix secondary to her current Eliquis therapy and chronic anemia with distant history of GI bleed as per emergency room note. Cardiology consultation will be required either by telephone for direct evaluation before Plavix is discontinued , however, secondary to patient's recent PTCA/stent. Artifactually elevated CK index secondary to low baseline CK. Somewhat initial progressive significant BNP elevation secondary both to her CHF and renal disease, however overall this has improved on 04/30. (2) Arteriosclerotic heart disease (ASHD) SNOMED Code(s): 19594307 Code(s): I25.10 - ATHSCL HEART DISEASE OF [place] CORONARY ARTERY W/O ANG PCTRS Status: Chronic Priority: High Current Visit: Yes Annotation/ Comment:: As above. (3) Hypothyroidism (acquired) SNOMED Code(s): 453748986 Code(s): E03.9 - HYPOTHYROIDISM, UNSPECIFIED Status: Acute Priority: Medium Current Visit: Yes Onset Date: 04/28/19 Annotation/Comment:: Mildly elevated TSH. Initiated Synthroid therapy during this hospitalization with recommended repeat TSH in about 4 weeks. (4) Anemia SNOMED Code(s): 705001307 Code(s): D64.9 - ANEMIA, UNSPECIFIED Status: Chronic Priority: Medium Current Visit: Yes Qualifiers: Anemia type: due to chronic kidney disease Chronic kidney disease stage: stage 4 (severe) Qualified Code(s): N18.4 - Chronic kidney disease, stage 4 ( severe); D63.1 - Anemia in chronic kidney disease Annotation/Comment:: Chronic iron deficiency anemia and anemia secondary to her renal disease. Hemoglobin stable at 9.6 on 04/30. Iron level is somewhat decreased however elevated ferritin level. No change in her iron supplementation for now. Her vitamin B-12 level and folic acid levels were normal on 04/29. Note high-dose IV Pepcid given as GI prophylaxis in the emergency room with no abdominal complaints or evidence of acute GI bleed. Consider discontinuation of Plavix as above. Continue IV Pepcid therapy. (5) CKD (chronic kidney disease) stage 3, GFR 30-59 ml/min SNOMED Code(s): 047372316 Code(s): N18.3 - CHRONIC KIDNEY DISEASE, STAGE 3 (MODERATE) Status: Chronic Priority: Medium Current Visit: Yes Annotation/Comment:: Stable as above. Continue to observe her renal status and uric acid level closely secondary to aggressive IV Lasix therapy as above with only mild progression of her uric acid level on 04/30. Note planned decrease IV Lasix therapy today. Consider repeat comprehensive metabolic panel, uric acid and magnesium levels at recommended one-week follow-up. (6) COPD (chronic obstructive pulmonary disease) SNOMED Code(s): 98453007 Code(s): J44.9 - CHRONIC OBSTRUCTIVE PULMONARY DISEASE, UNSPECIFIED Status : Chronic Priority: Medium Current Visit: Yes Qualifiers: COPD type: COPD with acute exacerbation Qualified Code(s): J44.1 - Chronic obstructive pulmonary disease with (acute) exacerbation Annotation/Comment:: Persistent mild WBC elevation likely secondary to stress reaction. No evidence of fever or bronchitic type symptoms. Observe for now. Note O2 dependency. Initiate incentive spirometry. UA was negative on 04/29 with culture and sensitivity still pending. Secondary to her current urine catheter for accurate I's and O's initiated Keflex therapy 04/30, which should be continued at least 3 days after discharge. Espinoza catheter will be discontinued at discharge. Mild hematuria today likely secondary to Eliquis therapy but no evidence of significant traumatic injury. Mild leukocytosis is stable, and patient is still afebrile. (7) Elevated d-dimer SNOMED Code(s): 843009823 Code(s): R79.89 - OTHER SPECIFIED ABNORMAL FINDINGS OF BLOOD CHEMISTRY Status: Chronic Priority: High Current Visit: Yes Annotation/Comment:: History of chronically elevated D-Dimer with extensive negative workup as per emergency room note. 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 above. Note current Eliquis therapy. Observe for now. (8) Peripheral neuropathy SNOMED Code(s): 689856760 Code(s): G62.9 - POLYNEUROPATHY, UNSPECIFIED Status: Chronic Priority: Medium Current Visit: Yes Qualifiers: Peripheral neuropathy type: polyneuropathy, other Qualified Code(s): G62.89 - Other specified polyneuropathies Annotation/Comment:: Per recommendations of her nursing program coordinator as per patient and her daughter's history her Neurontin will be tapered slowly, including total tapering at time of patient's admission to this facility. Recommend further tapering by her regular provider at recommended one-week follow-up.. Bilateral leg cramps continue today as above but no significant neuropathy. Trial of Mirapex as above. (9) HTN (hypertension), benign SNOMED Code(s): 82092246 Code(s): I10 - ESSENTIAL (PRIMARY) HYPERTENSION Status: Chronic Priority : Medium Current Visit: Yes Annotation/Comment:: Stable during this hospitalization. Consider additional spironolactone as above. (10) Hyperuricemia SNOMED Code(s): 42259247 Code(s): E79.0 - HYPERURICEMIA W/O SIGNS OF INFLAM ARTHRIT AND TOPHACEOUS DIS Status: Chronic Priority: Medium Current Visit: Yes Annotation/ Comment:: As above. Her arthritis is otherwise stable. (11) Dyslipidemia SNOMED Code(s): 329637931 Code(s): E78.5 - HYPERLIPIDEMIA, UNSPECIFIED Status: Chronic Priority: Medium Current Visit: Yes Annotation/Comment:: Lipid panel on 04/29 showed overall stable dyslipidemia with current medical therapy. Weight loss in moderation is still advisable. Note borderline elevated glycosylated hemoglobin of 6.2% on 04/29. Observe for now. - Problem List Review Problem List Initiated/Reviewed/Updated: Yes - My Orders Last 24 Hours: My Active Orders 04/29/19 08:00 Amiodarone [Cordarone] 200 mg PO DAILY Clopidogrel [Plavix] 75 mg PO DAILY Isosorbide Mononitrate [Imdur] 60 mg PO DAILY Metoprolol Succinate [Toprol XL] 100 mg PO DAILY Rosuvastatin [Crestor] 20 mg PO DAILY allopurinoL [Zyloprim] 100 mg PO DAILY amLODIPine [Norvasc] 5 mg PO DAILY 04/29/19 09:19 RT Incentive Spirometry [RC] .PRN 04/29/19 09:27 Urinary Catheter Assessment [RC] 08,04/29/19 09:30 Espinoza Catheter Insertion [Insert Urinary Catheter] [OM.PC] Q24H 04/29/19 10:05 CULTURE URINE [RM] Routine 04/29/19 12:48 H PYLORI STOOL ANTIGEN [MREF] ONETIME 04/29/19 20:00 Calcium Carbonate [Tums Extra Strength] 750 mg PO BEDTIME 04/29/19 Lunch Fluid Restriction [DIET] 04/30/19 05:11 Chest 2V [CR] Routine - Assessment Assessment:: As above. - Plan Plan:: As above. Extensive precautions were given to the patient and her daughter, who are in agreement with the treatment plan. She will need an additional day of inpatient care secondary to multiple health issues and required medication adjustments as above. Laureen holguin physician assumes care in the a.m.
[2019-04-30] MEDS: Cephalexin 250 MG Cap PO SCH ×3 (10:22→17:36)
[2019-04-30] MEDS: Melatonin 3 MG Tab PO SCH (19:46)
[2019-04-30] MEDS: Calcium Carbonate 750 MG Tab.Chew PO SCH (19:47)
[2019-04-30] MEDS ORDERED: Pramipexole 0.125 MG Tab PO SCH (20:00)
[2019-05-01] MEDS: Formoterol/Mometasone 200-5 MCG 8.8 GM Inhaler IH SCH (08:23)
[2019-05-01] MEDS: Furosemide 40 MG/4 ML VIAL IVPUSH SCH (08:23)
[2019-05-01] MEDS: Metoprolol Succinate 50 MG Tab.ER PO SCH (08:26)
[2019-05-01] MEDS: Gabapentin 100 MG Cap PO SCH ×2 (08:27→11:25)
[2019-05-01] MEDS: Isosorbide Mononitrate 60 MG Tab.ER PO SCH (08:27)
[2019-05-01] MEDS: Acetaminophen 325 MG Tab PO SCH ×2 (08:27→11:25)
[2019-05-01] MEDS: Ferrous Sulfate 325 MG Tab PO SCH (08:27)
[2019-05-01] MEDS: Rosuvastatin 10 MG Tab PO SCH (08:27)
[2019-05-01 08:28] VITALS: BP 140/61; PULSE 72
[2019-05-01] MEDS: Potassium Chloride 20 MEQ Tab.ER PO SCH (08:28)
[2019-05-01] MEDS: Cephalexin 250 MG Cap PO SCH ×2 (08:28→11:24)
[2019-05-01] MEDS: Amiodarone 200 MG Tab PO SCH (08:28)
[2019-05-01] MEDS: Clopidogrel 75 MG Tab PO SCH (08:28)
[2019-05-01] MEDS: amLODIPine 5 MG Tab PO SCH (08:28)
[2019-05-01] MEDS: Levothyroxine 50 MCG Tab PO SCH (08:29)
[2019-05-01] MEDS: Apixaban 5 MG Tab PO SCH (08:29)
[2019-05-01] MEDS: Allopurinol 100 MG Tab PO SCH (08:29)
[2019-05-01] MEDS: Sodium Chloride 0.9% 10 ML Syringe FLUSH PRN (08:31)
--- NOTE | 2019-05-01 12:11 | PCM.DCSUM1 ---
Discharge Summary - Hospital Course Brief History: Patient admitted for treatment of CHF exacerbation and increased SOB. Diagnosis: Stroke: No - Discharge Data Discharge Date: 05/01/19 Discharge Disposition: DC/Tfer to SNF 03 Condition: Good - Referral to Home Health Primary Care Physician: Stephy Mcguire NP - Discharge Diagnosis/Problem(s) (1) CHF (congestive heart failure) SNOMED Code(s): 11932823 ICD Code: I50.9 - HEART FAILURE, UNSPECIFIED Status: Chronic Priority: High Current Visit: Yes Problem Details: Significantly improved CHF by clinical exam and patient history. Note excellent results with IV Lasix with no significant worsening of her previous renal insufficiency. Note that CHF was refractory to previously increased oral Lasix therapy prior to admission as per emergency room note. ProBNP 1269 today. Chest xray performed yesterday showed improvement per Radiology. Patient has follow up appointment in 3 days with Cardiology in [place]. Adjustment of diuretic therapy can be addressed at that time. Adjustment of blood thinners should also be addressed given that patient is on both Plavix and Eliquis. Qualifiers: Heart failure type: combined systolic and diastolic Heart failure chronicity: acute on chronic Qualified Code(s): I50.43 - Acute on chronic combined systolic (congestive) and diastolic (congestive) heart failure (2) Edema of both legs SNOMED Code(s): 409986014, 52408209, 580305231 ICD Code: R60.0 - LOCALIZED EDEMA Status: Chronic Priority: Medium Current Visit: No Problem Details: Chronic. Improved since admission (3) COPD (chronic obstructive pulmonary disease) SNOMED Code(s): 64463285 ICD Code: J44.9 - CHRONIC OBSTRUCTIVE PULMONARY DISEASE, UNSPECIFIED Status : Chronic Priority: Medium Current Visit: Yes Problem Details: Persistent mild WBC elevation likely secondary to stress reaction. No evidence of fever or bronchitic type symptoms. Note O2 dependency. Incentive spirometry utilized. Mild leukocytosis stable. No focal infiltrates on chest xray. Qualifiers: COPD type: COPD with acute exacerbation Qualified Code(s): J44.1 - Chronic obstructive pulmonary disease with (acute) exacerbation (4) Elevated hemoglobin A1c SNOMED Code(s): 035438436 ICD Code: R73.09 - OTHER ABNORMAL GLUCOSE Status: Chronic Priority: Low Current Visit: Yes Problem Details: Follow up with primary provider (5) Hypothyroidism (acquired) SNOMED Code(s): 498382198 ICD Code: E03.9 - HYPOTHYROIDISM, UNSPECIFIED Status: Acute Priority: Medium Current Visit: Yes Onset Date: 04/28/19 Problem Details: Mildly elevated TSH. Initiated Synthroid therapy during this hospitalization with recommended repeat TSH in about 4 weeks. (6) Anemia SNOMED Code(s): 467899852 ICD Code: D64.9 - ANEMIA, UNSPECIFIED Status: Chronic Priority: Medium Current Visit: Yes Problem Details: Hemoglobin stable at 9.6 on 04/30. Iron level is somewhat decreased however elevated ferritin level. Pattern reflects anemia of chronic disease. No change in her iron supplementation for now. B-12 level and folic acid levels were normal on 04/29. Qualifiers: Anemia type: due to chronic kidney disease Chronic kidney disease stage: stage 4 (severe) Qualified Code(s): N18.4 - Chronic kidney disease, stage 4 ( severe); D63.1 - Anemia in chronic kidney disease (7) Arteriosclerotic heart disease (ASHD) SNOMED Code(s): 04078528 ICD Code: I25.10 - ATHSCL HEART DISEASE OF [place] CORONARY ARTERY W/O ANG PCTRS Status: Chronic Priority: Medium Current Visit: Yes Problem Details: As above. (8) CKD (chronic kidney disease) stage 3, GFR 30-59 ml/min SNOMED Code(s): 649617840 ICD Code: N18.3 - CHRONIC KIDNEY DISEASE, STAGE 3 (MODERATE) Status: Chronic Priority: Medium Current Visit: Yes Problem Details: Stable overall through stay. Consider repeat comprehensive metabolic panel, uric acid and magnesium levels at recommended one-week follow-up. (9) Dyslipidemia SNOMED Code(s): 576851461 ICD Code: E78.5 - HYPERLIPIDEMIA, UNSPECIFIED Status: Chronic Priority: Medium Current Visit: Yes Problem Details: Lipid panel on 04/29 showed overall stable dyslipidemia with current medical therapy. Weight loss in moderation is still advisable. Note borderline elevated glycosylated hemoglobin of 6.2% on 04/29. Observe for now. (10) Elevated d-dimer SNOMED Code(s): 830301647 ICD Code: R79.89 - OTHER SPECIFIED ABNORMAL FINDINGS OF BLOOD CHEMISTRY Status: Chronic Priority: High Current Visit: Yes Problem Details: History of chronically elevated D-Dimer with extensive negative workup as per emergency room note. 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 above. Note current Eliquis therapy. Observe for now. (11) HTN (hypertension), benign SNOMED Code(s): 65649610 ICD Code: I10 - ESSENTIAL (PRIMARY) HYPERTENSION Status: Chronic Priority : Medium Current Visit: Yes Problem Details: Stable during this hospitalization. (12) Hyperuricemia SNOMED Code(s): 68405578 ICD Code: E79.0 - HYPERURICEMIA W/O SIGNS OF INFLAM ARTHRIT AND TOPHACEOUS DIS Status: Chronic Priority: Medium Current Visit: Yes Problem Details : Her arthritis is otherwise stable. Follow up with primary provider (13) Peripheral neuropathy SNOMED Code(s): 803118398 ICD Code: G62.9 - POLYNEUROPATHY, UNSPECIFIED Status: Chronic Priority: Medium Current Visit: Yes Problem Details: Per recommendations of her acid polymerization operator as per patient and her daughter's history her Neurontin will be tapered slowly, including total tapering at time of patient's admission to this facility. Recommend further tapering by her regular provider at recommended one- week follow-up.. Bilateral leg cramps continue today as above but no significant neuropathy. Trial of Mirapex to see if it is helpful. Qualifiers: Peripheral neuropathy type: polyneuropathy, other Qualified Code(s): G62.89 - Other specified polyneuropathies (14) Humerus surgical neck fracture SNOMED Code(s): 745000531 ICD Code: S42.213A - UNSP DISP FX OF SURGICAL NECK OF UNSP HUMERUS, INIT Status: Chronic Priority: Low Current Visit: No Problem Details: Currently in immobilizer. Stable. Pain meds PRN. Fracture from January 2018. Qualifiers: Encounter type: subsequent encounter Fracture type: closed Fracture morphology: unspecified fracture morphology Fracture alignment: displaced Laterality: left Fracture healing: with nonunion Qualified Code(s): S42.212K - Unspecified displaced fracture of surgical neck of left humerus, subsequent encounter for fracture with nonunion (15) Muscle twitching SNOMED Code(s): 47620232 ICD Code: R25.3 - FASCICULATION Status: Chronic Priority: Low Current Visit: Yes Problem Details: Patient reports having intermittent muscle twitches that cause her to 'jump'. Recommended that she follow up with primary provider or internal medicine for review. May be a side effect of medication. May benefit from Neurology referral. - Patient Summary/Data Hospital Course: Patient admitted after being evaluated in the ER for increased edema and increased SOB. Lasix had been increased by primary provider but no improvement in diuresis noted. Given IV lasix in ER and admitted. Patient has shown gradual improvement in edema and dyspnea with exertion over the last 3 days. Negative troponins. She feels back to baseline and feels well enough to return to the nursing facility where she resides. - Patient Instructions Diet: Usual Diet as Tolerated, Limited Carb (recommend patient decrease simple carb intake as Hgb A1c is 6.2) Fluid Restriction: 1500 mL Activity: As Tolerated Driving: Do Not Drive Showering/Bathing: May Shower Other/Special Instructions: Follow up at your scheduled Cardiology appointment Saturday. At that time--ask them if you need to be continued on both the Eliquis AND the Plavix. See if they OK you going down to one blood thinner. Ask them about your current diuretic doses and any appropriate adjustments they may suggest given the recent issues with your water retention that led to the hospital admission. Ask them if you would benefit from a referral to Internal Medicine to review your medications and current problems and make treatment recommendations. Have your blood rechecked in 1-2 weeks at your primary provider's office, including a CBC/Chem panel/Mag/Uric Acid level. See if the Mirapex helps the 'twitching'. You also will need to follow up for your thyroid level to be rechecked in a month. Follow up otherwise as needed if you have problems. - Discharge Plan *PRESCRIPTION DRUG MONITORING PROGRAM REVIEWED*: Not Applicable *COPY OF PRESCRIPTION DRUG MONITORING REPORT IN PATIENT YADIRA: Not Applicable Prescriptions/Med Rec: Albuterol/Ipratropium [DuoNeb 3.0-0.5 MG/3 ML] 3 ml NEB Q6HRRT PRN #1 box PRN Reason: Dyspnea cephALEXin [Keflex] 500 mg PO TID #10 cap Levothyroxine [Synthroid] 50 mcg PO ACBREAKFAST@0700 #30 tablet Magnesium Glycinate 500 gm PO BEDTIME #1 powder Pramipexole [Mirapex] 0.125 mg PO BEDTIME #14 tablet Ubidecarenone [Co Q-10] 100 mg PO DAILY #30 capsule Home Medications: Home Meds Albuterol [Ventolin HFA] 2 puff INH Q4HR PRN 07/05/14 [History] Furosemide [Lasix] 80 mg PO BID 08/12/14 [History] Fluticasone/Salmeterol [Advair 500-50] 1 puff INH BID@09/01/14 [History] Nitroglycerin [Nitrostat] 0.4 mg SL ASDIRECTED PRN #100 tab.sl 07/17/15 [Rx] Cholecalciferol (Vitamin D3) [D3-2000] 2,000 mg PO DAILY 03/04/18 [History] Furosemide 40 mg PO DAILY@03/04/18 [History] Gabapentin [Neurontin] 100 mg PO TID@,,03/04/18 [History] Isosorbide Mononitrate [Imdur] 60 mg PO DAILY 03/04/18 [History] allopurinoL [Zyloprim] 100 mg PO DAILY 03/04/18 [History] oxyCODONE 2.5 mg PO Q4H PRN 03/04/18 [History] Apixaban [Eliquis] 5 mg PO BID@04/14/18 [History] Ferrous Sulfate 1 tab PO BID@04/14/18 [History] Melatonin 3 mg PO BEDTIME 04/14/18 [History] Acetaminophen [Tylenol] 650 mg PO QID 03/16/19 [History] Metoprolol Succinate [Toprol XL 50mg] 100 mg PO DAILY 03/16/19 [History] Sennosides/Docusate Sodium [Senna-S] 1 each PO BID@ PRN 03/16/19 [History] Amiodarone HCl 200 mg PO DAILY 04/28/19 [History] Ascorbic Acid [Vitamin C] 250 mg PO BID 04/28/19 [History] Clopidogrel Bisulfate [Clopidogrel] 75 mg PO DAILY 04/28/19 [History] Rosuvastatin [Crestor] 20 mg PO DAILY 04/28/19 [History] amLODIPine [Norvasc] 5 mg PO DAILY 04/28/19 [History] Albuterol/Ipratropium [DuoNeb 3.0-0.5 MG/3 ML] 3 ml NEB Q6HRRT PRN #1 box [Rx] Levothyroxine [Synthroid] 50 mcg PO ACBREAKFAST@0700 #30 tablet 05/01/19 [Rx] Magnesium Glycinate 500 gm PO BEDTIME #1 powder 05/01/19 [Rx] Pramipexole [Mirapex] 0.125 mg PO BEDTIME #14 tablet 05/01/19 [Rx] Ubidecarenone [Co Q-10] 100 mg PO DAILY #30 capsule 05/01/19 [Rx] cephALEXin [Keflex] 500 mg PO TID #10 cap 05/01/19 [Rx] Forms: ED Department Discharge Referrals: Stephy Mcguire NP [Primary Care Provider] - - Discharge Summary/Plan Comment DC Time >30 min.: No - General Info Date of Service: 05/01/19 Admission Dx/Problem (Free Text: 1. CHF 2. Coronary artery disease 3. Renal insufficiency Subjective Update: Patient feels back to baseline. Would like to return to [place]. Functional Status: Reports: Pain Controlled, Tolerating Diet, Incentive Spirometry. Denies: New Symptoms - Review of Systems General: Reports: Weakness (chronic/stable) HEENT: Reports: Glasses Pulmonary: Reports: No Symptoms Cardiovascular: Reports: Dyspnea on Exertion (chronic) Gastrointestinal: Reports: No Symptoms Genitourinary: Reports: Other (has Espinoza in place) Musculoskeletal: Reports: Other (intermittent leg cramps during recent IV lasix treatment, chronic issues with involuntary twitching. 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 ) Skin: Reports: No Symptoms Neurological: Reports: Difficulty Walking (due to weakness) Psychiatric: Reports: No Symptoms - Patient Data Vitals - Most Recent: Last Vital Signs Temp 36.2 C 05/01/19 08:00 Pulse 72 05/01/19 08:26 Resp 20 05/01/19 08:00 BP 140/61 05/01/19 08:28 Pulse Ox 97 05/01/19 08:00 Weight - Most Recent: 79.651 kg (Down 2 kg since admission) I&O - Last 24 hours: Intake & Output 04/30/19 05/01/19 05/01/19 22:59 06:59 14:59 Intake Total 300 0 500 Output Total 525 Balance 300 -525 500 Lab Results - Last 24 hrs: Laboratory Results - last 24 hr 05/01/19 Range/Units 06:43 Sodium 141 (136-145) mmol/L Potassium 4.9 (3.5-5.1) mmol/L Chloride 101 (98-107) mmol/L Carbon Dioxide 34.3 H (21.0-32.0) mmol/L BUN 48 H (7-18) mg/dL Creatinine 1.74 H (0.51-1.17) mg/dL Est Cr Clr Drug Dosing 22.64 mL/min Estimated GFR (MDRD) 28 mL/min Glucose 122 H (74-106) mg/dL Calcium 9.6 (8.5-10.1) mg/dL Magnesium 1.9 (1.8-2.4) mg/dL Troponin I 0.011 (0.000-0.056) ng/mL NT-Pro-B Natriuret Pep 1269 H (0-125) pg/mL ANT Results - Last 24 hrs: Microbiology 04/29/19 12:48 Helicobacter pylori Antigen - Final Stool / Feces 04/29/19 10:05 Urine Culture - Final Urine, Catheterized Staphylococcus Coagulase Neg Med Orders - Current: Current Medications Acetaminophen (Tylenol) 650 mg PO QID [facility] Last Admin: 05/01/19 11:25 Dose: 650 mg Acetaminophen (Tylenol) 650 mg PO Q4H PRN PRN Reason: Pain Albuterol (Proventil Neb Soln) 2.5 mg INH Q2H PRN PRN Reason: SHORTNESS OF BREATH Albuterol/Ipratropium (Duoneb 3.0-0.5 Mg/3 Ml) 3 ml NEB Q4HRRT PRN PRN Reason: Dyspnea Allopurinol (Zyloprim) 100 mg PO DAILY [facility] Last Admin: 05/01/19 08:29 Dose: 100 mg Amiodarone HCl (Cordarone) 200 mg PO DAILY [facility] Last Admin: 05/01/19 08:28 Dose: 200 mg Amlodipine Besylate (Norvasc) 5 mg PO DAILY [facility] Last Admin: 05/01/19 08:28 Dose: 5 mg Apixaban (Eliquis) 5 mg PO BID@ [facility] Last Admin: 05/01/19 08:29 Dose: 5 mg Calcium Carbonate/Glycine (Tums Extra Strength) 750 mg PO BEDTIME [facility] Last Admin: 04/30/19 19:47 Dose: 750 mg Cephalexin (Keflex) 500 mg PO TID [facility] Last Admin: 05/01/19 11:24 Dose: 500 mg Clopidogrel Bisulfate (Plavix) 75 mg PO DAILY [facility] Last Admin: 05/01/19 08:28 Dose: 75 mg Ferrous Sulfate (Ferrous Sulfate) 325 mg PO BID@ [facility] Last Admin: 05/01/19 08:27 Dose: 325 mg Furosemide (Lasix) 40 mg IVPUSH BID [facility] Last Admin: 05/01/19 08:23 Dose: 40 mg Gabapentin (Neurontin) 100 mg PO TID [facility] Last Admin: 05/01/19 11:25 Dose: 100 mg Isosorbide Mononitrate (Imdur) 60 mg PO DAILY [facility] Last Admin: 05/01/19 08:27 Dose: 60 mg Levothyroxine Sodium (Synthroid) 50 mcg PO ACBREAKFAST@0700 [facility] Last Admin: 05/01/19 08:29 Dose: 50 mcg Melatonin (Melatonin) 3 mg PO BEDTIME [facility] Last Admin: 04/30/19 19:46 Dose: 3 mg Metoprolol Succinate (Toprol Xl) 100 mg PO DAILY [facility] Last Admin: 05/01/19 08:26 Dose: 100 mg Mometasone Furoate/Formoterol Fumar (Dulera 200-5 Mcg) 2 puff IH BID@ [facility] Last Admin: 05/01/19 08:23 Dose: 1 inhalation Oxycodone HCl (Oxycodone) 2.5 mg PO Q4H PRN PRN Reason: Pain Last Admin: 04/30/19 07:39 Dose: 2.5 mg Potassium Chloride (Klor-Con M20) 20 meq PO BID [facility] Last Admin: 05/01/19 08:28 Dose: 20 meq Pramipexole Dihydrochloride (Mirapex) 0.125 mg PO BEDTIME [facility] Last Admin: 04/30/19 19:47 Dose: 0.125 mg Rosuvastatin Calcium (Crestor) 20 mg PO DAILY [facility] Last Admin: 05/01/19 08:27 Dose: 20 mg Senna/Docusate Sodium (Senna Plus) 1 tab PO BID@ PRN PRN Reason: Constipation Last Admin: 04/30/19 14:29 Dose: 1 tab Sodium Chloride (Saline Flush) 10 ml FLUSH ASDIRECTED PRN PRN Reason: Keep Vein Open Last Admin: 05/01/19 08:31 Dose: 10 ml Sodium Chloride (Saline Flush) 10 ml FLUSH Q12HR PRN PRN Reason: Keep Vein Open Temazepam (Restoril) 15 mg PO BEDTIME PRN PRN Reason: Insomnia Discontinued Medications Famotidine (Pepcid) 40 mg IVPUSH ONETIME ONE Stop: 04/28/19 13:30 Last Admin: 04/28/19 14:32 Dose: 40 mg Furosemide (Lasix) 60 mg IVPUSH NOW ONE Stop: 04/28/19 13:34 Last Admin: 04/28/19 14:38 Dose: 60 mg Furosemide (Lasix) 40 mg IVPUSH Q8H AMARI Last Admin: 04/30/19 20:30 Dose: 40 mg - Exam Quality Assessment: Reports: DVT Prophylaxis (on Eliquis and Plavix) General: Reports: Alert, Oriented, Cooperative, No Acute Distress HEENT: Reports: Pupils Equal, Pupils Reactive, Mucous Membr. Moist/[place] Neck: Reports: Supple Lungs: Reports: Normal Respiratory Effort, Crackles (few crackles at bases). Denies: Rhonchi, Stridor, Wheezing Cardiovascular: Reports: Regular Rhythm, No Murmurs GI/Abdominal Exam: Normal Bowel Sounds, Soft, Non-Tender, No Distention (Female) Exam: Deferred Rectal (Female) Exam: Deferred Back Exam: Denies: CVA Tenderness (L), CVA Tenderness (R), Muscle Spasm Extremities: Non-Tender, Pedal Edema (bilateral, mild). No: Leatha's Sign, Increased Warmth, Mottled, Pallor Skin: Reports: Warm, Dry Neurological: Reports: No New Focal Deficit Psy/Mental Status: Reports: Alert, Normal Affect, Normal Mood
== END 2019-05-01 12:40 | DRG 291 ==
LOC: LL.ED 13:25 → UNDOADMIN 15:17 → LL.MS 15:17
PROVIDERS: ADMIT Family Medicine; ATTEND Family Medicine
DX: I13.0 Hypertensive heart and chronic kidney disease with heart failure and stage 1 through stage 4 chronic kidney disease, or unspecified chronic kidney disease (principal); I50.43 Acute on chronic combined systolic (congestive) and diastolic (congestive) heart failure; J44.1 Chronic obstructive pulmonary disease with (acute) exacerbation; N18.4 Chronic kidney disease, stage 4 (severe); S42.212K Unspecified displaced fracture of surgical neck of left humerus, subsequent encounter for fracture with nonunion; I50.9 Heart failure, unspecified; N18.3 Chronic kidney disease, stage 3 (moderate); R73.09 Other abnormal glucose; G62.9 Polyneuropathy, unspecified; E79.0 Hyperuricemia without signs of inflammatory arthritis and tophaceous disease; E78.5 Hyperlipidemia, unspecified; R79.89 Other specified abnormal findings of blood chemistry; D64.9 Anemia, unspecified; G62.89 Other specified polyneuropathies; R25.3 Fasciculation; E03.9 Hypothyroidism, unspecified; J44.9 Chronic obstructive pulmonary disease, unspecified; H91.13 Presbycusis, bilateral; I25.10 Atherosclerotic heart disease of native coronary artery without angina pectoris; H54.7 Unspecified visual loss; H91.90 Unspecified hearing loss, unspecified ear; I48.91 Unspecified atrial fibrillation; Z86.718 Personal history of other venous thrombosis and embolism; M10.9 Gout, unspecified; M54.2 Cervicalgia; M81.0 Age-related osteoporosis without current pathological fracture; G89.4 Chronic pain syndrome; E66.9 Obesity, unspecified; E11.22 Type 2 diabetes mellitus with diabetic chronic kidney disease; E87.6 Hypokalemia; F17.210 Nicotine dependence, cigarettes, uncomplicated; I42.9 Cardiomyopathy, unspecified; Z88.8 Allergy status to other drugs, medicaments and biological substances; E78.00 Pure hypercholesterolemia, unspecified; I25.2 Old myocardial infarction; I73.9 Peripheral vascular disease, unspecified; Z95.5 Presence of coronary angioplasty implant and graft; Z99.81 Dependence on supplemental oxygen; Z86.73 Personal history of transient ischemic attack (TIA), and cerebral infarction without residual deficits; Z86.19 Personal history of other infectious and parasitic diseases; Z98.49 Cataract extraction status, unspecified eye; Z90.89 Acquired absence of other organs; Z98.890 Other specified postprocedural states; Z68.30 Body mass index [BMI] 30.0-30.9, adult; R79.1 Abnormal coagulation profile; K21.9 Gastro-esophageal reflux disease without esophagitis; K59.09 Other constipation; K44.9 Diaphragmatic hernia without obstruction or gangrene; R32 Unspecified urinary incontinence; M19.90 Unspecified osteoarthritis, unspecified site; G89.29 Other chronic pain; M54.9 Dorsalgia, unspecified; I69.354 Hemiplegia and hemiparesis following cerebral infarction affecting left non-dominant side; D63.1 Anemia in chronic kidney disease; Z79.01 Long term (current) use of anticoagulants; Z79.02 Long term (current) use of antithrombotics/antiplatelets; Z79.899 Other long term (current) drug therapy
CPT/HCPCS: 36415; 71045; 80053; 82550; 82553; 83605; 83735; 83880; 84443; 84484; 84550; 85025; 85379; 85610; 85730; 93005; 93010; 96374; 96375; 99284; 99285; J1940; J3490; 51702; 71046; 80048; 80061; 81001; 82272; 82607; 82728; 82746; 83036; 83540; 83550; 87086; 87338; 94640; 94761; A9270-GY

== ENCOUNTER 2019-05-08 10:02 | Inpatient (IN) | payer MEDICARE, BC ==
[2019-05-08 10:55] LABS: CHLORIDE,CL 99 mmol/L (98-107); SODIUM,NA 141 mmol/L (136-145)
[2019-05-08] MEDS ORDERED: Furosemide 40 MG/4 ML VIAL IVPUSH ONE ×2 (12:37→20:00)
[2019-05-08] MEDS ORDERED: Sodium Chloride 0.9% 10 ML Syringe FLUSH PRN (14:22)
--- NOTE | 2019-05-08 15:43 | EDM.PDOC ---
ED HPI GENERAL MEDICAL PROBLEM - General Chief Complaint: Cardiovascular Problem Stated Complaint: shortness of breath Time Seen by Provider: 05/08/19 10:10 Source of Information: Reports: Patient, Provider History Limitations: Reports: No Limitations - History of Present Illness INITIAL COMMENTS - FREE TEXT/NARRATIVE: Patient referred to ER for admission for treatment of acute exacerbation of CHF. Recent diuretic medication adjustments but no improvement with SOB/weight gain/peripheral edema. This has been an ongoing issue for the patient. Recent admission for same issue. [facility] FILLING ROOM OPERATOR Merari saw patient on 05/04 and also recommends referral to heart failure clinic to help manage fluid overload. No acute changes otherwise reported by patient. Resides at [facility]. - Related Data Allergies Allergy/AdvReac Type Severity Reaction Status Date / Time VIJAYA Inhibitors Allergy Other Verified 03/16/19 11:05 ciprofloxacin [From Cipro] Allergy Hives Verified 04/28/19 15:10 losartan Allergy Cannot Verified 03/16/19 11:05 Remember Home Meds: Home Meds Albuterol [Ventolin HFA] 2 puff INH Q4HR PRN 07/05/14 [History] Fluticasone/Salmeterol [Advair 500-50] 1 puff INH BID@,09/01/14 [History] Nitroglycerin [Nitrostat] 0.4 mg SL ASDIRECTED PRN #100 tab.sl 07/17/15 [Rx] Gabapentin [Neurontin] 100 mg PO TID@,,03/04/18 [History] allopurinoL [Zyloprim] 100 mg PO DAILY 03/04/18 [History] oxyCODONE 2.5 mg PO Q4H PRN 03/04/18 [History] Apixaban [Eliquis] 5 mg PO BID@,20 04/14/18 [History] Ferrous Sulfate 1 tab PO BID@,04/14/18 [History] Melatonin 3 mg PO BEDTIME 04/14/18 [History] Acetaminophen [Tylenol] 650 mg PO QID 03/16/19 [History] Sennosides/Docusate Sodium [Senna-S] 1 each PO BID@08,20 PRN 03/16/19 [History] Amiodarone HCl 200 mg PO DAILY 04/28/19 [History] Ascorbic Acid [Vitamin C] 250 mg PO BID 04/28/19 [History] Clopidogrel Bisulfate [Clopidogrel] 75 mg PO DAILY 04/28/19 [History] Rosuvastatin [Crestor] 20 mg PO DAILY 04/28/19 [History] Albuterol/Ipratropium [DuoNeb 3.0-0.5 MG/3 ML] 3 ml NEB Q6HRRT PRN #1 box [Rx] Levothyroxine [Synthroid] 50 mcg PO ACBREAKFAST@0700 #30 tablet 05/01/19 [Rx] Pramipexole [Mirapex] 0.125 mg PO BEDTIME #14 tablet 05/01/19 [Rx] Ubidecarenone [Co Q-10] 100 mg PO DAILY #30 capsule 05/01/19 [Rx] Cholecalciferol (Vitamin D3) [Vitamin D3] 2,000 unit PO DAILY 05/08/19 [History] Isosorbide Mononitrate [Imdur] 120 mg PO BID 05/08/19 [History] Magnesium Oxide 400 mg PO BEDTIME 05/08/19 [History] Metoprolol Tartrate 100 mg PO DAILY 05/08/19 [History] Torsemide 20 mg PO BID 05/08/19 [History] hydrALAZINE [Apresoline] 25 mg PO TID 05/08/19 [History] Past Medical History HEENT History: Reports: Cataract, Hard of Hearing, Impaired Vision, Other (See Below) Other HEENT History: Full upper dentures; partial lower dentures. Patient wears glasses. Mild bilateral presbycusis. Cardiovascular History: Reports: Afib, Arrhythmia, Blood Clots/VTE/DVT, CAD, Cardiomyopathy, Heart Failure, Heart Murmur, High Cholesterol, Hypertension, SC , PTCA, PVD, SOB on Exertion, Stents, Other (See Below) Other Cardiovascular History: Carotid artery disease with recurrent CVA and surgeries as below. Chronic dependent edema secondary to her CHF and cardiomegaly. Chronic d-dimer elevation with negative workup as below. Previous atrial fibrillation with tachycardia with current Eliquis therapy. MIs initially 2015 with stent placement required as below in July 2015 and in March 2019. Aggressive moderate aortic valve stenosis with mild mitral valve insufficiency, mild left atrial enlargement, and grade 1 diastolic dysfunction I echocardiogram in March 2019 as below. Possible previous DVT of the lower extremity current Eliquis therapy, however multiple negative follow-up venous Doppler studies of the lower extremities. Respiratory History: Reports: Bronchitis, Recurrent, COPD, Intubation, Previous , SOB, Other (See Below) Other Respiratory History: Oxygen dependent COPD and CHF current use of 23 L/m. Gastrointestinal History: Reports: Chronic Constipation, Diverticulosis, Gastritis, GERD, GI Bleed, Hiatal Hernia, PUD, Other (See Below) Other Gastrointestinal History: Upper GI bleed in 2015 requiring blood transfusions as below. Moderate hernia by EGD as below. Dysphagia. 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 Full term without complications during pregnancies or deliveries. Musculoskeletal History: Reports: Arthritis, Back Pain, Chronic, Fracture, Gout , Neck Pain, Chronic, Osteoarthritis, Osteoporosis, Other (See Below) Other Musculoskeletal History: Left occipital humerus fracture and left pelvic ramus fx on 03/14/18 both without surgical repair with chronic nonoperable proximal left humeral fracture and current chronic arm immobilizer therapy. Neurological History: Reports: CVA, Neuropathy, Peripheral, Other (See Below) Other Neuro History: Initial right-sided CVA in 2001 with subsequent right- sided CVA in 2002 with mild persistent left leg/foot weakness. Psychiatric History: Reports: Addiction, Other (See Below) Other Psychiatric History: Chronic narcotic use secondary to chronic pain syndrome. Endocrine/Metabolic History: Reports: Hypokalemia, Obesity/BMI 30+, Osteopenia, Osteoporosis, Vitamin D Deficiency Hematologic History: Reports: Anemia, Blood Transfusion(s), Iron Deficiency, Other (See Below) Other Hematologic History: Chronic anemia secondary to renal disease and iron deficiency. Note previous upper GI bleed requiring blood transfusion as above. 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 Bilateral cataract surgery in 2009. Almost complete teeth extraction with complete upper dentures and partial lowers. Cardiovascular Surgical History: Reports: Carotid Endarterectomy, Coronary Artery Stent, Percutaneous Transluminal Angioplasty, Other (See Below) Other Cardiovascular Surgeries/Procedures: Show PTCA/stent 2 in about 2015 with PTCA/stent 2 including the left circumflex and and right coronary artery on 03/19/19. Right-sided carotid endarterectomy in 2002. Respiratory Surgical History: Reports: None GI Surgical History: Reports: EGD, Other (See Below) Other GI Surgeries/Procedures: EGD on 08/09/14 with antral gastritis but no acute bleeding ulcer Female Surgical History: Reports: Breast Biopsy, Other (See Below) Other Female Surgeries/Procedures: Left-sided breast biopsy for benign disease in about 2009 Endocrine Surgical History: Reports: None Neurological Surgical History: Reports: None Musculoskeletal Surgical History: Reports: None Oncologic Surgical History: Reports: None Dermatological Surgical History: Reports: None - Past Imaging History Past Imaging History: Reports: Angiography (Last heart catheterization on ), Cardiac Echo (Echocardiogram on 03/03/19, 05/13/18 and 08/12/14 with excellent ejection fraction and findings as above.), CAT Scan (Negative CTA of the chest with PE protocol on 08/13/14 and 07/09/14.), Swallow Study (Positive swallowing study on 03/20/16), Venous Doppler (Bilateral venous Doppler studies on 03/16/19 and 04/17/18 negative for DVT.) Social & Family History - Family History HEENT: Reports: None Cardiac: Reports: CAD, High Cholesterol, Hypertension, SC, Other (See Below) Other Cardiac Family History: Father with SC in his late 50s to early 60s with no procedures performed. Maternal grandmother with hyperlipidemia. Father with hypertension. Respiratory: Reports: Asthma, COPD, Other (See Below) Other Respiratory Family Hisory: Mother with asthma. Maternal grandmother with COPD with no history of tobacco use. GI: Reports: Cholelithiasis, Colon Polyps, Diverticulitis, Diverticulosis, Other (See Below) Other GI Family History: Mother with history of cholelithiasis, diverticulitis, and colon cancer. : Reports: None OBGYN: Reports: None Musculoskeletal: Reports: Arthritis, Osteoarthritis, Other (See Below) Other Musculoskeletal Family History: Mother with osteoarthritis. Neurological: Reports: CVA, Other (See Below) Other Neurological Family History: Sister with history of CVA at about age 72 also be secondary to her leukemia. Psychiatric: Reports: None Endocrine/Metabolic: Reports: Diabetes, type II, IDDM, Other (See Below) Other Endocrine/Metabolic Family History: Maternal grandmother with IDDM. Hematologic: Reports: Anemia Other Hematologic Family History: Anemia secondary to leukemia-sister Immunologic: Reports: Immunosuppression, Other (See Below) Other Immunologic Family History: Sister with leukemia. Dermatologic: Reports: None Oncologic: Reports: Colon, Leukemia, Metastatic Other Oncologic Family History: Mother with fatal colon cancer at age 72. Sister with fatal leukemia at age 77. - Caffeine Use Caffeine Use: Reports: None - Living Situation & Occupation Living situation: Reports: (2008, 2 children), Extended Care Facility ( [facility] with admission in March 2018[facility]) Occupation: Retired (Retired at age 61. 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 Denies: Wheezing, Pleuritic Chest Pain, Cough, Sputum, Hemoptysis Cardiovascular: Reports: Dyspnea on Exertion, Edema, Orthopnea, PND. Denies: Chest Pain GI/Abdominal: Denies: Abdominal Pain, Diarrhea, Nausea, Vomiting : Reports: No Symptoms Musculoskeletal: Reports: Other (no acute changed from baseline) Skin: Reports: Other (no acute changes) Neurological: Denies: Confusion, Headache, Paresthesia, Seizure, Trouble Speaking, Change in Speech Psychiatric: Reports: No Symptoms Hematologic/Lymphatic: Reports: No Symptoms ED EXAM, GENERAL - Physical Exam Exam: See Below Exam Limited By: No Limitations General Appearance: Alert, WD/WN, No Apparent Distress Eye Exam: Bilateral Eye: EOMI, PERRL Ears: Hearing Grossly Normal Nose: No: Nasal Deformity, Nasal Swelling, Nasal Drainage Throat/Mouth: Normal Lips, Normal Voice, No Airway Compromise Head: Atraumatic, Normocephalic Neck: Supple, Non-Tender Respiratory/Chest: No Respiratory Distress, No Accessory Muscle Use, Decreased Breath Sounds (throughout). No: Crackles, Rales, Rhonchi, Wheezing, Stridor Cardiovascular: Regular Rate, Rhythm, No Murmur GI/Abdominal: Normal Bowel Sounds, Soft, Non-Tender (Female) Exam: Deferred Rectal (Female) Exam: Deferred Back Exam: No: CVA Tenderness (L), CVA Tenderness (R), Muscle Spasm Extremities: Pedal Edema. No: Leatha's Sign Neurological: Alert, Oriented, Normal Cognition Psychiatric: Normal Affect, Normal Mood Skin Exam: Warm, Other (some weeping of fluid noted left anterior lower leg) Course - Vital Signs Last Recorded V/S: Last Vital Signs Temp 36.2 C 05/08/19 12:34 Pulse 96 05/08/19 12:34 Resp 18 05/08/19 12:34 BP 128/51 L 05/08/19 12:34 Pulse Ox 95 05/08/19 12:34 - Orders/Labs/Meds Orders: Active Orders 24 hr Category Date Time Status Chest 2V [CR] Urgent Exams 05/08/19 10:52 Taken Medication Orders Sodium Chloride (Saline Flush) 10 ml FLUSH ASDIRECTED PRN PRN Reason: Keep Vein Open Labs: Laboratory Tests 05/08/19 05/08/19 Range/Units 10:29 10:29 WBC 11.4 H (4.0-10.2) K/uL RBC 3.09 L (3.77-5.09) M/uL Hgb 9.0 L (11.7-15.5) g/dL Hct 30.5 L (34.0-46.0) % MCV 98.7 H (84.0-98.0) fL MCH 29.1 (28.2-33.3) pg MCHC 29.5 L (31.7-36.0) g/dL RDW 15.0 H (11.2-14.1) % Plt Count 226 (150-350) K/uL Neut % (Auto) 74.6 (45.0-80.0) % Lymph % (Auto) 11.3 (10.0-50.0) % Simpson % (Auto) 7.8 (2.0-14.0) % Eos % (Auto) 5.9 H (0.0-5.0) % Baso % (Auto) 0.4 (0.0-2.0) % Neut # (Auto) 8.49 H (1.40-7.00) K/uL Lymph # (Auto) 1.28 (0.50-3.50) K/uL Simpson # (Auto) 0.89 (0.00-1.00) K/uL Eos # (Auto) 0.67 H (0.00-0.50) K/uL Baso # (Auto) 0.04 (0.00-0.20) K/uL Sodium 141 (136-145) mmol/L Potassium 3.8 (3.5-5.1) mmol/L Chloride 99 (98-107) mmol/L Carbon Dioxide 33.7 H (21.0-32.0) mmol/L BUN 56 H (7-18) mg/dL Creatinine 1.60 H (0.51-1.17) mg/dL Est Cr Clr Drug Dosing TNP Estimated GFR (MDRD) 31 mL/min Glucose 159 H (74-106) mg/dL Calcium 9.3 (8.5-10.1) mg/dL Magnesium 2.4 (1.8-2.4) mg/dL Total Bilirubin 0.2 (0.2-1.0) mg/dL AST 17 (15-37) U/L ALT 15 (12-78) U/L Alkaline Phosphatase 85 (46-116) IU/L NT-Pro-B Natriuret Pep 2120 H (0-125) pg/mL Total Protein 7.3 (6.4-8.2) g/dL Albumin 3.3 L (3.4-5.0) g/dL Meds: Medications Generic Name Dose Route Start Last Admin Trade Name Freq PRN Reason Stop Dose Admin Sodium Chloride 10 ml 05/08/19 14:22 Saline Flush FLUSH ASDIRECTED PRN Keep Vein Open Discontinued Medications Generic Name Dose Route Start Last Admin Trade Name Freq PRN Reason Stop Dose Admin Furosemide 40 mg 05/08/19 12:37 05/08/19 14:22 Lasix IVPUSH 05/08/19 12:38 40 mg NOW ONE Administration - Re-Assessments/Exams Free Text/Narrative Re-Assessment/Exam: Baseline labs requested. WBC 11.4 Hgb 9 which is normal level for patient. Patient admitted to floor for treatment of CHF. Departure - Departure Time of Disposition: 12:30 Disposition: Admitted As Inpatient 65 Clinical Impression: CHF (congestive heart failure) Qualifiers: Heart failure type: combined systolic and diastolic Heart failure chronicity: acute on chronic Qualified Code(s): I50.43 - Acute on chronic combined systolic (congestive) and diastolic (congestive) heart failure Sepsis Event Note - Focused Exam Vital Signs: Vital Signs Temp Pulse Resp BP Pulse Ox 05/08/19 10:05 2.6 C L 80 20 157/62 H 95 Date Exam was Performed: 05/08/19 Time Exam was Performed: 15:57 - Problem List & Annotations (1) CHF (congestive heart failure) SNOMED Code(s): 65193717 Code(s): I50.9 - HEART FAILURE, UNSPECIFIED Status: Chronic Priority: High Current Visit: Yes Annotation/Comment:: CHF exacerbation based on history/increased edema/weight gain/increased SOB. Diuretic changed May 04 when patient visited with Cardiology FILLING ROOM OPERATOR but no observable improvement noted. Will place oral med on hold and diurese with IV lasix. Given patient's history of poor renal function will follow labs closely to observe for any acute worsening. Qualifiers: Heart failure type: combined systolic and diastolic Heart failure chronicity: acute on chronic Qualified Code(s): I50.43 - Acute on chronic combined systolic (congestive) and diastolic (congestive) heart failure (2) Afib SNOMED Code(s): 53138171 Code(s): I48.91 - UNSPECIFIED ATRIAL FIBRILLATION Status: Chronic Priority: Low Current Visit: No Annotation/Comment:: Has been stable per history Qualifiers: Atrial fibrillation type: unspecified Qualified Code(s): I48.91 - Unspecified atrial fibrillation (3) CAD (coronary artery disease) SNOMED Code(s): 06057070 Code(s): I25.10 - ATHSCL HEART DISEASE OF [place] CORONARY ARTERY W/O ANG PCTRS Status: Chronic Priority: Low Current Visit: No Annotation/Comment :: Stents placed March 2019 Qualifiers: Coronary Disease-Associated Artery/Lesion type: unspecified vessel or lesion type [place] vs. transplanted heart: [place] heart Associated angina: without angina Qualified Code(s): I25.10 - Atherosclerotic heart disease of [place] coronary artery without angina pectoris (4) Hypothyroidism (acquired) SNOMED Code(s): 600063310 Code(s): E03.9 - HYPOTHYROIDISM, UNSPECIFIED Status: Chronic Priority: Medium Current Visit: No Onset Date: 04/28/19 Annotation/Comment:: Mildly elevated TSH 04/28/19. Initiated Synthroid therapy with recommended repeat TSH in about 4 weeks. (5) Peripheral neuropathy SNOMED Code(s): 552051765 Code(s): G62.9 - POLYNEUROPATHY, UNSPECIFIED Status: Chronic Priority: Medium Current Visit: No Annotation/Comment:: Following up for this with primary provider/nephrology Qualifiers: Peripheral neuropathy type: polyneuropathy, other Qualified Code(s): G62.89 - Other specified polyneuropathies (6) Dyslipidemia SNOMED Code(s): 770192807 Code(s): E78.5 - HYPERLIPIDEMIA, UNSPECIFIED Status: Chronic Priority: Medium Current Visit: No Annotation/Comment:: Lipid panel on 04/29 showed overall stable dyslipidemia with current medical therapy. Weight loss in moderation is still advisable. Note borderline elevated glycosylated hemoglobin of 6.2% on 04/29. Observe for now. (7) Chronic kidney disease SNOMED Code(s): 359585408 Code(s): N18.9 - CHRONIC KIDNEY DISEASE, UNSPECIFIED Status: Chronic Priority: Medium Current Visit: No Annotation/Comment:: BUN/Cr overall stable. Qualifiers: Chronic kidney disease stage: stage 4 (severe) Qualified Code(s): N18.4 - Chronic kidney disease, stage 4 (severe) (8) COPD, severe SNOMED Code(s): 398025036 Code(s): J44.9 - CHRONIC OBSTRUCTIVE PULMONARY DISEASE, UNSPECIFIED Status : Chronic Priority: Medium Current Visit: No Annotation/Comment:: Increased SOB recently but primary provider and patient feel this is secondary to CHF exacerbation. Will repeat chest xray. No recent URIs/cough/sputum/chest pain. (9) HTN (hypertension), benign SNOMED Code(s): 63574511 Code(s): I10 - ESSENTIAL (PRIMARY) HYPERTENSION Status: Chronic Priority : Medium Current Visit: No Annotation/Comment:: observe (10) Anemia SNOMED Code(s): 186508417 Code(s): D64.9 - ANEMIA, UNSPECIFIED Status: Chronic Priority: Medium Current Visit: No Annotation/Comment:: Hemoglobin. Iron level is somewhat decreased however elevated ferritin level. Pattern reflects anemia of chronic disease. No change in her iron supplementation for now. B-12 level and folic acid levels were normal on 04/29. 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 SNOMED Code(s): 058624170, 837127489 Code(s): S42.212K - UNSP DISP FX OF SURG NECK OF L HUMER, SUBS FOR FX W NONUNION Status: Chronic Priority: Low Current Visit: No Annotation/ Comment:: No change agent the past year Qualifiers: Fracture type: closed Qualified Code(s): S42.212K - Unspecified displaced fracture of surgical neck of left humerus, subsequent encounter for fracture with nonunion - Problem List Review Problem List Initiated/Reviewed/Updated: Yes - My Orders Last 24 Hours: My Active Orders 05/08/19 10:52 Chest 2V [CR] Urgent - Assessment/Plan Admission H&P: Please use this note as an admission H&P Last 24 Hours: My Active Orders 05/08/19 10:52 Chest 2V [CR] Urgent Assessment:: as above Plan: as above. Anticipate 3-4 day stay to address CHF overload.
[2019-05-08] MEDS ORDERED: Nitroglycerin 0.4 MG Tab.SL SL PRN (16:59)
[2019-05-08] MEDS ORDERED: Albuterol/Ipratropium 3.0-0.5 MG/3 ML Neb Soln NEB PRN (16:59)
[2019-05-08] MEDS ORDERED: oxyCODONE 5 MG Tab PO PRN (16:59)
[2019-05-08] MEDS ORDERED: Albuterol 0.083% 2.5 MG/3 ML Neb Soln NEB PRN (18:15)
[2019-05-08] MEDS: Potassium Chloride 20 MEQ Tab.ER PO SCH (19:42)
[2019-05-08] MEDS: Ferrous Sulfate 325 MG Tab PO SCH (19:42)
[2019-05-08] MEDS: Apixaban 5 MG Tab PO SCH (19:42)
[2019-05-08] MEDS: hydrALAZINE 50 MG Tab PO SCH (19:43)
[2019-05-08] MEDS: Isosorbide Mononitrate 60 MG Tab.ER PO SCH (19:43)
[2019-05-08] MEDS: Ascorbic Acid 500 MG Tab PO SCH (19:43)
[2019-05-08] MEDS: Acetaminophen 325 MG Tab PO SCH (19:43)
[2019-05-08] MEDS: Gabapentin 100 MG Cap PO SCH (19:43)
[2019-05-08] MEDS: Formoterol/Mometasone 200-5 MCG 8.8 GM Inhaler IH SCH (19:52)
[2019-05-08] MEDS ORDERED: Melatonin 3 MG Tab PO SCH (20:00)
[2019-05-08] MEDS ORDERED: Magnesium Oxide 400 MG Tab PO SCH (20:00)
[2019-05-08] MEDS ORDERED: Pramipexole 0.125 MG Tab PO SCH (20:00)
[2019-05-09] MEDS ORDERED: Levothyroxine 50 MCG Tab PO SCH (07:00)
[2019-05-09] MEDS ORDERED: Cholecalciferol (Vitamin D3) 25 MCG Tab PO SCH (08:00)
[2019-05-09] MEDS ORDERED: Furosemide 40 MG/4 ML VIAL IVPUSH SCH (08:00)
[2019-05-09] MEDS ORDERED: Clopidogrel 75 MG Tab PO SCH (08:00)
[2019-05-09] MEDS ORDERED: Rosuvastatin 10 MG Tab PO SCH (08:00)
[2019-05-09] MEDS ORDERED: Allopurinol 100 MG Tab PO SCH (08:00)
[2019-05-09] MEDS ORDERED: Metoprolol Tartrate 50 MG Tab PO SCH (08:00)
[2019-05-09] MEDS: Isosorbide Mononitrate 60 MG Tab.ER PO SCH (08:04)
[2019-05-09] MEDS: Ascorbic Acid 500 MG Tab PO SCH (08:05)
[2019-05-09] MEDS: Potassium Chloride 20 MEQ Tab.ER PO SCH (08:05)
[2019-05-09] MEDS: Gabapentin 100 MG Cap PO SCH ×2 (08:06→13:14)
[2019-05-09] MEDS: Apixaban 5 MG Tab PO SCH (08:06)
[2019-05-09] MEDS: hydrALAZINE 50 MG Tab PO SCH ×2 (08:06→11:09)
[2019-05-09] MEDS: Ferrous Sulfate 325 MG Tab PO SCH (08:06)
[2019-05-09] MEDS: Acetaminophen 325 MG Tab PO SCH ×3 (08:06→15:19)
[2019-05-09] MEDS ORDERED: guaiFENesin/Dextromethorphan 100-10 MG/5 ML Soln 10 ML Cup PO PRN (08:46)
[2019-05-09] MEDS: Formoterol/Mometasone 200-5 MCG 8.8 GM Inhaler IH SCH (09:09)
[2019-05-09 15:22] VITALS: BP 144/58; PULSE 73
--- NOTE | 2019-05-09 16:24 | PCM.DCSUM1 ---
Discharge Summary - Hospital Course Brief History: Admitted for treatment of CHF/fluid overload Diagnosis: Stroke: No - Discharge Data Discharge Date: 05/09/19 Discharge Disposition: DC/Tfer to Acute Hospital 02 Condition: Good - Referral to Home Health Primary Care Physician: Stephy Mcguire NP - Discharge Diagnosis/Problem(s) (1) CHF (congestive heart failure) SNOMED Code(s): 91244507 ICD Code: I50.9 - HEART FAILURE, UNSPECIFIED Status: Chronic Priority: High Current Visit: Yes Problem Details: CHF exacerbation based on history/ increased edema/weight gain/increased SOB. 76kg 03/16/. 83.2kg at time of admission. Diuretic changed May 04 when patient visited with Cardiology MAT GAUGER but no observable improvement noted. No signficant improvement since admission with IV lasix. Patient discussed with from Cardiology who recommended IV Bumex infusion over 24 hours. This med unavailable at our facility. Arrangment for transfer to [facility] made with (Hospitalist) as accepting MD so that pt can undergo this more aggressive diuretic treatment. Qualifiers: Heart failure type: combined systolic and diastolic Heart failure chronicity: acute on chronic Qualified Code(s): I50.43 - Acute on chronic combined systolic (congestive) and diastolic (congestive) heart failure (2) Afib SNOMED Code(s): 31161389 ICD Code: I48.91 - UNSPECIFIED ATRIAL FIBRILLATION Status: Chronic Priority: Low Current Visit: No Problem Details: Has been stable per history Qualifiers: Atrial fibrillation type: unspecified Qualified Code(s): I48.91 - Unspecified atrial fibrillation (3) CAD (coronary artery disease) SNOMED Code(s): 39332102 ICD Code: I25.10 - ATHSCL HEART DISEASE OF [place] CORONARY ARTERY W/O ANG PCTRS Status: Chronic Priority: Low Current Visit: No Problem Details: Stents placed March 2019 Qualifiers: Coronary Disease-Associated Artery/Lesion type: unspecified vessel or lesion type [place] vs. transplanted heart: [place] heart Associated angina: without angina Qualified Code(s): I25.10 - Atherosclerotic heart disease of [place] coronary artery without angina pectoris (4) Hypothyroidism (acquired) SNOMED Code(s): 911702109 ICD Code: E03.9 - HYPOTHYROIDISM, UNSPECIFIED Status: Chronic Priority: Medium Current Visit: No Onset Date: 04/28/19 Problem Details: Mildly elevated TSH 04/28/19. Initiated Synthroid therapy with recommended repeat TSH in about 4 weeks. (5) Peripheral neuropathy SNOMED Code(s): 557376241 ICD Code: G62.9 - POLYNEUROPATHY, UNSPECIFIED Status: Chronic Priority: Medium Current Visit: No Problem Details: Following up for this with primary provider/nephrology Qualifiers: Peripheral neuropathy type: polyneuropathy, other Qualified Code(s): G62.89 - Other specified polyneuropathies (6) Dyslipidemia SNOMED Code(s): 401278860 ICD Code: E78.5 - HYPERLIPIDEMIA, UNSPECIFIED Status: Chronic Priority: Medium Current Visit: No Problem Details: Lipid panel on 04/29 showed overall stable dyslipidemia with current medical therapy. Weight loss in moderation is still advisable. Note borderline elevated glycosylated hemoglobin of 6.2% on 04/29. Observe for now. (7) Chronic kidney disease SNOMED Code(s): 707350643 ICD Code: N18.9 - CHRONIC KIDNEY DISEASE, UNSPECIFIED Status: Chronic Priority: Medium Current Visit: No Problem Details: BUN/Cr overall stable. Qualifiers: Chronic kidney disease stage: stage 4 (severe) Qualified Code(s): N18.4 - Chronic kidney disease, stage 4 (severe) (8) COPD, severe SNOMED Code(s): 967791320 ICD Code: J44.9 - CHRONIC OBSTRUCTIVE PULMONARY DISEASE, UNSPECIFIED Status : Chronic Priority: Medium Current Visit: No Problem Details: Increased SOB recently but primary provider and patient feel this is secondary to CHF exacerbation. Will repeat chest xray. No recent URIs/cough/sputum/chest pain. (9) HTN (hypertension), benign SNOMED Code(s): 18456790 ICD Code: I10 - ESSENTIAL (PRIMARY) HYPERTENSION Status: Chronic Priority : Medium Current Visit: No Problem Details: observe (10) Anemia SNOMED Code(s): 406434334 ICD Code: D64.9 - ANEMIA, UNSPECIFIED Status: Chronic Priority: Medium Current Visit: No Problem Details: Hemoglobin. Iron level is somewhat decreased however elevated ferritin level. Pattern reflects anemia of chronic disease. No change in her iron supplementation for now. B-12 level and folic acid levels were normal on 04/29. 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 Call placed to [facility] as noted above and it was recommended that patient receive IV Bumex infusion over 24 hours given failure as outpatient on oral meds and failure to diurese using Lasix. This option not available at our facility thus made arrangements for transfer of patient to [facility]. Dr.Paled[place] chata DAVIS. Patient agreeable with transfer. - Discharge Plan Home Medications: Home Meds Albuterol [Ventolin HFA] 2 puff INH Q4HR PRN 07/05/14 [History] Fluticasone/Salmeterol [Advair 500-50] 1 puff INH BID@09/01/14 [History] Nitroglycerin [Nitrostat] 0.4 mg SL ASDIRECTED PRN #100 tab.sl 07/17/15 [Rx] Gabapentin [Neurontin] 100 mg PO TID@,,03/04/18 [History] allopurinoL [Zyloprim] 100 mg PO DAILY 03/04/18 [History] oxyCODONE 2.5 mg PO Q4H PRN 03/04/18 [History] Apixaban [Eliquis] 5 mg PO BID@04/14/18 [History] Ferrous Sulfate 1 tab PO BID@04/14/18 [History] Melatonin 3 mg PO BEDTIME 04/14/18 [History] Acetaminophen [Tylenol] 650 mg PO QID 03/16/19 [History] Sennosides/Docusate Sodium [Senna-S] 1 each PO BID@ PRN 03/16/19 [History] Amiodarone HCl 200 mg PO DAILY 04/28/19 [History] Ascorbic Acid [Vitamin C] 250 mg PO BID 04/28/19 [History] Clopidogrel Bisulfate [Clopidogrel] 75 mg PO DAILY 04/28/19 [History] Rosuvastatin [Crestor] 20 mg PO DAILY 04/28/19 [History] Albuterol/Ipratropium [DuoNeb 3.0-0.5 MG/3 ML] 3 ml NEB Q6HRRT PRN #1 box [Rx] Levothyroxine [Synthroid] 50 mcg PO ACBREAKFAST@0700 #30 tablet 05/01/19 [Rx] Pramipexole [Mirapex] 0.125 mg PO BEDTIME #14 tablet 05/01/19 [Rx] Ubidecarenone [Co Q-10] 100 mg PO DAILY #30 capsule 05/01/19 [Rx] Cholecalciferol (Vitamin D3) [Vitamin D3] 2,000 unit PO DAILY 05/08/19 [History] Isosorbide Mononitrate [Imdur] 120 mg PO BID 05/08/19 [History] Magnesium Oxide 400 mg PO BEDTIME 05/08/19 [History] Metoprolol Tartrate 100 mg PO DAILY 05/08/19 [History] Torsemide 20 mg PO BID 05/08/19 [History] hydrALAZINE [Apresoline] 25 mg PO TID 05/08/19 [History] Forms: ED Department Discharge Referrals: Stephy Mcguire NP [Primary Care Provider] - - Discharge Summary/Plan Comment DC Time >30 min.: No - General Info Date of Service: 05/09/19 Admission Dx/Problem (Free Text: CHF/acute exacerbation/fluid overload Subjective Update: No overall change per patient. Still is uncomfortable due to LE edema/increased SOB with any activity. Functional Status: Reports: Pain Controlled, Tolerating Diet, Urinating (has Espinoza). Denies: New Symptoms - Review of Systems General: Denies: Fever, Chills, Night Sweats HEENT: Reports: No Symptoms (no acute changes) Pulmonary: Reports: Shortness of Breath. Denies: Pleuritic Chest Pain, Cough, Sputum, Hemoptysis, Wheezing Cardiovascular: Reports: Dyspnea on Exertion, Edema. Denies: Chest Pain Gastrointestinal: Denies: Abdominal Pain, Constipation, Diarrhea, Difficulty Swallowing, Nausea, Vomiting Genitourinary: Reports: No Symptoms Musculoskeletal: Reports: Other (no acute changes from baseline) Skin: Reports: No Symptoms Neurological: Reports: No Symptoms Psychiatric: Reports: No Symptoms - Patient Data Vitals - Most Recent: Last Vital Signs Temp 36.9 C 05/09/19 15:20 Pulse 73 05/09/19 15:20 Resp 20 05/09/19 15:20 BP 144/58 H 05/09/19 15:20 Pulse Ox 92 L 05/09/19 15:20 Weight - Most Recent: 82.962 kg I&O - Last 24 hours: Intake & Output 05/09/19 05/09/19 05/09/19 06:59 14:59 22:59 Intake Total 300 320 Output Total 400 500 Balance -100 -180 Lab Results - Last 24 hrs: Laboratory Results - last 24 hr 05/09/19 05/09/19 Range/Units 07:12 07:12 WBC 10.5 H (4.0-10.2) K/uL RBC 2.88 L (3.77-5.09) M/uL Hgb 8.3 L (11.7-15.5) g/dL Hct 28.6 L (34.0-46.0) % MCV 99.3 H (84.0-98.0) fL MCH 28.8 (28.2-33.3) pg MCHC 29.0 L (31.7-36.0) g/dL RDW 15.0 H (11.2-14.1) % Plt Count 212 (150-350) K/uL Neut % (Auto) 69.7 (45.0-80.0) % Lymph % (Auto) 14.0 (10.0-50.0) % [place] % (Auto) 9.3 (2.0-14.0) % Eos % (Auto) 6.8 H (0.0-5.0) % Baso % (Auto) 0.2 (0.0-2.0) % Neut # (Auto) 7.31 H (1.40-7.00) K/uL Lymph # (Auto) 1.47 (0.50-3.50) K/uL [place] # (Auto) 0.97 (0.00-1.00) K/uL Eos # (Auto) 0.71 H (0.00-0.50) K/uL Baso # (Auto) 0.02 (0.00-0.20) K/uL Sodium 141 (136-145) mmol/L Potassium 3.9 (3.5-5.1) mmol/L Chloride 100 (98-107) mmol/L Carbon Dioxide 37.3 H (21.0-32.0) mmol/L BUN 53 H (7-18) mg/dL Creatinine 1.51 H (0.51-1.17) mg/dL Est Cr Clr Drug Dosing 24.99 mL/min Estimated GFR (MDRD) 33 mL/min Glucose 120 H (74-106) mg/dL Calcium 9.6 (8.5-10.1) mg/dL Med Orders - Current: Current Medications Acetaminophen (Tylenol) 650 mg PO QID [facility] Last Admin: 05/09/19 15:19 Dose: 650 mg Albuterol (Proventil Neb Soln) 2.5 mg NEB Q4HRRT PRN PRN Reason: short of breath Albuterol/Ipratropium (Duoneb 3.0-0.5 Mg/3 Ml) 3 ml NEB Q6HRRT PRN PRN Reason: Dyspnea Allopurinol (Zyloprim) 100 mg PO DAILY [facility] Last Admin: 05/09/19 08:05 Dose: 100 mg Apixaban (Eliquis) 5 mg PO BID@ [facility] Last Admin: 05/09/19 08:06 Dose: 5 mg Ascorbic Acid (Vitamin C) 250 mg PO BID [facility] Last Admin: 05/09/19 08:05 Dose: 250 mg Cholecalciferol (Vitamin D3) 50 mcg PO DAILY [facility] Last Admin: 05/09/19 08:05 Dose: 50 mcg Clopidogrel Bisulfate (Plavix) 75 mg PO DAILY [facility] Last Admin: 05/09/19 08:06 Dose: 75 mg Coenzyme Q10 (Coenzyme Q10) 100 mg PO DAILY [facility] Last Admin: 05/09/19 08:05 Dose: 100 mg Ferrous Sulfate (Ferrous Sulfate) 325 mg PO BID@ [facility] Last Admin: 05/09/19 08:06 Dose: 325 mg Furosemide (Lasix) 40 mg IVPUSH BID [facility] Last Admin: 05/09/19 08:07 Dose: 40 mg Gabapentin (Neurontin) 100 mg PO TID@08,, [facility] Last Admin: 05/09/19 13:14 Dose: 100 mg Guaifenesin/Dextromethorphan (Robitussin Dm) 10 ml PO Q4H PRN PRN Reason: Cough Hydralazine HCl (Apresoline) 25 mg PO TID [facility] Last Admin: 05/09/19 11:09 Dose: 25 mg Isosorbide Mononitrate (Imdur) 120 mg PO BID [facility] Last Admin: 05/09/19 08:04 Dose: 120 mg Levothyroxine Sodium (Synthroid) 50 mcg PO ACBREAKFAST@0700 [facility] Last Admin: 05/09/19 08:05 Dose: 50 mcg Magnesium Oxide (Magnesium Oxide) 400 mg PO BEDTIME [facility] Last Admin: 05/08/19 19:43 Dose: 400 mg Melatonin (Melatonin) 3 mg PO BEDTIME [facility] Last Admin: 05/08/19 19:43 Dose: 3 mg Metoprolol Tartrate (Lopressor) 100 mg PO DAILY [facility] Last Admin: 05/09/19 08:04 Dose: 100 mg Mometasone Furoate/Formoterol Fumar (Dulera 200-5 Mcg) 2 puff IH BID@ [facility] Last Admin: 05/09/19 09:09 Dose: 2 puff Nitroglycerin (Nitrostat) 0.4 mg SL ASDIRECTED PRN PRN Reason: Chest Pain Oxycodone HCl (Oxycodone) 2.5 mg PO Q4H PRN PRN Reason: Pain Last Admin: 05/08/19 19:46 Dose: 2.5 mg Potassium Chloride (Klor-Con M20) 20 meq PO DAILY [facility] Last Admin: 05/09/19 08:05 Dose: 20 meq Pramipexole Dihydrochloride (Mirapex) 0.125 mg PO BEDTIME [facility] Last Admin: 05/08/19 19:43 Dose: 0.125 mg Rosuvastatin Calcium (Crestor) 20 mg PO DAILY [facility] Last Admin: 05/09/19 08:06 Dose: 20 mg Senna/Docusate Sodium (Senna Plus) 1 tab PO BID@ PRN PRN Reason: Constipation Sodium Chloride (Saline Flush) 10 ml FLUSH ASDIRECTED PRN PRN Reason: Keep Vein Open Last Admin: 05/08/19 19:52 Dose: 10 ml Discontinued Medications Furosemide (Lasix) 40 mg IVPUSH NOW ONE Stop: 05/08/19 12:38 Last Admin: 05/08/19 14:22 Dose: 40 mg Furosemide (Lasix) 40 mg IVPUSH NOW ONE Stop: 05/08/19 20:01 Last Admin: 05/08/19 19:53 Dose: 40 mg - Exam Quality Assessment: Reports: Supplemental Oxygen, DVT Prophylaxis (on blood thinners) General: Reports: Alert, Oriented, Cooperative, No Acute Distress HEENT: Reports: Pupils Equal, Pupils Reactive, EOMI, Mucous Membr. Moist/[place] Neck: Reports: Supple Lungs: Reports: Clear to Auscultation, Normal Respiratory Effort Cardiovascular: Reports: Regular Rate, Regular Rhythm GI/Abdominal Exam: Soft, Non-Tender (Female) Exam: Deferred Rectal (Female) Exam: Deferred Back Exam: Denies: Muscle Spasm Extremities: Other (weeping fluid through skin lower legs/signficant edema bilaterally) Skin: Reports: Warm Neurological: Reports: No New Focal Deficit Psy/Mental Status: Reports: Alert, Normal Affect, Normal Mood
== END 2019-05-09 16:40 | DRG 291 ==
LOC: LL.ED 10:02 → LL.MS 10:57 → UNDOADMIN 10:57 → LL.MS 12:34
PROVIDERS: ADMIT Emergency Medicine; ATTEND Emergency Medicine
DX: I13.0 Hypertensive heart and chronic kidney disease with heart failure and stage 1 through stage 4 chronic kidney disease, or unspecified chronic kidney disease (principal); I50.43 Acute on chronic combined systolic (congestive) and diastolic (congestive) heart failure; I48.20 Chronic atrial fibrillation, unspecified; N18.4 Chronic kidney disease, stage 4 (severe); I48.91 Unspecified atrial fibrillation; S42.212K Unspecified displaced fracture of surgical neck of left humerus, subsequent encounter for fracture with nonunion; G62.9 Polyneuropathy, unspecified; I25.10 Atherosclerotic heart disease of native coronary artery without angina pectoris; D64.9 Anemia, unspecified; E03.9 Hypothyroidism, unspecified; H54.7 Unspecified visual loss; H91.90 Unspecified hearing loss, unspecified ear; Z86.718 Personal history of other venous thrombosis and embolism; I42.9 Cardiomyopathy, unspecified; K59.09 Other constipation; E78.5 Hyperlipidemia, unspecified; I73.9 Peripheral vascular disease, unspecified; Z95.5 Presence of coronary angioplasty implant and graft; J44.9 Chronic obstructive pulmonary disease, unspecified; K44.9 Diaphragmatic hernia without obstruction or gangrene; R32 Unspecified urinary incontinence; G89.29 Other chronic pain; M54.9 Dorsalgia, unspecified; I69.354 Hemiplegia and hemiparesis following cerebral infarction affecting left non-dominant side; M19.90 Unspecified osteoarthritis, unspecified site; M81.0 Age-related osteoporosis without current pathological fracture; D63.1 Anemia in chronic kidney disease; E78.00 Pure hypercholesterolemia, unspecified; Z79.01 Long term (current) use of anticoagulants; Z79.02 Long term (current) use of antithrombotics/antiplatelets; K21.9 Gastro-esophageal reflux disease without esophagitis; G62.89 Other specified polyneuropathies; Z88.1 Allergy status to other antibiotic agents; Z88.8 Allergy status to other drugs, medicaments and biological substances; Z79.890 Hormone replacement therapy; Z79.899 Other long term (current) drug therapy; Z98.49 Cataract extraction status, unspecified eye; I25.2 Old myocardial infarction; Z86.73 Personal history of transient ischemic attack (TIA), and cerebral infarction without residual deficits
CPT/HCPCS: 36415; 51702; 71046; 80048; 80053; 81001; 83735; 83880; 85025; 87086; 87088; 87186; 94640; 99285-25; A9270-GY; J1940

== ENCOUNTER 2019-11-07 02:57 | Inpatient (IN) | payer MEDICARE, BC ==
[2019-11-07] MEDS ORDERED: Famotidine 20 MG/2 ML SDV IVPUSH ONE (03:02)
--- NOTE | 2019-11-07 03:02 | EDM.PDOC ---
ED HPI GENERAL MEDICAL PROBLEM - General Chief Complaint: Chest Pain Stated Complaint: Shortness of Breath, Chest pain Time Seen by Provider: 11/07/19 03:00 Source of Information: Reports: Patient, EMS, Family (Daughter Nicky), Senior Living Records, Old Records ([facility] EMR. No paper hospital chart available.). Denies: EMS Notes Reviewed (Not available at time of dictation) History Limitations: Reports: Respiratory Distress - History of Present Illness INITIAL COMMENTS - FREE TEXT/NARRATIVE: The patient was brought to the emergency room via ambulance with first officer accompaniment with O2 started by the paramedics at 15 L/min by nonrebreather mask after O2 was increased in the care home by concentrator to 4 L/min by nasal cannula prior to patient transfer. No other treatment in route. Note that the patient was having problems with 7/10 retrosternal chest pressure, tachycardia, increasing dyspnea, and hypoxia with O2 sat of 80% on room air with symptoms starting about 1 AM this morning. Patient has received several nebulizer treatments since that time, including about 1/2-hour prior to arrival. The patient denies any dizziness, orthostasis, orthopnea, diaphoresis, paresthesias, recent decreased exercise tolerance, or any other anginal-type symptoms. No recent history of abdominal pain, heartburn, nausea, diarrhea, melena, gross hematochezia, or any food intolerance, including fatty foods, etc. with normal bowel movement yesterday. She denies any gross hematuria, colic, or other UTI symptoms. The patient also denies any recent fever, cough, etc., despite moderate dyspnea and distress on arrival. The patient did have a negative COVID-19 screen in the care home 10 days ago with no exposure since that time and events of that infection and that facility. Onset: Today, Gradual Onset Date: 11/07/19 Onset Time: 01:00 Duration: Constant, Getting Worse Location: Reports: Chest. Denies: Head, Face, Neck, Abdomen, Back, Upper Extremity, Left, Upper Extremity, Right, Radiates to Quality: Reports: Pressure, Same as Previous Episode Severity: Moderate Improves with: Reports: None Worsens with: Reports: None Context: Reports: Other (As above). Denies: Sick Contact, Trauma Associated Symptoms: Reports: Chest Pain, Shortness of Breath. Denies: Con fusion, Cough, Diaphoresis, Fever/Chills, Headaches, Loss of Appetite, Malaise, Nausea/Vomiting, Weakness Treatments PRACTICE LEAD: Reports: Breathing Treatments, Oxygen Middle Chest Pain Score (Numeric/FACES): 7 - Related Data Allergies Allergy/AdvReac Type Severity Reaction Status Date / Time VIJAYA Inhibitors Allergy Other Verified 11/06/19 11:46 ciprofloxacin [From Cipro] Allergy Hives Verified 11/06/19 11:46 losartan Allergy Cannot Verified 11/06/19 11:46 Remember Home Meds: Home Meds Albuterol [Ventolin HFA] 2 puff INH Q4HR PRN 07/05/14 [History] Nitroglycerin [Nitrostat] 0.4 mg SL ASDIRECTED PRN #100 tab.sl 07/17/15 [Rx] allopurinoL [Zyloprim] 100 mg PO DAILY 03/04/18 [History] Apixaban [Eliquis] 5 mg PO BID@04/14/18 [History] Ferrous Sulfate 1 tab PO BID@04/14/18 [History] Melatonin 3 mg PO BEDTIME 04/14/18 [History] Sennosides/Docusate Sodium [Senna-S] 1 each PO BID@ PRN 03/16/19 [History] Ascorbic Acid [Vitamin C] 250 mg PO BID 04/28/19 [History] Clopidogrel Bisulfate [Clopidogrel] 75 mg PO DAILY 04/28/19 [History] Rosuvastatin [Crestor] 20 mg PO DAILY 04/28/19 [History] Ubidecarenone [Co Q-10] 100 mg PO DAILY #30 capsule 05/01/19 [Rx] Cholecalciferol (Vitamin D3) [Vitamin D3] 2,000 unit PO DAILY 05/08/19 [History] Isosorbide Mononitrate [Imdur] 120 mg PO BID 05/08/19 [History] Magnesium Oxide 400 mg PO BEDTIME 05/08/19 [History] Torsemide 40 mg PO BID 05/08/19 [History] hydrALAZINE [Apresoline] 25 mg PO TID 05/08/19 [History] Acetaminophen [Tylenol Arthritis] 650 mg PO TID 11/06/19 [History] Albuterol/Ipratropium [Combivent Respimat] 2 puff INH BID 11/06/19 [History] Albuterol/Ipratropium [DuoNeb 3.0-0.5 MG/3 ML] 3 ml NEB Q4H PRN 11/06/19 [History] Amiodarone [Cordarone] 200 mg PO DAILY 11/06/19 [History] Cetyl Alc/Stearyl Alc/Pg/Sls [Cetaphil] 1 applic TOP BID 11/06/19 [History] Cetyl Alc/Stearyl Alc/Pg/Sls [Cetaphil] 1 applic TOP Q12H PRN 11/06/19 [History] Fluticasone/Salmeterol [Advair 500-50] 1 puff INH BID 11/06/19 [History] Hydrocortisone [Hydrocortisone 1% Crm] 1 applic TOP Q8HR PRN 11/06/19 [History] Levothyroxine Sodium [Synthroid] 75 mcg PO DAILY 11/06/19 [History] Loratadine [Claritin] 10 mg PO DAILY 11/06/19 [History] Metoprolol Succinate 25 mg PO DAILY 11/06/19 [History] Metoprolol Succinate 50 mg PO DAILY 11/06/19 [History] Pantoprazole Sodium [Protonix] 40 mg PO DAILY 11/06/19 [History] Potassium Chloride [Klor-Con 10] 10 meq PO DAILY 11/06/19 [History] Pramipexole [Mirapex] 0.125 mg PO BEDTIME 11/06/19 [History] Spironolactone [Aldactone] 12.5 mg PO DAILY 11/06/19 [History] traMADol HCl [Tramadol HCl] 50 mg PO BEDTIME 11/06/19 [History] traMADol HCl [Tramadol HCl] 50 mg PO Q8HR PRN 11/07/19 [History] Past Medical History HEENT History: Reports: Cataract, Hard of Hearing, Impaired Vision, Other (See Below). Denies: Allergic Rhinitis, Glaucoma, Macular Degeneration, Otitis Media, Retinal Detachment Other HEENT History: Full upper dentures; partial lower dentures. Patient wears glasses. Mild bilateral presbycusis. Cardiovascular History: Reports: Afib, Arrhythmia, Blood Clots/VTE/DVT, CAD, Cardiomyopathy, Heart Failure, Heart Murmur, High Cholesterol, Hypertension, IN, PTCA, PVD, SOB on Exertion, Stents, Other (See Below). Denies: Aneurysm Other Cardiovascular History: Carotid artery disease with recurrent CVA and surgeries as below. Chronic dependent edema secondary to her CHF and cardiomegaly. Chronic d-dimer elevation with negative workup as below. Previous atrial fibrillation with tachycardia with current Eliquis therapy. MIs initially 2015 with stent placement required as below in July 2015 and in March 2019. Progressive moderate aortic valve stenosis with mild mitral valve insufficiency, mild left atrial enlargement, and grade 1 diastolic dysfunction I echocardiogram in March 2019 as below. Possible previous DVT of the lower extremity with current Eliquis therapy, however multiple negative follow-up venous Doppler studies of the lower extremities. Dyslipidemia. Respiratory History: Reports: Bronchitis, Recurrent, COPD, Intubation, Previous, Pneumonia, Recurrent, SOB, Other (See Below). Denies: Asthma, Intubation, Difficult, PE, Pneumothorax, Sleep Apnea, TB Other Respiratory History: Oxygen dependent COPD and CHF with current use of 23 L/m. Gastrointestinal History: Reports: Chronic Constipation, Diverticulosis, Gastritis, GERD, GI Bleed, Hiatal Hernia, PUD, Other (See Below). Denies: Celiac Disease, Cholelithiasis, Chronic Diarrhea, Colon Polyp, Fatty Liver, Fecal Incontinence, Hepatitis, Inflammatory Bowel Disease, Irritable Bowel Syndrome, Jaundice, Pancreatitis Other Gastrointestinal History: Upper GI bleed in 2014 requiring blood transfusions as below. Moderate hernia by EGD as below. Dysphagia. Genitourinary History: Reports: Chronic Renal Insuffiency, Urinary Incontinence, Other (See Below). Denies: Acute Renal Failure, Renal Calculus, STD, UTI, Recurrent Other Genitourinary History: Proteinuria [employer] History: Reports: : 2 Para: 2 LMP (Approximate): Other (See Below) Other [employer] History: Menopause in her early 50s. Full term without complications during pregnancies or deliveries. Musculoskeletal History: Reports: Arthritis, Back Pain, Chronic, Fracture, Gout, Neck Pain, Chronic, Osteoarthritis, Osteoporosis, Other (See Below) Other Musculoskeletal History: Left fifth metatarsal fracture on 11/06/2019. Left proximaloccipital humerus fracture and left pelvic ramus fx on 03/14/18 both without surgical repair with chronic nonoperable proximal left humeral fracture and previous chronic arm immobilizer therapy. Neurological History: Reports: CVA, Neuropathy, Peripheral, Other (See Below). Denies: Cerebral Aneurysms, Headaches, Chronic, Migraines, MS, Parkinson's, Seizure, TIA Other Neuro History: Restless leg syndrome. Initial right-sided CVA in 2001 with subsequent right-sided CVA in 2002 with mild persistent left leg/foot weakness. Psychiatric History: Reports: Addiction, Other (See Below). Denies: Abuse, Victim of, ADD, ADHD, Alzheimers Disease, Anxiety, Depression, Psych Hospitalization(s), PTSD, Suicide Attempt Other Psychiatric History: Chronic narcotic use secondary to chronic pain syndrome. Endocrine/Metabolic History: Reports: Hypokalemia, Hypomagnesemia, Hypothyroidism, Obesity/BMI 30+, Osteopenia, Osteoporosis, Vitamin D Deficiency. Denies: Diabetes, Gestational, Diabetes, Type I, Diabetes, Type II, Diabetes Mellitus, Type 3c, IDDM Hematologic History: Reports: Anemia, Blood Transfusion(s), Iron Deficiency, Other (See Below) Other Hematologic History: Chronic anemia secondary to renal disease and iron deficiency. Note previous upper GI bleed requiring blood transfusion as above. Immunologic History: Reports: None Oncologic (Cancer) History: Reports: None. Denies: Basal Cell Carcinoma, Breast, Cervix, Colon, Hodgkin's Lymphoma, Leukemia, Lymphoma, Malignant Melanoma, Non-Hodgkin's Lymphoma, Ovarian, Squamous Cell Carcinoma, Uterine Dermatologic History: Reports: Other (See Below). 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 Denies: C-Difficile, Meningitis, Mononucleosis, MRSA, Novel Coronavirus, Pertussis (Whooping Cough), Rheumatic Fever, Scarlet Fever, Shingles, TB, VRE - Past Surgical History Head Surgeries/Procedures: Reports: None HEENT Surgical History: Reports: Adenoidectomy, Cataract Surgery, Oral Surgery, Tonsillectomy, Other (See Below). Denies: Eye Surgery, Laser Surgery, LASIK, Myringotomy w Tube(s), Naso-Sinus Surgery Other HEENT Surgeries/Procedures: Tonsillectomy and adenoidectomy at about age 19. Bilateral cataract surgery in 2009. Almost complete teeth extraction with complete upper dentures and partial lowers. Cardiovascular Surgical History: Reports: Carotid Endarterectomy, Coronary Artery Stent, Percutaneous Transluminal Angioplasty, Other (See Below). Denies: Coronary Artery Bypass, Varicose Other Cardiovascular Surgeries/Procedures: Show PTCA/stent 2 in about 2015 with PTCA/stent 2 including the left circumflex and and right coronary artery on 03/19/19. Right-sided carotid endarterectomy in 2002. Respiratory Surgical History: Reports: None. Denies: Thoracentesis GI Surgical History: Reports: EGD, Other (See Below). Denies: Appendectomy, Cholecystectomy, Colonoscopy, Hernia, Abdominal, Hernia, Inguinal, Hernia Repair/Other Other GI Surgeries/Procedures: EGD on 08/09/14 with antral gastritis but no acute bleeding ulcer Female Surgical History: Reports: Breast Biopsy, Other (See Below). Denies: D&C, Hysterectomy, Salpingo-Oophorectomy, Tubal Ligation Other Female Surgeries/Procedures: Left-sided breast biopsy for benign disease in about 2009 Endocrine Surgical History: Reports: None Neurological Surgical History: Reports: None. Denies: C-Spine, Discectomy, Laminectomy, Lumbar Spine, Sacral Spine, Spinal Fusion, Thoracic Spine, Vertebroplasty Musculoskeletal Surgical History: Reports: None. Denies: Arthroscopic Procedure, Carpal Tunnel, Ganglion Cyst, Joint Replacement, ORIF, Shoulder Surgery Oncologic Surgical History: Reports: None Dermatological Surgical History: Reports: None - Past Imaging History Past Imaging History: Reports: Angiography (Last heart catheterization on 03/19/19), Cardiac Echo (Echocardiogram on 03/03/19, 05/13/18 and 08/12/14 with excellent ejection fraction and findings as above.), CAT Scan (Negative CTA of the chest with PE protocol on 08/13/14 and 07/09/14.), Swallow Study (Positive swallowing study on 03/20/16), Venous Doppler (Bilateral venous Doppler studies on 03/16/19 and 04/17/18 negative for DVT.) Social & Family History - Family History HEENT: Reports: None. Denies: Glaucoma, Macular Degeneration, Retinal Detachment Cardiac: Reports: CAD, High Cholesterol, Hypertension, IN, Other (See Below). Denies: Afib, Aneurysm, Arrhythmia, Blood Clots/VTE/DVT, Heart Failure, Heart Murmur, PVD/COD, Syncope Other Cardiac Family History: Father with IN in his late 50s to early 60s with no procedures performed. Maternal grandmother with hyperlipidemia. Father with hypertension. Respiratory: Reports: Asthma, COPD, Other (See Below). Denies: PE, Pneumothorax, Sleep Apnea Other Respiratory Family Hisory: Mother with asthma. Maternal grandmother with COPD with no history of tobacco use. GI: Reports: Cholelithiasis, Colon Polyps, Diverticulitis, Diverticulosis, Other (See Below). Denies: Celiac Disease, GERD, GI bleed, Inflammatory Bowel Disease, Irritable Bowel Syndrome, PUD Other GI Family History: Mother with history of cholelithiasis, diverticulitis, and colon cancer. : Reports: None. Denies: Renal Calculus, Renal Disease/Insufficiency OBGYN: Reports: None. Denies: Endometriosis, Recurrent Spontaneous Musculoskeletal: Reports: Arthritis, Osteoarthritis, Other (See Below). Denies: Gout, Osteoporosis, RA, SLE Other Musculoskeletal Family History: Mother with osteoarthritis. Neurological: Reports: CVA, Other (See Below). Denies: Alzheimers Disease, Dementia, Migraines, MS, Parkinson's, Seizure, TIA Other Neurological Family History: Sister with history of CVA at about age 72 also be secondary to her leukemia. Psychiatric: Reports: None. Denies: Abuse, Victim of, ADD, ADHD, Anxiety, Depression, Psych Hospitalization(s), PTSD, Suicide Attempt Endocrine/Metabolic: Reports: Diabetes, type II, IDDM, Other (See Below). Denies: Diabetes, Gestational, Diabetes, Type I, Diabetes Mellitus, Type 3c, Hypothyroidism Other Endocrine/Metabolic Family History: Maternal grandmother with IDDM. Hematologic: Reports: Anemia. Denies: SLE Other Hematologic Family History: Anemia secondary to leukemia-sister Immunologic: Reports: Immunosuppression, Other (See Below). Denies: AIDS, HIV, SLE Other Immunologic Family History: Sister with leukemia. Dermatologic: Reports: None. Denies: Eczema, Psoriasis Oncologic: Reports: Colon, Leukemia, Metastatic. Denies: Breast, Cervix, Lymphoma, Non-Hodgkin's Lymphoma, Ovarian, Skin, Uterine Other Oncologic Family History: Mother with fatal colon cancer at age 72. Sister with fatal leukemia at age 77. - Tobacco Use Smoking Status *Q: Former Smoker Tobacco Use Within Last Twelve Months: No Years of Tobacco use: 59 Packs/Tins Daily: 2 Packs/Tins Daily Comment: Smoked between ages 14 and 73 with maximum use of 2-3 packs/day. She stopped smoking on 07/04/2014 after her IN. Used Tobacco, but Quit: Yes Smoking Cessation Information Provided To Patient: No Second Hand Smoke Exposure: No Second Hand Smoke Education Provided: No - Caffeine Use Caffeine Use: Reports: None. Denies: Coffee, Energy Drinks, Soda, Tea - Alcohol Use Alcohol Use History: No Days Per Week of Alcohol Use: 0 Number of Drinks Per Day: 0 Number of Drinks Per Day Comment: No previous DWIs, problems with alcohol abuse, etc. Total Drinks Per Week: 0 Alcohol Use in Last Twelve Months: No - Recreational Drug Use Recreational Drug Use: No Drug Use in Last 12 Months: No Recreational Drug Type: Denies: Amphetamines (Speed), Cocaine, Heroin, Inhalants (Glues, Solvents, Aerosols), LSD (Acid), Marijuana/Hashish, Methamphetamine, Morphine, Oxycodone - Living Situation & Occupation Living situation: Reports: (2008, 2 children), Extended Care Facility ([facility] with admission in [facility] 2018[facility]) Occupation: Retired (Retired at age 61. 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 ED EXAM, GENERAL - Physical Exam Exam: See Below Exam Limited By: No Limitations General Appearance: Alert, WD/WN, Moderate Distress Eye Exam: Bilateral Eye: EOMI, Normal Inspection (No nystagmus), Periorbital Changes Ears: Normal External Exam, Normal Canal, Hearing Grossly Normal, Normal TMs Nose: Normal Inspection, Normal Mucosa, No Blood Throat/Mouth: Normal Lips, Normal Gums, Normal Oropharynx, Normal Voice, No Airway Compromise. No: Normal Teeth (Complete upper dentures with multiple missing teeth lowers with lower partials not present today), Dysphagia, Perioral Cyanosis Head: Atraumatic, Normocephalic. No: Facial Swelling, Facial Tenderness, Sinus Tenderness Neck: Supple, Non-Tender, Full Range of Motion, Carotid Bruit (Mild bilateral carotid bruits). No: Lymphadenopathy (L), Lymphadenopathy (R), Thyromegaly Respiratory/Chest: Respiratory Distress (Moderate), Decreased Breath Sounds (Diffuse), Rales (Moderate diffuse bilaterally left greater than right), Rhonchi (Occasional), Wheezing (Occasional diffuse bilaterally), Accessory Muscle Use (Mild to moderate), Retractions (Mild). No: Pleural Rub Cardiovascular: Normal Peripheral Pulses, No Gallop, No JVD, No Rub, Tachycardia (Regular rhythm), Systolic Murmur (Stable 1/6 LEOLA of the aortic and mitral valves). No: No Edema (Dependent edema as below), Gallop/S3, Gallop/S4, Friction Rub Peripheral Pulses: 2+: Radial (L), Radial (R), Dorsalis Pedis (L), Dorsalis Pedis (R) GI/Abdominal: Normal Bowel Sounds (Secondary that nitro to 1- chance), Soft, Non-Tender, No Organomegaly, No Distention, No Abnormal Bruit, No Mass, Pelvis Stable, Other (Obese). No: Guarding (Female) Exam: Deferred Rectal (Female) Exam: Deferred Back Exam: Full Range of Motion, Other (Mild kyphosis). 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 No: Leatha's Sign Neurological: Alert, Oriented, CN II-XII Intact, Normal Cognition, Normal Gait, Normal Reflexes (Negative Babinski's), No Motor/Sensory Deficits Psychiatric: Normal Affect, Normal Mood Skin Exam: Warm, Dry, Intact, Normal Color, No Rash, Ecchymosis (Moderate bilateral in the arms). No: Diaphoretic, Petechiae, Wound/Incision Lymphatic: No Adenopathy EKG INTERPRETATION EKG Date: 11/07/19 Time: 02:57 Rhythm: Other (Sinus tachycardia) Rate (Beats/Min): 118 [place]: Normal (Left cardiac axis) P-Wave: Present QRS: Wide (0.10 seconds with presenting repolarization changes) ST-T: Other (Stable T wave inversion in lead aVL with resolved T wave inversion in lead I with peaked T waves) QT: Normal OR/PQ Interval: 0.16 seconds with extreme poor R wave progression in the anterior leads Comparison: Change From Previous EKG (As above since 04/30/2019.) EKG Interpretation Comments: 1. No acute ischemic changes 2. Sinus tachycardia 3. Repolarization changes Course - Vital Signs Last Recorded V/S: Last Vital Signs Temp 37.4 C 11/07/19 03:07 Pulse 109 H 11/07/19 04:33 Resp 24 H 11/07/19 04:33 BP 190/109 H 11/07/19 04:33 Pulse Ox 93 L 11/07/19 04:33 Vital Signs - 24 hr 11/07/19 11/07/19 11/07/19 03:02 03:07 03:17 Temperature [ 38.0 C Oral] Temperature [ 37.4 C Temporal] Pulse, 120 H 119 H Peripheral [ Right Pulse Oximetry] Respiratory 28 H 32 H Rate Blood Pressure 240/98 H Blood Pressure 240/98 H 160/112 H [Right Upper Arm] O2 Sat by Pulse 91 L 94 L Oximetry 11/07/19 11/07/19 11/07/19 03:42 03:45 04:00 Temperature [ Oral] Temperature [ Temporal] Pulse, 117 H 120 H Peripheral [ Right Pulse Oximetry] Respiratory 25 H 23 H Rate Blood Pressure 210/82 H Blood Pressure 218/77 H 194/76 H [Right Upper Arm] O2 Sat by Pulse 93 L 96 Oximetry 11/07/19 04:33 Temperature [ Oral] Temperature [ Temporal] Pulse, 109 H Peripheral [ Right Pulse Oximetry] Respiratory 24 H Rate Blood Pressure Blood Pressure 190/109 H [Right Upper Arm] O2 Sat by Pulse 93 L Oximetry - Orders/Labs/Meds Orders: Active Orders 24 hr Category Date Time Status Cardiac Monitoring [RC] . DIRECTED Care 11/07/19 03:02 Active EKG Documentation Completion [RC] ASDIRECTED Care 11/07/19 03:02 Active Oxygen Therapy, ED [RC] CONTINUOUS Care 11/07/19 03:02 Active Peripheral IV Care [RC] . DIRECTED Care 11/07/19 03:02 Active Pulse Oximetry [RC] CONTINUOUS Care 11/07/19 03:02 Active Up With Assistance [RC] PFP Care 11/07/19 03:02 Active Vital Signs [RC] PFP Care 11/07/19 03:02 Active Nothing per Oral Now Diet [DIET] Diet 11/07/19 Breakfast Active Chest 1V Frontal [CR] Stat Exams 11/07/19 03:02 Ordered CULTURE BLOOD [BC] Stat Lab 11/07/19 03:21 Ordered CULTURE BLOOD [BC] Stat Lab 11/07/19 03:21 Ordered Nitroglycerin [Nitrostat] Med 11/07/19 03:10 Stat 0.4 mg SL ONETIME STA Nitroglycerin [Nitrostat] Med 11/07/19 03:37 Stat 0.4 mg SL ONETIME STA Sodium Chloride 0.9% [Saline Flush] Med 11/07/19 03:02 Active 10 ml FLUSH ASDIRECTED PRN Blood Culture x2 Reflex Set [OM.PC] Urgent Oth 11/07/19 03:21 Ordered Obtain Past Medical Record [OM.PC] Urgent Oth 11/07/19 03:02 Active Peripheral IV Insertion Adult [OM.PC] Stat Oth 11/07/19 03:02 Ordered Resuscitation Status Stat Resus Stat 11/07/19 03:02 Ordered Medication Orders Nitroglycerin (Nitrostat) 0.4 mg SL ONETIME STA Stop: 11/08/19 03:11 Last Admin: 11/07/19 03:42 Dose: 0.4 mg Documented by: Admin: 11/07/19 03:17 Dose: 0.4 mg Documented by: CHARLIE Nitroglycerin (Nitrostat) 0.4 mg SL ONETIME STA Stop: 11/08/19 03:38 Last Admin: 11/07/19 04:09 Dose: Not Given Documented by: Sodium Chloride (Saline Flush) 10 ml FLUSH ASDIRECTED PRN PRN Reason: Keep Vein Open Last Admin: 11/07/19 03:45 Dose: 10 ml Documented by: Admin: 11/07/19 03:28 Dose: 10 ml Documented by: CHARLIE Labs: Laboratory Tests 11/07/19 11/07/19 11/07/19 Range/Units 03:20 03:20 03:20 WBC 21.5 H (4.0-10.2) K/uL RBC 4.15 (3.77-5.09) M/uL Hgb 11.4 L (11.7-15.5) g/dL Hct 38.0 (34.0-46.0) % MCV 91.6 (84.0-98.0) fL MCH 27.5 L (28.2-33.3) pg MCHC 30.0 L (31.7-36.0) g/dL RDW 18.4 H (11.2-14.1) % Plt Count 203 (150-350) K/uL Neut % (Auto) 91.6 H (45.0-80.0) % Lymph % (Auto) 4.9 L (10.0-50.0) % [place] % (Auto) 2.2 (2.0-14.0) % Eos % (Auto) 1.2 (0.0-5.0) % Baso % (Auto) 0.1 (0.0-2.0) % Neut # (Auto) 19.65 H (1.40-7.00) K/uL Lymph # (Auto) 1.06 (0.50-3.50) K/uL [place] # (Auto) 0.48 (0.00-1.00) K/uL Eos # (Auto) 0.26 (0.00-0.50) K/uL Baso # (Auto) 0.03 (0.00-0.20) K/uL PT 11.3 (9.5-12.0) SEC INR 1.1 APTT 38.8 H (24.5-32.8) SEC D-Dimer, Quantitative 1570 H (0-400) ng/mL Sodium (136-145) mmol/L Potassium (3.5-5.1) mmol/L Chloride (98-107) mmol/L Carbon Dioxide (21.0-32.0) mmol/L BUN (7-18) mg/dL Creatinine (0.51-1.17) mg/dL Est Cr Clr Drug Dosing mL/min Estimated GFR (MDRD) mL/min Glucose (74-106) mg/dL Lactic Acid (0.4-2.0) mmol/L Uric Acid (2.6-7.2) mg/dL Calcium (8.5-10.1) mg/dL Magnesium (1.8-2.4) mg/dL Total Bilirubin (0.2-1.0) mg/dL AST (15-37) U/L ALT (12-78) U/L Alkaline Phosphatase (46-116) IU/L Creatine Kinase (26-308) U/L Creatine Kinase Index (0.0-2.5) % CK-MB (CK-2) (0.00-3.60) ng/mL Troponin I (0.000-0.056) ng/mL NT-Pro-B Natriuret Pep (0-125) pg/mL Total Protein (6.4-8.2) g/dL Albumin (3.4-5.0) g/dL TSH, Ultra Sensitive (0.358-3.740) mIU/mL 11/07/19 11/07/19 Range/Units 03:20 03:20 WBC (4.0-10.2) K/uL RBC (3.77-5.09) M/uL Hgb (11.7-15.5) g/dL Hct (34.0-46.0) % MCV (84.0-98.0) fL MCH (28.2-33.3) pg MCHC (31.7-36.0) g/dL RDW (11.2-14.1) % Plt Count (150-350) K/uL Neut % (Auto) (45.0-80.0) % Lymph % (Auto) (10.0-50.0) % [place] % (Auto) (2.0-14.0) % Eos % (Auto) (0.0-5.0) % Baso % (Auto) (0.0-2.0) % Neut # (Auto) (1.40-7.00) K/uL Lymph # (Auto) (0.50-3.50) K/uL [place] # (Auto) (0.00-1.00) K/uL Eos # (Auto) (0.00-0.50) K/uL Baso # (Auto) (0.00-0.20) K/uL PT (9.5-12.0) SEC INR APTT (24.5-32.8) SEC D-Dimer, Quantitative (0-400) ng/mL Sodium 140 (136-145) mmol/L Potassium 4.9 (3.5-5.1) mmol/L Chloride 98 (98-107) mmol/L Carbon Dioxide 32.6 H (21.0-32.0) mmol/L BUN 57 H (7-18) mg/dL Creatinine 1.77 H (0.51-1.17) mg/dL Est Cr Clr Drug Dosing 22.25 mL/min Estimated GFR (MDRD) 28 mL/min Glucose 155 H (74-106) mg/dL Lactic Acid 0.9 (0.4-2.0) mmol/L Uric Acid 6.8 (2.6-7.2) mg/dL Calcium 9.1 (8.5-10.1) mg/dL Magnesium 1.8 (1.8-2.4) mg/dL Total Bilirubin 0.3 (0.2-1.0) mg/dL AST 25 (15-37) U/L ALT 21 (12-78) U/L Alkaline Phosphatase 110 (46-116) IU/L Creatine Kinase 53 (26-308) U/L Creatine Kinase Index 3.8 H (0.0-2.5) % CK-MB (CK-2) 2.00 (0.00-3.60) ng/mL Troponin I 0.010 (0.000-0.056) ng/mL NT-Pro-B Natriuret Pep 4084 H (0-125) pg/mL Total Protein 8.2 (6.4-8.2) g/dL Albumin 3.6 (3.4-5.0) g/dL TSH, Ultra Sensitive 5.170 H (0.358-3.740) mIU/mL Meds: Medications Generic Name Dose Route Start Last Admin Trade Name Freq PRN Reason Stop Dose Admin Nitroglycerin 0.4 mg 11/07/19 03:10 11/07/19 03:42 Nitrostat SL 11/08/19 03:11 0.4 mg ONETIME STA Administration Nitroglycerin 0.4 mg 11/07/19 03:37 11/07/19 04:09 Nitrostat SL 11/08/19 03:38 Not Given ONETIME STA Sodium Chloride 10 ml 11/07/19 03:02 11/07/19 03:45 Saline Flush FLUSH 10 ml ASDIRECTED PRN Administration Keep Vein Open Discontinued Medications Generic Name Dose Route Start Last Admin Trade Name Freq PRN Reason Stop Dose Admin Diltiazem HCl 20 mg 11/07/19 03:05 11/07/19 03:25 Diltiazem IVPUSH 11/07/19 03:06 20 mg ONETIME ONE Administration Famotidine 40 mg 11/07/19 03:02 11/07/19 03:30 Pepcid IVPUSH 11/07/19 03:03 40 mg ONETIME ONE Administration Furosemide 60 mg 11/07/19 03:10 11/07/19 03:31 Lasix IVPUSH 11/07/19 03:11 60 mg NOW ONE Administration Piperacillin Sod/Tazobactam 100 mls @ 200 mls/hr 11/07/19 03:36 Sod 3.375 gm/ Sodium Chloride IV 11/07/19 04:05 ONETIME ONE Azithromycin 500 mg/ Sodium 250 mls @ 250 mls/hr 11/07/19 03:36 11/07/19 04:03 Chloride IV 11/07/19 04:35 250 mls/hr ONETIME ONE Administration Morphine Sulfate 2 mg 11/07/19 03:34 11/07/19 03:37 Morphine .XX 11/07/19 03:35 2 mg ONETIME ONE Administration Morphine Sulfate 2 mg 11/07/19 03:59 11/07/19 04:07 Morphine .XX 11/07/19 04:00 2 mg ONETIME ONE Administration - Radiology Interpretation Free Text/Narrative:: conveyor monitor shows sinus tachycardia with heart rate in the [id number] with no other ectopy or arrhythmia. Chest x-ray, portable, shows evidence of mild CHF with moderate left upper lobe and mild to moderate left lower lobe consolidations consistent with pneumonia. Moderate COPD changes with no pneumothorax. Mild prominence of the proximal aortic arch. Note confirmation of the above findings by the radiologist at [facility] via telephone consultation at 03:49 hours. Departure - Departure Time of Disposition: 04:40 Disposition: Admitted As Inpatient 65 Condition: Fair Clinical Impression: CAD (coronary artery disease), COPD (chronic obstructive pulmonary disease), COPD, severe, Anemia, Dyslipidemia, Elevated d-dimer, HTN (hypertension), benign, Hypothyroidism (acquired), Pneumonia, CHF (congestive heart failure), Closed nondisplaced fracture of fifth left metatarsal bone, Comfort measures only status Referrals: Stephy Mcguire NP [Primary Care Provider] - Forms: ED Department Discharge Sepsis Event Note (ED) - Focused Exam Vital Signs: Vital Signs Temp Temp Pulse Resp BP BP Pulse Ox 11/07/19 04:33 109 H 24 H 190/109 H 93 L 11/07/19 04:00 120 H 23 H 194/76 H 96 11/07/19 03:45 117 H 25 H 218/77 H 93 L 11/07/19 03:42 210/82 H 11/07/19 03:17 240/98 H 11/07/19 03:07 37.4 C 119 H 32 H 160/112 H 94 L 11/07/19 03:02 38.0 C 120 H 28 H 240/98 H 91 L - Problem List & Annotations (1) Pneumonia SNOMED Code(s): 002767025 Code(s): J18.9 - PNEUMONIA, UNSPECIFIED ORGANISM Status: Acute Priority: High Onset Date: 11/07/19 Annotation/Comment:: No fever prior to arrival. Borderline septic picture, however lactic acid level is normal. Blood cultures x2 were collected with initiation of IV Zosyn and IV Zithromax therapy in the emergency room. Attempt to obtain sputum specimen KESHAWN. Prognosis guarded secondary to her respiratory distress, hypoxia, and increased oxygen requirement with current NO CODE STATUS. Previous negative COVID-19 as above, however this will be repeated on admission with initiation of droplet precautions. Qualifiers: Pneumonia type: due to unspecified organism Laterality: left Lung location: upper lobe of lung Qualified Code(s): J18.9 - Pneumonia, unspecified organism (2) CAD (coronary artery disease) SNOMED Code(s): 55783911 Code(s): I25.10 - ATHSCL HEART DISEASE OF [place] CORONARY ARTERY W/O ANG PCTRS Status: Chronic Priority: High Annotation/Comment:: Chest pain protocol initiated immediately upon the patient's arrival to the emergency room. ASA and Brilinta were not given secondary to patient's Brilinta therapy. IV diltiazem was given for blood pressure control. Patient was also given 2 sublingual nitroglycerin tablets with resolution of chest pressure however persistent pleurisy from her pneumonia at time of admission. Last stents placed March 2019. Initiate standard rule out IN orders, however note comfort care. Qualifiers: Coronary Disease-Associated Artery/Lesion type: [place] artery [place] vs. transplanted heart: [place] heart Associated angina: with stable angina Qualified Code(s): I25.118 - Atherosclerotic heart disease of [place] coronary artery with other forms of angina pectoris (3) Comfort measures only status SNOMED Code(s): 13012128977355 Code(s): Z51.5 - ENCOUNTER FOR PALLIATIVE CARE Status: Chronic Priority: Medium Annotation/Comment:: Confirmed from care home records, patient, and her daughter today. (4) CHF (congestive heart failure) SNOMED Code(s): 52751481 Code(s): I50.9 - HEART FAILURE, UNSPECIFIED Status: Chronic Priority: High Annotation/Comment:: Note significantly elevated BNP with mild to moderate CHF by today's chest x-ray. IV Lasix therapy initiated in the emergency room. Note comfort care with no further echocardiogram, etc.. The patient is allergic to VIJAYA inhibitors. Qualifiers: Heart failure type: combined systolic and diastolic Heart failure chronicity: acute on chronic Qualified Code(s): I50.43 - Acute on chronic combined systolic (congestive) and diastolic (congestive) heart failure (5) COPD, severe SNOMED Code(s): 131372202 Code(s): J44.9 - CHRONIC OBSTRUCTIVE PULMONARY DISEASE, UNSPECIFIED Status: Chronic Priority: Medium Annotation/Comment:: Severe hypoxia with patient able to be titrated down to nasal cannula at 6 L/min by nasal cannula. She may need to return to mask therapy however depending on her clinical course. Note multiple nebulizer treatments given prior to arrival. Morphine nebulizer treatments x2 given in the emergency room. Prognosis guarded. (6) Chronic kidney disease SNOMED Code(s): 543418310 Code(s): N18.9 - CHRONIC KIDNEY DISEASE, UNSPECIFIED Status: Chronic Priority: Medium Annotation/Comment:: Stable by history and medical records. Continue to observe closely secondary to IV Lasix therapy as above. Note previous history of proteinuria. Qualifiers: Chronic kidney disease stage: stage 4 (severe) Qualified Code(s): N18.4 - Chronic kidney disease, stage 4 (severe) (7) Elevated d-dimer SNOMED Code(s): 188923491 Code(s): R79.89 - OTHER SPECIFIED ABNORMAL FINDINGS OF BLOOD CHEMISTRY Status: Chronic Priority: High Annotation/Comment:: History of chronically elevated D-Dimer with extensive negative workup as per emergency room note. 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 above. Note current Eliquis therapy. Observe for now. (8) HTN (hypertension), benign SNOMED Code(s): 50673143 Code(s): I10 - ESSENTIAL (PRIMARY) HYPERTENSION Status: Chronic Priority: High Annotation/Comment:: Significantly elevated blood pressures in the emergency room and prior to arrival somewhat refractory to therapy. A total of 20 mg of IV diltiazem and 2 sublingual nitroglycerin tablets were given. Further medication adjustments during this hospitalization. Note additional IV Lasix therapy as above. Tachycardia improved with above therapy. (9) Hyperuricemia SNOMED Code(s): 33659914 Code(s): E79.0 - HYPERURICEMIA W/O SIGNS OF INFLAM ARTHRIT AND TOPHACEOUS DIS Status: Chronic Priority: Medium Annotation/Comment:: Note newly diagnosed left fifth metatarsal fracture as above/below. Patient is mostly nonambulatory with observation at this time. Her arthritis is otherwise stable. (10) Hypothyroidism (acquired) SNOMED Code(s): 530572104 Code(s): E03.9 - HYPOTHYROIDISM, UNSPECIFIED Status: Chronic Priority: Medium Onset Date: 04/28/19 Annotation/Comment:: Mildly elevated TSH today and on 04/28/19. Adjustment of Synthroid therapy during this hospitalization with recommended repeat TSH in about 4 weeks. (11) Anemia SNOMED Code(s): 682059401 Code(s): D64.9 - ANEMIA, UNSPECIFIED Status: Chronic Priority: Medium Annotation/Comment:: Hemoglobin improved per our medical records. Note she did receive an iron infusion in this facility on 11/06/2019. B-12 level and folic acid levels were normal on 04/29/19. Note combination of iron deficiency and chronic renal disease as etiology for her anemia. Qualifiers: Anemia type: due to chronic kidney disease Chronic kidney disease stage: stage 4 (severe) Qualified Code(s): N18.4 - Chronic kidney disease, stage 4 (severe); D63.1 - Anemia in chronic kidney disease - Problem List Review Problem List Initiated/Reviewed/Updated: Yes - My Orders Last 24 Hours: My Active Orders 11/07/19 03:02 Cardiac Monitoring [RC] . DIRECTED EKG Documentation Completion [RC] ASDIRECTED Oxygen Therapy, ED [RC] CONTINUOUS Peripheral IV Care [RC] . DIRECTED Pulse Oximetry [RC] CONTINUOUS Up With Assistance [RC] PFP Vital Signs [RC] PFP Chest 1V Frontal [CR] Stat Sodium Chloride 0.9% [Saline Flush] 10 ml FLUSH ASDIRECTED PRN Obtain Past Medical Record [OM.PC] Urgent Peripheral IV Insertion Adult [OM.PC] Stat Resuscitation Status Stat 11/07/19 03:10 Nitroglycerin [Nitrostat] 0.4 mg SL ONETIME STA 11/07/19 03:21 CULTURE BLOOD [BC] Stat CULTURE BLOOD [BC] Stat Blood Culture x2 Reflex Set [OM.PC] Urgent 11/07/19 03:37 Nitroglycerin [Nitrostat] 0.4 mg SL ONETIME STA 11/07/19 Breakfast Nothing per Oral Now Diet [DIET] - Assessment/Plan Admission H&P: Please use this note as an admission H&P Last 24 Hours: My Active Orders 11/07/19 03:02 Cardiac Monitoring [RC] . DIRECTED EKG Documentation Completion [RC] ASDIRECTED Oxygen Therapy, ED [RC] CONTINUOUS Peripheral IV Care [RC] . DIRECTED Pulse Oximetry [RC] CONTINUOUS Up With Assistance [RC] PFP Vital Signs [RC] PFP Chest 1V Frontal [CR] Stat Sodium Chloride 0.9% [Saline Flush] 10 ml FLUSH ASDIRECTED PRN Obtain Past Medical Record [OM.PC] Urgent Peripheral IV Insertion Adult [OM.PC] Stat Resuscitation Status Stat 11/07/19 03:10 Nitroglycerin [Nitrostat] 0.4 mg SL ONETIME STA 11/07/19 03:21 CULTURE BLOOD [BC] Stat CULTURE BLOOD [BC] Stat Blood Culture x2 Reflex Set [OM.PC] Urgent 11/07/19 03:37 Nitroglycerin [Nitrostat] 0.4 mg SL ONETIME STA 11/07/19 Breakfast Nothing per Oral Now Diet [DIET] Assessment:: As above Plan: As above. Extensive precautions were given to the patient and her daughter, who are in agreement with the treatment plan. The patient will require about 3-4 days of inpatient/acute care secondary to multiple health problems as above.
[2019-11-07] MEDS ORDERED: Diltiazem 25 MG/5 ML SDV IVPUSH ONE (03:05)
[2019-11-07] MEDS ORDERED: Furosemide 40 MG/4 ML VIAL IVPUSH ONE (03:10)
[2019-11-07] MEDS: Nitroglycerin 0.4 MG Tab.SL SL STA ×2 (03:17→03:42)
[2019-11-07] MEDS: Sodium Chloride 0.9% 10 ML Syringe FLUSH PRN ×6 (03:28→17:55)
[2019-11-07] MEDS ORDERED: Morphine 2 MG/ML SYRINGE ONE ×2 (03:34→03:59)
[2019-11-07] MEDS ORDERED: Piperacillin/Tazobactam 3.375 GM in Sodium Chloride 0.9% 100 ML IV ONE (03:36)
[2019-11-07] MEDS ORDERED: Azithromycin 500 MG in Sodium Chloride 0.9% 250 ML IV ONE (03:36)
[2019-11-07] MEDS ORDERED: Nitroglycerin 0.4 MG Tab.SL SL STA (03:37)
[2019-11-07 03:42] LABS: PTT,PARTIAL THROMBOPLSTIN TIME 38.8 SEC (24.5-32.8)
[2019-11-07] MEDS ORDERED: traMADol 50 MG Tab PO PRN (04:52)
[2019-11-07] MEDS ORDERED: Nitroglycerin 0.4 MG Tab.SL SL PRN (04:52)
[2019-11-07] MEDS ORDERED: Sodium Chloride 0.9% 10 ML Syringe FLUSH PRN (04:52)
[2019-11-07] MEDS ORDERED: Acetaminophen 325 MG Tab PO PRN (04:52)
[2019-11-07] MEDS ORDERED: Temazepam 15 MG Cap PO PRN (04:52)
[2019-11-07] MEDS ORDERED: Albuterol/Ipratropium 3.0-0.5 MG/3 ML Neb Soln NEB PRN (04:58)
[2019-11-07] MEDS ORDERED: Albuterol 0.083% 2.5 MG/3 ML Neb Soln INH PRN (04:58)
[2019-11-07] MEDS ORDERED: Levothyroxine 100 MCG Tab PO SCH (07:30)
[2019-11-07] MEDS ORDERED: Clopidogrel 75 MG Tab PO SCH (08:00)
[2019-11-07] MEDS ORDERED: Metoprolol Succinate 50 MG Tab.ER PO SCH (08:00)
[2019-11-07] MEDS ORDERED: Pantoprazole 40 MG Tab.CR PO SCH (08:00)
[2019-11-07] MEDS ORDERED: Amiodarone 200 MG Tab PO SCH (08:00)
[2019-11-07] MEDS ORDERED: Loratadine 10 MG Tab PO SCH (08:00)
[2019-11-07] MEDS ORDERED: Spironolactone 25 MG Tab PO SCH (08:00)
[2019-11-07] MEDS ORDERED: Allopurinol 100 MG Tab PO SCH (08:00)
[2019-11-07] MEDS ORDERED: Metoprolol Succinate 25 MG Tab.ER PO SCH (08:00)
[2019-11-07] MEDS ORDERED: Cholecalciferol (Vitamin D3) 25 MCG Tab PO SCH (08:00)
[2019-11-07] MEDS: Albuterol/Ipratropium 3.0-0.5 MG/3 ML Neb Soln NEB SCH ×3 (09:08→19:35)
[2019-11-07] MEDS: Morphine 2 MG/ML SYRINGE PRN ×2 (09:25→16:19)
[2019-11-07] MEDS: Potassium Chloride 20 MEQ Tab.ER PO SCH ×3 (09:30→17:54)
[2019-11-07] MEDS: Ferrous Sulfate 325 MG Tab PO SCH ×2 (09:30→19:35)
[2019-11-07] MEDS: Acetaminophen 650 MG Tab.ER PO SCH ×3 (09:30→17:54)
[2019-11-07] MEDS: Isosorbide Mononitrate 60 MG Tab.ER PO SCH ×2 (09:30→17:54)
[2019-11-07] MEDS: hydrALAZINE 50 MG Tab PO SCH ×3 (09:30→17:54)
[2019-11-07] MEDS: Ascorbic Acid 500 MG Tab PO SCH ×2 (09:30→17:54)
[2019-11-07] MEDS: Apixaban 5 MG Tab PO SCH ×2 (09:30→19:35)
[2019-11-07] MEDS ORDERED: Sodium Chloride 0.9% Inhalation Soln 3 ML Neb INH PRN (09:52)
[2019-11-07] MEDS: Piperacillin/Tazobactam 3.375 GM in Sodium Chloride 0.9% 100 ML IV SCH ×2 (11:39→17:54)
[2019-11-07] MEDS: Furosemide 40 MG/4 ML VIAL IVPUSH SCH ×2 (11:40→18:33)
[2019-11-07] MEDS: LORazepam 2 MG/ML SDV IVPUSH PRN (14:46)
[2019-11-07] MEDS ORDERED: Pramipexole 0.125 MG Tab PO SCH (20:00)
[2019-11-07] MEDS ORDERED: traMADol 50 MG Tab PO SCH (20:00)
[2019-11-07] MEDS ORDERED: Melatonin 3 MG Tab PO SCH (20:00)
[2019-11-07] MEDS ORDERED: Magnesium Oxide 400 MG Tab PO SCH (20:00)
[2019-11-07] MEDS ORDERED: Rosuvastatin 10 MG Tab PO SCH (20:00)
[2019-11-07] MEDS ORDERED: Piperacillin/Tazobactam 3.375 GM in Sodium Chloride 0.9% 100 ML IV SCH (22:00)
[2019-11-08] MEDS: Piperacillin/Tazobactam 3.375 GM in Sodium Chloride 0.9% 100 ML IV SCH (00:06)
[2019-11-08] MEDS: Albuterol/Ipratropium 3.0-0.5 MG/3 ML Neb Soln NEB SCH (02:22)
[2019-11-08] MEDS: Furosemide 40 MG/4 ML VIAL IVPUSH SCH (02:23)
[2019-11-08 02:28] VITALS: BP 101/47; PULSE 53
[2019-11-08] MEDS: Morphine 2 MG/ML SYRINGE PRN (02:48)
[2019-11-08] MEDS: LORazepam 2 MG/ML SDV IVPUSH PRN (03:03)
[2019-11-08] MEDS ORDERED: Azithromycin 500 MG in Sodium Chloride 0.9% 250 ML IV SCH (05:00)
[2019-11-08] MEDS ORDERED: Pantoprazole 40 MG Tab.CR PO SCH (08:00)
--- NOTE | 2019-11-08 12:13 | PCM.DCSUM1 ---
Discharge Summary - Hospital Course HPI Initial Comments: See emergency room note/admission H&P Brief History: See emergency room note/admission H&P Diagnosis: Stroke: No Modified [place] Scale: No Symptoms at All Modified [place] Scale Score: 0 - Discharge Data Discharge Date: 11/08/19 Discharge Disposition: 20 Condition: Critical - Referral to [facility] Primary Care Physician: Stephy Mcguire NP - Discharge Diagnosis/Problem(s) (1) Pneumonia SNOMED Code(s): 374919791 ICD Code: J18.9 - PNEUMONIA, UNSPECIFIED ORGANISM Status: Acute Priority: High Onset Date: 11/07/19 Problem Details: Note positive preliminary blood culture x 1 prior to patient's with final results still pending. Probable sepsis as above. No fever prior to arrival in this facility. Borderline septic picture on arrival, however lactic acid level was normal. Blood cultures x2 were collected prior to initiation of IV Zosyn and IV Zithromax therapy in the emergency room. Attempt to obtain sputum specimen was unsuccessful. Prognosis guarded on arrival and admission secondary to her respiratory distress, hypoxia, and increased oxygen requirement with current NO CODE STATUS. Previous negative COVID-19 as per emergency room note, however this was still repeated on admission with initiation of droplet precautions and results still pending. Patient unfortunately at 3:29 AM with problems with hypoxia throughout her admission including final requirement of oxygen at 10 L/min by partial rebre ather mask. IV Ativan was used for patient comfort and to better tolerate the mask therapy. The patient was unable to take oral medications during this hospitalization. Qualifiers: Pneumonia type: due to unspecified organism Laterality: left Lung location: upper lobe of lung Qualified Code(s): J18.9 - Pneumonia, unspecified organism (2) Sepsis SNOMED Code(s): 39511297 ICD Code: A41.9 - SEPSIS, UNSPECIFIED ORGANISM Status: Acute Priority: High Onset Date: ~11/07/19 Problem Details: As above. Qualifiers: Sepsis type: sepsis due to unspecified organism Sepsis acute organ dysfunction status: without acute organ dysfunction Qualified Code(s): A41.9 - Sepsis, unspecified organism (3) CAD (coronary artery disease) SNOMED Code(s): 84920911 ICD Code: I25.10 - ATHSCL HEART DISEASE OF [place] CORONARY ARTERY W/O ANG PCTRS Status: Chronic Priority: High Problem Details: Note subsequent positive cardiac enzymes during second and third set of blood samples with probable acute MS. Secondary to patient's hypotension nitroglycerin therapy was not initiated with the patient already on Eliquis. Chest pain protocol was initiated immediately upon the patient's arrival to the emergency room. ASA and Brilinta were not given secondary to patient's Eliquis therapy. IV diltiazem was given for blood pressure control. Patient was also given 2 sublingual nitroglycerin tablets with resolution of chest pressure however persistent pleurisy from her pneumonia at time of admission. Last stents placed March 2019. Initiated standard rule out MS orders on admission as above, however note comfort care. Qualifiers: Coronary Disease-Associated Artery/Lesion type: [place] artery [place] vs. transplanted heart: [place] heart Associated angina: with stable angina Qualified Code(s): I25.118 - Atherosclerotic heart disease of [place] coronary artery with other forms of angina pectoris (4) Acute MS SNOMED Code(s): 75411583 ICD Code: I21.9 - ACUTE MYOCARDIAL INFARCTION, UNSPECIFIED Status: Acute Priority: High Onset Date: ~11/07/19 Problem Details: As above Qualifiers: Myocardial infarction type: non-ST elevation myocardial infarction Pal lified Code(s): I21.4 - Non-ST elevation (NSTEMI) myocardial infarction (5) Comfort measures only status SNOMED Code(s): 70506409631561 ICD Code: Z51.5 - ENCOUNTER FOR PALLIATIVE CARE Status: Chronic Priority: High Problem Details: Confirmed from snf records, patient, and her daughter on admission with prognosis extremely poor as above and patient not expected to survive this hospitalization. (6) CHF (congestive heart failure) SNOMED Code(s): 78282265 ICD Code: I50.9 - HEART FAILURE, UNSPECIFIED Status: Chronic Priority: High Problem Details: Note significantly elevated BNP with mild to moderate CHF by chest x-ray. IV Lasix therapy initiated in the emergency room. Note comfort care with no further echocardiogram, etc.. The patient is allergic to VIJAYA inhibitors. Note probable acute MS as above with repeat chest x-ray, EKG, and blood work not able to be conducted prior to patient's . Qualifiers: Heart failure type: combined systolic and diastolic Heart failure chronicity: acute on chronic Qualified Code(s): I50.43 - Acute on chronic combined systolic (congestive) and diastolic (congestive) heart failure (7) COPD, severe SNOMED Code(s): 741020497 ICD Code: J44.9 - CHRONIC OBSTRUCTIVE PULMONARY DISEASE, UNSPECIFIED Status: Chronic Priority: High Problem Details: Severe hypoxia with patient able to be initially titrated down to nasal cannula at 6 L/min by nasal cannula, however note increased subsequent oxygen requirement as above. During this hospitalization the patient did require aggressive duo nebulizer treatments with additional aggressive every 2 hour Proventil nebulizer and morphine nebulizer treatments. Note multiple nebulizer treatments were given to the patient prior to her arrival in our emergency room. Morphine nebulizer treatments x2 given in the emergency room. Prognosis guarded as above. (8) Chronic kidney disease SNOMED Code(s): 008355868 ICD Code: N18.9 - CHRONIC KIDNEY DISEASE, UNSPECIFIED Status: Chronic Priority: Medium Problem Details: Stable by history and medical records. Continued to observe closely secondary to IV Lasix therapy as above. Note previous history of proteinuria. Qualifiers: Chronic kidney disease stage: stage 4 (severe) Qualified Code(s): N18.4 - Chronic kidney disease, stage 4 (severe) (9) Elevated d-dimer SNOMED Code(s): 970428160 ICD Code: R79.89 - OTHER SPECIFIED ABNORMAL FINDINGS OF BLOOD CHEMISTRY Status: Chronic Priority: High Problem Details: History of chronically elevated D-Dimer with extensive negative workup as per emergency room note. 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 above. Note current Eliquis therapy. Observe for now. (10) HTN (hypertension), benign SNOMED Code(s): 24776580 ICD Code: I10 - ESSENTIAL (PRIMARY) HYPERTENSION Status: Chronic [facility]: High Problem Details: Significantly elevated blood pressures in the emergency room and prior to arrival somewhat refractory to therapy. A total of 20 mg of IV diltiazem and 2 sublingual nitroglycerin tablets were given. Further medication adjustments during this hospitalization. Note additional IV Lasix therapy as above. Tachycardia improved with above therapy prior to admission. Her blood pressures also became normal shortly after admission with otherwise stable blood pressures during this hospitalization. (11) Hyperuricemia SNOMED Code(s): 46816253 ICD Code: E79.0 - HYPERURICEMIA W/O SIGNS OF INFLAM ARTHRIT AND TOPHACEOUS DIS Status: Chronic Priority: Medium Problem Details: Stable by history with no recent gout attacks, etc. (12) Hypothyroidism (acquired) SNOMED Code(s): 680051557 ICD Code: E03.9 - HYPOTHYROIDISM, UNSPECIFIED Status: Chronic Priority: Medium Onset Date: 04/28/19 Problem Details: Mildly elevated TSH today and on 04/28/19. Adjustment of Synthroid therapy during this hospitalization with recommended repeat TSH in about 4 weeks, however patient did during this hospitalization. (13) Anemia SNOMED Code(s): 105578080 ICD Code: D64.9 - ANEMIA, UNSPECIFIED Status: Chronic Priority: Medium Problem Details: Hemoglobin improved per our medical records. Note she did receive an iron infusion in this facility on 11/06/2019. B-12 level and folic acid levels were normal on 04/29/19. Note combination of iron deficiency and chronic renal disease as etiology for her anemia. Qualifiers: Anemia type: due to chronic kidney disease Chronic kidney disease stage: stage 4 (severe) Qualified Code(s): N18.4 - Chronic kidney disease, stage 4 (severe); D63.1 - Anemia in chronic kidney disease (14) Closed nondisplaced fracture of fifth left metatarsal bone SNOMED Code(s): 07009273, 867253590, 71189965919523573 ICD Code: S92.355A - NONDISP FX OF FIFTH METATARSAL BONE, LEFT FOOT, INIT Status: Acute Onset Date: 11/06/19 Problem Details: Note newly diagnosed left fifth metatarsal fracture as per emergency room note. Patient is mostly nonambulatory with observation at this time. Her arthritis is otherwise stable. Qualifiers: Encounter type: subsequent encounter (15) UTI (urinary tract infection) SNOMED Code(s): 63415175 ICD Code: N39.0 - URINARY TRACT INFECTION, SITE NOT SPECIFIED Status: Acute Priority: Medium Onset Date: 11/07/19 Problem Details: IV antibiotic therapy as above with culture and sensitivity results obtained on 11/08/2019 after patient . Qualifiers: Urinary tract infection type: acute cystitis Hematuria presence: without hematuria Qualified Code(s): N30.00 - Acute cystitis without hematuria - Patient Summary/Data Operative Procedure(s) Performed: None Complications: and possible sepsis as above. Consults: None Labs Pending at D/C: 1. Final blood culture results x2 2. Final COVID-19 results Recommended Follow-up Testing/Procedures: None Planned Operative Procedure(s) after DC: None Hospital Course: The patient was admitted to inpatient/acute care on telemetry with aggressive treatment of her pneumonia, COPD, coronary artery disease, etc. as above. Patient unfortunately at 3:29 AM on 11/08/2019. - Discharge Plan *PRESCRIPTION DRUG MONITORING PROGRAM REVIEWED*: Not Applicable *COPY OF PRESCRIPTION DRUG MONITORING REPORT IN PATIENT YADIRA: Not Applicable Home Medications: Home Meds Albuterol [Ventolin HFA] 2 puff INH Q4HR PRN 07/05/14 [History] Nitroglycerin [Nitrostat] 0.4 mg SL ASDIRECTED PRN #100 tab.sl 07/17/15 [Rx] allopurinoL [Zyloprim] 100 mg PO DAILY 03/04/18 [History] Apixaban [Eliquis] 5 mg PO BID@,04/14/18 [History] Ferrous Sulfate 1 tab PO BID@,04/14/18 [History] Melatonin 3 mg PO BEDTIME 04/14/18 [History] Sennosides/Docusate Sodium [Senna-S] 1 each PO Q12H PRN 03/16/19 [History] Ascorbic Acid [Vitamin C] 250 mg PO BID 04/28/19 [History] Clopidogrel Bisulfate [Clopidogrel] 75 mg PO DAILY 04/28/19 [History] Rosuvastatin [Crestor] 20 mg PO BEDTIME 04/28/19 [History] Ubidecarenone [Co Q-10] 100 mg PO DAILY #30 capsule 05/01/19 [Rx] Cholecalciferol (Vitamin D3) [Vitamin D3] 2,000 unit PO DAILY 05/08/19 [History] Isosorbide Mononitrate [Imdur] 120 mg PO BID 05/08/19 [History] Magnesium Oxide 400 mg PO BEDTIME 05/08/19 [History] Torsemide 40 mg PO BID 05/08/19 [History] hydrALAZINE [Apresoline] 25 mg PO TID 05/08/19 [History] Acetaminophen [Tylenol Arthritis] 650 mg PO TID 11/06/19 [History] Albuterol/Ipratropium [Combivent Respimat] 2 puff INH BID 11/06/19 [History] Albuterol/Ipratropium [DuoNeb 3.0-0.5 MG/3 ML] 3 ml NEB Q4H PRN 11/06/19 [History] Amiodarone [Cordarone] 200 mg PO DAILY 11/06/19 [History] Cetyl Alc/Stearyl Alc/Pg/Sls [Cetaphil] 1 applic TOP BID 11/06/19 [History] Cetyl Alc/Stearyl Alc/Pg/Sls [Cetaphil] 1 applic TOP Q12H PRN 11/06/19 [History] Fluticasone/Salmeterol [Advair 500-50] 1 puff INH BID 11/06/19 [History] Hydrocortisone [Hydrocortisone 1% Crm] 1 applic TOP Q8HR PRN 11/06/19 [History] Levothyroxine Sodium [Synthroid] 75 mcg PO DAILY 11/06/19 [History] Loratadine [Claritin] 10 mg PO DAILY 11/06/19 [History] Metoprolol Succinate 25 mg PO DAILY 11/06/19 [History] Metoprolol Succinate 50 mg PO DAILY 11/06/19 [History] Pantoprazole Sodium [Protonix] 40 mg PO DAILY 11/06/19 [History] Potassium Chloride [Klor-Con 10] 10 meq PO DAILY 11/06/19 [History] Pramipexole [Mirapex] 0.125 mg PO BEDTIME 11/06/19 [History] Spironolactone [Aldactone] 12.5 mg PO DAILY 11/06/19 [History] traMADol HCl [Tramadol HCl] 50 mg PO BEDTIME 11/06/19 [History] traMADol HCl [Tramadol HCl] 50 mg PO Q8HR PRN 11/07/19 [History] Forms: ED Department Discharge Referrals: Stephy Mcguire NP [Primary Care Provider] - - Discharge Summary/Plan Comment DC Time >30 min.: Yes (Coordination of care ) Discharge Summary/Plan Comment: Patient's body released to family's mortuary of choice. - General Info Date of Service: 11/08/19 Admission Dx/Problem (Free Text: 1. Bilateral pneumonia, left greater than right 2. Coronary artery disease 3. O2 dependent COPD with severe exacerbation and hypoxemia Subjective Update: Patient as above - Patient Data Vitals - Most Recent: Last Vital Signs Temp 36.7 C 11/08/19 00:00 Pulse 53 L 11/08/19 02:27 Resp 24 H 11/08/19 00:00 BP 101/47 L 11/08/19 02:27 Pulse Ox 90 L 11/08/19 02:27 Vital Signs - 24 hr 11/07/19 11/07/19 11/07/19 14:00 15:00 16:00 Temperature [ 36.4 C Oral] Temperature [ 36.3 C Temporal] Pulse, 96 94 89 Peripheral [ Right Pulse Oximetry] Respiratory 24 H 24 H Rate Blood Pressure [Left Upper Arm ] Blood Pressure 108/62 [Right Upper Arm] O2 Sat by Pulse 90 L 88 L 90 L Oximetry 11/07/19 11/07/19 11/07/19 16:52 17:00 17:19 Temperature [ Oral] Temperature [ Temporal] Pulse, 89 83 88 Peripheral [ Right Pulse Oximetry] Respiratory Rate Blood Pressure [Left Upper Arm ] Blood Pressure [Right Upper Arm] O2 Sat by Pulse 84 L 81 L 93 L Oximetry 11/07/19 11/07/19 11/07/19 17:52 18:30 19:29 Temperature [ Oral] Temperature [ 36.4 C 36.9 C Temporal] Pulse, 88 83 91 Peripheral [ Right Pulse Oximetry] Respiratory 24 H 28 H Rate Blood Pressure 113/60 [Left Upper Arm ] Blood Pressure 109/86 [Right Upper Arm] O2 Sat by Pulse 93 L 96 96 Oximetry 11/07/19 11/08/19 11/08/19 22:00 00:00 02:00 Temperature [ Oral] Temperature [ 36.7 C Temporal] Pulse, 94 96 54 L Peripheral [ Right Pulse Oximetry] Respiratory 24 H Rate Blood Pressure 118/59 L 89/36 L [Left Upper Arm ] Blood Pressure [Right Upper Arm] O2 Sat by Pulse 93 L 92 L 82 L Oximetry 11/08/19 02:27 Temperature [ Oral] Temperature [ Temporal] Pulse, 53 L Peripheral [ Right Pulse Oximetry] Respiratory Rate Blood Pressure 101/47 L [Left Upper Arm ] Blood Pressure [Right Upper Arm] O2 Sat by Pulse 90 L Oximetry Weight - Most Recent: 79.923 kg I&O - Last 24 hours: Intake & Output 11/07/19 11/08/19 11/08/19 22:59 06:59 14:59 Intake Total 100 Output Total 300 Balance -200 Imaging Impressions - Last 24 hrs: Chest x-ray, portable, on 11/07/2019 shows evidence of mild CHF with moderate left upper lobe and mild to moderate left lower lobe consolidations consistent with pneumonia. Moderate COPD changes with no pneumothorax. Mild prominence of the proximal aortic arch. Note confirmation of the above findings by the radiologist at [facility] via telephone consultation at 03:49 hours. Lab Results - Last 24 hrs: Laboratory Results - last 24 hr 11/07/19 11/07/19 Range/Units 11:50 17:45 Creatine Kinase 139 255 (26-308) U/L Creatine Kinase Index 4.1 H 3.7 H (0.0-2.5) % CK-MB (CK-2) 5.70 H* 9.40 H* (0.00-3.60) ng/mL Troponin I 0.106 H* 0.100 H* (0.000-0.056) ng/mL ANT Results - Last 24 hrs: Microbiology 11/07/19 03:20 Aerobic Blood Culture - Preliminary Blood - Venous Gram Negative Rods 11/07/19 03:50 Aerobic Blood Culture - Preliminary Blood - Venous - Lab Draw Gram Negative Rods Anaerobic Blood Culture - Preliminary Gram Negative Rods 11/07/19 05:55 Urine Culture - Final Urine, Catheterized [place]a Ascorbata 11/07/19 16:00 Stool Occult Blood (ANT) - Final Stool / Feces NEGATIVE OCCULT BLOOD REFERENCE RANGE: NEGATIVE Med Orders - Current: Current Medications Discontinued Medications Acetaminophen (Tylenol Arthritis Pain) 650 mg PO TID AMARI Last Admin: 11/07/19 17:54 Dose: Not Given Documented by: Acetaminophen (Tylenol) 650 mg PO Q4H PRN PRN Reason: Pain Albuterol (Proventil Neb Soln) 2.5 mg INH Q2H PRN PRN Reason: SHORTNESS OF BREATH Last Admin: 11/07/19 11:40 Dose: 2.5 mg Documented by: Albuterol/Ipratropium (Duoneb 3.0-0.5 Mg/3 Ml) 3 ml NEB Q4HRRT PRN PRN Reason: Dyspnea Albuterol/Ipratropium (Duoneb 3.0-0.5 Mg/3 Ml) 3 ml NEB Q6HRRT [facility] Last Admin: 11/08/19 02:22 Dose: 3 ml Documented by: Allopurinol (Zyloprim) 100 mg PO DAILY [facility] Last Admin: 11/07/19 09:30 Dose: Not Given Documented by: Amiodarone HCl (Cordarone) 200 mg PO DAILY [facility] Last Admin: 11/07/19 09:30 Dose: Not Given Documented by: Apixaban (Eliquis) 5 mg PO BID@ [facility] Last Admin: 11/07/19 19:35 Dose: Not Given Documented by: Ascorbic Acid (Vitamin C) 250 mg PO BID [facility] Last Admin: 11/07/19 17:54 Dose: Not Given Documented by: Cholecalciferol (Vitamin D3) 50 mcg PO DAILY [facility] Last Admin: 11/07/19 09:30 Dose: Not Given Documented by: Clopidogrel Bisulfate (Plavix) 75 mg PO DAILY [facility] Last Admin: 11/07/19 09:30 Dose: Not Given Documented by: Coenzyme Q10 (Coenzyme Q10) 100 mg PO DAILY [facility] Last Admin: 11/07/19 09:30 Dose: Not Given Documented by: Diltiazem HCl (Diltiazem) 20 mg IVPUSH ONETIME ONE Stop: 11/07/19 03:06 Last Admin: 11/07/19 03:25 Dose: 20 mg Documented by: Famotidine (Pepcid) 40 mg IVPUSH ONETIME ONE Stop: 11/07/19 03:03 Last Admin: 11/07/19 03:30 Dose: 40 mg Documented by: Ferrous Sulfate (Ferrous Sulfate) 325 mg PO BID@ [facility] Last Admin: 11/07/19 19:35 Dose: Not Given Documented by: Furosemide (Lasix) 60 mg IVPUSH NOW ONE Stop: 11/07/19 03:11 Last Admin: 11/07/19 03:31 Dose: 60 mg Documented by: Furosemide (Lasix) 40 mg IVPUSH Q8H [facility] Last Admin: 11/08/19 02:23 Dose: Not Given Documented by: Hydralazine HCl (Apresoline) 25 mg PO TID [facility] Last Admin: 11/07/19 17:54 Dose: Not Given Documented by: Piperacillin Sod/Tazobactam (Sod 3.375 gm/ Sodium Chloride) 100 mls @ 200 mls/hr IV ONETIME ONE Stop: 11/07/19 04:05 Last Admin: 11/07/19 05:08 Dose: 200 mls/hr Documented by: Azithromycin 500 mg/ Sodium (Chloride) 250 mls @ 250 mls/hr IV ONETIME ONE Stop: 11/07/19 04:35 Last Admin: 11/07/19 04:03 Dose: 250 mls/hr Documented by: Piperacillin Sod/Tazobactam (Sod 3.375 gm/ Sodium Chloride) 100 mls @ 200 mls/hr IV Q6H AMARI Azithromycin 500 mg/ Sodium (Chloride) 250 mls @ 250 mls/hr IV Q24H AMARI Piperacillin Sod/Tazobactam (Sod 3.375 gm/ Sodium Chloride) 100 mls @ 200 mls/hr IV Q6H [facility] Last Admin: 11/08/19 00:06 Dose: 200 mls/hr Documented by: Isosorbide Mononitrate (Imdur) 120 mg PO BID [facility] Last Admin: 11/07/19 17:54 Dose: Not Given Documented by: Levothyroxine Sodium (Synthroid) 100 mcg PO ACBREAKFAST [facility] Last Admin: 11/07/19 09:14 Dose: Not Given Documented by: Loratadine (Claritin) 10 mg PO DAILY [facility] Last Admin: 11/07/19 09:30 Dose: Not Given Documented by: Lorazepam (Ativan) 0.5 mg IVPUSH Q4H PRN PRN Reason: Agitation Last Admin: 11/08/19 03:03 Dose: 0.5 mg Documented by: Magnesium Oxide (Magnesium Oxide) 400 mg PO BEDTIME [facility] Last Admin: 11/07/19 19:35 Dose: Not Given Documented by: Melatonin (Melatonin) 3 mg PO BEDTIME [facility] Last Admin: 11/07/19 19:35 Dose: Not Given Documented by: Metoprolol Succinate (Toprol Xl) 50 mg PO DAILY [facility] Last Admin: 11/07/19 09:30 Dose: Not Given Documented by: Metoprolol Succinate (Toprol Xl) 25 mg PO DAILY [facility] Last Admin: 11/07/19 09:30 Dose: Not Given Documented by: Morphine Sulfate (Morphine) 2 mg .XX ONETIME ONE Stop: 11/07/19 03:35 Last Admin: 11/07/19 03:37 Dose: 2 mg Documented by: Morphine Sulfate (Morphine) 2 mg .XX ONETIME ONE Stop: 11/07/19 04:00 Last Admin: 11/07/19 04:07 Dose: 2 mg Documented by: Morphine Sulfate (Morphine) 2 mg .XX Q2H PRN PRN Reason: Dyspnea Last Admin: 11/08/19 02:48 Dose: 2 mg Documented by: Nitroglycerin (Nitrostat) 0.4 mg SL ONETIME STA Stop: 11/08/19 03:11 Last Admin: 11/07/19 03:42 Dose: 0.4 mg Documented by: Nitroglycerin (Nitrostat) 0.4 mg SL ONETIME STA Stop: 11/08/19 03:38 Last Admin: 11/07/19 04:09 Dose: Not Given Documented by: Nitroglycerin (Nitrostat) 0.4 mg SL ASDIRECTED PRN PRN Reason: Chest Pain Pantoprazole Sodium (Protonix) 40 mg PO DAILY [facility] Pantoprazole Sodium (Protonix) 40 mg PO DAILY [facility] Potassium Chloride (Klor-Con M20) 20 meq PO TID [facility] Last Admin: 11/07/19 17:54 Dose: Not Given Documented by: Pramipexole Dihydrochloride (Mirapex) 0.125 mg PO BEDTIME [facility] Last Admin: 11/07/19 19:35 Dose: Not Given Documented by: Rosuvastatin Calcium (Crestor) 20 mg PO BEDTIME [facility] Last Admin: 11/07/19 19:35 Dose: Not Given Documented by: Senna/Docusate Sodium (Senna Plus) 1 tab PO Q12H PRN PRN Reason: Constipation Sodium Chloride (Saline Flush) 10 ml FLUSH ASDIRECTED PRN PRN Reason: Keep Vein Open Last Admin: 11/07/19 17:55 Dose: 10 ml Documented by: Sodium Chloride (Saline Flush) 10 ml FLUSH Q12HR PRN PRN Reason: Keep Vein Open Sodium Chloride (Sodium Chloride 0.9%) 3 ml INH Q2HR PRN PRN Reason: Shortness of Breath Last Admin: 11/07/19 16:19 Dose: 3 ml Documented by: Spironolactone (Aldactone) 12.5 mg PO DAILY [facility] Last Admin: 11/07/19 09:30 Dose: Not Given Documented by: Temazepam (Restoril) 15 mg PO BEDTIME PRN PRN Reason: Insomnia Tramadol HCl (Ultram) 50 mg PO BEDTIME AMARI Last Admin: 11/07/19 19:35 Dose: Not Given Documented by: Tramadol HCl (Ultram) 50 mg PO Q8HR PRN PRN Reason: Pain Comments:: Patient - Exam Lungs: Reports: Other (Apneic by nurse's exam) Cardiovascular: Reports: Other (Asystole by nurse's exam)
--- NOTE | 2019-11-08 12:36 | PCM.SN.2 ---
- Free Text/Narrative Note: Addendum to discharge summary on 11/08/2023 blood work and microbiology results: Laboratory Tests 11/07/19 11/07/19 11/07/19 Range/Units 03:20 03:20 03:20 WBC 21.5 H (4.0-10.2) K/uL RBC 4.15 (3.77-5.09) M/uL Hgb 11.4 L (11.7-15.5) g/dL Hct 38.0 (34.0-46.0) % MCV 91.6 (84.0-98.0) fL MCH 27.5 L (28.2-33.3) pg MCHC 30.0 L (31.7-36.0) g/dL RDW 18.4 H (11.2-14.1) % Plt Count 203 (150-350) K/uL Neut % (Auto) 91.6 H (45.0-80.0) % Lymph % (Auto) 4.9 L (10.0-50.0) % [place] % (Auto) 2.2 (2.0-14.0) % Eos % (Auto) 1.2 (0.0-5.0) % Baso % (Auto) 0.1 (0.0-2.0) % Neut # (Auto) 19.65 H (1.40-7.00) K/uL Lymph # (Auto) 1.06 (0.50-3.50) K/uL [place] # (Auto) 0.48 (0.00-1.00) K/uL Eos # (Auto) 0.26 (0.00-0.50) K/uL Baso # (Auto) 0.03 (0.00-0.20) K/uL PT 11.3 (9.5-12.0) SEC INR 1.1 APTT 38.8 H (24.5-32.8) SEC D-Dimer, Quantitative 1570 H (0-400) ng/mL Sodium (136-145) mmol/L Potassium (3.5-5.1) mmol/L Chloride (98-107) mmol/L Carbon Dioxide (21.0-32.0) mmol/L BUN (7-18) mg/dL Creatinine (0.51-1.17) mg/dL Est Cr Clr Drug Dosing mL/min Estimated GFR (MDRD) mL/min Glucose (74-106) mg/dL Lactic Acid (0.4-2.0) mmol/L Uric Acid (2.6-7.2) mg/dL Calcium (8.5-10.1) mg/dL Magnesium (1.8-2.4) mg/dL Total Bilirubin (0.2-1.0) mg/dL AST (15-37) U/L ALT (12-78) U/L Alkaline Phosphatase (46-116) IU/L Creatine Kinase (26-308) U/L Creatine Kinase Index (0.0-2.5) % CK-MB (CK-2) (0.00-3.60) ng/mL Troponin I (0.000-0.056) ng/mL NT-Pro-B Natriuret Pep (0-125) pg/mL Total Protein (6.4-8.2) g/dL Albumin (3.4-5.0) g/dL TSH, Ultra Sensitive (0.358-3.740) mIU/mL Specimen Type Urine Color Urine Appearance Urine pH (5.0-9.0) Ur Specific [place] (1.005-1.030) Urine Protein (NEGATIVE) mg/dL Urine Glucose (UA) (NEGATIVE) mg/dL Urine Ketones (NEGATIVE) mg/dL Urine Occult Blood (NEGATIVE) Urine Nitrite (NEGATIVE) Urine Bilirubin (NEGATIVE) Urine Urobilinogen (0.2-1.0) E.U./dL Ur Leukocyte Esterase (NEGATIVE) Urine RBC /HPF Urine WBC /HPF Ur Epithelial Cells /LPF Urine Bacteria (NONE TO FEW) /HPF 11/07/19 11/07/19 11/07/19 Range/Units 03:20 03:20 05:55 WBC (4.0-10.2) K/uL RBC (3.77-5.09) M/uL Hgb (11.7-15.5) g/dL Hct (34.0-46.0) % MCV (84.0-98.0) fL MCH (28.2-33.3) pg MCHC (31.7-36.0) g/dL RDW (11.2-14.1) % Plt Count (150-350) K/uL Neut % (Auto) (45.0-80.0) % Lymph % (Auto) (10.0-50.0) % [place] % (Auto) (2.0-14.0) % Eos % (Auto) (0.0-5.0) % Baso % (Auto) (0.0-2.0) % Neut # (Auto) (1.40-7.00) K/uL Lymph # (Auto) (0.50-3.50) K/uL [place] # (Auto) (0.00-1.00) K/uL Eos # (Auto) (0.00-0.50) K/uL Baso # (Auto) (0.00-0.20) K/uL PT (9.5-12.0) SEC INR APTT (24.5-32.8) SEC D-Dimer, Quantitative (0-400) ng/mL Sodium 140 (136-145) mmol/L Potassium 4.9 (3.5-5.1) mmol/L Chloride 98 (98-107) mmol/L Carbon Dioxide 32.6 H (21.0-32.0) mmol/L BUN 57 H (7-18) mg/dL Creatinine 1.77 H (0.51-1.17) mg/dL Est Cr Clr Drug Dosing 22.25 mL/min Estimated GFR (MDRD) 28 mL/min Glucose 155 H (74-106) mg/dL Lactic Acid 0.9 (0.4-2.0) mmol/L Uric Acid 6.8 (2.6-7.2) mg/dL Calcium 9.1 (8.5-10.1) mg/dL Magnesium 1.8 (1.8-2.4) mg/dL Total Bilirubin 0.3 (0.2-1.0) mg/dL AST 25 (15-37) U/L ALT 21 (12-78) U/L Alkaline Phosphatase 110 (46-116) IU/L Creatine Kinase 53 (26-308) U/L Creatine Kinase Index 3.8 H (0.0-2.5) % CK-MB (CK-2) 2.00 (0.00-3.60) ng/mL Troponin I 0.010 (0.000-0.056) ng/mL NT-Pro-B Natriuret Pep 4084 H (0-125) pg/mL Total Protein 8.2 (6.4-8.2) g/dL Albumin 3.6 (3.4-5.0) g/dL TSH, Ultra Sensitive 5.170 H (0.358-3.740) mIU/mL Specimen Type [place] Urine Color Yellow Urine Appearance Cloudy Urine pH 5.5 (5.0-9.0) Ur Specific [place] 1.015 (1.005-1.030) Urine Protein 100 H (NEGATIVE) mg/dL Urine Glucose (UA) Negative (NEGATIVE) mg/dL Urine Ketones Negative (NEGATIVE) mg/dL Urine Occult Blood Trace-intact H (NEGATIVE) Urine Nitrite Positive H (NEGATIVE) Urine Bilirubin Negative (NEGATIVE) Urine Urobilinogen 0.2 (0.2-1.0) E.U./dL Ur Leukocyte Esterase Small H (NEGATIVE) Urine RBC 0-5 /HPF Urine WBC 30-40 H /HPF Ur Epithelial Cells Few /LPF Urine Bacteria Many H (NONE TO FEW) /HPF 11/07/19 11/07/19 Range/Units 11:50 17:45 WBC (4.0-10.2) K/uL RBC (3.77-5.09) M/uL Hgb (11.7-15.5) g/dL Hct (34.0-46.0) % MCV (84.0-98.0) fL MCH (28.2-33.3) pg MCHC (31.7-36.0) g/dL RDW (11.2-14.1) % Plt Count (150-350) K/uL Neut % (Auto) (45.0-80.0) % Lymph % (Auto) (10.0-50.0) % [place] % (Auto) (2.0-14.0) % Eos % (Auto) (0.0-5.0) % Baso % (Auto) (0.0-2.0) % Neut # (Auto) (1.40-7.00) K/uL Lymph # (Auto) (0.50-3.50) K/uL [place] # (Auto) (0.00-1.00) K/uL Eos # (Auto) (0.00-0.50) K/uL Baso # (Auto) (0.00-0.20) K/uL PT (9.5-12.0) SEC INR APTT (24.5-32.8) SEC D-Dimer, Quantitative (0-400) ng/mL Sodium (136-145) mmol/L Potassium (3.5-5.1) mmol/L Chloride (98-107) mmol/L Carbon Dioxide (21.0-32.0) mmol/L BUN (7-18) mg/dL Creatinine (0.51-1.17) mg/dL Est Cr Clr Drug Dosing mL/min Estimated GFR (MDRD) mL/min Glucose (74-106) mg/dL Lactic Acid (0.4-2.0) mmol/L Uric Acid (2.6-7.2) mg/dL Calcium (8.5-10.1) mg/dL Magnesium (1.8-2.4) mg/dL Total Bilirubin (0.2-1.0) mg/dL AST (15-37) U/L ALT (12-78) U/L Alkaline Phosphatase (46-116) IU/L Creatine Kinase 139 255 (26-308) U/L Creatine Kinase Index 4.1 H 3.7 H (0.0-2.5) % CK-MB (CK-2) 5.70 H* 9.40 H* (0.00-3.60) ng/mL Troponin I 0.106 H* 0.100 H* (0.000-0.056) ng/mL NT-Pro-B Natriuret Pep (0-125) pg/mL Total Protein (6.4-8.2) g/dL Albumin (3.4-5.0) g/dL TSH, Ultra Sensitive (0.358-3.740) mIU/mL Specimen Type Urine Color Urine Appearance Urine pH (5.0-9.0) Ur Specific [place] (1.005-1.030) Urine Protein (NEGATIVE) mg/dL Urine Glucose (UA) (NEGATIVE) mg/dL Urine Ketones (NEGATIVE) mg/dL Urine Occult Blood (NEGATIVE) Urine Nitrite (NEGATIVE) Urine Bilirubin (NEGATIVE) Urine Urobilinogen (0.2-1.0) E.U./dL Ur Leukocyte Esterase (NEGATIVE) Urine RBC /HPF Urine WBC /HPF Ur Epithelial Cells /LPF Urine Bacteria (NONE TO FEW) /HPF Microbiology 11/07/19 03:20 Blood - Venous Aerobic Blood Culture - Preliminary Gram Negative Rods 11/07/19 03:50 Blood - Venous - Lab Draw Aerobic Blood Culture - Preliminary Gram Negative Rods 11/07/19 03:50 Blood - Venous - Lab Draw Anaerobic Blood Culture - Preliminary Gram Negative Rods 11/07/19 05:55 Urine, Catheterized Urine Culture - Final [place] 11/07/19 16:00 Stool / Feces Stool Occult Blood (ANT) - Final NEGATIVE OCCULT BLOOD REFERENCE RANGE: NEGATIVE
== END 2019-11-08 05:30 | disposition expired | DRG 871 ==
LOC: LL.ED 02:57 → UNDOADMIN 04:36 → LL.MS 04:36 → UNDOADMIN 05:00 → UNDODISIN 11-08 05:30
PROVIDERS: ADMIT Family Medicine; ATTEND Family Medicine
PROC: 8E0ZXY6 Isolation (ICD-10-PCS; principal; 2019-11-07)
DX: A41.9 Sepsis, unspecified organism (principal); J18.9 Pneumonia, unspecified organism; I25.110 Atherosclerotic heart disease of native coronary artery with unstable angina pectoris; I21.4 Non-ST elevation (NSTEMI) myocardial infarction; I50.43 Acute on chronic combined systolic (congestive) and diastolic (congestive) heart failure; N18.4 Chronic kidney disease, stage 4 (severe); I25.10 Atherosclerotic heart disease of native coronary artery without angina pectoris; I13.0 Hypertensive heart and chronic kidney disease with heart failure and stage 1 through stage 4 chronic kidney disease, or unspecified chronic kidney disease; I50.9 Heart failure, unspecified; N30.00 Acute cystitis without hematuria; J44.1 Chronic obstructive pulmonary disease with (acute) exacerbation; I69.354 Hemiplegia and hemiparesis following cerebral infarction affecting left non-dominant side; J44.0 Chronic obstructive pulmonary disease with (acute) lower respiratory infection; Z66 Do not resuscitate; Z51.5 Encounter for palliative care; I25.118 Atherosclerotic heart disease of native coronary artery with other forms of angina pectoris; I46.9 Cardiac arrest, cause unspecified; Z74.8 Other problems related to care provider dependency; Z20.828 Contact with and (suspected) exposure to other viral communicable diseases; R79.1 Abnormal coagulation profile; E03.9 Hypothyroidism, unspecified; D63.1 Anemia in chronic kidney disease; H91.90 Unspecified hearing loss, unspecified ear; H54.7 Unspecified visual loss; H91.13 Presbycusis, bilateral; I48.91 Unspecified atrial fibrillation; E78.00 Pure hypercholesterolemia, unspecified; I49.9 Cardiac arrhythmia, unspecified; K59.09 Other constipation; K57.92 Diverticulitis of intestine, part unspecified, without perforation or abscess without bleeding; K29.70 Gastritis, unspecified, without bleeding; K21.9 Gastro-esophageal reflux disease without esophagitis; K44.9 Diaphragmatic hernia without obstruction or gangrene; K57.90 Diverticulosis of intestine, part unspecified, without perforation or abscess without bleeding; M19.90 Unspecified osteoarthritis, unspecified site; G89.29 Other chronic pain; M54.9 Dorsalgia, unspecified; M10.9 Gout, unspecified; M54.2 Cervicalgia; M81.0 Age-related osteoporosis without current pathological fracture; G62.9 Polyneuropathy, unspecified; G25.81 Restless legs syndrome; G89.4 Chronic pain syndrome; E79.0 Hyperuricemia without signs of inflammatory arthritis and tophaceous disease; E87.6 Hypokalemia; E66.9 Obesity, unspecified; E83.42 Hypomagnesemia; M85.80 Other specified disorders of bone density and structure, unspecified site; R79.89 Other specified abnormal findings of blood chemistry; E55.9 Vitamin D deficiency, unspecified; D50.9 Iron deficiency anemia, unspecified; Z90.89 Acquired absence of other organs; S92.355D Nondisplaced fracture of fifth metatarsal bone, left foot, subsequent encounter for fracture with routine healing; Z79.02 Long term (current) use of antithrombotics/antiplatelets; Z79.899 Other long term (current) drug therapy; Z79.01 Long term (current) use of anticoagulants; Z88.1 Allergy status to other antibiotic agents; Z88.8 Allergy status to other drugs, medicaments and biological substances; Z79.890 Hormone replacement therapy; Z98.890 Other specified postprocedural states; I25.2 Old myocardial infarction; Z87.81 Personal history of (healed) traumatic fracture; Z86.718 Personal history of other venous thrombosis and embolism; Z87.01 Personal history of pneumonia (recurrent); Z68.30 Body mass index [BMI] 30.0-30.9, adult; Z99.81 Dependence on supplemental oxygen; Z87.11 Personal history of peptic ulcer disease; Z87.19 Personal history of other diseases of the digestive system; Z79.891 Long term (current) use of opiate analgesic; Z98.41 Cataract extraction status, right eye; Z98.42 Cataract extraction status, left eye; Z95.5 Presence of coronary angioplasty implant and graft; Z98.51 Tubal ligation status; Z87.891 Personal history of nicotine dependence; Z82.61 Family history of arthritis; Z82.49 Family history of ischemic heart disease and other diseases of the circulatory system; Z82.5 Family history of asthma and other chronic lower respiratory diseases; Z83.3 Family history of diabetes mellitus; Z82.3 Family history of stroke; Z83.79 Family history of other diseases of the digestive system; Z80.0 Family history of malignant neoplasm of digestive organs
CPT/HCPCS: 36415; 71045; 80053; 81001; 82272; 82550; 82553; 83605; 83735; 83880; 84443; 84484; 84550; 85025; 85379; 85610; 85730; 87040; 87077; 87086; 87088; 87186; 87338; 93005; 94640; 96365; 96375; 99285-25; A9270-GY; J0456; J1940; J2060; J2270; J2543; J3490; J7050; J7613-GY; J7620-GY; U0002